=== PATIENT | female | born 1945 | race Caucasian/White ===

== ENCOUNTER 2016-08-18 14:59 | Inpatient (IN) | payer MEDICARE, BC ==
[2016-08-18] MEDS ORDERED: IPRATROPIUM-ALBUTEROL 3 ML NEB INHALATION STA ×2 (15:34→15:45)
[2016-08-18] MEDS ORDERED: TERBUTALINE 1 MG/ML VIAL SQ STA (15:34)
[2016-08-18] MEDS ORDERED: methylPREDNISolone SOD SUCCI 125 MG/2 ML VIAL IV STA (15:34)
--- NOTE | 2016-08-18 16:00 | ED ---
General Adult HPI - General Chief complaint: Shortness of Breath Stated complaint: SOB Time Seen by Provider: 08/18/16 15:32 Source: patient, family, RN notes reviewed, old records reviewed Mode of arrival: wheelchair - History of Present Illness Initial comments: Chief complaint and history of present illness a 71-year-old female here with family. The patient has COPD. She's been giving himself up dressed the past several days without relief today. Denies fever denies pain. No nausea no vomiting. No productive cough. Patient quit smoking 5 weeks ago. - Related Data Home Medications Medication Instructions Recorded Confirmed Omeprazole [PriLOSEC] 20 mg PO DAILY 04/25/14 02/29/16 Vitamin E (Dl,Tocopheryl Acet) 400 unit PO DAILY 12/20/14 02/29/16 [Vitamin E] ALPRAZolam 0.25 mg PO Q8H PRN 01/16/15 02/29/16 Albuterol Inhaler [Ventolin Hfa 2 puff INHALATION RT-Q6H PRN 01/17/15 02/28/16 Inhaler] Albuterol Nebulized [Ventolin 2.5 mg INHALATION RT-Q6H PRN 07/05/15 02/28/16 Nebulized] Budesonide/Formoterol Fumarate 2 puff INHALATION RT-BID 10/12/15 02/29/16 [Symbicort 160-4.5 Mcg Inhaler] Cholecalciferol [Vitamin D3] 1,000 unit PO DAILY 10/12/15 02/29/16 Vitamin B-12 Unknown Dose 1 tab PO DAILY 10/12/15 02/29/16 Famotidine 40 mg PO DAILY 02/28/16 02/29/16 Mometasone/Formoterol [Dulera 200 2 puff INHALATION RT-BID 02/28/16 02/29/16 Mcg/5 Mcg Inhaler] Previous Rx's Medication Instructions Recorded Aspirin 81 mg PO BID #1 chewable 10/17/15 Atorvastatin [Lipitor] 80 mg PO DAILY #60 tab 10/17/15 Clopidogrel [Plavix] 75 mg PO DAILY #60 tab 10/17/15 Ipratropium-Albuterol Nebulize 3 ml INHALATION TID #90 neb 10/17/15 [Duoneb 0.5 mg-3 mg/3 ml Soln] Lisinopril-Hctz 20-12.5 mg 1 tab PO DAILY #60 tab 10/17/15 [Zestoretic 20-12.5] Metoprolol Succinate (ER) [Toprol 50 mg PO DAILY #60 tab.er.24h 10/17/15 XL] Nitroglycerin Sl Tabs [Nitrostat] 0.4 mg SUBLINGUAL Q5M PRN #25 tab 10/17/15 Spironolactone [Aldactone] 25 mg PO DAILY #60 tab 10/17/15 Levofloxacin [Levaquin] 500 mg PO DAILY #5 tab 03/01/16 Nicotine 21Mg/24Hr Patch [Habitrol] 1 patch TRANSDERM DAILY #14 patch 03/01/16 predniSONE 10 mg PO DIRECTED #24 tab 03/01/16 Allergies Allergy/AdvReac Type Severity Reaction Status Date / Time No Known Allergies Allergy Verified 08/18/16 15:30 Review of Systems ROS Statement: Those systems with pertinent positive or pertinent negative responses have been documented in the HPI. Review of systems patient denies any headache or visual acuity changes no neck pain no chest pain she does appear to be an complains of being short of breath. No chest pain with breathing. No GI/ problems no complaints of a neuro deficits no leg swelling. All systems reviewed Past medical problems COPD, hyperlipidemia and hypertension. 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 Had a history of antral gastritis with small hiatal hernia, no weight loss lately. Surgeries include C- section. Quit smoking 5 weeks ago. Family history father living to his 86 mother of a heart attack at age 46. ROS Other: All systems not noted in ROS Statement are negative. Past Medical History Past Medical History: COPD, Hyperlipidemia, Hypertension Additional Past Medical History / Comment(s): Other HX: Arthiritis bilateral knees, antral gastritis with small hiatal hernia History of Any Multi-Drug Resistant Organisms: None Reported Past Surgical History: Section Additional Past Surgical History / Comment(s): 04/27/14 EGD with negative bx and colonoscopy, arthroscopic surgery on one of her knees (pt unsure which knee), 3 C-Sections. Past Anesthesia/Blood Transfusion Reactions: No Reported Reaction Past Psychological History: No Psychological Hx Reported Additional Psychological History / Comment(s): Pt lives with her and grandson. She is independent. She uses no assistive device and has no home care agency. She drives a car. Smoking Status: Former smoker Past Alcohol Use History: None Reported Additional Past Alcohol Use History / Comment(s): STARTED SMOKING AGE 23. She smoked 1 1/2 packs a day. Pt states she resumed smoking and quit 4 weeks ago. Past Drug Use History: None Reported - Past Family History Father Family Medical History: Coronary Artery Disease (CAD) Additional Family Medical History / Comment(s): Father at age 86yrs. Mother Family Medical History: Coronary Artery Disease (CAD) Additional Family Medical History / Comment(s): Mother at age 46yrs. She had a heart murmur. General Exam - General Exam Comments Initial Comments: General: The patient is awake and alert, having difficulty breathing. Updrafts at home weren't effective. Vital signs show temperature 97.2 pulse 104 respiratory rate 32 blood pressure 117/99 elevated because she is in extreme respiratory distress. Pulse ox 97% room air. Patient is also very anxious Eye: Pupils are equal, round and reactive to light, extra-ocular movements are intact ; there is normal conjunctiva bilaterally. No signs of icterus. Ears, nose, mouth and throat: There are moist mucous membranes and no oral lesions. Neck: The neck is supple, there is no tenderness . Cardiovascular: Tachycardic heart rate 104. No murmur, rub or gallop is appreciated. Respiratory: Wheezing bilaterally decreased air entry bilaterally. Gastrointestinal: Soft, non-distended, non-tender abdomen without masses or organomegaly noted. There is no rebound or guarding present. No CVA tenderness. Bowel sounds are unremarkable. Back: There is no tenderness to palpation in the midline. There is no obvious deformity. No rashes noted. Musculoskeletal: Normal ROM, no tenderness, There is no pedal edema. There is no calf tenderness or swelling. Sensation intact. Pulses equal bilaterally 2+. Neurological: No neuro deficits Skin: Skin is warm and dry and no rashes or lesions are noted. Psychiatric: Cooperative, appropriate mood & affect, normal judgment. Course Vital Signs 08/18/16 08/18/16 08/18/16 15:28 15:35 15:41 Temperature 97.2 F L Pulse Rate 107 H 111 H 104 H Respiratory 26 H 32 H Rate Blood Pressure 119/59 157/99 O2 Sat by Pulse 95 97 Oximetry 01/09/0308/18/16 08/18/16 15:51 15:52 16:02 Temperature Pulse Rate 104 H 106 H 106 H Respiratory Rate Blood Pressure O2 Sat by Pulse Oximetry 08/18/16 08/18/16 08/18/16 16:03 16:18 17:15 Temperature 97.7 F Pulse Rate 106 H 106 H 109 H Respiratory 24 Rate Blood Pressure 150/77 O2 Sat by Pulse 86 L Oximetry EKG Findings - EKG Comments: EKG Findings:: EKG was done and reviewed at 1608 showing sinus tachycardia rate [address] elevation no ectopy. No evidence of ischemia. MO was 132 QRS [address] Holly Medical Decision Making - Medical Decision Making Medical decision making the patient's labs show white count of 8 hemoglobin 11 hematocrit 33, potassium 3.8 with a BUN 11 creatinine 0.9 and GFR greater than 60. Glucose 129. Chest x-ray was done and reviewed by radiologist his impression is there is some pulmonary hyperinflation and flattening of the diaphragm. Lungs are clear consolidation. Heart size is normal. There are no hilar masses. There is no pleural effusion. There is slight coarsening of the interstitial markings. Bony thorax is intact. Impression; COPD of mild pulmonary fibrosis. No acute lung disease. No change. As read by Dr. Dorsey The patient sees Dr. Reshma murphy when she has severe respiratory problems. She' ll be admitted to Dr. Sipmson with consultation from pulmonary. - Lab Data Result diagrams: 08/18/16 16:10 08/18/16 16:10 Lab Results 08/18/16 08/18/16 Range/Units 16:10 16:10 WBC 8.3 (3.8-10.6) k/uL RBC 3.45 L (3.80-5.40) m/uL Hgb 11.5 (11.4-16.0) gm/dL Hct 33.9 L (34.0-46.0) % MCV 98.1 (80.0-100.0) fL MCH 33.3 (25.0-35.0) pg MCHC 33.9 (31.0-37.0) g/dL RDW 13.6 (11.5-15.5) % Plt Count 381 (150-450) k/uL Neutrophils % 66 % Lymphocytes % 14 % Monocytes % 8 % Eosinophils % 9 % Basophils % 1 % Neutrophils # 5.5 (1.3-7.7) k/uL Lymphocytes # 1.1 (1.0-4.8) k/uL Monocytes # 0.6 (0-1.0) k/uL Eosinophils # 0.7 (0-0.7) k/uL Basophils # 0.1 (0-0.2) k/uL Sodium 144 (137-145) mmol/L Potassium 3.8 (3.5-5.1) mmol/L Chloride 105 (98-107) mmol/L Carbon Dioxide 28 (22-30) mmol/L Anion Gap 11 mmol/L BUN 11 (7-17) mg/dL Creatinine 0.90 (0.52-1.04) mg/dL Est GFR (MDRD) Af Amer >60 (>60 ml/min/1.73 sqM) Est GFR (MDRD) Non-Af >60 (>60 ml/min/1.73 sqM) Glucose 129 H (74-99) mg/dL Calcium 9.5 (8.4-10.2) mg/dL Magnesium 1.7 (1.6-2.3) mg/dL Total Bilirubin 0.4 (0.2-1.3) mg/dL AST 31 (14-36) U/L ALT 31 (9-52) U/L Alkaline Phosphatase 78 (38-126) U/L Total Protein 6.6 (6.3-8.2) g/dL Albumin 3.7 (3.5-5.0) g/dL Disposition Clinical Impression: Asthma exacerbation in COPD Disposition: ADMITTED IP TO THIS HOSP Condition: Stable
[2016-08-18] MEDS: SODIUM CHLORIDE 0.9% 1,000 ML IV STA ×2 (16:09→21:22)
[2016-08-18 16:23] LABS: Basophils # (A) 0.1 k/uL (0-0.2); Basophils % (A) 1 %; CHCM 33.8; Eosinophils # (A) 0.7 k/uL (0-0.7); Eosinophils % (A) 9 %; HCT 33.9 % (34.0-46.0); HDW 2.67; HGB 11.5 gm/dL (11.4-16.0); Luc # (Auto) 0.28; Luc % (Auto) 3; Lymphocytes # (A) 1.1 k/uL (1.0-4.8); Lymphocytes % (A) 14 %; MCH 33.3 pg (25.0-35.0); MCHC 33.9 g/dL (31.0-37.0); MCV 98.1 fL (80.0-100.0); Mean Platelet Volume 6.6; Monocytes # (A) 0.6 k/uL (0-1.0); Monocytes % (A) 8 %; Neutrophils # (A) 5.5 k/uL (1.3-7.7); Neutrophils % (A) 66 %; RBC 3.45 m/uL (3.80-5.40); RDW 13.6 % (11.5-15.5); WBC 8.3 k/uL (3.8-10.6); WBC (Perox) 8.51
[2016-08-18 16:35] LABS: ALT 31 U/L (9-52); AST 31 U/L (14-36); Alkaline Phosphatase 78 U/L (38-126); Anion Gap 11 mmol/L; Blood Urea Nitrogen 11 mg/dL (7-17); Calcium 9.5 mg/dL (8.4-10.2); Carbon Dioxide 28 mmol/L (22-30); Chloride 105 mmol/L (98-107); Glucose 129 mg/dL (74-99); Magnesium 1.7 mg/dL (1.6-2.3); Non-African American GFR(MDRD) >60 (>60 ml/min/1.73 sqM); Potassium 3.8 mmol/L (3.5-5.1); Sodium 144 mmol/L (137-145); Total Bilirubin 0.4 mg/dL (0.2-1.3); Total Protein 6.6 g/dL (6.3-8.2)
--- NOTE | 2016-08-18 16:51 | XR ---
EXAMINATION TYPE: XR chest 2V DATE OF EXAM: 08/18/2016 4:45 PM COMPARISON: 02/28/2016 HISTORY: Dyspnea TECHNIQUE: Frontal and lateral views of the chest are obtained. FINDINGS: There is pulmonary hyperinflation and flattening of the diaphragm. Lungs are clear of cons olidation. Heart size is normal. There are no hilar masses. There is no pleural effusion. There is sl ight coarsening of interstitial markings. Bony thorax is intact. IMPRESSION: COPD and mild pulmonary fibrosis. No acute lung disease. No change.
[2016-08-18] MEDS ORDERED: ACETAMINOPHEN TAB 325 MG TAB PO PRN (18:01)
[2016-08-18] MEDS ORDERED: NALOXONE 0.4 MG/ML 1 ML VIAL IV PRN (18:01)
[2016-08-18] MEDS ORDERED: ALBUTEROL NEBULIZED 2.5 MG/3 ML INHALATION PRN (18:03)
[2016-08-18] MEDS ORDERED: methylPREDNISolone SOD SUCCI 40 MG/ML 1 ML VIAL IV PRN (18:05)
[2016-08-18 18:56] VITALS: BMI 18.8
[2016-08-18] MEDS: SYMBICORT 160-4.5 MCG INHALER INHALATION SCH (20:12)
[2016-08-18] MEDS: FAMOTIDINE 20 MG TAB PO SCH (21:20)
[2016-08-18] MEDS: ALPRAZolam 0.25 MG TAB PO PRN (21:20)
[2016-08-18] MEDS: ASPIRIN 81 MG CHEW PO SCH (21:21)
[2016-08-18] MEDS: SODIUM CHLORIDE 0.9% 1,000 ML IV SCH (21:22)
[2016-08-19] MEDS: IPRATROPIUM-ALBUTEROL 3 ML NEB INHALATION PRN ×4 (00:02→23:14)
[2016-08-19] MEDS ORDERED: LEVOFLOXACIN 500MG-D5W PMX 500 MG in DEXTROSE/WATER 1 100ML.BAG IVPB SCH ×2 (00:45→03:11)
[2016-08-19] MEDS: HEPARIN SODIUM,PORCINE 5,000 UNIT/ML 1 ML VIAL SQ SCH ×3 (02:15→20:47)
[2016-08-19] MEDS: methylPREDNISolone SOD SUCCI 125 MG/2 ML VIAL IV SCH ×3 (05:30→17:52)
[2016-08-19 07:45] LABS: Glucose,Whole Blood 101 mg/dL (75-99)
[2016-08-19] MEDS: SYMBICORT 160-4.5 MCG INHALER INHALATION SCH ×2 (07:47→19:55)
[2016-08-19] MEDS: IPRATROPIUM-ALBUTEROL 3 ML NEB INHALATION SCH ×4 (07:47→19:55)
[2016-08-19] MEDS: ATORVASTATIN 80 MG TAB PO SCH (08:06)
[2016-08-19] MEDS: FAMOTIDINE 20 MG TAB PO SCH (08:06)
[2016-08-19] MEDS: SPIRONOLACTONE 25 MG TAB PO SCH (08:06)
[2016-08-19] MEDS: NICOTINE 21MG/24HR PATCH TRANSDERM SCH (08:06)
[2016-08-19] MEDS: LISINOPRIL-HCTZ 20-12.5 MG 1 EACH TAB PO SCH (08:06)
[2016-08-19] MEDS: INSULIN LISPRO (humaLOG) 300 UNIT/3 ML VIAL SQ SCH ×4 (08:06→21:38)
[2016-08-19] MEDS: CLOPIDOGREL 75 MG TAB PO SCH (08:06)
[2016-08-19] MEDS: ASPIRIN 81 MG CHEW PO SCH ×2 (08:06→20:47)
[2016-08-19] MEDS: METOPROLOL SUCCINATE (ER) 50 MG TAB.ER.24H PO SCH (08:06)
[2016-08-19] MEDS: CHOLECALCIFEROL 1,000 UNIT TAB PO SCH (12:07)
[2016-08-19 12:43] LABS: Glucose,Whole Blood 131 mg/dL (75-99)
[2016-08-19 12:48] LABS: Hemoglobin A1C 5.2 % (4.2-6.1)
--- NOTE | 2016-08-19 15:56 | HP ---
DATE OF ADMISSION: 08/18/2016 CHIEF COMPLAINT: Shortness of breath. HISTORY OF PRESENT ILLNESS: This 71-year-old woman with a past medical history of multiple medical problems including COPD, hypertension, hyperlipidemia, section being followed by Dr. Cueva in the outpatient setting was complaining of shortness of breath, which was increasing over the past several days. The patient apparently quit smoking about 5 weeks ago. There is no history of fever, rigors. No history of headache, loss of consciousness, seizures. The patient admitted for further evaluation and treatment. The chest x-ray done on admission showed chronic obstructive pulmonary disease and pulmonary fibrosis. No other acute changes are noted. PAST MEDICAL HISTORY: History of COPD, hypertension, hyperlipidemia. Medications prior to admission include: 1. Prednisone 10 mg p.r.n. 2. Vitamin E. 3. Aldactone. 4. Vitamin B12. 5. Omeprazole. 6. Nitroglycerin. 7. Nicotine 21. 8. Lisinopril. 9. Metoprolol. 10. Levaquin. 11. Combivent. 12. DuoNeb. 13. Levaquin. 14. Pepcid 40 mg daily. 15. Plavix 75 mg daily. 16. Vitamin D3 1000 daily. 17. Symbicort 160/4.5, 2 puffs b.i.d. 18. Lipitor 80 mg daily. 19. Aspirin 81 mg. 20. Albuterol. 21. Apresoline 0.5 q.8 p.r.n. ALLERGIES: None. FAMILY HISTORY: History of coronary artery disease in father. The father at 86 years. SOCIAL HISTORY: Previous history of smoking. No history of alcohol intake. REVIEW OF SYSTEMS: ENT: No diminished hearing or vision. CARDIOVASCULAR: No angina. RESPIRATORY: As mentioned earlier. GI: No nausea. : No dysuria. NERVOUS SYSTEM: No numbness or weakness. ALLERGY/IMMUNOLOGY: No asthma or hayfever. MUSCULOSKELETAL: As mentioned earlier. HEMATOLOGY: No history of anemia. ENDOCRINE: No history diabetes or hypothyroidism. CONSTITUTIONAL: As mentioned earlier. DERMATOLOGY: Negative. RHEUMATOLOGY: Negative. PSYCHIATRY: As mentioned earlier. PHYSICAL EXAMINATION: Patient is alert and oriented x3. Pulse is 84, blood pressure 150/84, respirations 17, temperature 96, pulse ox 100% on 2-L. HEENT: Conjunctivae normal. NECK: No jugular venous distention. CARDIOVASCULAR: S1 and S2, muffled. RESPIRATORY: Breath sounds diminished at the bases. A few scattered rhonchi and bilateral scattered rhonchi and crackles. Expiratory wheezing also present. ABDOMEN: Soft, nontender. No mass palpable. LEGS: No edema, no swelling. NERVOUS SYSTEM: Higher function as mentioned. Moves all four limbs. No focal motor deficits. LYMPHATIC: No lymphadenopathy in the neck, axillae or groin. SKIN: No ulcer, rash or bleeding. LABS: Hemoglobin 11.5. Glucose ( ), BMI 18.8. ASSESSMENT: 1. Chronic obstructive pulmonary disease acute exacerbation, with acute purulent tracheobronchitis and possible pulmonary fibrosis. 2. History of nicotine dependence. 3. Moderate severe protein calorie malnutrition with a BMI of 18.8. 4. History of hyperlipidemia. 5. Hypertension. 6. History of degenerative joint disease. 7. History of antral gastritis. 8. History of nicotine dependence. 9. FULL CODE. RECOMMENDATIONS AND DISCUSSION: In this 71-year-old woman who presented with multiple complex medical issues, we will monitor the patient closely. Continue the current medications. Continue symptomatic treatment. Continue with the IV steroids. Otherwise, I would also recommend pulmonary consultation. Optimize the bronchodilators, empiric antibiotics. Guarded prognosis because of multiple complex medical issues. Further recommendations to follow. Copy of dictation forwarded to Dr. Cueva who is the primary physician.
--- NOTE | 2016-08-19 16:19 | P.CNPUL ---
History of Present Illness Consult date: 08/19/16 Requesting physician: Girish Burns Reason for consult: COPD Chief complaint: Shortness of breath History of present illness: This is a 71-year-old female with history of COPD, I saw her in my office last about a year ago. Patient is not O2 dependent, and she is not prednisone dependent. However she is known to be prednisone responsive. Patient was admitted yesterday with mostly a few days' history of increased shortness of breath, wheezing, and cough. Patient was a heavy smoker until 5 weeks ago. No fever no chills no hemoptysis no chest pain. No nausea no vomiting no abdominal pain. No melena no hematemesis is no dysuria and no frequency no urgency. Patient was admitted with the impression of acute exacerbation of COPD , and I was asked to see her on consultation. Review of Systems 12 point review of systems were obtained, please refer to pertinent positives and negatives in HPI. Past Medical History Past Medical History: COPD, Hyperlipidemia, Hypertension Additional Past Medical History / Comment(s): Other HX: Arthiritis bilateral knees, antral gastritis with small hiatal hernia. History of Any Multi-Drug Resistant Organisms: None Reported Past Surgical History: Section Additional Past Surgical History / Comment(s): 04/27/14 EGD with negative bx and colonoscopy, 3 C-Sections. Past Anesthesia/Blood Transfusion Reactions: No Reported Reaction Past Psychological History: No Psychological Hx Reported Additional Psychological History / Comment(s): Pt lives with her and grandson. She is independent. She uses no assistive device and has no home care agency. She drives a car. Smoking Status: Former smoker Past Alcohol Use History: None Reported Additional Past Alcohol Use History / Comment(s): STARTED SMOKING AGE 23. She smoked 1 1/2 packs a day. Pt states she resumed smoking and quit 5 weeks ago. Past Drug Use History: None Reported - Past Family History Father Family Medical History: Coronary Artery Disease (CAD) Additional Family Medical History / Comment(s): Father at age 86yrs. Mother Family Medical History: Coronary Artery Disease (CAD) Additional Family Medical History / Comment(s): Mother at age 46yrs. She had a heart murmur. Medications and Allergies Home Medications Medication Instructions Recorded Confirmed Type Omeprazole [PriLOSEC] 20 mg PO DAILY 04/25/14 08/19/16 History Vitamin E (Dl,Tocopheryl Acet) 400 unit PO DAILY 12/20/14 08/19/16 History [Vitamin E] ALPRAZolam 0.25 mg PO Q8H PRN 01/16/15 08/19/16 History Albuterol Inhaler [Ventolin Hfa 2 puff INHALATION RT-Q6H PRN 01/17/15 08/19/16 History Inhaler] Albuterol Nebulized [Ventolin 2.5 mg INHALATION RT-TID 07/05/15 08/19/16 History Nebulized] Famotidine 40 mg PO DAILY 02/28/16 08/19/16 History Mometasone/Formoterol [Dulera 200 2 puff INHALATION RT-BID 02/28/16 08/19/16 History Mcg/5 Mcg Inhaler] Denosumab [Prolia] 60 mg SQ ONCE 08/19/16 08/19/16 History Donepezil [Aricept] 5 mg PO HS 08/19/16 08/19/16 History Isosorbide Mononitrate ER [Imdur] 30 mg PO DAILY 08/19/16 08/19/16 History buPROPion SR [Wellbutrin Sr] 150 mg PO BID 08/19/16 08/19/16 History Allergies Allergy/AdvReac Type Severity Reaction Status Date / Time No Known Allergies Allergy Verified 08/18/16 15:30 Physical Exam Vitals: Vital Signs Temp Pulse Pulse Resp BP BP Pulse Ox 08/19/16 15:00 97.6 F 95 22 130/74 100 08/19/16 13:17 92 08/19/16 13:06 96 08/19/16 10:55 96 08/19/16 10:41 100 08/19/16 08:30 104 H 08/19/16 08:15 96 08/19/16 07:00 96.3 F L 89 22 129/68 100 08/19/16 05:26 100 08/19/16 05:17 104 H 08/19/16 00:14 100 08/19/16 00:03 100 08/18/16 23:00 96.3 F L 94 17 150/84 100 08/18/16 20:25 110 H 08/18/16 20:13 108 H 08/18/16 18:31 97.6 F 101 H 20 162/69 98 Intake and Output 08/19/16 08/19/16 08/19/16 06:59 14:59 22:59 Intake Total 625 360 Balance 625 360 Intake: IV 525 Sodium Chloride 0.9% 1, 525 000 ml @ 75 mls/hr IV . [id number] STA Rx#:[id number] Intake, IV Titration 100 Amount Levofloxacin 500Mg-D5w 100 Pmx 500 mg In Dextrose/ Water 1 100ml.bag @ 100 mls/hr IVPB HS MURALI Rx#: [id number] Oral 360 Other: # Voids 1 1 Weight 48.081 kg Patient Weight 08/20/16 06:59 Weight 48.081 kg Physical Exam: Revealed a 71-year-old female anxious, slightly dyspneic with any activity. HEENT:[Neck is supple.] [No neck masses.] [No thyromegaly.] [No JVD.] Chest: [Diminished breath sounds at the bases, wheezes noted on forced expiratory maneuver bilaterally.] Cardiac Exam: [Normal S1 and S2, no S3 gallop, no murmur.] Abdomen: [Soft, nontender, no megaly, no rebound, no guarding, normal bowel sounds.] Extremities: [No clubbing, no edema, no cyanosis.] Neurological Exam: [No focal neurologic deficit.] Results - Laboratory Findings CBC and BMP: 08/18/16 16:10 08/18/16 16:10 Abnormal lab findings: Abnormal Labs 08/19/16 08/19/16 07:41 12:39 POC Glucose (mg/dL) 101 H 131 H - Diagnostic Findings Chest x-ray: image reviewed (COPD, slight nonspecific fibrotic changes noted bilaterally.) Assessment and Plan Plan: Impression: 1 acute exacerbation of COPD and purulent tracheobronchitis. 2 nonspecific pulmonary fibrosis, chronic. 3 multiple comorbidities including degenerative joint disease, hypertension, hyperlipidemia, protein calorie malnutrition, and history of nicotine dependence. Recommendation: Continue present course of bronchodilators, antibiotics, steroids, expect the patient to improve over the next couple of days, Xanax was added because the patient is noted to be a bit anxious and that may lead to worsening COPD symptoms. We'll continue to follow. Discussed her condition with her and with her granddaughter at the bedside. Time with Patient: Greater than 30
[2016-08-19 17:24] LABS: Glucose,Whole Blood 132 mg/dL (75-99)
[2016-08-19] MEDS: SODIUM CHLORIDE 0.9% 1,000 ML IV SCH (17:53)
--- NOTE | 2016-08-19 19:41 | P.PN ---
Subjective Date of service 08/19/2016 Progress note being dictated for Dr. Burns Interval history: This a 71-year-old female admitted with acute exacerbation of COPD with pearly and tracheobronchitis, nonspecific pulmonary fibrosis and multiple other medical issues. Last night IV steroids increased, with breathing slowly improving. Mildly anxious. Complains of exertional shortness of breath. Denies chest pain, palpitations. States wears oxygen at home, when necessary. Blood sugars controlled.afebrile. Objective - Vital Signs Vital signs: Vital Signs Temp 97.6 F 08/19/16 15:00 Pulse 88 08/19/16 16:28 Resp 22 08/19/16 15:00 BP 130/74 08/19/16 15:00 Pulse Ox 100 08/19/16 15:00 Intake & Output 08/19/16 08/19/16 08/20/16 06:59 18:59 06:59 Intake Total 1025 360 Balance 1025 360 Weight 48.081 kg Intake: IV 525 Sodium Chloride 0.9% 1, 525 000 ml @ 75 mls/hr IV . [id number] STA Rx#:[id number] Intake, IV Titration 500 Amount Levofloxacin 500Mg-D5w 100 Pmx 500 mg In Dextrose/ Water 1 100ml.bag @ 100 mls/hr IVPB HS MURALI Rx#: [id number] Sodium Chloride 0.9% 1, 400 000 ml @ 20 mls/hr IV . Q24H MURALI Rx#:[id number] Oral 360 Other: # Voids 1 1 - Exam PHYSICAL EXAM: VITAL SIGNS: As above GENERAL: [Sitting up in bed, no acute distress, mild anxiety] HEENT: [Pupils equal conjunctiva normal.] NECK: [Supple, no JVD] RESPIRATORY EFFORT:[Normal at rest] LUNGS: [Bilateral bases diminished, with expiratory wheezing, scattered rhonchi ] CARDIOVASCULAR[regular S1 and S2, no edema] GI: [Abdomen soft, nontender, positive bowel sounds.] PSYCH: [Alert and oriented -3, mood and affect normal.] NEURO: No focal deficits, moves all 4 extremities - Labs CBC & Chem 7: 08/18/16 16:10 08/18/16 16:10 Labs: Abnormal Lab Results - Last 24 Hours (Table) 08/19/16 08/19/16 08/19/16 Range/Units 07:41 12:39 17:20 POC Glucose (mg/dL) 101 H 131 H 132 H (75-99) mg/dL Assessment and Plan Plan: 1. Acute COPD exacerbation with acute purulent tracheobronchitis, possible nonspecific chronic pulmonary fibrosis. 2. History of nicotine dependence. 3. Moderate severe protein calorie malnutrition, BMI 18.8. 4. Hyperlipidemia. 5. Hypertension. 6. Degenerative joint disease. 7. Antral gastritis, history of. 8. Acute on chronic hypoxic respiratory failure. Plan: Continue on current medication regime, empiric antibiotics, nebulized bronchodilators, IV steroids, Xanax, monitoring and symptomatic treatment. Follow closely with pulmonary. Discussed home O2 use with patient including ongoing continuous O2 during sleep. Further recommendations to follow. The impression and plan of care has been dictated as directed. : I performed a H&P examination of this patient and discussed the same with the dictator. I agree with the dictator's note. Any additional findings/opinions/ etc. will be noted.
[2016-08-19 21:36] LABS: Glucose,Whole Blood 147 mg/dL (75-99)
[2016-08-20] MEDS: methylPREDNISolone SOD SUCCI 125 MG/2 ML VIAL IV SCH ×5 (00:54→23:59)
[2016-08-20] MEDS: IPRATROPIUM-ALBUTEROL 3 ML NEB INHALATION PRN (03:39)
[2016-08-20 07:22] LABS: Glucose,Whole Blood 120 mg/dL (75-99)
[2016-08-20] MEDS: CLOPIDOGREL 75 MG TAB PO SCH (08:05)
[2016-08-20] MEDS: HEPARIN SODIUM,PORCINE 5,000 UNIT/ML 1 ML VIAL SQ SCH ×2 (08:05→21:12)
[2016-08-20] MEDS: ASPIRIN 81 MG CHEW PO SCH ×2 (08:05→21:12)
[2016-08-20] MEDS: METOPROLOL SUCCINATE (ER) 50 MG TAB.ER.24H PO SCH (08:05)
[2016-08-20] MEDS: LISINOPRIL-HCTZ 20-12.5 MG 1 EACH TAB PO SCH (08:05)
[2016-08-20] MEDS: SPIRONOLACTONE 25 MG TAB PO SCH (08:05)
[2016-08-20] MEDS: ATORVASTATIN 80 MG TAB PO SCH (08:05)
[2016-08-20] MEDS: FAMOTIDINE 20 MG TAB PO SCH (08:05)
[2016-08-20] MEDS: NICOTINE 21MG/24HR PATCH TRANSDERM SCH (08:05)
[2016-08-20] MEDS: INSULIN LISPRO (humaLOG) 300 UNIT/3 ML VIAL SQ SCH ×4 (08:06→22:03)
[2016-08-20] MEDS: IPRATROPIUM-ALBUTEROL 3 ML NEB INHALATION SCH ×4 (08:12→20:09)
[2016-08-20] MEDS: SYMBICORT 160-4.5 MCG INHALER INHALATION SCH ×2 (08:12→20:09)
--- NOTE | 2016-08-20 10:00 | PN ---
DATE OF SERVICE: 08/19/2016 This is a 71-year-old woman who was admitted with COPD acute exacerbation, is being closely monitored. Patient is on IV steroids. Seen and evaluated the patient with the nurse practitioner. Please refer to the nurse practitioner's notes and impression document as ascribed for information. Prognosis guarded. Further recommendations to follow.
[2016-08-20] MEDS: CHOLECALCIFEROL 1,000 UNIT TAB PO SCH (11:59)
[2016-08-20 12:37] LABS: Glucose,Whole Blood 102 mg/dL (75-99)
[2016-08-20] MEDS: ALPRAZolam 0.25 MG TAB PO PRN (15:40)
[2016-08-20 17:46] LABS: Glucose,Whole Blood 129 mg/dL (75-99)
[2016-08-20] MEDS: SODIUM CHLORIDE 0.9% 1,000 ML IV SCH (18:27)
[2016-08-20] MEDS ORDERED: LEVOFLOXACIN 250MG-D5W PMX 250 MG in DEXTROSE/WATER 1 50ML.BAG IVPB SCH (21:00)
--- NOTE | 2016-08-20 21:42 | PN ---
DATE OF SERVICE: 08/20/2006. This 71 -year-old woman was admitted to the hospital with chronic obstructive pulmonary disease acute exacerbation is being closely monitored. The patient is on IV steroids. Seen and evaluated the patient along with nurse practitioner. Please refer to the nurse practitioner notes and impression documented as a scribe for further information. Discharge home once cleared by pulmonary and okay with the family.
[2016-08-20 22:03] LABS: Glucose,Whole Blood 146 mg/dL (75-99)
[2016-08-21] MEDS: methylPREDNISolone SOD SUCCI 125 MG/2 ML VIAL IV SCH (06:03)
[2016-08-21 06:36] VITALS: BP 136/84; RESP 16; TEMP 97.1
[2016-08-21 07:30] LABS: Glucose,Whole Blood 94 mg/dL (75-99)
[2016-08-21] MEDS: FAMOTIDINE 20 MG TAB PO SCH (08:22)
[2016-08-21] MEDS: HEPARIN SODIUM,PORCINE 5,000 UNIT/ML 1 ML VIAL SQ SCH (08:22)
[2016-08-21] MEDS: LISINOPRIL-HCTZ 20-12.5 MG 1 EACH TAB PO SCH (08:22)
[2016-08-21] MEDS: ASPIRIN 81 MG CHEW PO SCH (08:22)
[2016-08-21] MEDS: SPIRONOLACTONE 25 MG TAB PO SCH (08:22)
[2016-08-21] MEDS: METOPROLOL SUCCINATE (ER) 50 MG TAB.ER.24H PO SCH (08:22)
[2016-08-21] MEDS: ATORVASTATIN 80 MG TAB PO SCH (08:22)
[2016-08-21] MEDS: CLOPIDOGREL 75 MG TAB PO SCH (08:22)
[2016-08-21] MEDS: NICOTINE 21MG/24HR PATCH TRANSDERM SCH (08:22)
[2016-08-21] MEDS: INSULIN LISPRO (humaLOG) 300 UNIT/3 ML VIAL SQ SCH ×2 (08:23→13:01)
[2016-08-21] MEDS: ALPRAZolam 0.25 MG TAB PO PRN (08:24)
[2016-08-21] MEDS: SYMBICORT 160-4.5 MCG INHALER INHALATION SCH (08:35)
[2016-08-21] MEDS: IPRATROPIUM-ALBUTEROL 3 ML NEB INHALATION SCH ×2 (08:35→13:59)
[2016-08-21] MEDS ORDERED: predniSONE 20 MG TAB PO SCH (09:00)
[2016-08-21 11:50] LABS: Glucose,Whole Blood 129 mg/dL (75-99)
[2016-08-21] MEDS: CHOLECALCIFEROL 1,000 UNIT TAB PO SCH (13:16)
[2016-08-21 14:11] VITALS: PULSE 92
[2016-08-22] MEDS ORDERED: LEVOFLOXACIN 250 MG TAB PO SCH (21:00)
--- NOTE | 2016-08-22 21:29 | DS ---
DATE OF ADMISSION: 08/18/2016 DATE OF DISCHARGE: 08/21/2016 FINAL DIAGNOSES: 1. Chronic obstructive pulmonary disease, acute exacerbation, with acute purulent tracheobronchitis with non-specific chronic pulmonary fibrosis. 2. History of nicotine dependence. 3. Moderate to severe protein-calorie malnutrition; body mass index of 18.8. 4. Hyperlipidemia. 5. Hypertension. 6. History of degenerative joint disease. 7. History of antral gastritis. DISCHARGE DISPOSITION: The patient will be discharged in stable condition with guarded prognosis. Dr. Mathews cleared the patient for discharge. HISTORY OF PRESENT ILLNESS: This is a 71-year-old woman admitted with COPD, acute exacerbation, treated with bronchodilators and antibiotics and steroids. The patient improved significantly. On exam, vitals are stable. CARDIOVASCULAR SYSTEM: S1, S2 muffled. RESPIRATORY SYSTEM: Breath sounds diminished at the bases. A few scattered rhonchi. ABDOMEN: Soft. NERVOUS SYSTEM: No focal deficit. DISCHARGE ADVICE AND MEDICATIONS: 1. Discharge diet is cardiac. 2. Activity limited until followup. 3. Xanax 0.25 q.8 p.r.n. 4. Albuterol 2 puffs q.6 p.r.n. 5. Albuterol nebulizer q.i.d. and p.r.n. 6. Ecotrin 81 mg p.o. daily. 7. Lipitor 80 mg p.o. daily. 8. Prolia 60 mg subcutaneously once. 9. Aricept 5 mg at bedtime. 10. Atrovent q.i.d. and p.r.n. 11. Imdur ER 30 mg p.o. daily. 12. Levaquin 250 mg p.o. daily for 5 days. 13. Lisinopril/hydrochlorothiazide (Zestoretic) 20/12.5 mg p.o. daily. 14. Toprol XL 50 mg p.o. daily. 15. Dulera 200 mcg/5 two puffs b.i.d. 16. Nitroglycerin 0.4 p.r.n. 17. Prilosec 20 mg daily. 18. Aldactone 25 mg p.o. b.i.d. 19. Vitamin E 400 units daily. 20. Wellbutrin SR 150 mg p.o. b.i.d. 21. Prednisone 40 mg daily for 3 days; 30 mg daily for 3 days; 20 mg daily for 3 days; 10 mg daily for 3 days. 22. Follow up with Dr. Rohan Cueva in 2 to 3 days. 23. Follow up with Dr. Street as advised. Once again, the patient will be discharged in stable condition with guarded prognosis.
== END 2016-08-21 15:30 | disposition home or self-care (01) | DRG 190 ==
LOC: EC 14:59 → 4MS4W 18:03
PROVIDERS: ADMIT Internal Medicine; ATTEND Internal Medicine
DX: J44.0 Chronic obstructive pulmonary disease with (acute) lower respiratory infection (principal); E43 Unspecified severe protein-calorie malnutrition; Z68.1 Body mass index [BMI] 19.9 or less, adult; J44.1 Chronic obstructive pulmonary disease with (acute) exacerbation; J84.10 Pulmonary fibrosis, unspecified; J20.9 Acute bronchitis, unspecified; R00.0 Tachycardia, unspecified; K29.60 Other gastritis without bleeding; K44.9 Diaphragmatic hernia without obstruction or gangrene; E78.5 Hyperlipidemia, unspecified; I10 Essential (primary) hypertension; M17.0 Bilateral primary osteoarthritis of knee; Z79.82 Long term (current) use of aspirin; Z79.51 Long term (current) use of inhaled steroids; Z79.02 Long term (current) use of antithrombotics/antiplatelets; Z82.49 Family history of ischemic heart disease and other diseases of the circulatory system; Z87.891 Personal history of nicotine dependence; Z79.899 Other long term (current) drug therapy; Z79.83 Long term (current) use of bisphosphonates
CPT/HCPCS: 36415; 71020; 80053; 83036; 83735; 85025; 93005; 94640; 94760; 96361; 96372; 96374; 99285

== ENCOUNTER 2016-10-13 12:32 | Emergency (ER) | payer MEDICARE, BC ==
[2016-10-13] MEDS ORDERED: methylPREDNISolone SOD SUCCI 125 MG/2 ML VIAL IV STA (13:00)
[2016-10-13] MEDS ORDERED: IPRATROPIUM-ALBUTEROL 3 ML NEB INHALATION STA (13:00)
--- NOTE | 2016-10-13 13:12 | ED ---
General Adult HPI - General Chief complaint: Shortness of Breath Stated complaint: SOB Time Seen by Provider: 10/13/16 13:00 Source: patient Mode of arrival: EMS - History of Present Illness Initial comments: 71-year-old female history of COPD increasing shortness of breath his been using her updrafts more than every 4 hours. Feels more short of breath his panicky. Has a history of dementia mild COPD she's had no fever chills coughing up a small amount of phlegm. No nausea no vomiting no diarrhea. - Related Data Home Medications Medication Instructions Recorded Confirmed Omeprazole [PriLOSEC] 20 mg PO DAILY 04/25/14 10/13/16 Vitamin E (Dl,Tocopheryl Acet) 400 unit PO DAILY 12/20/14 10/13/16 [Vitamin E] Albuterol Inhaler [Ventolin Hfa 2 puff INHALATION RT-Q4H PRN 01/17/15 10/13/16 Inhaler] Donepezil [Aricept] 5 mg PO HS 08/19/16 10/13/16 Isosorbide Mononitrate ER [Imdur] 30 mg PO DAILY 08/19/16 10/13/16 buPROPion SR [Wellbutrin SR] 150 mg PO BID 08/19/16 10/13/16 ALPRAZolam [Xanax] 0.25 mg PO BID PRN 10/13/16 10/13/16 Albuterol Nebulized [Ventolin 2.5 mg INHALATION RT-TID PRN 10/13/16 10/13/16 Nebulized] Aspirin 81 mg PO DAILY 10/13/16 10/13/16 Budesonide/Formoterol Fumarate 2 puff INHALATION RT-BID 10/13/16 10/13/16 [Symbicort 160-4.5 Mcg Inhaler] Ipratropium Nebulized [Atrovent 0.5 mg INHALATION RT-QID PRN 10/13/16 10/13/16 Nebulized] Sertraline HCl [Zoloft] 50 mg PO DAILY 10/13/16 10/13/16 Previous Rx's Medication Instructions Recorded Atorvastatin [Lipitor] 80 mg PO DAILY #60 tab 10/17/15 Lisinopril-Hctz 20-12.5 mg 1 tab PO DAILY #60 tab 10/17/15 [Zestoretic 20-12.5] Metoprolol Succinate (ER) [Toprol 50 mg PO DAILY #60 tab.er.24h 10/17/15 XL] Nitroglycerin Sl Tabs [Nitrostat] 0.4 mg SUBLINGUAL Q5M PRN #25 tab 10/17/15 Spironolactone [Aldactone] 25 mg PO DAILY #60 tab 10/17/15 ALPRAZolam [Xanax] 0.25 mg PO TID PRN #60 tab 10/13/16 Sulfamethox-Tmp 800-160Mg [Bactrim 1 each PO Q12HR #20 tab 10/13/16 DS 800-160 mg] methylPREDNISolone Dose Pack 4 mg PO DIRECTED #21 package 10/13/16 [Medrol Dose Pack] Allergies Allergy/AdvReac Type Severity Reaction Status Date / Time No Known Allergies Allergy Verified 10/13/16 14:14 Review of Systems ROS Statement: Those systems with pertinent positive or pertinent negative responses have been documented in the HPI. ROS Other: All systems not noted in ROS Statement are negative. Constitutional: Denies: fever, chills ENT: Denies: ear pain, throat pain Respiratory: Reports: cough, dyspnea, wheezes Cardiovascular: Denies: chest pain Gastrointestinal: Denies: abdominal pain Genitourinary: Denies: urgency, dysuria, frequency Skin: Denies: rash Neurological: Denies: headache Psychiatric: Denies: anxiety, depression Hematological/Lymphatic: Denies: easy bleeding, easy bruising Past Medical History Past Medical History: COPD, Hyperlipidemia, Hypertension Additional Past Medical History / Comment(s): Other HX: Arthiritis bilateral knees, antral gastritis with small hiatal hernia. History of Any Multi-Drug Resistant Organisms: None Reported Past Surgical History: Section Additional Past Surgical History / Comment(s): 04/27/14 EGD with negative bx and colonoscopy, 3 C-Sections. Past Anesthesia/Blood Transfusion Reactions: No Reported Reaction Past Psychological History: No Psychological Hx Reported Additional Psychological History / Comment(s): Pt lives with her and grandson. She is independent. She uses no assistive device and has no home care agency. She drives a car. Smoking Status: Former smoker Past Alcohol Use History: None Reported Additional Past Alcohol Use History / Comment(s): STARTED SMOKING AGE 23. She smoked 1 1/2 packs a day. Pt states she resumed smoking and quit 5 weeks ago. Past Drug Use History: None Reported - Past Family History Father Family Medical History: Coronary Artery Disease (CAD) Additional Family Medical History / Comment(s): Father at age 86yrs. Mother Family Medical History: Coronary Artery Disease (CAD) Additional Family Medical History / Comment(s): Mother at age 46yrs. She had a heart murmur. General Exam General appearance: alert Head exam: Present: atraumatic Eye exam: Present: PERRL, EOMI ENT exam: Present: normal oropharynx, mucous membranes moist Neck exam: Present: normal inspection Respiratory exam: Present: decreased breath sounds Cardiovascular Exam: Present: regular rate, normal heart sounds GI/Abdominal exam: Present: soft. Absent: distended, tenderness Neurological exam: Present: alert, CN II-XII intact Psychiatric exam: Present: normal affect, normal mood Skin exam: Present: warm Course Vital Signs 10/13/16 10/13/16 10/13/16 12:42 12:48 14:06 Temperature 97.3 F L Pulse Rate 93 85 Respiratory 24 24 20 Rate Blood Pressure 133/59 121/60 O2 Sat by Pulse 99 97 Oximetry 10/13/16 10/13/16 10/13/16 14:11 14:20 14:47 Temperature 97.6 F Pulse Rate 84 82 90 Respiratory 30 H Rate Blood Pressure 129/59 O2 Sat by Pulse 99 Oximetry 10/13/16 16:01 Temperature Pulse Rate 89 Respiratory 22 Rate Blood Pressure 136/60 O2 Sat by Pulse 97 Oximetry Medical Decision Making - Medical Decision Making X-ray shows COPD but no infiltrate, white count is satisfactory we'll treat as exacerbation COPD also has some component of anxiety will follow-up with her in the office next week will use Xanax 0.253 times a day steroid pack Bactrim DS one dose of Rocephin urine is shows a borderline UTI. - Lab Data Result diagrams: 10/13/16 14:00 10/13/16 14:00 Lab Results 10/13/16 10/13/16 10/13/16 Range/Units 14:00 14:00 14:00 WBC 8.3 (3.8-10.6) k/uL RBC 3.46 L (3.80-5.40) m/uL Hgb 11.3 L (11.4-16.0) gm/dL Hct 34.3 (34.0-46.0) % MCV 98.9 (80.0-100.0) fL MCH 32.7 (25.0-35.0) pg MCHC 33.0 (31.0-37.0) g/dL RDW 13.2 (11.5-15.5) % Plt Count 364 (150-450) k/uL Neutrophils % 63 % Lymphocytes % 20 % Monocytes % 7 % Eosinophils % 6 % Basophils % 1 % Neutrophils # 5.2 (1.3-7.7) k/uL Lymphocytes # 1.7 (1.0-4.8) k/uL Monocytes # 0.6 (0-1.0) k/uL Eosinophils # 0.5 (0-0.7) k/uL Basophils # 0.1 (0-0.2) k/uL PT (9.0-12.0) sec INR (<1.1) APTT (22.0-30.0) sec Sodium 137 (137-145) mmol/L Potassium 3.9 (3.5-5.1) mmol/L Chloride 103 (98-107) mmol/L Carbon Dioxide 26 (22-30) mmol/L Anion Gap 8 mmol/L BUN 10 (7-17) mg/dL Creatinine 1.10 H (0.52-1.04) mg/dL Est GFR (MDRD) Af Amer 59 (>60 ml/min/1.73 sqM) Est GFR (MDRD) Non-Af 49 (>60 ml/min/1.73 sqM) Glucose 100 H (74-99) mg/dL Plasma Lactic Acid [place] (0.7-2.0) mmol/L Calcium 9.2 (8.4-10.2) mg/dL Total Bilirubin 0.6 (0.2-1.3) mg/dL AST 30 (14-36) U/L ALT 39 (9-52) U/L Alkaline Phosphatase 68 (38-126) U/L Total Creatine Kinase 65 (30-135) U/L CK-MB (CK-2) 1.7 (0.0-2.4) ng/mL CK-MB (CK-2) Rel Index 2.6 Troponin I <0.012 (0.000-0.034) ng/mL NT-Pro-B Natriuret Pep pg/mL Total Protein 6.3 (6.3-8.2) g/dL Albumin 3.7 (3.5-5.0) g/dL Urine Color Urine Appearance (Clear) Urine pH (5.0-8.0) Ur Specific [place] (1.001-1.035) Urine Protein (Negative) Urine Glucose (UA) (Negative) Urine Ketones (Negative) Urine Blood (Negative) Urine Nitrate (Negative) Urine Bilirubin (Negative) Urine Urobilinogen (<2.0) mg/dL Ur Leukocyte Esterase (Negative) Urine RBC (0-5) /hpf Urine WBC (0-5) /hpf Ur Squamous Epith Cells (0-4) /hpf Urine Bacteria (None) /hpf Hyaline Casts (0-2) /lpf Urine Mucus (None) /hpf 10/13/16 10/13/16 10/13/16 Range/Units 14:00 14:00 14:00 WBC (3.8-10.6) k/uL RBC (3.80-5.40) m/uL Hgb (11.4-16.0) gm/dL Hct (34.0-46.0) % MCV (80.0-100.0) fL MCH (25.0-35.0) pg MCHC (31.0-37.0) g/dL RDW (11.5-15.5) % Plt Count (150-450) k/uL Neutrophils % % Lymphocytes % % Monocytes % % Eosinophils % % Basophils % % Neutrophils # (1.3-7.7) k/uL Lymphocytes # (1.0-4.8) k/uL Monocytes # (0-1.0) k/uL Eosinophils # (0-0.7) k/uL Basophils # (0-0.2) k/uL PT 10.5 (9.0-12.0) sec INR 1.0 (<1.1) APTT 24.8 (22.0-30.0) sec Sodium (137-145) mmol/L Potassium (3.5-5.1) mmol/L Chloride (98-107) mmol/L Carbon Dioxide (22-30) mmol/L Anion Gap mmol/L BUN (7-17) mg/dL Creatinine (0.52-1.04) mg/dL Est GFR (MDRD) Af Amer (>60 ml/min/1.73 sqM) Est GFR (MDRD) Non-Af (>60 ml/min/1.73 sqM) Glucose (74-99) mg/dL Plasma Lactic Acid [place] 1.0 (0.7-2.0) mmol/L Calcium (8.4-10.2) mg/dL Total Bilirubin (0.2-1.3) mg/dL AST (14-36) U/L ALT (9-52) U/L Alkaline Phosphatase (38-126) U/L Total Creatine Kinase (30-135) U/L CK-MB (CK-2) (0.0-2.4) ng/mL CK-MB (CK-2) Rel Index Troponin I (0.000-0.034) ng/mL NT-Pro-B Natriuret Pep 299 pg/mL Total Protein (6.3-8.2) g/dL Albumin (3.5-5.0) g/dL Urine Color Urine Appearance (Clear) Urine pH (5.0-8.0) Ur Specific [place] (1.001-1.035) Urine Protein (Negative) Urine Glucose (UA) (Negative) Urine Ketones (Negative) Urine Blood (Negative) Urine Nitrate (Negative) Urine Bilirubin (Negative) Urine Urobilinogen (<2.0) mg/dL Ur Leukocyte Esterase (Negative) Urine RBC (0-5) /hpf Urine WBC (0-5) /hpf Ur Squamous Epith Cells (0-4) /hpf Urine Bacteria (None) /hpf Hyaline Casts (0-2) /lpf Urine Mucus (None) /hpf 10/13/16 Range/Units 14:45 WBC (3.8-10.6) k/uL RBC (3.80-5.40) m/uL Hgb (11.4-16.0) gm/dL Hct (34.0-46.0) % MCV (80.0-100.0) fL MCH (25.0-35.0) pg MCHC (31.0-37.0) g/dL RDW (11.5-15.5) % Plt Count (150-450) k/uL Neutrophils % % Lymphocytes % % Monocytes % % Eosinophils % % Basophils % % Neutrophils # (1.3-7.7) k/uL Lymphocytes # (1.0-4.8) k/uL Monocytes # (0-1.0) k/uL Eosinophils # (0-0.7) k/uL Basophils # (0-0.2) k/uL PT (9.0-12.0) sec INR (<1.1) APTT (22.0-30.0) sec Sodium (137-145) mmol/L Potassium (3.5-5.1) mmol/L Chloride (98-107) mmol/L Carbon Dioxide (22-30) mmol/L Anion Gap mmol/L BUN (7-17) mg/dL Creatinine (0.52-1.04) mg/dL Est GFR (MDRD) Af Amer (>60 ml/min/1.73 sqM) Est GFR (MDRD) Non-Af (>60 ml/min/1.73 sqM) Glucose (74-99) mg/dL Plasma Lactic Acid [place] (0.7-2.0) mmol/L Calcium (8.4-10.2) mg/dL Total Bilirubin (0.2-1.3) mg/dL AST (14-36) U/L ALT (9-52) U/L Alkaline Phosphatase (38-126) U/L Total Creatine Kinase (30-135) U/L CK-MB (CK-2) (0.0-2.4) ng/mL CK-MB (CK-2) Rel Index Troponin I (0.000-0.034) ng/mL NT-Pro-B Natriuret Pep pg/mL Total Protein (6.3-8.2) g/dL Albumin (3.5-5.0) g/dL Urine Color Yellow Urine Appearance Cloudy H (Clear) Urine pH 6.5 (5.0-8.0) Ur Specific [place] 1.008 (1.001-1.035) Urine Protein Negative (Negative) Urine Glucose (UA) Negative (Negative) Urine Ketones Negative (Negative) Urine Blood Negative (Negative) Urine Nitrate Negative (Negative) Urine Bilirubin Negative (Negative) Urine Urobilinogen <2.0 (<2.0) mg/dL Ur Leukocyte Esterase Small H (Negative) Urine RBC 1 (0-5) /hpf Urine WBC 7 H (0-5) /hpf Ur Squamous Epith Cells 9 H (0-4) /hpf Urine Bacteria Rare H (None) /hpf Hyaline Casts 3 H (0-2) /lpf Urine Mucus Rare H (None) /hpf Disposition Clinical Impression: COPD exacerbation, Bronchitis, Anxiety Disposition: HOME SELF-CARE Condition: Good Instructions: Acute Bronchitis (ED) Prescriptions: ALPRAZolam [Xanax] 0.25 mg PO TID PRN #60 tab PRN Reason: Anxiety Sulfamethox-Tmp 800-160Mg [Bactrim DS 800-160 mg] 1 each PO Q12HR #20 tab methylPREDNISolone Dose Pack [Medrol Dose Pack] 4 mg PO DIRECTED #21 package Referrals: Rohan Cueva MD [Primary Care Provider] - 1-2 days Time of Disposition: 16:11
[2016-10-13 14:23] LABS: Basophils # (A) 0.1 k/uL (0-0.2); Basophils % (A) 1 %; CH 32.8; CHCM 33.3; Eosinophils # (A) 0.5 k/uL (0-0.7); Eosinophils % (A) 6 %; HCT 34.3 % (34.0-46.0); HDW 2.23; HGB 11.3 gm/dL (11.4-16.0); Luc # (Auto) 0.26; Luc % (Auto) 3; Lymphocytes # (A) 1.7 k/uL (1.0-4.8); Lymphocytes % (A) 20 %; MCH 32.7 pg (25.0-35.0); MCV 98.9 fL (80.0-100.0); Mean Platelet Volume 6.4; Monocytes # (A) 0.6 k/uL (0-1.0); Monocytes % (A) 7 %; Neutrophils # (A) 5.2 k/uL (1.3-7.7); Neutrophils % (A) 63 %; RBC 3.46 m/uL (3.80-5.40); RDW 13.2 % (11.5-15.5); WBC 8.3 k/uL (3.8-10.6); WBC (Perox) 9.14
[2016-10-13 14:26] LABS: Calcium 9.2 mg/dL (8.4-10.2); Total Bilirubin 0.6 mg/dL (0.2-1.3); Total Protein 6.3 g/dL (6.3-8.2)
[2016-10-13 14:28] LABS: Potassium 3.9 mmol/L (3.5-5.1)
[2016-10-13 14:29] LABS: Creatine Kinase 65 U/L (30-135)
[2016-10-13 14:42] LABS: Creatine Kinase MB 1.7 ng/mL (0.0-2.4); Troponin I <0.012 ng/mL (0.000-0.034)
[2016-10-13 14:46] LABS: Partial Thromboplastin Time 24.8 sec (22.0-30.0); Prothrombin Time 10.5 sec (9.0-12.0)
[2016-10-13] MEDS ORDERED: LORazepam 1 MG TAB PO STA (14:48)
[2016-10-13 15:03] LABS: Appearance,Urine Cloudy (Clear); Bacteria,Urine Rare /hpf; Bilirubin,Urine Negative (Negative); Glucose,Urine (UA) Negative (Negative); Ketones,Urine Negative (Negative); Leukocyte Esterase,Urine Small (Negative); Mucus,Urine Rare /hpf; Nitrite,Urine Negative (Negative); PH, Urine 6.5 (5.0-8.0); Particle Count 3523; Protein,Urine Negative (Negative); RBC,Urine 1 /hpf (0-5); Specific Gravity,Urine 1.008 (1.001-1.035); Squamous Epithelial Cell,Urine 9 /hpf (0-4); UA Billing (MACRO vs. MICRO) MICRO; Urobilinogen,Urine <2.0 mg/dL (<2.0); WBC,Urine 7 /hpf (0-5)
--- NOTE | 2016-10-13 15:12 | XR ---
Exam: FILM CXR 10/13/16 at 1427 hrs. Chest PA and lateral views INDICATION: Difficulty breathing COMPARISON: None FINDINGS: The cardiomediastinal silhouette is within normal limits. Lungs are clear. Hyperinflation of the lungs. There is atherosclerotic calcification aortic knob. No pleural effusions. Bony elements are within normal limits for age. No acute osseous abnormality. IMPRESSION: No acute cardiopulmonary disease. Lungs are clear of infiltrate. Hyperinflation the lungs suggesting obstructive pulmonary disease. Heart size normal. No evidence for congestive heart failure.
[2016-10-13 19:21] VITALS: BP 136/60; PULSE 89; RESP 22; TEMP 97.6
== END 2016-10-13 16:39 | disposition home or self-care (01) ==
LOC: EC 12:32
DX: J44.1 Chronic obstructive pulmonary disease with (acute) exacerbation (principal); F03.90 Unspecified dementia, unspecified severity, without behavioral disturbance, psychotic disturbance, mood disturbance, and anxiety; F41.9 Anxiety disorder, unspecified; I10 Essential (primary) hypertension; E78.5 Hyperlipidemia, unspecified; Z79.899 Other long term (current) drug therapy; Z79.82 Long term (current) use of aspirin; Z79.51 Long term (current) use of inhaled steroids; Z87.19 Personal history of other diseases of the digestive system; K44.9 Diaphragmatic hernia without obstruction or gangrene; Z87.891 Personal history of nicotine dependence; Z79.4 Long term (current) use of insulin
CPT/HCPCS: 36415; 94640; 83880; 80053; 82550; 82553; 83605; 84484; 85025; 85610; 85730; 81001; 71020; 99285; 96365; 96375; J2930; J0696; 96361

== ENCOUNTER 2016-10-14 09:26 | Inpatient (IN) | payer MEDICARE, BC ==
[2016-10-14] MEDS ORDERED: SODIUM CHLORIDE 0.9% 1,000 ML IV STA ×3 (09:39→11:17)
[2016-10-14] MEDS ORDERED: RX INFO: IV CONTRAST WAS GIVEN 1 EACH MISC MISCELLANE PRN (09:40)
[2016-10-14] MEDS ORDERED: LORazepam 2 MG/ML SYRINGE IV STA (09:40)
[2016-10-14] MEDS ORDERED: IPRATROPIUM 0.5 MG/2.5 ML NEBU INHALATION STA ×2 (09:40→11:47)
[2016-10-14] MEDS ORDERED: ALBUTEROL NEBULIZED 2.5 MG/3 ML INHALATION STA ×2 (09:40→11:47)
--- NOTE | 2016-10-14 09:53 | ED ---
General Adult HPI - General Chief complaint: Shortness of Breath Stated complaint: SOB Time Seen by Provider: 10/14/16 09:29 Source: patient, EMS, RN notes reviewed, old records reviewed Mode of arrival: EMS Limitations: physical limitation - History of Present Illness Initial comments: This is a 71-year-old female to the ER for evaluation of shortness of breath. Severe shortness of breath and weakness. Patient has significant medical history including severe COPD he was in emergency room Department yesterday and evaluated with blood work and x-ray which she states is for shingles were negative. Patient denies chest pain but had pain prior to arrival. She states EMS to give her medications which made her feel better. At this time patient still complaining of sinus rhythm chest pain denies fever but has increased cough and congestion, no abdominal pain. No nausea vomiting diarrhea. No known sick contacts. - Related Data Home Medications Medication Instructions Recorded Confirmed Omeprazole [PriLOSEC] 20 mg PO DAILY 04/25/14 10/14/16 Vitamin E (Dl,Tocopheryl Acet) 400 unit PO DAILY 12/20/14 10/14/16 [Vitamin E] Albuterol Inhaler [Ventolin Hfa 2 puff INHALATION RT-Q4H PRN 01/17/15 10/14/16 Inhaler] Donepezil [Aricept] 5 mg PO HS 08/19/16 10/14/16 Isosorbide Mononitrate ER [Imdur] 30 mg PO DAILY 08/19/16 10/14/16 buPROPion SR [Wellbutrin SR] 150 mg PO BID 08/19/16 10/14/16 ALPRAZolam [Xanax] 0.25 mg PO BID PRN 10/13/16 10/14/16 Albuterol Nebulized [Ventolin 2.5 mg INHALATION RT-TID PRN 10/13/16 10/14/16 Nebulized] Aspirin 81 mg PO DAILY 10/13/16 10/14/16 Budesonide/Formoterol Fumarate 2 puff INHALATION RT-BID 10/13/16 10/14/16 [Symbicort 160-4.5 Mcg Inhaler] Ipratropium Nebulized [Atrovent 0.5 mg INHALATION RT-QID PRN 10/13/16 10/14/16 Nebulized] Sertraline HCl [Zoloft] 50 mg PO DAILY 10/13/16 10/14/16 Previous Rx's Medication Instructions Recorded Atorvastatin [Lipitor] 80 mg PO DAILY #60 tab 10/17/15 Lisinopril-Hctz 20-12.5 mg 1 tab PO DAILY #60 tab 10/17/15 [Zestoretic 20-12.5] Metoprolol Succinate (ER) [Toprol 50 mg PO DAILY #60 tab.er.24h 10/17/15 XL] Nitroglycerin Sl Tabs [Nitrostat] 0.4 mg SUBLINGUAL Q5M PRN #25 tab 10/17/15 Spironolactone [Aldactone] 25 mg PO DAILY #60 tab 10/17/15 ALPRAZolam [Xanax] 0.25 mg PO TID PRN #60 tab 10/13/16 Sulfamethox-Tmp 800-160Mg [Bactrim 1 each PO Q12HR #20 tab 10/13/16 DS 800-160 mg] methylPREDNISolone Dose Pack 4 mg PO DIRECTED #21 package 10/13/16 [Medrol Dose Pack] Allergies Allergy/AdvReac Type Severity Reaction Status Date / Time No Known Allergies Allergy Verified 10/14/16 10:26 Review of Systems ROS Statement: Those systems with pertinent positive or pertinent negative responses have been documented in the HPI. ROS Other: All systems not noted in ROS Statement are negative. Past Medical History Past Medical History: COPD, Hyperlipidemia, Hypertension Additional Past Medical History / Comment(s): Other HX: Arthiritis bilateral knees, antral gastritis with small hiatal hernia. History of Any Multi-Drug Resistant Organisms: None Reported Past Surgical History: Section Additional Past Surgical History / Comment(s): 04/27/14 EGD with negative bx and colonoscopy, 3 C-Sections. Past Anesthesia/Blood Transfusion Reactions: No Reported Reaction Past Psychological History: No Psychological Hx Reported Additional Psychological History / Comment(s): Pt lives with her and grandson. She is independent. She uses no assistive device and has no home care agency. She drives a car. Smoking Status: Former smoker Past Alcohol Use History: None Reported Additional Past Alcohol Use History / Comment(s): STARTED SMOKING AGE 23. She smoked 1 1/2 packs a day. Pt states she resumed smoking and quit 5 weeks ago. Past Drug Use History: None Reported - Past Family History Father Family Medical History: Coronary Artery Disease (CAD) Additional Family Medical History / Comment(s): Father at age 86yrs. Mother Family Medical History: Coronary Artery Disease (CAD) Additional Family Medical History / Comment(s): Mother at age 46yrs. She had a heart murmur. General Exam Limitations: physical limitation Course Vital Signs 10/14/16 10/14/16 10/14/16 09:27 09:38 09:46 Temperature 98.6 F Pulse Rate 102 H 102 H Respiratory 24 24 Rate Blood Pressure 135/61 O2 Sat by Pulse 99 Oximetry 10/14/16 10/14/16 10/14/16 10:05 10:32 11:29 Temperature Pulse Rate 100 99 102 H Respiratory 24 Rate Blood Pressure 132/63 O2 Sat by Pulse 99 Oximetry 10/14/16 12:11 Temperature Pulse Rate 98 Respiratory Rate Blood Pressure O2 Sat by Pulse Oximetry - Reevaluation(s) Reevaluation #1: 10/14/16 11:19 Mild improvement after second breathing treatment which was prolonged Reevaluation #2: 10/14/16 11:19 Lab work from prior visit are reviewed, white count doubled W EKG Findings - EKG Comments: EKG Findings:: EKG shows sinus tachycardia rate 102, [place] 142, QRS 118, QTC 484 Medical Decision Making - Medical Decision Making 71 1999 ER for evaluation of severe COPD, patient does have other white count given 1 dose of antibiotics, at this time patient is doing well after 2 prolonged breathing treatments, patient will be admitted for recurrent breathing treatments. - Lab Data Result diagrams: 10/14/16 10:32 10/14/16 10:32 Lab Results 10/14/16 10/14/16 10/14/16 Range/Units 10:32 10:32 10:32 WBC 17.7 H (3.8-10.6) k/uL RBC 3.45 L (3.80-5.40) m/uL Hgb 11.3 L (11.4-16.0) gm/dL Hct 34.7 (34.0-46.0) % MCV 100.4 H (80.0-100.0) fL MCH 32.7 (25.0-35.0) pg MCHC 32.6 (31.0-37.0) g/dL RDW 13.2 (11.5-15.5) % Plt Count 369 (150-450) k/uL Neutrophils % 92 % Lymphocytes % 4 % Monocytes % 3 % Eosinophils % 0 % Basophils % 0 % Neutrophils # 16.3 H (1.3-7.7) k/uL Lymphocytes # 0.7 L (1.0-4.8) k/uL Monocytes # 0.6 (0-1.0) k/uL Eosinophils # 0.0 (0-0.7) k/uL Basophils # 0.0 (0-0.2) k/uL PT (9.0-12.0) sec INR (<1.1) APTT (22.0-30.0) sec D-Dimer (<0.60) mg/L FEU Sodium 137 (137-145) mmol/L Potassium 4.6 (3.5-5.1) mmol/L Chloride 102 (98-107) mmol/L Carbon Dioxide 22 (22-30) mmol/L Anion Gap 13 mmol/L BUN 16 (7-17) mg/dL Creatinine 1.10 H (0.52-1.04) mg/dL Est GFR (MDRD) Af Amer 59 (>60 ml/min/1.73 sqM) Est GFR (MDRD) Non-Af 49 (>60 ml/min/1.73 sqM) Glucose 133 H (74-99) mg/dL Plasma Lactic Acid [place] (0.7-2.0) mmol/L Calcium 9.1 (8.4-10.2) mg/dL Magnesium 1.7 (1.6-2.3) mg/dL Total Bilirubin 0.4 (0.2-1.3) mg/dL AST 30 (14-36) U/L ALT 34 (9-52) U/L Alkaline Phosphatase 64 (38-126) U/L Total Creatine Kinase 73 (30-135) U/L CK-MB (CK-2) 2.7 H* (0.0-2.4) ng/mL CK-MB (CK-2) Rel Index 3.7 Troponin I <0.012 (0.000-0.034) ng/mL NT-Pro-B Natriuret Pep pg/mL Total Protein 6.5 (6.3-8.2) g/dL Albumin 3.8 (3.5-5.0) g/dL 10/14/16 10/14/16 10/14/16 Range/Units 10:32 10:32 10:32 WBC (3.8-10.6) k/uL RBC (3.80-5.40) m/uL Hgb (11.4-16.0) gm/dL Hct (34.0-46.0) % MCV (80.0-100.0) fL MCH (25.0-35.0) pg MCHC (31.0-37.0) g/dL RDW (11.5-15.5) % Plt Count (150-450) k/uL Neutrophils % % Lymphocytes % % Monocytes % % Eosinophils % % Basophils % % Neutrophils # (1.3-7.7) k/uL Lymphocytes # (1.0-4.8) k/uL Monocytes # (0-1.0) k/uL Eosinophils # (0-0.7) k/uL Basophils # (0-0.2) k/uL PT 10.9 (9.0-12.0) sec INR 1.1 (<1.1) APTT 23.0 (22.0-30.0) sec D-Dimer 0.31 (<0.60) mg/L FEU Sodium (137-145) mmol/L Potassium (3.5-5.1) mmol/L Chloride (98-107) mmol/L Carbon Dioxide (22-30) mmol/L Anion Gap mmol/L BUN (7-17) mg/dL Creatinine (0.52-1.04) mg/dL Est GFR (MDRD) Af Amer (>60 ml/min/1.73 sqM) Est GFR (MDRD) Non-Af (>60 ml/min/1.73 sqM) Glucose (74-99) mg/dL Plasma Lactic Acid [place] 3.5 H* (0.7-2.0) mmol/L Calcium (8.4-10.2) mg/dL Magnesium (1.6-2.3) mg/dL Total Bilirubin (0.2-1.3) mg/dL AST (14-36) U/L ALT (9-52) U/L Alkaline Phosphatase (38-126) U/L Total Creatine Kinase (30-135) U/L CK-MB (CK-2) (0.0-2.4) ng/mL CK-MB (CK-2) Rel Index Troponin I (0.000-0.034) ng/mL NT-Pro-B Natriuret Pep 415 pg/mL Total Protein (6.3-8.2) g/dL Albumin (3.5-5.0) g/dL - Radiology Data Radiology results: report reviewed (CTA negative for PE), image reviewed Critical Care Time Critical Care Time: Yes Total Critical Care Time: 31 Disposition Clinical Impression: COPD (chronic obstructive pulmonary disease), Asthma exacerbation in COPD, Acute respiratory failure, Community acquired pneumonia Disposition: ADMITTED IP TO THIS HOSP Condition: Serious
[2016-10-14] MEDS ORDERED: SODIUM CHLORIDE 0.9% 500 ML IV STA (10:11)
[2016-10-14 10:58] LABS: Basophils % (A) 0 %; CH 32.7; CHCM 32.7; Eosinophils % (A) 0 %; HCT 34.7 % (34.0-46.0); HGB 11.3 gm/dL (11.4-16.0); Luc # (Auto) 0.11; Luc % (Auto) 1; Lymphocytes # (A) 0.7 k/uL (1.0-4.8); Lymphocytes % (A) 4 %; MCH 32.7 pg (25.0-35.0); MCHC 32.6 g/dL (31.0-37.0); MCV 100.4 fL (80.0-100.0); Mean Platelet Volume 6.4; Monocytes # (A) 0.6 k/uL (0-1.0); Monocytes % (A) 3 %; Neutrophils # (A) 16.3 k/uL (1.3-7.7); Neutrophils % (A) 92 %; RBC 3.45 m/uL (3.80-5.40); RDW 13.2 % (11.5-15.5); WBC 17.7 k/uL (3.8-10.6); WBC (Perox) 18.01
[2016-10-14] MEDS ORDERED: LEVOFLOXACIN 750MG-D5W PMX 750 MG in DEXTROSE/WATER 1 150ML.BAG IVPB STA (11:04)
[2016-10-14 11:16] LABS: Calcium 9.1 mg/dL (8.4-10.2); Magnesium 1.7 mg/dL (1.6-2.3); Potassium 4.6 mmol/L (3.5-5.1); Total Bilirubin 0.4 mg/dL (0.2-1.3); Total Protein 6.5 g/dL (6.3-8.2)
[2016-10-14 11:18] LABS: INR 1.1 (<1.1); Prothrombin Time 10.9 sec (9.0-12.0)
[2016-10-14] MEDS ORDERED: PNEUMONIA PROTOCOL UTILIZED 1 EACH MISC PO PRN (11:18)
[2016-10-14 11:25] LABS: Creatine Kinase 73 U/L (30-135)
[2016-10-14] MEDS: SODIUM CHLORIDE 0.9% 1,000 ML IV SCH ×2 (11:30→20:57)
[2016-10-14 11:38] LABS: Troponin I <0.012 ng/mL (0.000-0.034)
[2016-10-14 11:46] LABS: Creatine Kinase MB 2.7 ng/mL (0.0-2.4)
--- NOTE | 2016-10-14 12:12 | CT ---
CT CHEST FOR PULMONARY EMBOLISM. EXAMINATION TYPE: CT angio chest DATE OF EXAM: 10/14/2016 11:53 AM INDICATION: Patient complains of difficulty breathing. CT DLP: 161.8 mGycm, Automated exposure control for dose reduction was used. CONTRAST: Patient injected with 80 mL of Visipaque 320. COMPARISON: NONE TECHNIQUE: CT of the chest is performed on a spiral scan at 2 mm thick sections. Study is performed with intravenous contrast timed for evaluation for pulmonary embolism. This will limit additional po rtions of the evaluation. 3-D MIP images reconstructed by the technologist are reviewed on the compu ter in the coronal and sagittal planes. FINDINGS: No persistent filling defects are evident to suggest an acute pulmonary embolism. No mediastinal or hilar adenopathy enlarged by CT criteria is evident. The ascending aorta diameter at the level of the main pulmonary artery is 3.1 cm. The main pulmonary artery diameter at the bifur cation is 2.4 cm. There is a band of thickening along the posterior medial right apex. Emphysematous changes are presen t bilaterally. There is thickening at the left apex. Some calcification may be associated. There is a 0.7 cm nodule in the posterior medial right lung apex. Series 5 image 22. There is a area of pneumon itis within the superior segment right lower lobe measuring 0.6 cm. Series 5 image 80. There is a 0.5 cm peripheral right lung base nodule. Series [address] section through the upper abdomen are unremarkable. IMPRESSIONS: 1. No acute pulmonary embolism. 2. Scattered small pulmonary nodules. Follow-up chest CTs are recommended, follow-up exam can be perf ormed in 6 months.
[2016-10-14] MEDS: IPRATROPIUM-ALBUTEROL 3 ML NEB INHALATION SCH ×3 (12:14→18:53)
[2016-10-14] MEDS ORDERED: SODIUM CHLORIDE 0.9% 500 ML IV ONE (12:20)
[2016-10-14] MEDS: IPRATROPIUM-ALBUTEROL 3 ML NEB INHALATION PRN (22:43)
[2016-10-15] MEDS: IPRATROPIUM-ALBUTEROL 3 ML NEB INHALATION PRN ×2 (03:15→11:34)
[2016-10-15] MEDS: ENOXAPARIN 40 MG/0.4 ML SYRINGE SQ SCH (07:41)
[2016-10-15] MEDS: SODIUM CHLORIDE 0.9% 1,000 ML IV SCH (07:43)
[2016-10-15] MEDS: IPRATROPIUM-ALBUTEROL 3 ML NEB INHALATION SCH ×5 (07:56→23:55)
[2016-10-15 09:40] LABS: Appearance,Urine Clear (Clear); Bilirubin,Urine Negative (Negative); Glucose,Urine (UA) Negative (Negative); Ketones,Urine Negative (Negative); Leukocyte Esterase,Urine Negative (Negative); Nitrite,Urine Negative (Negative); PH, Urine 6.5 (5.0-8.0); Protein,Urine Negative (Negative); Specific Gravity,Urine 1.006 (1.001-1.035); UA Billing (MACRO vs. MICRO) CHEM; Urobilinogen,Urine <2.0 mg/dL (<2.0)
[2016-10-15] MEDS ORDERED: ALPRAZolam 0.25 MG TAB PO PRN (11:05)
[2016-10-15] MEDS ORDERED: NITROGLYCERIN SL TABS 0.4 MG TAB SUBLINGUAL PRN (11:05)
[2016-10-15] MEDS ORDERED: SYMBICORT 160-4.5 MCG INHALER INHALATION SCH (11:15)
[2016-10-15] MEDS: ATORVASTATIN 80 MG TAB PO SCH (11:35)
[2016-10-15] MEDS: METOPROLOL SUCCINATE (ER) 50 MG TAB.ER.24H PO SCH (11:35)
[2016-10-15] MEDS: LISINOPRIL-HCTZ 20-12.5 MG 1 EACH TAB PO SCH (11:35)
[2016-10-15] MEDS: BUDESONIDE 1 MG/2 ML NEBU INHALATION SCH ×2 (11:59→18:57)
--- NOTE | 2016-10-15 12:06 | HP ---
DATE OF ADMISSION: 10/14/2016 PRESENTING COMPLAINT: Short of breath. HISTORY OF PRESENT ILLNESS: This is a 71-year-old patient of Dr. Rohan Cueva, followed by a information systems project manager, Dr. Street. Patient has a rather extensive medical history. Patient's chronic stable medical conditions include coronary artery disease, CHF, EF 30% to 35%, hyperlipidemia, hypertension, osteoarthritis. Patient stopped smoking about 4 months ago. Patient is here with her for 5 days having progressive increasing short of breath, wheezing, very little cough, minimal sputum production, no fever. Appetite has gone down, tired, rundown, short of breath at rest. REVIEW OF SYSTEMS: CONSTITUTIONAL: Weak and tired. HEENT: Decreased hearing. RESPIRATORY: As above. CARDIOVASCULAR: None. GASTROINTESTINAL: None. GENITOURINARY: None. MUSCULOSKELETAL: Pain in the joints. DERMATOLOGICAL: None. HEMATOLOGICAL: None. LYMPHATIC: None. PSYCHIATRY: Forgetful. NEUROLOGICAL: None. Past medical history of coronary artery disease, COPD, CHF, EF 30% to 35%, hyperlipidemia, hypertension. PAST SURGICAL HISTORY: , cardiac catheterization, arthroscopy. SOCIAL HISTORY: Lives with her grandson. Smoked for over 50 years; stopped about for 4 or 5 months ago. No alcohol. Family history of coronary artery disease. HOME MEDICATIONS: 1. Medrol Dosepak. 2. Wellbutrin SR 150 mg b.i.d. 3. Vitamin E 400 units a day. 4. Bactrim DS 1 tablet q.12. 5. Aldactone 25 mg a day. 6. Zoloft 50 mg a day. 7. Prilosec 20 mg p.o. daily. 8. Nitrostat 0.4 sublingual q.5 p.r.n. 9. Toprol XL 50 mg p.o. daily. 10. Zestoretic 20/12.5 one tablet p.o. daily. 11. Imdur ER 30 mg daily. 12. Atrovent 0.5 q.i.d. p.r.n. 13. Aricept 5 mg p.o. q.h.s. 14. Symbicort 160/4.5 two puffs b.i.d. 15. Lipitor 80 mg daily. 16. Aspirin 81 mg p.o. daily. 17. Ventolin 2.5 t.i.d. p.r.n. 18. Ventolin HFA 2 puffs q.4 p.r.n. 19. Xanax 0.25 p.o. t.i.d. p.r.n. ALLERGIES: None. ON EXAMINATION: VITAL SIGNS ON PRESENTATION: Temperature 98.6, pulse 102, respirations 24, blood pressure 135/61, pulse ox 99% 4 L. GENERAL APPEARANCE: Thin built, sitting up, short of breath at rest, tired appearing. EYES: Pupils equal. Conjunctivae normal. HEENT: External appearance of nose and ears normal. Oral cavity normal. NECK: JVD not raised. Mass not palpable. RESPIRATORY: Effort increased. LUNGS: Decreased breath sounds, prolonged expiration, wheezing. CARDIOVASCULAR: First and second sounds normal. No edema. ABDOMEN: Soft, nontender. Liver and spleen not palpable. LYMPHATIC: No lymph nodes palpable in the neck or axillae. PSYCHIATRY: Alert and oriented x3. Mood and affect anxious appearing. NEUROLOGICAL: Pupils equal. Cranial nerves grossly intact. Power and sensation grossly intact. MUSCULOSKELETAL: Evidence of osteoarthritis in multiple joints. INVESTIGATIONS: White count 17.7, hemoglobin 11.3. Potassium 4.6, BUN 16, creatinine 1.10. ProBNP 415. Troponin I less than 0.012. Chest CTA, no PE, some infiltrate probably present. ASSESSMENT: 1. Acute severe chronic obstructive pulmonary disease exacerbation in an ex-smoker. 2. Alzheimer's dementia, late onset. 3. Coronary artery disease with completely occluded right coronary artery. 4. Ischemic cardiomyopathy 30% to 35%, underlying coronary artery disease. 5. Hyperlipidemia. 6. Essential hypertension. 7. Primary osteoarthritis of multiple joints, bilateral. PLAN: Patient started on nebulized bronchodilators. Home medications are resumed. Subcu heparin for DVT prophylaxis. Pulmonary will be consulted. Care was discussed with the patient and family at the bedside. Questions were answered.
[2016-10-15] MEDS: ASPIRIN 81 MG CHEW PO SCH (12:35)
[2016-10-15] MEDS: SERTRALINE 50 MG TAB PO SCH (12:35)
[2016-10-15] MEDS: SPIRONOLACTONE 25 MG TAB PO SCH (12:36)
[2016-10-15] MEDS: methylPREDNISolone SOD SUCCI 125 MG/2 ML VIAL IV SCH ×2 (12:36→17:46)
[2016-10-15] MEDS: PANTOPRAZOLE 40 MG TABLET PO SCH (12:36)
[2016-10-15] MEDS: buPROPion SR 150 MG TABLET.ER PO SCH ×2 (12:36→20:55)
[2016-10-15 15:20] VITALS: BMI 19.5
--- NOTE | 2016-10-15 15:35 | P.CNPUL ---
History of Present Illness Consult date: 10/15/16 Requesting physician: Jordan Rashid Reason for consult: dyspnea Chief complaint: Shortness of breath History of present illness: This is a very pleasant 71-year-old female patient who follows with Dr. Cueva as her primary care physician. She has a history of hyperlipidemia, hypertension, anxiety. She also follows with Dr. Mathews in our office for severe chronic obstructive pulmonary disease. She has a 40 year smoking history. She's been maintained on Symbicort and albuterol. She presented here yesterday with complaints of increasing shortness of breath, cough and congestion. She was in the emergency room the day prior as well as was treated with a Medrol Dosepak and Bactrim without much improvement. A CT angiogram revealed no evidence of pulmonary embolism. There is some small non-specific pulmonary nodules. She is seen in consultation today on the regular medical floor. She is awake and alert in no acute distress. She does have a loose nonproductive cough. No chills or night sweats. Her initial lactic acid level was 3.5. She had received 2 L of IV fluid resuscitation. White count 17.7. She has remained afebrile. Hemodynamically stable. She is maintaining O2 saturations in the high 90s on 2 L/m per nasal cannula. Review of Systems 14 point review of system was conducted. All negative other than as mentioned in HPI. Past Medical History Past Medical History: COPD, Hyperlipidemia, Hypertension Additional Past Medical History / Comment(s): Other HX: Arthiritis bilateral knees, antral gastritis with small hiatal hernia. Last Myocardial Infarction Date:: 10/11/15 History of Any Multi-Drug Resistant Organisms: None Reported Past Surgical History: Section Additional Past Surgical History / Comment(s): 04/27/14 EGD with negative bx and colonoscopy, 3 C-Sections. Past Anesthesia/Blood Transfusion Reactions: No Reported Reaction Past Psychological History: No Psychological Hx Reported Additional Psychological History / Comment(s): Pt lives with her and grandson. She is independent. She uses no assistive device and has no home care agency. She drives a car. Smoking Status: Former smoker Past Alcohol Use History: None Reported Additional Past Alcohol Use History / Comment(s): STARTED SMOKING AGE 23. She smoked 1 1/2 packs a day. Pt states she resumed smoking and quit 5 weeks ago. Past Drug Use History: None Reported - Past Family History Father Family Medical History: Coronary Artery Disease (CAD) Additional Family Medical History / Comment(s): Father at age 86yrs. Mother Family Medical History: Coronary Artery Disease (CAD) Additional Family Medical History / Comment(s): Mother at age 46yrs. She had a heart murmur. Medications and Allergies Home Medications Medication Instructions Recorded Confirmed Type Omeprazole [PriLOSEC] 20 mg PO DAILY 04/25/14 10/14/16 History Vitamin E (Dl,Tocopheryl Acet) 400 unit PO DAILY 12/20/14 10/14/16 History [Vitamin E] Albuterol Inhaler [Ventolin Hfa 2 puff INHALATION RT-Q4H PRN 01/17/15 10/14/16 History Inhaler] Donepezil [Aricept] 5 mg PO HS 08/19/16 10/14/16 History Isosorbide Mononitrate ER [Imdur] 30 mg PO DAILY 08/19/16 10/14/16 History buPROPion SR [Wellbutrin SR] 150 mg PO BID 08/19/16 10/14/16 History ALPRAZolam [Xanax] 0.25 mg PO BID PRN 10/13/16 10/14/16 History Albuterol Nebulized [Ventolin 2.5 mg INHALATION RT-TID PRN 10/13/16 10/14/16 History Nebulized] Aspirin 81 mg PO DAILY 10/13/16 10/14/16 History Budesonide/Formoterol Fumarate 2 puff INHALATION RT-BID 10/13/16 10/14/16 History [Symbicort 160-4.5 Mcg Inhaler] Ipratropium Nebulized [Atrovent 0.5 mg INHALATION RT-QID PRN 10/13/16 10/14/16 History Nebulized] Sertraline HCl [Zoloft] 50 mg PO DAILY 10/13/16 10/14/16 History Allergies Allergy/AdvReac Type Severity Reaction Status Date / Time No Known Allergies Allergy Verified 10/14/16 10:26 Physical Exam Vitals: Vital Signs Temp Pulse Pulse Resp BP BP Pulse Ox 10/15/16 13:52 84 10/15/16 13:46 80 10/15/16 11:42 86 10/15/16 11:34 84 10/15/16 08:07 92 10/15/16 08:00 93 16 10/15/16 07:57 88 10/15/16 07:00 98.2 F 93 16 127/58 97 10/15/16 03:23 96 10/15/16 03:15 96 10/14/16 22:50 99 10/14/16 22:45 97 10/14/16 21:59 97.9 F 98 16 109/55 98 10/14/16 19:01 100 10/14/16 18:53 100 10/14/16 16:44 97.6 F 100 16 124/59 96 10/14/16 16:40 104 H 10/14/16 16:32 100 10/14/16 15:59 97.1 F L 97 20 115/62 97 Intake and Output 10/15/16 10/15/16 10/15/16 06:59 14:59 22:59 Intake Total 800 200 Balance 800 200 Intake: Intake, IV Titration 800 Amount Sodium Chloride 0.9% 1, 800 000 ml @ 100 mls/hr IV . Q10H [facility] Rx#:[id number] Oral 200 Other: Voiding Method Toilet Toilet # Voids 2 Weight 49.895 kg 49.895 kg Patient Weight 10/16/16 06:59 Weight 49.895 kg GENERAL EXAM: Alert, comfortable in no apparent distress. HEAD: Normocephalic. EYES: Normal reaction of pupils, equal size. NOSE: Clear with pink turbinates. THROAT: No erythema or exudates. NECK: No masses, no JVD. CHEST: No chest wall deformity. LUNGS: Equal air entry with faint end expiratory wheeze. Diminished. CVS: S1 and S2 normal with no audible murmurs, regular rhythm. ABDOMEN: No hepatosplenomegaly, normal bowel sounds, no guarding or rigidity. Extremities: There is no significant peripheral edema. No clubbing, no cyanosis. Peripheral pulses are intact. Results - Laboratory Findings CBC and BMP: 10/14/16 10:32 10/14/16 10:32 PT/INR, D-dimer PT 10.9 sec (9.0-12.0) 10/14/16 10:32 INR 1.1 (<1.1) 02/27/17 10:32 D-Dimer 0.31 mg/L FEU (<0.60) 10/14/16 10:32 Abnormal lab findings: Abnormal Labs 10/14/16 10/14/16 11:57 14:21 Plasma Lactic Acid [place] 3.5 H* 2.9 H* - Diagnostic Findings CT scan - chest: image reviewed Assessment and Plan Plan: Impression: #1 Acute exacerbation of chronic obstructive pulmonary disease, complicated by periodic tracheobronchitis. Failed outpatient treatment. #2 History of chronic tobacco dependence. #3 Hypertension. #4 Hyperlipidemia. #5 Anxiety. #6 Lactic acidosis. Plan: The patient was seen and evaluated by Dr. Street. Her CAT scan and labs were reviewed. We'll continue with present treatment including DuoNeb inhalations every 4 hours and when necessary, Pulmicort inhalations twice a day, IV Solu- Medrol and empiric antibiotics in the form of Levaquin. She is on Lovenox for DVT prophylaxis and Protonix for GI prophylaxis. We will continue to follow make further recommendations based on her clinical status.
[2016-10-15 17:27] LABS: Glucose,Whole Blood 106 mg/dL (75-99)
[2016-10-15] MEDS: INSULIN LISPRO (humaLOG) 300 UNIT/3 ML VIAL SQ SCH ×2 (17:47→20:55)
[2016-10-15 20:24] LABS: Glucose,Whole Blood 148 mg/dL (75-99)
[2016-10-15] MEDS: DONEPEZIL 5 MG TAB PO SCH (20:55)
[2016-10-16] MEDS: methylPREDNISolone SOD SUCCI 125 MG/2 ML VIAL IV SCH ×2 (00:16→08:27)
[2016-10-16] MEDS: IPRATROPIUM-ALBUTEROL 3 ML NEB INHALATION SCH ×5 (03:43→19:49)
[2016-10-16 07:50] LABS: Glucose,Whole Blood 110 mg/dL (75-99)
[2016-10-16] MEDS: BUDESONIDE 1 MG/2 ML NEBU INHALATION SCH ×2 (08:04→19:49)
[2016-10-16] MEDS: INSULIN LISPRO (humaLOG) 300 UNIT/3 ML VIAL SQ SCH ×4 (08:26→21:08)
[2016-10-16] MEDS: PANTOPRAZOLE 40 MG TABLET PO SCH (08:27)
[2016-10-16] MEDS: ENOXAPARIN 40 MG/0.4 ML SYRINGE SQ SCH (08:28)
[2016-10-16] MEDS: ATORVASTATIN 80 MG TAB PO SCH (08:28)
[2016-10-16] MEDS: buPROPion SR 150 MG TABLET.ER PO SCH ×2 (08:28→21:10)
[2016-10-16] MEDS: LISINOPRIL-HCTZ 20-12.5 MG 1 EACH TAB PO SCH (08:28)
[2016-10-16] MEDS: ISOSORBIDE MONONITRATE ER 30 MG TAB.ER.24H PO SCH (08:28)
[2016-10-16] MEDS: ASPIRIN 81 MG CHEW PO SCH (08:28)
[2016-10-16] MEDS: METOPROLOL SUCCINATE (ER) 50 MG TAB.ER.24H PO SCH (08:29)
[2016-10-16] MEDS: SERTRALINE 50 MG TAB PO SCH (08:29)
[2016-10-16] MEDS: SPIRONOLACTONE 25 MG TAB PO SCH (08:29)
[2016-10-16] MEDS ORDERED: LEVOFLOXACIN 750MG-D5W PMX 750 MG in DEXTROSE/WATER 1 150ML.BAG IVPB SCH (09:00)
[2016-10-16 11:15] LABS: Glucose,Whole Blood 131 mg/dL (75-99)
--- NOTE | 2016-10-16 11:42 | CDI ---
In responding to this query, please exercise your independent professional judgment. The [facility] Coding Staff and Clinical Documentation Specialists appreciate your assistance in clarifying documentation, maintaining compliance with coding guidelines, accurately documenting patients condition and capturing severity of illness. The fact that a question is asked does not imply that any particular answer is desired or expected. Communication forms are a method of clarifying documentation and are not made part of the Legal Health Record. Thank you in advance for your clarification. Last Revision, October 2015 Edy Harrington [address] [facility] [place] [address] Documentation Clarification Form Date: 10/16/2016 11:35:00 AM From: Esme Clement Admit Date: 10/14/2016 11:18:00 AM Patient Name: Shae Valladares Visit Number: [id number] Dr. Jordan Rashid CHF is documented in the H&P with EF 30-35%. History/Risk Factors: COPD Exacerbation Hypertension Exsmoker Clinical Indicators: BNP: 415 Echocardiogram Results on 10/12/2015: EF 30-35% CT chest: negative Vitals: RR 24, O2 sats 99% on 4L Treatment: PO Zestoretic PO Aldactone In your professional opinion, can you please clarify the acuity and type of CHF if known? Chronic AND Systolic Diastolic Systolic and Diastolic Cor Pulmonale (Right Sided HF w/ Pulmonary HTN) Unable to determine Other, please specify Please document in your progress notes and discharge summary in order to capture severity of illness and risk of mortality. Include clinical findings that support your diagnosis. FYI: Press F11 to launch patient chart. Place X here if this finding has no clinical significance, is not applicable or if you are not able to provide any additional documentation. ALFONSOD
--- NOTE | 2016-10-16 11:51 | CDI ---
In responding to this query, please exercise your independent professional judgment. The [facility] Coding Staff and Clinical Documentation Specialists appreciate your assistance in clarifying documentation, maintaining compliance with coding guidelines, accurately documenting patients condition and capturing severity of illness. The fact that a question is asked does not imply that any particular answer is desired or expected. Communication forms are a method of clarifying documentation and are not made part of the Legal Health Record. Thank you in advance for your clarification. Last Revision, October 2015 Edy Harrington [address] [facility] [place] [address] Documentation Clarification Form Date: 10/16/2016 11:43:00 AM From: Esme Clement Admit Date: 10/14/2016 11:18:00 AM Patient Name: Shae Valladares Visit Number: [id number] Dr. Gne Street and Delores Cuevas, DON The patient presented with the following respiratory symptoms 'Severe shortness of breath and weakness' per ED note. History/Risk Factors: Exsmoker COPD Exacerbation History of CHF Clinical Indicators: Severe shortness of breath documented in ED, meds given by EMS 'short of breath, labored, accessory muscle use' documented in Vitals Vital signs/Pulse oximetry: RR 24, sats 99% 4L nc ED diagnoses included 'acute respiratory failure' Treatment: Breathing tx IV Levaquin IV steroids O2 nasal cannula In your professional opinion, can you please clarify if these findings signify one of the following conditions being present on admission? Acuity: o Acute Respiratory Status: o Respiratory failure with hypercapnia o Respiratory failure with hypoxia o Acute Respiratory Distress o Other Diagnosis, please specify o Unable to determine Please document in your progress notes and discharge summary in order to capture severity of illness and risk of mortality. Include clinical findings that support your diagnosis. FYI: Press F11 to launch patient chart. Place X here if this finding has no clinical significance, is not applicable or if you are not able to provide any additional documentation. MTDD
--- NOTE | 2016-10-16 14:05 | P.PN ---
Subjective This is a very pleasant 71-year-old female patient who follows with Dr. Cueva as her primary care physician. She has a history of hyperlipidemia, hypertension, anxiety. She also follows with Dr. Mathews in our office for severe chronic obstructive pulmonary disease. She has a 40 year smoking history. She's been maintained on Symbicort and albuterol. She presented here yesterday with complaints of increasing shortness of breath, cough and congestion. She was in the emergency room the day prior as well as was treated with a Medrol Dosepak and Bactrim without much improvement. A CT angiogram revealed no evidence of pulmonary embolism. There is some small non-specific pulmonary nodules. She is seen in consultation today on the regular medical floor. She is awake and alert in no acute distress. She does have a loose nonproductive cough. No chills or night sweats. Her initial lactic acid level was 3.5. She had received 2 L of IV fluid resuscitation. White count 17.7. She has remained afebrile. Hemodynamically stable. She is maintaining O2 saturations in the high 90s on 2 L/m per nasal cannula. The patient is seen again today 10/16/2016 in follow-up. She is awake and alert in no acute distress. She is nearly back to her baseline. She denies any worsening shortness of breath, cough or congestion. She has been maintained on bronchodilators, Pulmicort, IV Solu-Medrol. She is also on empiric antibiotics in the form of Levaquin. She is maintaining good O2 saturations in the upper 90s on 2 L/m per nasal cannula. She is afebrile. Objective - Vital Signs Vital signs: Vital Signs Temp 98.2 F 10/16/16 07:00 Pulse 68 10/16/16 11:26 Resp 16 10/16/16 08:00 BP 149/73 10/16/16 07:00 Pulse Ox 96 10/16/16 07:00 Intake & Output 10/15/16 10/16/16 10/16/16 18:59 06:59 18:59 Intake Total 440 380 Balance 440 380 Weight 49.895 kg 49.895 kg Intake: Oral 440 380 Other: Voiding Method Toilet Toilet Toilet # Voids 4 2 - Exam GENERAL EXAM: Alert, active, comfortable in no apparent distress. HEAD: Normocephalic. EYES: Normal reaction of pupils, equal size. NOSE: Clear with pink turbinates. THROAT: No erythema or exudates. NECK: No masses, no JVD. CHEST: No chest wall deformity. LUNGS: Equal air entry with faint end expiratory wheeze. Diminished.. CVS: S1 and S2 normal with no audible murmurs, regular rhythm. ABDOMEN: No hepatosplenomegaly, normal bowel sounds, no guarding or rigidity. SPINE: Kyphoscoliosis. SKIN: No rashes CENTRAL NERVOUS SYSTEM: No focal deficits, tone is normal in all 4 extremities. Extremities: There is no significant peripheral edema. No clubbing, no cyanosis. Peripheral pulses are intact. - Labs CBC & Chem 7: 10/14/16 10:32 10/14/16 10:32 Labs: Abnormal Lab Results - Last 24 Hours (Table) 10/15/16 10/15/16 10/16/16 Range/Units 17:20 20:22 07:35 POC Glucose (mg/dL) 106 H 148 H 110 H (75-99) mg/dL 10/16/16 Range/Units 11:14 POC Glucose (mg/dL) 131 H (75-99) mg/dL Microbiology - Last 24 Hours (Table) 10/15/16 09:15 Urine Culture - Final Urine,Voided 10/14/16 14:21 Blood Culture - Preliminary Blood No Growth after 24 hours Assessment and Plan Plan: Impression: #1 Acute exacerbation of chronic obstructive pulmonary disease, complicated by purulent tracheobronchitis. Failed outpatient treatment. #2 Acute on chronic hypoxic respiratory failure secondary to above. #3 Hypertension. #4 Hyperlipidemia. #5 Anxiety. #6 Lactic acidosis. #7 History of chronic tobacco dependence. Plan: The patient was seen and evaluated by Dr. Street. We'll continue with present treatment including DuoNeb inhalations every 4 hours and when necessary, Pulmicort inhalations twice a day, and empiric antibiotics in the form of Levaquin. We will switch her to oral prednisone taper. She is on Lovenox for DVT prophylaxis and Protonix for GI prophylaxis. We will continue to follow and make further recommendations based on her clinical status.
[2016-10-16 17:19] LABS: Glucose,Whole Blood 120 mg/dL (75-99)
[2016-10-16 19:58] LABS: Glucose,Whole Blood 154 mg/dL (75-99)
[2016-10-16] MEDS: DONEPEZIL 5 MG TAB PO SCH (21:10)
[2016-10-17] MEDS: IPRATROPIUM-ALBUTEROL 3 ML NEB INHALATION SCH ×5 (00:21→15:53)
--- NOTE | 2016-10-17 05:33 | PN ---
DATE OF SERVICE: 10/16/2016 PRESENTING COMPLAINT: Short of breath. INTERVAL HISTORY: This is a patient who presented with severe COPD exacerbation I saw earlier today. Family is at the bedside. Patient is a shade better. Did tolerate some diet. Still wheezing, minimal cough, getting a breathing treatment. Review of systems done for constitutional, cardiovascular, GI, pulmonary; relevant findings as above. Current medications are reviewed that include DuoNeb nebulizers q.4, Levaquin and oral prednisone. On examination, temperature 97.4, pulse 77, respiration 20, blood pressure 141/69, pulse ox 92% on 2 L. GENERAL APPEARANCE: Sitting up, short of breath. EYES: Pupils equal. Conjunctivae normal. NECK: JVD not raised. Mass not palpable. RESPIRATORY: Effort increased. LUNGS: Diminished breath sounds. Prolonged expiration. Decreased wheezing. CARDIOVASCULAR: First and second sounds normal. No edema. ABDOMEN: Soft, nontender. Liver and spleen not palpable. PSYCHIATRY: Alert and oriented x3. Mood and affect anxious appearing. INVESTIGATIONS: Accu-Cheks are noted. ASSESSMENT: 1. Acute severe chronic obstructive pulmonary disease exacerbation in an ex-smoker. 2. Alzheimer's dementia, late onset type. 3. Coronary artery disease ( ) right coronary artery. 4. Ischemic cardiomyopathy, ejection fraction 30% to 35% from underlying coronary artery disease. 5. Hyperlipidemia. 6. Essential hypertension. 7. Primary osteoarthritis of multiple joints, bilateral. 8. Chronic hypoxic respiratory failure, patient uses oxygen at home. PLAN: Patient encouraged to be out of bed. Care was discussed with the patient and family at the bedside. Will follow.
[2016-10-17] MEDS ORDERED: ACETAMINOPHEN TAB 325 MG TAB PO PRN (07:18)
[2016-10-17 07:20] LABS: Glucose,Whole Blood 96 mg/dL (75-99)
[2016-10-17] MEDS: BUDESONIDE 1 MG/2 ML NEBU INHALATION SCH (07:44)
[2016-10-17] MEDS: INSULIN LISPRO (humaLOG) 300 UNIT/3 ML VIAL SQ SCH ×2 (07:46→12:59)
[2016-10-17] MEDS: PANTOPRAZOLE 40 MG TABLET PO SCH (07:47)
[2016-10-17 08:03] VITALS: RESP 16
[2016-10-17] MEDS ORDERED: predniSONE 20 MG TAB PO SCH (09:00)
[2016-10-17] MEDS: ASPIRIN 81 MG CHEW PO SCH (09:16)
[2016-10-17] MEDS: buPROPion SR 150 MG TABLET.ER PO SCH (09:17)
[2016-10-17] MEDS: ISOSORBIDE MONONITRATE ER 30 MG TAB.ER.24H PO SCH (09:17)
[2016-10-17] MEDS: ATORVASTATIN 80 MG TAB PO SCH (09:17)
[2016-10-17] MEDS: ENOXAPARIN 40 MG/0.4 ML SYRINGE SQ SCH (09:17)
[2016-10-17] MEDS: LISINOPRIL-HCTZ 20-12.5 MG 1 EACH TAB PO SCH (09:17)
[2016-10-17] MEDS: METOPROLOL SUCCINATE (ER) 50 MG TAB.ER.24H PO SCH (09:17)
[2016-10-17] MEDS: SPIRONOLACTONE 25 MG TAB PO SCH (09:18)
[2016-10-17] MEDS: SERTRALINE 50 MG TAB PO SCH (09:18)
[2016-10-17 11:36] VITALS: PULSE 68
[2016-10-17 11:43] LABS: Glucose,Whole Blood 95 mg/dL (75-99)
--- NOTE | 2016-10-17 13:06 | P.PN ---
Subjective This is a very pleasant 71-year-old female patient who follows with Dr. Cueva as her primary care physician. She has a history of hyperlipidemia, hypertension, anxiety. She also follows with Dr. Mathews in our office for severe chronic obstructive pulmonary disease. She has a 40 year smoking history. She's been maintained on Symbicort and albuterol. She presented here yesterday with complaints of increasing shortness of breath, cough and congestion. She was in the emergency room the day prior as well as was treated with a Medrol Dosepak and Bactrim without much improvement. A CT angiogram revealed no evidence of pulmonary embolism. There is some small non-specific pulmonary nodules. She is seen in consultation today on the regular medical floor. She is awake and alert in no acute distress. She does have a loose nonproductive cough. No chills or night sweats. Her initial lactic acid level was 3.5. She had received 2 L of IV fluid resuscitation. White count 17.7. She has remained afebrile. Hemodynamically stable. She is maintaining O2 saturations in the high 90s on 2 L/m per nasal cannula. The patient is seen again today 10/16/2016 in follow-up. She is awake and alert in no acute distress. She is nearly back to her baseline. She denies any worsening shortness of breath, cough or congestion. She has been maintained on bronchodilators, Pulmicort, IV Solu-Medrol. She is also on empiric antibiotics in the form of Levaquin. She is maintaining good O2 saturations in the upper 90s on 2 L/m per nasal cannula. She is afebrile. The patient is seen again today in follow-up on 10/17/2016. She is currently resting quite comfortably in bed. She denies any worsening shortness of breath , cough or congestion. No fever, chills or night sweats. She states she is nearly back to her baseline. She is anxious to go home. Objective - Vital Signs Vital signs: Vital Signs Temp 97.9 F 10/17/16 07:00 Pulse 68 10/17/16 11:35 Resp 16 10/17/16 07:00 BP 143/73 10/17/16 07:00 Pulse Ox 94 L 10/17/16 11:02 Intake & Output 10/16/16 10/17/16 10/17/16 18:59 06:59 18:59 Intake Total 480 Balance 480 Weight 49 kg Intake: Oral 480 Other: Voiding Method Toilet Toilet Toilet # Voids 2 2 - Exam GENERAL EXAM: Alert, active, comfortable in no apparent distress. HEAD: Normocephalic. EYES: Normal reaction of pupils, equal size. NOSE: Clear with pink turbinates. THROAT: No erythema or exudates. NECK: No masses, no JVD. CHEST: No chest wall deformity. LUNGS: Equal air entry with faint end expiratory wheeze. Diminished.. CVS: S1 and S2 normal with no audible murmurs, regular rhythm. ABDOMEN: No hepatosplenomegaly, normal bowel sounds, no guarding or rigidity. SPINE: Kyphoscoliosis. SKIN: No rashes CENTRAL NERVOUS SYSTEM: No focal deficits, tone is normal in all 4 extremities. Extremities: There is no significant peripheral edema. No clubbing, no cyanosis. Peripheral pulses are intact. - Labs CBC & Chem 7: 10/14/16 10:32 10/14/16 10:32 Labs: Abnormal Lab Results - Last 24 Hours (Table) 10/16/16 10/16/16 Range/Units 17:15 19:49 POC Glucose (mg/dL) 120 H 154 H (75-99) mg/dL Microbiology - Last 24 Hours (Table) 10/14/16 14:21 Blood Culture - Preliminary Blood No Growth after 48 hours 10/15/16 09:15 Urine Culture - Final Urine,Voided Assessment and Plan Plan: Impression: #1 Acute exacerbation of chronic obstructive pulmonary disease, complicated by purulent tracheobronchitis. Failed outpatient treatment. #2 Acute on chronic hypoxic respiratory failure secondary to above. #3 Hypertension. #4 Hyperlipidemia. #5 Anxiety. #6 Lactic acidosis. #7 History of chronic tobacco dependence. Plan: The patient was seen and evaluated by Dr. Street. She is cleared for discharge from the pulmonary standpoint. We'll continue with present treatment including DuoNeb inhalations every 4 hours and when necessary, Symbicort, and prednisone taper. She'll complete her course of Levaquin. She'll be seen in our office in 1-2 weeks' time. She is however encouraged to call sooner with any recurrence of symptoms or other questions or concerns.
[2016-10-17 15:40] VITALS: BP 145/73; TEMP 97.7
--- NOTE | 2016-10-18 10:20 | DS ---
DATE OF ADMISSION: 10/14/2016 DATE OF DISCHARGE: 10/17/2016 FINAL DIAGNOSES: 1. Acute severe chronic obstructive pulmonary disease exacerbation in an ex-smoker. 2. Alzheimer dementia, late onset type. 3. Coronary artery disease with chronically occluded right coronary artery. 4. Ischemic cardiomyopathy of 30% to 35% from underlying coronary artery disease. 5. Hyperlipidemia. 6. Essential hypertension. 7. Primary osteoarthritis of multiple joints, bilateral. 8. Chronic hypoxic respiratory failure, uses oxygen at home. HOSPITAL COURSE: This patient presented with COPD exacerbation, doing much better by the time of discharge. On examination, LUNGS: Improved air entry. CARDIOVASCULAR: First and second sound normal. PE was ruled out. CONSULTATION: Dr. Street from pulmonary. DISCHARGE MEDICATIONS: 1. Prilosec 20 mg p.o. daily. 2. Vitamin E 400 units p.o. daily. 3. Ventolin HFA 2 puffs q.4 p.r.n. 4. Lipitor 80 mg a day. 5. Zestoretic 20/12.5, 1 tablet p.o. daily. 6. Toprol-XL 50 mg p.o. daily. 7. Nitrostat 0.4 sublingual q.5 p.r.n. 8. Aldactone 25 mg p.o. daily. 9. Aricept 5 mg p.o. q.h.s. 10. Imdur ER 30 mg p.o. daily. 11. Wellbutrin SR 150 mg p.o. b.i.d. 12. Xanax 0.25 p.o. t.i.d. p.r.n. 13. Ventolin nebulizer 2.5 t.i.d. p.r.n. 14. Aspirin 81 mg p.o. daily. 15. Symbicort 160/4.5, 2 puffs b.i.d. 16. Zoloft 50 mg p.o. daily. 17. Medrol Dosepak complete if present at home; otherwise, take the prednisone taper. 18. Pulmicort 1 mg b.i.d. nebulizer. 19. Atrovent, 0.5 q.i.d. 20. Levaquin 500 mg a day for 3 days. Care was discussed in detail with the patient. Questions were answered. Follow up with Dr. Cueva on 10/18/2016. Follow up with Dr. Street on 11/15/3016. Discharge planning more than 35 minutes.
--- NOTE | 2016-10-25 08:13 | DS ---
DATE OF ADMISSION: 10/14/2016 DATE OF DISCHARGE: 10/17/2016 ADDENDUM/CLARIFICATION: DISCHARGE DIAGNOSIS(ES): Clarification #4 : Classification chronic congestive heart failure from systolic dysfunction; ejection fraction 30% to 35%, from underlying coronary artery disease.
== END 2016-10-17 17:21 | disposition home or self-care (01) | DRG 190 ==
LOC: EC 09:26 → 5MS5E 11:18
PROVIDERS: ADMIT Hospitalist; ATTEND Hospitalist
DX: J44.0 Chronic obstructive pulmonary disease with (acute) lower respiratory infection (principal); J96.21 Acute and chronic respiratory failure with hypoxia; E87.2 Acidosis; I50.9 Heart failure, unspecified; I11.0 Hypertensive heart disease with heart failure; I25.82 Chronic total occlusion of coronary artery; I25.5 Ischemic cardiomyopathy; J44.1 Chronic obstructive pulmonary disease with (acute) exacerbation; G30.1 Alzheimer's disease with late onset; F02.80 Dementia in other diseases classified elsewhere, unspecified severity, without behavioral disturbance, psychotic disturbance, mood disturbance, and anxiety; J45.909 Unspecified asthma, uncomplicated; J20.9 Acute bronchitis, unspecified; E78.5 Hyperlipidemia, unspecified; F41.9 Anxiety disorder, unspecified; K44.9 Diaphragmatic hernia without obstruction or gangrene; I25.10 Atherosclerotic heart disease of native coronary artery without angina pectoris; M19.91 Primary osteoarthritis, unspecified site; Z87.891 Personal history of nicotine dependence; Z99.81 Dependence on supplemental oxygen; Z79.82 Long term (current) use of aspirin; Z79.51 Long term (current) use of inhaled steroids; Z79.52 Long term (current) use of systemic steroids; Z79.899 Other long term (current) drug therapy
CPT/HCPCS: 36415; 71020; 71275; 80053; 81001; 81003; 82550; 82553; 83605; 83735; 83880; 84484; 85025; 85379; 85610; 85730; 87040; 87086; 93005; 94640; 94644; 94645; 94760; 96361; 96365; 96375; 99285; 99291

== ENCOUNTER 2016-10-21 12:48 | Inpatient (IN) | payer MEDICARE, BC ==
[2016-10-21] MEDS ORDERED: IPRATROPIUM-ALBUTEROL 3 ML NEB INHALATION STA (12:50)
[2016-10-21] MEDS ORDERED: SODIUM CHLORIDE 0.9% 500 ML IV ONE (12:50)
[2016-10-21] MEDS ORDERED: ONDANSETRON 4 MG/2 ML VIAL IVP STA (12:50)
[2016-10-21] MEDS ORDERED: NITROGLYCERIN OINT 1 INCH/GM PACKET TOPICAL STA (12:50)
--- NOTE | 2016-10-21 12:52 | ED ---
General Adult HPI - General Stated complaint: Chest Pain Time Seen by Provider: 10/21/16 12:48 Source: RN notes reviewed - History of Present Illness Initial comments: This is a 71-year-old female with past medical history significant for COPD. Patient was just recently admitted to the hospital for a COPD exacerbation. Patient was discharged yesterday. Patient states she started having chest pain intermittently over the last 2 days so she went to the clinic today to be evaluated. At the clinic they thought they saw some ST segment depression which was new for her so they sent her to the hospital via EMS. EMS stated that they gave her aspirin and nitroglycerin with a gave the nitroglycerin her blood pressure dropped and she became nauseated. Patient states the chest pain is in the center of the chest does not radiate anywhere and it usually lasts for a few minutes. Patient states she's also short of breath with the pain as well as diaphoretic. Patient denies any nausea with the chest pain but is nauseated now since he gave the nitro. Patient denies any recent fever or chills. Patient denies any headache patient denies numbness weakness. Patient denies any lightheadedness dizziness or near syncopal episode. - Related Data Home Medications Medication Instructions Recorded Confirmed Omeprazole [PriLOSEC] 20 mg PO DAILY 04/25/14 10/21/16 Vitamin E (Dl,Tocopheryl Acet) 400 unit PO DAILY 12/20/14 10/21/16 [Vitamin E] Albuterol Inhaler [Ventolin Hfa 2 puff INHALATION RT-Q4H PRN 01/17/15 10/21/16 Inhaler] Donepezil [Aricept] 5 mg PO HS 08/19/16 10/21/16 Isosorbide Mononitrate ER [Imdur] 30 mg PO DAILY 08/19/16 10/21/16 buPROPion SR [Wellbutrin SR] 150 mg PO BID 08/19/16 10/21/16 Albuterol Nebulized [Ventolin 2.5 mg INHALATION RT-TID PRN 10/13/16 10/21/16 Nebulized] Aspirin 81 mg PO DAILY 10/13/16 10/21/16 Budesonide/Formoterol Fumarate 2 puff INHALATION RT-BID 10/13/16 10/21/16 [Symbicort 160-4.5 Mcg Inhaler] Sertraline HCl [Zoloft] 50 mg PO DAILY 10/13/16 10/21/16 Previous Rx's Medication Instructions Recorded Atorvastatin [Lipitor] 80 mg PO DAILY #60 tab 10/17/15 Lisinopril-Hctz 20-12.5 mg 1 tab PO DAILY #60 tab 10/17/15 [Zestoretic 20-12.5] Metoprolol Succinate (ER) [Toprol 50 mg PO DAILY #60 tab.er.24h 10/17/15 XL] Nitroglycerin Sl Tabs [Nitrostat] 0.4 mg SUBLINGUAL Q5M PRN #25 tab 10/17/15 Spironolactone [Aldactone] 25 mg PO DAILY #60 tab 10/17/15 ALPRAZolam [Xanax] 0.25 mg PO TID PRN #60 tab 10/13/16 Budesonide [Pulmicort] 1 mg INHALATION RT-BID #60 nebu 10/17/16 Ipratropium Nebulized [Atrovent 0.5 mg INHALATION RT-QID #0 10/17/16 Nebulized] Levofloxacin [Levaquin] 500 mg PO DAILY #3 tab 10/17/16 predniSONE 10 mg PO DAILY #30 tab 10/17/16 Allergies Allergy/AdvReac Type Severity Reaction Status Date / Time No Known Allergies Allergy Verified 10/21/16 14:33 Review of Systems ROS Statement: Those systems with pertinent positive or pertinent negative responses have been documented in the HPI. ROS Other: All systems not noted in ROS Statement are negative. Past Medical History Past Medical History: COPD, Hyperlipidemia, Hypertension Additional Past Medical History / Comment(s): Other HX: Arthiritis bilateral knees, antral gastritis with small hiatal hernia. Last Myocardial Infarction Date:: 10/11/15 History of Any Multi-Drug Resistant Organisms: None Reported Past Surgical History: Section Additional Past Surgical History / Comment(s): 04/27/14 EGD with negative bx and colonoscopy, 3 C-Sections. Past Anesthesia/Blood Transfusion Reactions: No Reported Reaction Past Psychological History: No Psychological Hx Reported Additional Psychological History / Comment(s): Pt lives with her and grandson. She is independent. She uses no assistive device and has no home care agency. She drives a car. Smoking Status: Former smoker Past Alcohol Use History: None Reported Additional Past Alcohol Use History / Comment(s): STARTED SMOKING AGE 23. She smoked 1 1/2 packs a day. Pt states she resumed smoking and quit 5 weeks ago. Past Drug Use History: None Reported - Past Family History Father Family Medical History: Coronary Artery Disease (CAD) Additional Family Medical History / Comment(s): Father at age 86yrs. Mother Family Medical History: Coronary Artery Disease (CAD) Additional Family Medical History / Comment(s): Mother at age 46yrs. She had a heart murmur. General Exam - General Exam Comments Initial Comments: GENERAL: Patient is well-developed and well-nourished. Patient is nontoxic and well- hydrated and is in mild distress. ENT: Neck is soft and supple. No significant lymphadenopathy is noted. Oropharynx is clear. Moist mucous membranes. Neck has full range of motion without eliciting any pain. EYES: The sclera were anicteric and conjunctiva were pink and moist. Extraocular movements were intact and pupils were equal round and reactive to light. Eyelids were unremarkable. PULMONARY: Unlabored respirations. Good breath sounds bilaterally. No audible rales rhonchi or wheezing was noted. CARDIOVASCULAR: There is a regular rate and rhythm without any murmurs gallops or rubs. ABDOMEN: Soft and nontender with normal bowel sounds. No palpable organomegaly was noted. There is no palpable pulsatile mass. SKIN: Skin is clear with no lesions or rashes and otherwise unremarkable. NEUROLOGIC: Patient is alert and oriented x3. Cranial nerves II through XII are grossly intact. Motor and sensory are also intact. Normal speech, volume and content. Symmetrical smile. MUSCULOSKELETAL: Normal extremities with adequate strength and full range of motion. LYMPHATICS: No significant lymphadenopathy is noted PSYCHIATRIC: Normal psychiatric evaluation. Normal interpersonal interactions appears functionally intact in deals appropriately with others. No signs of depression. No signs of anxiety. Course Vital Signs 10/21/16 10/21/16 10/21/16 12:52 13:13 13:33 Temperature 97.2 F L Pulse Rate 88 78 Respiratory 20 20 18 Rate Blood Pressure 91/62 104/62 O2 Sat by Pulse 96 100 Oximetry 10/21/16 10/21/16 10/21/16 13:43 13:53 14:50 Temperature Pulse Rate 80 80 81 Respiratory 18 Rate Blood Pressure 108/60 O2 Sat by Pulse 98 Oximetry Medical Decision Making - Medical Decision Making EKG shows a sinus rhythm with an occasional PAC at 80 bpm OK interval is on her 44 the QRS interval is 106 QT interval 402 QTC is 463. Patient is EKG shows some inferior leads II, III, and F aVF with some ST segment depression however on an old EKG there are unchanged. Chest x-ray is normal. Patient's troponin came back elevated I started the patient on heparin I held the Nitropaste hour because her pressure was low at this time. I spoke to because he agreed to admit the patient admitted the patient I wrote admitting orders to Continue to heparin on the floor aspirin before and Nitropaste on the floor. I consult cardiology - Lab Data Result diagrams: 10/21/16 13:27 10/21/16 13:27 Lab Results 10/21/16 10/21/16 10/21/16 Range/Units 13:27 13:27 13:27 WBC 15.6 H (3.8-10.6) k/uL RBC 4.76 (3.80-5.40) m/uL Hgb 15.8 D (11.4-16.0) gm/dL Hct 45.6 (34.0-46.0) % MCV 95.8 (80.0-100.0) fL MCH 33.1 (25.0-35.0) pg MCHC 34.6 (31.0-37.0) g/dL RDW 13.6 (11.5-15.5) % Plt Count 329 (150-450) k/uL Neutrophils % 77 % Lymphocytes % 11 % Monocytes % 9 % Eosinophils % 1 % Basophils % 0 % Neutrophils # 12.1 H (1.3-7.7) k/uL Lymphocytes # 1.7 (1.0-4.8) k/uL Monocytes # 1.4 H (0-1.0) k/uL Eosinophils # 0.2 (0-0.7) k/uL Basophils # 0.1 (0-0.2) k/uL PT (9.0-12.0) sec INR (<1.1) APTT (22.0-30.0) sec Sodium 126 L (137-145) mmol/L Potassium 4.2 (3.5-5.1) mmol/L Chloride 88 L (98-107) mmol/L Carbon Dioxide 24 (22-30) mmol/L Anion Gap 14 mmol/L BUN 68 H (7-17) mg/dL Creatinine 2.25 H (0.52-1.04) mg/dL Est GFR (MDRD) Af Amer 26 (>60 ml/min/1.73 sqM) Est GFR (MDRD) Non-Af 21 (>60 ml/min/1.73 sqM) Glucose 138 H (74-99) mg/dL Calcium 9.5 (8.4-10.2) mg/dL Magnesium 3.2 H (1.6-2.3) mg/dL Total Bilirubin 0.7 (0.2-1.3) mg/dL AST 28 (14-36) U/L ALT 44 (9-52) U/L Alkaline Phosphatase 66 (38-126) U/L Total Creatine Kinase <20 L (30-135) U/L CK-MB (CK-2) 1.1 (0.0-2.4) ng/mL CK-MB (CK-2) Rel Index 0.0 Troponin I 0.115 H* (0.000-0.034) ng/mL Total Protein 7.0 (6.3-8.2) g/dL Albumin 4.1 (3.5-5.0) g/dL 10/21/16 Range/Units 13:27 WBC (3.8-10.6) k/uL RBC (3.80-5.40) m/uL Hgb (11.4-16.0) gm/dL Hct (34.0-46.0) % MCV (80.0-100.0) fL MCH (25.0-35.0) pg MCHC (31.0-37.0) g/dL RDW (11.5-15.5) % Plt Count (150-450) k/uL Neutrophils % % Lymphocytes % % Monocytes % % Eosinophils % % Basophils % % Neutrophils # (1.3-7.7) k/uL Lymphocytes # (1.0-4.8) k/uL Monocytes # (0-1.0) k/uL Eosinophils # (0-0.7) k/uL Basophils # (0-0.2) k/uL PT 10.9 (9.0-12.0) sec INR 1.1 (<1.1) APTT 20.1 L (22.0-30.0) sec Sodium (137-145) mmol/L Potassium (3.5-5.1) mmol/L Chloride (98-107) mmol/L Carbon Dioxide (22-30) mmol/L Anion Gap mmol/L BUN (7-17) mg/dL Creatinine (0.52-1.04) mg/dL Est GFR (MDRD) Af Amer (>60 ml/min/1.73 sqM) Est GFR (MDRD) Non-Af (>60 ml/min/1.73 sqM) Glucose (74-99) mg/dL Calcium (8.4-10.2) mg/dL Magnesium (1.6-2.3) mg/dL Total Bilirubin (0.2-1.3) mg/dL AST (14-36) U/L ALT (9-52) U/L Alkaline Phosphatase (38-126) U/L Total Creatine Kinase (30-135) U/L CK-MB (CK-2) (0.0-2.4) ng/mL CK-MB (CK-2) Rel Index Troponin I (0.000-0.034) ng/mL Total Protein (6.3-8.2) g/dL Albumin (3.5-5.0) g/dL Critical Care Time Critical Care Time: Yes Total Critical Care Time: 35 Disposition Clinical Impression: Unstable angina pectoris, Acute renal failure Disposition: ADMITTED IP TO THIS HOSP Referrals: Rohan Cueva MD [Primary Care Provider] - 1-2 days Time of Disposition: 14:57
[2016-10-21 13:50] LABS: Calcium 9.5 mg/dL (8.4-10.2); Magnesium 3.2 mg/dL (1.6-2.3); Potassium 4.2 mmol/L (3.5-5.1); Total Bilirubin 0.7 mg/dL (0.2-1.3)
[2016-10-21 13:55] LABS: INR 1.1 (<1.1); Prothrombin Time 10.9 sec (9.0-12.0)
[2016-10-21 13:56] LABS: Basophils # (A) 0.1 k/uL (0-0.2); Basophils % (A) 0 %; CH 33.7; CHCM 35.3; Eosinophils # (A) 0.2 k/uL (0-0.7); Eosinophils % (A) 1 %; HCT 45.6 % (34.0-46.0); HDW 2.22; Luc # (Auto) 0.15; Luc % (Auto) 1; Lymphocytes # (A) 1.7 k/uL (1.0-4.8); Lymphocytes % (A) 11 %; MCH 33.1 pg (25.0-35.0); MCHC 34.6 g/dL (31.0-37.0); MCV 95.8 fL (80.0-100.0); Mean Platelet Volume 9.1; Monocytes # (A) 1.4 k/uL (0-1.0); Monocytes % (A) 9 %; Neutrophils # (A) 12.1 k/uL (1.3-7.7); Neutrophils % (A) 77 %; RBC 4.76 m/uL (3.80-5.40); RDW 13.6 % (11.5-15.5); WBC 15.6 k/uL (3.8-10.6); WBC (Perox) 14.12
[2016-10-21 14:00] LABS: HGB 15.8 gm/dL (11.4-16.0)
[2016-10-21 14:02] LABS: Creatine Kinase <20 U/L (30-135)
[2016-10-21 14:07] LABS: Partial Thromboplastin Time 20.1 sec (22.0-30.0)
[2016-10-21 14:15] LABS: Creatine Kinase MB 1.1 ng/mL (0.0-2.4); Troponin I 0.115 ng/mL (0.000-0.034)
--- NOTE | 2016-10-21 14:52 | XR ---
EXAMINATION TYPE: XR chest 2V DATE OF EXAM: 10/21/2016 2:29 PM COMPARISON: Chest x-ray October 13, 2016. HISTORY: Intermittent chest pain for 2 days. History of COPD with cough. TECHNIQUE: Frontal and lateral views of the chest are obtained. FINDINGS: Underlying emphysematous changes redemonstrated. There is no focal air space opacity, pleur al effusion, or pneumothorax seen. The cardiac silhouette size is within normal limits with atherosc lerotic thoracic aorta redemonstrated. The osseous structures are intact. IMPRESSION: Chronic emphysematous change without acute pulmonary process. No significant change from prior study.
[2016-10-21] MEDS ORDERED: HEPARIN SODIUM,PORCINE 5,000 UNIT/ML 1 ML VIAL IV ONE (14:55)
[2016-10-21] MEDS ORDERED: NITROGLYCERIN SL TABS 0.4 MG TAB SUBLINGUAL PRN ×2 (14:57→15:56)
[2016-10-21] MEDS: HEPARIN SODIUM,PORCINE/D5W PMX 25,000 UNIT in DEXTROSE/WATER 1 500ML.BAG IV SCH (15:04)
[2016-10-21] MEDS: SODIUM CHLORIDE 0.9% 1,000 ML IV SCH (17:12)
[2016-10-21] MEDS: NITROGLYCERIN OINT 1 INCH/GM PACKET TOPICAL SCH ×2 (18:28→23:12)
[2016-10-21 20:16] LABS: Creatine Kinase MB 1.2 ng/mL (0.0-2.4)
[2016-10-21] MEDS: SYMBICORT 160-4.5 MCG INHALER INHALATION SCH (20:21)
[2016-10-21] MEDS: BUDESONIDE 1 MG/2 ML NEBU INHALATION SCH (20:22)
[2016-10-21 20:24] LABS: Troponin I 0.086 ng/mL (0.000-0.034)
[2016-10-21] MEDS: buPROPion SR 150 MG TABLET.ER PO SCH (20:59)
[2016-10-21] MEDS: FAMOTIDINE 20 MG TAB PO SCH (20:59)
[2016-10-21] MEDS: DONEPEZIL 5 MG TAB PO SCH (20:59)
[2016-10-21] MEDS ORDERED: HEPARIN SODIUM,PORCINE 5,000 UNIT/ML 1 ML VIAL IV PRN (22:40)
[2016-10-22] MEDS: SODIUM CHLORIDE 0.9% 1,000 ML IV SCH ×5 (01:39→23:28)
[2016-10-22 02:07] LABS: Creatine Kinase <20 U/L (30-135)
[2016-10-22 02:18] LABS: Creatine Kinase MB 1.1 ng/mL (0.0-2.4)
[2016-10-22] MEDS: NITROGLYCERIN OINT 1 INCH/GM PACKET TOPICAL SCH ×4 (02:23→17:22)
[2016-10-22 02:26] LABS: Troponin I 0.084 ng/mL (0.000-0.034)
[2016-10-22 05:59] LABS: CH 32.9; CHCM 33.5; HCT 38.7 % (34.0-46.0); HDW 2.08; MCH 33.1 pg (25.0-35.0); MCHC 33.5 g/dL (31.0-37.0); MCV 98.6 fL (80.0-100.0); Mean Platelet Volume 6.6; RBC 3.92 m/uL (3.80-5.40); RDW 13.5 % (11.5-15.5); WBC 15.4 k/uL (3.8-10.6)
[2016-10-22 06:12] LABS: Calcium 7.9 mg/dL (8.4-10.2)
[2016-10-22] MEDS: predniSONE 10 MG TAB PO SCH (08:33)
[2016-10-22] MEDS: ATORVASTATIN 80 MG TAB PO SCH (08:33)
[2016-10-22] MEDS: ISOSORBIDE MONONITRATE ER 30 MG TAB.ER.24H PO SCH (08:34)
[2016-10-22] MEDS: buPROPion SR 150 MG TABLET.ER PO SCH ×2 (08:34→21:43)
[2016-10-22] MEDS: SERTRALINE 50 MG TAB PO SCH (08:34)
[2016-10-22] MEDS: FAMOTIDINE 20 MG TAB PO SCH (08:35)
[2016-10-22] MEDS: ASPIRIN 81 MG CHEW PO SCH (08:35)
--- NOTE | 2016-10-22 08:45 | P.CRDCN ---
History of Present Illness Consult date: 10/22/16 Requesting physician: Tana Chavez Consult reason: chest pain Chief complaint: Chest pain History of present illness: This is a 71-year-old female with history of the OPD, hypertension, hyperlipidemia, coronary artery disease, she underwent a cardiac catheterization in September of last year at which time she presented with a non- ST elevation myocardial infarction. Cardiac catheterization revealed rincon 2 vessel coronary artery disease with a totally occluded mid RCA with extensive [id number] collaterals and mild to moderate disease involving the proximal LAD. She underwent unsuccessful recannulization of the chronically occluded RCA because of severe tortuosity and medical therapy was advised at that time. Patient was recently in the hospital with an exacerbation of COPD, just discharged on the second of this month. Since her discharge home, patient states she's been experiencing midsternal chest pressure and heaviness, she went to the clinic where an EKG was performed, ST depression was noted in for that reason she was admitted to the hospital for further evaluation. At the time of my examination this morning she still complains of mild midsternal pressure, she does state that the pressure worsens with deep breathing. EKG on admission here showed a normal sinus rhythm with incomplete right bundle branch block pattern inferior lateral ST depression, repeat EKG performed this morning shows a normal sinus rhythm with improvement in the ST depression. Asked x-ray reveals chronic emphysema changes without acute pulmonary process. Laboratory data was reviewed, WBC on admission 15.6, hemoglobin 15.8, platelet count 329. Sodium on admission 126, 4.2 potassium, BUN 68, creatinine 2.2, creatinine this morning 1.2, BUN 50. Magnesium level 3.2. Troponins 0.115, 0.086, 0.084. Troponins on this most recent admission were normal. Blood pressure on admission 90/60 with a heart rate in the 80s. The pressure this morning 114/ 50. LIZ inhibitor held on admission because of abnormal creatinine, beta ravindra was held because of hypotension. Past Medical History Past Medical History: Coronary Artery Disease (CAD), COPD, Dementia, Hyperlipidemia, Hypertension, Myocardial Infarction (SD), Osteoarthritis (OA) Additional Past Medical History / Comment(s): Pt recently admitted 10/14/16 with acute severe COPD. Other HX: pulmonary fibrosis, chronic repiratory failure, home O2 prn, ischemic cardiomyopathy, arthiritis bilateral knees, gastritis with small hiatal hernia. Last Myocardial Infarction Date:: 10/11/15 History of Any Multi-Drug Resistant Organisms: None Reported Past Surgical History: Section Additional Past Surgical History / Comment(s): 04/27/14 EGD with negative bx and colonoscopy, 3 C-Sections. Past Anesthesia/Blood Transfusion Reactions: No Reported Reaction Past Psychological History: No Psychological Hx Reported Additional Psychological History / Comment(s): Pt lives with her and grandson. She is fairly independent. She uses no assistive device and has no home care agency. She drives a car. She has home O2 which she uses prn. Smoking Status: Former smoker Past Alcohol Use History: None Reported Additional Past Alcohol Use History / Comment(s): STARTED SMOKING AGE 23. She smoked 1 1/2 packs a day. Pt states she quit smoking in July 2016. Past Drug Use History: None Reported - Past Family History Father Family Medical History: Coronary Artery Disease (CAD) Additional Family Medical History / Comment(s): Father at age 86yrs. Mother Family Medical History: Coronary Artery Disease (CAD) Additional Family Medical History / Comment(s): Mother at age 46yrs. She had a heart murmur. Medications and Allergies Home Medications Medication Instructions Recorded Confirmed Type Omeprazole [PriLOSEC] 20 mg PO DAILY 04/25/14 10/21/16 History Vitamin E (Dl,Tocopheryl Acet) 400 unit PO DAILY 12/20/14 10/21/16 History [Vitamin E] Albuterol Inhaler [Ventolin Hfa 2 puff INHALATION RT-Q4H PRN 01/17/15 10/21/16 History Inhaler] Donepezil [Aricept] 5 mg PO HS 08/19/16 10/21/16 History Isosorbide Mononitrate ER [Imdur] 30 mg PO DAILY 08/19/16 10/21/16 History buPROPion SR [Wellbutrin SR] 150 mg PO BID 08/19/16 10/21/16 History Albuterol Nebulized [Ventolin 2.5 mg INHALATION RT-TID PRN 10/13/16 10/21/16 History Nebulized] Aspirin 81 mg PO DAILY 10/13/16 10/21/16 History Budesonide/Formoterol Fumarate 2 puff INHALATION RT-BID 10/13/16 10/21/16 History [Symbicort 160-4.5 Mcg Inhaler] Sertraline HCl [Zoloft] 50 mg PO DAILY 10/13/16 10/21/16 History Allergies Allergy/AdvReac Type Severity Reaction Status Date / Time No Known Allergies Allergy Verified 10/21/16 14:33 Physical Exam Vitals: Vital Signs Temp Pulse Pulse Resp BP BP Pulse Ox 10/22/16 03:14 69 16 10/22/16 03:13 97.5 F L 69 16 114/53 99 10/22/16 00:00 68 16 10/21/16 23:57 97.6 F 68 16 112/56 98 10/21/16 20:23 98 10/21/16 20:00 70 18 10/21/16 19:55 97.6 F 70 18 121/57 98 10/21/16 15:40 97.7 F 74 20 109/51 98 Intake and Output 10/21/16 10/22/16 10/22/16 22:59 06:59 14:59 Intake Total 1066.667 222.52 Output Total 300 Balance 1066.667 -77.48 Intake: Amount of Fluid Infused ( 500 ml) Intake, IV Titration 86.667 102.52 Amount Heparin Sodium,Porcine/ 86.667 102.52 D5w Pmx 25,000 unit In Dextrose/Water 1 500ml. bag @ 12 UNITS/KG/HR 11. 53 mls/hr IV .Q24H MURALI Rx #:[id number] Oral 480 120 Output: Urine 300 Other: Voiding Method Toilet Toilet # Voids 0 1 Weight 48.081 kg 50.8 kg PHYSICAL EXAMINATION: HEENT: Head is atraumatic, normocephalic. Pupils equal, round. Neck is supple. There is no elevated jugular venous pressure. HEART EXAMINATION: Heart S1, S2 normal. No murmur or gallop heard. CHEST EXAMINATION: Lungs reveal decreased air exchange throughout with fine expiratory wheezes ABDOMEN: Soft, nontender. Bowel sounds are heard. No organomegaly noted. EXTREMITIES: 2+ peripheral pulses with no evidence of peripheral edema and no calf tenderness noted. NEUROLOGIC patient is awake, alert and oriented -3. . Results 10/22/16 05:34 10/22/16 05:34 Cardiac Enzymes 10/21/16 10/22/16 Range/Units 19:26 01:24 CK-MB (CK-2) 1.2 1.1 (0.0-2.4) ng/mL Troponin I 0.086 H* 0.084 H* (0.000-0.034) ng/mL Coagulation 10/21/16 10/22/16 Range/Units 21:09 05:34 APTT 43.8 H 83.2 H (22.0-30.0) sec Lipids 10/22/16 Range/Units 05:34 Triglycerides 68 (<150) mg/dL Cholesterol 168 (<200) mg/dL HDL Cholesterol 43 (40-60) mg/dL CBC 10/22/16 Range/Units 05:34 WBC 15.4 H (3.8-10.6) k/uL RBC 3.92 (3.80-5.40) m/uL Hgb 13.0 (11.4-16.0) gm/dL Hct 38.7 (34.0-46.0) % Plt Count 366 (150-450) k/uL Comprehensive Metabolic Panel 10/22/16 Range/Units 05:34 Sodium 126 L (137-145) mmol/L Potassium 4.0 (3.5-5.1) mmol/L Chloride 98 (98-107) mmol/L Carbon Dioxide 20 L (22-30) mmol/L BUN 50 H (7-17) mg/dL Creatinine 1.26 H (0.52-1.04) mg/dL Glucose 91 (74-99) mg/dL Calcium 7.9 L (8.4-10.2) mg/dL Current Medications Generic Name Dose Route Start Last Admin Trade Name Freq PRN Reason Stop Dose Admin Aspirin 81 mg 10/22/16 09:00 Aspirin PO DAILY MURALI Atorvastatin Calcium 80 mg 10/22/16 09:00 Lipitor PO DAILY MURALI Budesonide 1 mg 10/21/16 20:00 10/21/16 20:22 Pulmicort INHALATION Not Given RT-BID MURALI Budesonide/Formoterol Fumarate 2 puff 10/21/16 20:00 10/21/16 20:21 Symbicort 160-4.5 Mcg Inhaler INHALATION 2 puff RT-BID MURALI Administration Bupropion HCl 150 mg 10/21/16 21:00 10/21/16 20:59 Wellbutrin Sr PO 150 mg BID MURALI Administration Donepezil HCl 5 mg 10/21/16 21:00 10/21/16 20:59 Aricept PO 5 mg HS MURALI Administration Famotidine 20 mg 10/21/16 21:00 10/21/16 20:59 Pepcid PO 20 mg BID MURALI Administration Heparin Sodium (Porcine) 0 unit 10/21/16 22:40 10/21/16 22:35 Heparin IV 1,200 unit PER PROTOCOL PRN Administration Low PTT Protocol Heparin Sodium/Dextrose 25,000 500 mls @ 11.53 mls/hr 10/21/16 15:00 06:12 unit/ IV Solution IV 12 units/kg/hr .Q24H MURALI 11.53 mls/hr Protocol Titration 12 UNITS/KG/HR Sodium Chloride 1,000 mls @ 100 mls/hr 10/21/16 16:00 10/22/16 01:39 Saline 0.9% IV Not Given .Q10H MURALI Isosorbide Mononitrate 30 mg 10/22/16 09:00 Imdur PO DAILY MURALI Nitroglycerin 0.5 inch 10/21/16 18:00 10/22/16 06:00 Nitro-Bid Oint TOPICAL 0.5 inch Q6HR MURALI Administration Nitroglycerin 0.4 mg 10/21/16 15:56 Nitrostat SUBLINGUAL Q5M PRN Chest Pain Prednisone 10 mg 10/22/16 09:00 PO DAILY MURALI Sertraline HCl 50 mg 10/22/16 09:00 Zoloft PO DAILY MURALI Intake and Output 10/21/16 10/22/16 10/22/16 22:59 06:59 14:59 Intake Total 1066.667 222.52 Output Total 300 Balance 1066.667 -77.48 Intake: Amount of Fluid Infused ( 500 ml) Intake, IV Titration 86.667 102.52 Amount Heparin Sodium,Porcine/ 86.667 102.52 D5w Pmx 25,000 unit In Dextrose/Water 1 500ml. bag @ 12 UNITS/KG/HR 11. 53 mls/hr IV .Q24H MURALI Rx #:[id number] Oral 480 120 Output: Urine 300 Other: Voiding Method Toilet Toilet # Voids 0 1 Weight 48.081 kg 50.8 kg 10/22/16 05:34 10/22/16 05:34 EKG Interpretations (text) EKG on admission shows a normal sinus rhythm with incomplete right bundle branch block pattern and inferior lateral ST depression Assessment and Plan Plan: Assessment and plan #1 symptoms of midsternal chest pressure and heaviness, with some atypical features as well. EKG shows normal sinus rhythm with inferior lateral ST depression. Troponin 0.115, 0.086, 0.084. #2 severe COPD, patient had recent admission was COPD, just discharged a few days ago. #3 nicotine dependence #4 coronary artery disease, patient underwent cardiac catheterization in September 2015 which revealed a chronic occlusion of the RCA for which patient had unsuccessful angioplasty, patient was also noted to have moderate disease in the LAD at that time. #5 acute on chronic renal failure, creatinine this morning 1.2. #6 hypertension #7 hyperlipidemia #8 anxiety Plan Most recent echocardiogram with Doppler study was performed in September of last year which at that time revealed a severely impaired left ventricular systolic function with an ejection fraction of 30-35%. We will repeat an echocardiogram with Doppler study, continue IV heparin. Resume beta ravindra at 25 mg daily, assuming LIZ inhibitor. Further recommendations to follow. DNP note has been reviewed, I agree with a documented findings and plan of care. Patient was seen and examined.
[2016-10-22] MEDS: SYMBICORT 160-4.5 MCG INHALER INHALATION SCH ×2 (08:51→20:53)
[2016-10-22] MEDS: BUDESONIDE 1 MG/2 ML NEBU INHALATION SCH ×2 (08:51→20:52)
[2016-10-22] MEDS ORDERED: LISINOPRIL 5 MG TAB PO SCH (09:00)
[2016-10-22] MEDS ORDERED: ASPIRIN 325 MG TAB PO SCH (09:00)
[2016-10-22] MEDS: METOPROLOL SUCCINATE (ER) 25 MG TAB.ER.24H PO SCH (09:26)
[2016-10-22 11:12] VITALS: BMI 19.8
--- NOTE | 2016-10-22 11:52 | ECHOF ---
Referral Reason:chest pain MEASUREMENTS -------- HEIGHT: 160.0 cm WEIGHT: 50.4 kg BP: RVIDd: 2.9 cm (< 3.3) IVSd: 1.0 cm (0.6 - 1.1) LVIDd: 2.5 cm (3.9 - 5.3) LVPWd: 0.8 cm (0.6 - 1.1) IVSs: 1.4 cm LVIDs: 1.7 cm LVPWs: 1.1 cm LAESV Index (A-L): 14.71 ml/m Ao Diam: 2.8 cm (2.0 - 3.7) AV Cusp: 1.4 cm (1.5 - 2.6) LA Diam: 2.5 cm (2.7 - 3.8) MV EXCURSION: 10.933 mm (> 18.000) MV EF SLOPE: 39 mm/s (70 - 150) EPSS: 0.7 cm MV E Wayne: 0.60 m/s MV DecT: 379 ms MV A Wayne: 0.69 m/s MV E/A Ratio: 0.87 FINDINGS -------- Sinus rhythm. This was a technically adequate study. Left ventricular wall thickness is normal. Overall left ventricular systolic function is normal with, an EF between 55 - 60 %. The right ventricle is normal in size. Normal LA size by volume 22+/-6 ml/m2. The right atrium is normal in size. Aortic valve is trileaflet and is mildly thickened. The mitral valve leaflets are mildly thickened. Mild mitral annular calcification present. There is trace mitral regurgitation. Trace tricuspid regurgitation present. Pulmonic valve appears structurally normal. The aortic root size is normal. Normal inferior vena cava with normal inspiratory collapse consistent with estimated right atrial pressure of 5 mmHg. Echo free space may represent effusion or a pericardial fat pad. CONCLUSIONS -------- 1. Sinus rhythm. 2. Mild mitral annular calcification present. 3. There is trace mitral regurgitation. 4. Trace tricuspid regurgitation present. 5. Pulmonic valve appears structurally normal. 6. The aortic root size is normal. 7. Normal inferior vena cava with normal inspiratory collapse consistent with estimated right atrial pressure of 5 mmHg. 8. Echo free space may represent effusion or a pericardial fat pad. 9. This was a technically adequate study. 10. Left ventricular wall thickness is normal. 11. Overall left ventricular systolic function is normal with, an EF between 55 - 60 %. 12. The right ventricle is normal in size. 13. Normal LA size by volume 22+/-6 ml/m2. 14. The right atrium is normal in size. 15. Aortic valve is trileaflet and is mildly thickened. 16. The mitral valve leaflets are mildly thickened. [employer]: Jamey Lugo RDCS
--- NOTE | 2016-10-22 17:18 | HP ---
DATE OF ADMISSION: 10/21/2016 Patient is a very pleasant 71-year-old who came in with complaints of chest pain. Chest pain is a pressure-like sensation that is being evaluated by Cardiology. Patient has a [id number] myocardial infarction. Patient had a cardiac catheterization during a recent hospitalization which showed chronically occluded RCA. Because of the severe tortuosity, medical therapy was advised at that time. Patient comes in with midsternal chest pain heaviness with some significant ST-T wave EKG changes. Please refer to cardiology dictation for further details, the other issues being that patient was found to be acute renal failure. Patient's normal creatinine was 0.9 during her last hospitalization. Now it has gone up to 2.25 and BUN to around 65, which improved actually after holding off the diuretic therapy and lisinopril yesterday. Previous echocardiogram showed an ejection fraction of 35%. The recent echocardiogram showed normal ejection fraction, fortunately, because of which I started him on IV fluids. Will continue to hold on lisinopril for today. Once her kidney function improves, patient can be restarted back on that medication. Further evaluation and management regarding patient has minimally elevated troponins of 0.115, 0.086 and 0.084. These are related to mostly acute renal failure. REVIEW OF SYSTEMS: CONSTITUTIONAL: No fever, no malaise, no fatigue. HEENT: No recent visual problems or hearing problems. Denied any sore throat. CARDIOVASCULAR: As described in HPI. PULMONARY: No shortness of breath, no cough, no hemoptysis. GASTROINTESTINAL: No diarrhea, no nausea, no vomiting, no abdominal pain. Normoactive bowel sounds. NEUROLOGICAL: No headaches, no weakness, no numbness. HEMATOLOGICAL: Denies any bleeding or petechiae. GENITOURINARY: Denies any burning micturition, frequency, or urgency. MUSCULOSKELETAL/RHEUMATOLOGICAL: Denies any joint pain, swelling, or any muscle pain. ENDOCRINE: Denies any polyuria or polydipsia. The rest of the 14 point review of systems is negative. PAST MEDICAL HISTORY: 1. Coronary artery disease. 2. Cardiac catheterization in the past. 3. Myocardial infarction in the past. 4. COPD. 5. Dementia. 6. Hyperlipidemia. 7. Hypertension. 8. Patient does have some memory difficulties. 9. History of pulmonary fibrosis. Uses oxygen on an as-needed basis because of pulmonary fibrosis. 10. Ischemic cardiomyopathy history, but her ejection fraction improved now. Her previous ejection fraction was around 30% to 35%. 11. Gastritis with small hiatal hernia. 12. EGD in the past. 13. Colonoscopy in the past. FAMILY HISTORY: Father had coronary artery disease; at age 86. Mother had coronary artery disease; at age 46. Home medications include: 1. Omeprazole. 2. Vitamin E. 3. Albuterol inhaler. 4. Donepezil. 5. Imdur. 6. Bupropion. 7. Aspirin. 8. Budesonide/formoterol. 9. Sertraline. ALLERGIES: NO KNOWN DRUG ALLERGIES. PHYSICAL EXAMINATION: VITAL SIGNS: Temperature 97.1, pulse of 62, respiratory rate of 18. Blood pressure is 85/45. Saturating at 94% on room air. GENERAL: The patient is alert and oriented x3, not in any acute distress. Well developed, well nourished. HEENT: Pupils are round and equally reacting to light. EOMI. No scleral icterus. No conjunctival pallor. Normocephalic, atraumatic. No pharyngeal erythema. No thyromegaly. CARDIOVASCULAR: S1 and S2 present. No murmurs, rubs, or gallops. PULMONARY: Chest is clear to auscultation, no wheezing or crackles. ABDOMEN: Soft, nontender, nondistended, normoactive bowel sounds. No palpable organomegaly. MUSCULOSKELETAL: No joint swelling or deformity. EXTREMITIES: No cyanosis, clubbing, or pedal edema. NEUROLOGICAL: Gross neurological examination did not reveal any focal deficits. SKIN: No rashes. LABORATORY DATA: CBC, CMP are abnormal for elevated WBC count of 15,400; sodium of 126. BUN and creatinine improved minimally to 50 and 1.26. Calcium is 7.9, which is pseudohypocalcemia. Troponins as mentioned above. LDL is 111. Chest x-ray was reviewed, which did not show any pulmonary edema. Repeat echocardiogram was reviewed and results are as mentioned above. ASSESSMENT AND PLAN: 1. Chest pain; possibility of [id number] myocardial infarction. Further management as per primary service. Mildly elevated troponins can be just related to acute renal failure. 2. Acute renal failure secondary to lisinopril and diuretic therapy, both of which will be held, and it already improved. Patient will be started on IV fluids, as her ejection fraction improved significantly. 3. Hypertension. Patient is actually hypotensive. Because of that reason, patient cannot be on LIZ inhibitor at this point of time. 4. Dementia. 5. Myocardial infarction in the past. 6. Coronary artery disease. 7. Chronic obstructive pulmonary disease without any acute exacerbation. For above-mentioned chronic medical problems, I will go ahead and continue her home medications. Avoid nephrotoxic agents. Cardiac diet. I&O. Monitor kidney function. Patient's primary care physician is Dr. Rohan Cueva.
[2016-10-22] MEDS: HEPARIN SODIUM,PORCINE/D5W PMX 25,000 UNIT in DEXTROSE/WATER 1 500ML.BAG IV SCH (17:25)
[2016-10-22] MEDS: DONEPEZIL 5 MG TAB PO SCH (21:43)
[2016-10-23] MEDS: NITROGLYCERIN OINT 1 INCH/GM PACKET TOPICAL SCH ×3 (00:22→11:53)
[2016-10-23] MEDS ORDERED: DOBUTamine DRIP for NUC MED 500 MG in DEXTROSE/WATER 1 250ML.BAG IV ONE (05:00)
[2016-10-23 06:21] LABS: CH 32.4; CHCM 32.4; HCT 34.4 % (34.0-46.0); HGB 11.2 gm/dL (11.4-16.0); MCH 32.6 pg (25.0-35.0); MCHC 32.5 g/dL (31.0-37.0); MCV 100.3 fL (80.0-100.0); Mean Platelet Volume 6.5; RBC 3.43 m/uL (3.80-5.40); RDW 13.4 % (11.5-15.5); WBC 12.8 k/uL (3.8-10.6)
[2016-10-23 06:34] LABS: Anion Gap 5 mmol/L; Blood Urea Nitrogen 20 mg/dL (7-17); Calcium 7.6 mg/dL (8.4-10.2); Carbon Dioxide 21 mmol/L (22-30); Chloride 104 mmol/L (98-107); Glucose 75 mg/dL (74-99); Non-African American GFR(MDRD) >60 (>60 ml/min/1.73 sqM); Potassium 4.2 mmol/L (3.5-5.1); Sodium 130 mmol/L (137-145)
[2016-10-23] MEDS: ISOSORBIDE MONONITRATE ER 30 MG TAB.ER.24H PO SCH (06:39)
[2016-10-23 06:43] VITALS: RESP 18
[2016-10-23] MEDS: BUDESONIDE 1 MG/2 ML NEBU INHALATION SCH (07:48)
[2016-10-23] MEDS: SYMBICORT 160-4.5 MCG INHALER INHALATION SCH (07:49)
[2016-10-23 08:41] VITALS: TEMP 97.1
[2016-10-23] MEDS ORDERED: FAMOTIDINE 20 MG TAB PO SCH (09:00)
[2016-10-23] MEDS ORDERED: ATROPINE SULFATE 0.1 MG/ML 10ML SYRINGE ONE (10:52)
[2016-10-23] MEDS: SERTRALINE 50 MG TAB PO SCH (11:19)
[2016-10-23] MEDS: buPROPion SR 150 MG TABLET.ER PO SCH (11:19)
[2016-10-23] MEDS: ATORVASTATIN 80 MG TAB PO SCH (11:20)
[2016-10-23] MEDS: ASPIRIN 81 MG CHEW PO SCH (11:20)
[2016-10-23] MEDS: SODIUM CHLORIDE 0.9% 1,000 ML IV SCH (11:20)
[2016-10-23] MEDS: METOPROLOL SUCCINATE (ER) 25 MG TAB.ER.24H PO SCH (11:20)
[2016-10-23] MEDS: predniSONE 10 MG TAB PO SCH (11:20)
[2016-10-23 11:49] VITALS: BP 132/56; PULSE 88
--- NOTE | 2016-10-23 12:11 | ECHOS ---
DATE OF SERVICE: 10/23/2016 AGE: 71Y SEX: F HT: 63" WT: 111 lbs. Protocol Gary: Others: Dobutamine Stress Echo Stage: 5 Dur. of Exercise: 13:40 *Heart Rate Blood Pressure *Rest: 71 Rest: 97/48 * *Max. Achieved: 122 Maximum BP: 143/74 85% PMHR: 125 100% PMHR: 147 *METS: - INDICATIONS: Chest pain. MEDICATIONS: - Baseline EKG shows sinus rhythm, normal axis, normal intervals. Patient was given dobutamine over a period of 30 minutes as per protocol because of inadequate heart rate response. Patient was given 1 mg of atropine with which she attained target heart rate without significant ST segment depression. Baseline echo shows normal left ventricular size, wall motion and systolic function. Post dobutamine infusion, there is normal hyperdynamic response of all segments of myocardium noted. CONCLUSION: 1. Negative stress test by EKG criteria. 2. Negative dobutamine echo.
--- NOTE | 2016-10-23 14:09 | DS ---
DATE OF ADMISSION: 10/21/2016 DATE OF DISCHARGE: Patient is a 71-year-old came in with chest pressure-like sensation. Patient underwent stress testing which was negative. Patient has minimally elevated troponin and patient is clinically doing well. Patient's ejection fraction is actually improved and patient is hyponatremic and renal failure, both of which improved with discontinuation of diuretic therapy. Patient's hydrochlorothiazide will be discontinued. Patient will be discharged on low dose of lisinopril. Patient's ejection fraction is normal at this time, 55% to 60%. Patient was seen and examined on the day of discharge. Vital are stable. PHYSICAL EXAMINATION: GENERAL: The patient is alert and oriented x3, not in any acute distress. Well developed, well nourished. HEENT: Pupils are round and equally reacting to light. EOMI. No scleral icterus. No conjunctival pallor. Normocephalic, atraumatic. No pharyngeal erythema. No thyromegaly. CARDIOVASCULAR: S1 and S2 present. No murmurs, rubs, or gallops. PULMONARY: Chest is clear to auscultation, no wheezing or crackles. ABDOMEN: Soft, nontender, nondistended, normoactive bowel sounds. No palpable organomegaly. MUSCULOSKELETAL: No joint swelling or deformity. EXTREMITIES: No cyanosis, clubbing, or pedal edema. NEUROLOGICAL: Gross neurological examination did not reveal any focal deficits. SKIN: No rashes. FINAL DIAGNOSES: 1. Chest pain. Patient underwent stress test which is negative and acute renal failure secondary to lisinopril and diuretic therapy, normalized kidney function. Patient will be given a small dose of lisinopril and diuretic therapy will be discontinued. Patient will be discharged today. 2. Hypertension. 3. Mild dementia. 4. Myocardial infarction in the past. 5. Coronary artery disease. 6. Chronic obstructive pulmonary disease with acute exacerbation. Please refer to my depart summary for the details of discharge medication. DISCHARGE DIET: Cardiac. Activity as tolerated. Follow up with Dr. Rohan Cueva in about 2 to 3 days. Her Aldactone will be discontinued as well. Patient will be discharged today. Home with home care. Spent greater than 35 minutes in total discharge process.
--- NOTE | 2016-10-23 14:58 | P.PN ---
Subjective This is a 71-year-old female with history of the OPD, hypertension, hyperlipidemia, coronary artery disease, she underwent a cardiac catheterization in September of last year at which time she presented with a non- ST elevation myocardial infarction. Cardiac catheterization revealed saxman 2 vessel coronary artery disease with a totally occluded mid RCA with extensive [id number]-op-jgeik collaterals and mild to moderate disease involving the proximal LAD. She underwent unsuccessful recannulization of the chronically occluded RCA because of severe tortuosity and medical therapy was advised at that time. Patient was recently in the hospital with an exacerbation of COPD, just discharged on the second of this month. Since her discharge home, patient states she's been experiencing midsternal chest pressure and heaviness, she went to the clinic where an EKG was performed, ST depression was noted in for that reason she was admitted to the hospital for further evaluation. Her neck enzymes and troponins were negative 3. Patient underwent a dobutamine echocardiographic study today which was negative for any reversible ischemia. She's been up ambulating without any difficulty. Objective - Vital Signs Vital signs: Vital Signs Temp 97.1 F L 10/23/16 08:00 Pulse 88 10/23/16 11:47 Resp 18 10/23/16 11:47 BP 132/56 10/23/16 11:47 Pulse Ox 94 L 10/23/16 11:47 Intake & Output 10/22/16 10/23/16 10/23/16 18:59 06:59 18:59 Intake Total 369.328 620 Output Total 300 1100 0 Balance 69.328 -480 0 Weight 50.8 kg 52.8 kg Intake: Intake, IV Titration 129.328 500 Amount Heparin Sodium,Porcine/ 129.328 D5w Pmx 25,000 unit In Dextrose/Water 1 500ml. bag @ 12 UNITS/KG/HR 11. 53 mls/hr IV .Q24H MURALI Rx #:[id number] Sodium Chloride 0.9% 1, 500 000 ml @ 100 mls/hr IV . Q10H MURALI Rx#:[id number] Oral 240 120 Output: Urine 300 1100 0 Other: Voiding Method Toilet Toilet # Voids 2 1 - Exam PHYSICAL EXAMINATION: HEENT: Head is atraumatic, normocephalic. Pupils equal, round. Neck is supple. There is no elevated jugular venous pressure. HEART EXAMINATION: Heart S1, S2 normal. No murmur or gallop heard. CHEST EXAMINATION:[Lungs reveal decreased air exchange with fine expiratory wheezes throughout. ABDOMEN: Soft, nontender. Bowel sounds are heard. No organomegaly noted. EXTREMITIES: 2+ peripheral pulses with no evidence of peripheral edema and no calf tenderness noted. NEUROLOGIC patient is awake, alert and oriented -3. . - Labs CBC & Chem 7: 10/23/16 06:01 10/23/16 06:01 Labs: Abnormal Lab Results - Last 24 Hours (Table) 10/23/16 10/23/16 10/23/16 Range/Units 06:01 06:01 06:01 WBC 12.8 H (3.8-10.6) k/uL RBC 3.43 L (3.80-5.40) m/uL Hgb 11.2 L (11.4-16.0) gm/dL MCV 100.3 H (80.0-100.0) fL APTT 57.8 H (22.0-30.0) sec Sodium 130 L (137-145) mmol/L Carbon Dioxide 21 L (22-30) mmol/L BUN 20 H (7-17) mg/dL Calcium 7.6 L (8.4-10.2) mg/dL Assessment and Plan Plan: Assessment and plan #1 symptoms of midsternal chest pressure and heaviness, with some atypical features as well. EKG shows normal sinus rhythm with inferior lateral ST depression. Troponin 0.115, 0.086, 0.084. Dobutamine echocardiographic study done today was negative for any reversible ischemia. #2 severe COPD, patient had recent admission was COPD, just discharged a few days ago. #3 nicotine dependence #4 coronary artery disease, patient underwent cardiac catheterization in September 2015 which revealed a chronic occlusion of the RCA for which patient had unsuccessful angioplasty, patient was also noted to have moderate disease in the LAD at that time. #5 acute on chronic renal failure #6 hypertension #7 hyperlipidemia #8 anxiety Plan From cardiology's perspective, patient may be able to be discharged home today. Make her a follow-up appointment to see Dr. Bull in the office post discharge. DNP note has been reviewed, I agree with a documented findings and plan of care. Patient was seen and examined.
== END 2016-10-23 15:02 | disposition home health service (06) | DRG 683 ==
LOC: EC 12:48 → 6SEL 14:57
PROVIDERS: ADMIT Internal Medicine; ATTEND Internal Medicine
PROC: B245ZZZ Ultrasonography of Left Heart (ICD-10-PCS; principal; 2016-10-23)
PROC: 4A12XM4 Monitoring of Cardiac Stress, External Approach (ICD-10-PCS; 2016-10-23)
PROC: 3E073KZ Introduction of Other Diagnostic Substance into Coronary Artery, Percutaneous Approach (ICD-10-PCS; 2016-10-23)
DX: N17.9 Acute kidney failure, unspecified (principal); J96.10 Chronic respiratory failure, unspecified whether with hypoxia or hypercapnia; I95.9 Hypotension, unspecified; I25.82 Chronic total occlusion of coronary artery; F03.90 Unspecified dementia, unspecified severity, without behavioral disturbance, psychotic disturbance, mood disturbance, and anxiety; J84.10 Pulmonary fibrosis, unspecified; E87.1 Hypo-osmolality and hyponatremia; J44.1 Chronic obstructive pulmonary disease with (acute) exacerbation; Z99.81 Dependence on supplemental oxygen; I12.9 Hypertensive chronic kidney disease with stage 1 through stage 4 chronic kidney disease, or unspecified chronic kidney disease; N18.9 Chronic kidney disease, unspecified; T50.2X5A Adverse effect of carbonic-anhydrase inhibitors, benzothiadiazides and other diuretics, initial encounter; I25.10 Atherosclerotic heart disease of native coronary artery without angina pectoris; T46.4X5A Adverse effect of angiotensin-converting-enzyme inhibitors, initial encounter; I49.1 Atrial premature depolarization; D72.829 Elevated white blood cell count, unspecified; R07.9 Chest pain, unspecified; I45.10 Unspecified right bundle-branch block; I25.2 Old myocardial infarction; E78.5 Hyperlipidemia, unspecified; K29.60 Other gastritis without bleeding; K44.9 Diaphragmatic hernia without obstruction or gangrene; R74.8 Abnormal levels of other serum enzymes; R11.0 Nausea; M17.0 Bilateral primary osteoarthritis of knee; F41.9 Anxiety disorder, unspecified; Z82.49 Family history of ischemic heart disease and other diseases of the circulatory system; Z71.3 Dietary counseling and surveillance; Z79.82 Long term (current) use of aspirin; Z79.899 Other long term (current) drug therapy; Z87.891 Personal history of nicotine dependence; Z79.51 Long term (current) use of inhaled steroids; Z86.79 Personal history of other diseases of the circulatory system
CPT/HCPCS: 36415; 71020; 80048; 80053; 80061; 82550; 82553; 83735; 84484; 85025; 85027; 85610; 85730; 93005; 93017; 93306; 93350; 94640; 94760; 96361; 96365; 96375; 96376; 99291

== ENCOUNTER 2018-01-18 05:06 | Inpatient (IN) | payer MEDICARE, BC ==
--- NOTE | 2018-01-18 05:12 | ED ---
Altered Mental Status HPI - General Source: family, EMS Limitations: altered mental status - History of Present Illness MD Complaint: confusion -: hour(s) Severity: moderate Consistency of Symptoms: getting worse <Papo Summers - Last Filed: 01/18/18 06:53> <Manjeet Leahy - Last Filed: 01/18/18 08:34> - General Stated Complaint: Altered Mental Status Time Seen by Provider: 01/18/18 05:08 - History of Present Illness Initial Comments: This patient is a 72-year-old woman who reportedly has some mild underlying dementia who is brought in tonight because she has been reportedly much worse over the past day. Tonight the patient's seem to be having conversations with people who weren't there. She was also being somewhat delusional at home, per the EMS description. The patient is not able to give any useful history here. She is able answer direct yes and no questions though and on the review of systems is not having any pain or any difficulty with breathing. She has not been having vomiting or diarrhea. (Papo Summers) - Related Data Home Medications Medication Instructions Recorded Confirmed Omeprazole [PriLOSEC] 20 mg PO DAILY 04/25/14 01/18/18 Albuterol Inhaler [Ventolin Hfa 2 puff INHALATION RT-Q4H PRN 01/17/15 01/18/18 Inhaler] Donepezil [Aricept] 5 mg PO HS 08/19/16 01/18/18 Aspirin 81 mg PO DAILY 10/13/16 01/18/18 Sertraline HCl [Zoloft] 50 mg PO DAILY 10/13/16 01/18/18 Atorvastatin [Lipitor] 80 mg PO HS 01/18/18 01/18/18 Clopidogrel [Plavix] 75 mg PO DAILY 01/18/18 01/18/18 Famotidine [Famotidine] 1 tab PO DAILY 01/18/18 01/18/18 Lisinopril-Hctz 20-12.5 mg 1 tab PO DAILY 01/18/18 01/18/18 [Zestoretic 20-12.5] Mometasone/Formoterol [Dulera 200 2 puff INHALATION BID 01/18/18 01/18/18 Mcg/5 Mcg Inhaler] Spironolactone [Aldactone] 25 mg PO DAILY 01/18/18 01/18/18 Vitamin D3/Folic Acid [Zavara 1 each PO DAILY 01/18/18 01/18/18 5,750 Unit-1 mg Cap] Previous Rx's Medication Instructions Recorded Metoprolol Succinate (ER) [Toprol 50 mg PO DAILY #60 tab.er.24h 10/17/15 XL] Nitroglycerin Sl Tabs [Nitrostat] 0.4 mg SUBLINGUAL Q5M PRN #25 tab 10/17/15 ALPRAZolam [Xanax] 0.25 mg PO TID PRN #60 tab 10/13/16 Ipratropium Nebulized [Atrovent 0.5 mg INHALATION RT-QID #0 10/17/16 Nebulized] Albuterol Nebulized [Ventolin 2.5 mg INHALATION Q6H 30 Days #2 09/22/17 Nebulized] box predniSONE 10 mg PO DAILY 16 Days #40 tab 09/22/17 Allergies Allergy/AdvReac Type Severity Reaction Status Date / Time No Known Allergies Allergy Verified 01/18/18 05:13 Review of Systems ROS Other: All systems not noted in ROS Statement are negative. Limitations: ROS unobtainable due to patients medical condition Respiratory: Denies: cough, dyspnea Cardiovascular: Denies: chest pain Gastrointestinal: Denies: abdominal pain, vomiting, diarrhea Musculoskeletal: Denies: back pain Neurological: Denies: headache <Papo Summers - Last Filed: 01/18/18 06:53> ROS Other: All systems not noted in ROS Statement are negative. <Manjeet Leahy - Last Filed: 01/18/18 08:34> ROS Statement: Those systems with pertinent positive or pertinent negative responses have been documented in the HPI. Past Medical History Past Medical History: Coronary Artery Disease (CAD), COPD, Dementia, Hyperlipidemia, Hypertension, Myocardial Infarction ([place]), Osteoarthritis (OA) Additional Past Medical History / Comment(s): Advanced COPD with chronic hypoxic arrest 30 failure and her last hospitalization was on 10/14/2016, hypertension, hyperlipidemia, degenerative arthritis, small hiatal hernia, coronary artery disease with a totally occluded mid RCA with collaterals and mild to moderate disease involving the LAD Last Myocardial Infarction Date:: 10/11/15 History of Any Multi-Drug Resistant Organisms: None Reported Past Surgical History: Section Additional Past Surgical History / Comment(s): 04/27/14 EGD with negative bx and colonoscopy, 3 C-Sections, cardiac catheterization Past Anesthesia/Blood Transfusion Reactions: No Reported Reaction Past Psychological History: No Psychological Hx Reported Additional Psychological History / Comment(s): Pt lives with her and grandson. She is fairly independent. She uses no assistive device and has no home care agency. She drives a car. She has home O2 which she uses prn. Smoking Status: Former smoker Past Alcohol Use History: None Reported Additional Past Alcohol Use History / Comment(s): STARTED SMOKING AGE 23. She smoked 1 1/2 packs a day. Pt states she quit smoking in July 2016. Past Drug Use History: None Reported - Past Family History Father Family Medical History: Coronary Artery Disease (CAD) Additional Family Medical History / Comment(s): Father at age 86yrs. Mother Family Medical History: Coronary Artery Disease (CAD) Additional Family Medical History / Comment(s): Mother at age 46yrs. She had a heart murmur. <Papo Summers - Last Filed: 01/18/18 06:53> General Exam General appearance: alert, in no apparent distress, anxious Head exam: Present: atraumatic, normocephalic Eye exam: Present: normal appearance, PERRL, EOMI. Absent: scleral icterus, conjunctival injection ENT exam: Present: mucous membranes dry Neck exam: Present: normal inspection Respiratory exam: Present: normal lung sounds bilaterally. Absent: respiratory distress, wheezes, rales, rhonchi, stridor Cardiovascular Exam: Present: regular rate, normal rhythm, normal heart sounds. Absent: systolic murmur, diastolic murmur, rubs, gallop GI/Abdominal exam: Present: soft. Absent: distended, tenderness, guarding, rebound, mass Extremities exam: Present: normal inspection, normal capillary refill. Absent: pedal edema, calf tenderness Back exam: Present: normal inspection. Absent: CVA tenderness (R), CVA tenderness (L) Neurological exam: Present: alert, CN II-XII intact. Absent: oriented X3 ( Patient is only oriented to person), motor sensory deficit Psychiatric exam: Present: anxious. Absent: homicidal ideation, suicidal ideation Skin exam: Present: warm, dry, intact, normal color. Absent: rash <Papo Summers - Last Filed: 01/18/18 06:53> Vital Signs 01/18/18 01/18/18 01/18/18 05:07 06:50 07:18 Temperature 98.7 F 98.3 F Pulse Rate 80 85 80 Respiratory 18 18 18 Rate Blood Pressure 118/59 168/98 112/88 O2 Sat by Pulse 98 98 100 Oximetry 01/18/18 08:22 Temperature Pulse Rate 85 Respiratory 118 H Rate Blood Pressure 139/64 O2 Sat by Pulse 98 Oximetry Medical Decision Making - Lab Data Result diagrams: 01/18/18 05:30 01/18/18 05:30 - EKG Data -: EKG Interpreted by Tn EKG shows normal: sinus rhythm, axis (Left axis deviation), intervals (SC interval 154 ms, normal. QTC 431 ms, normal. QRS duration 128 ms, prolonged, consistent with right bundle-branch block.), QRS complexes (Right bundle-branch block), ST-T waves (Normal) Rate: normal (Rate 80 bpm) <Papo Summers - Last Filed: 01/18/18 06:53> - Lab Data Result diagrams: 01/18/18 05:30 01/18/18 05:30 <Manjeet Leahy - Last Filed: 01/18/18 08:34> - Medical Decision Making Chest x-ray shows no acute abnormality (Manjeet Leahy) - Lab Data Lab Results 01/18/18 01/18/18 01/18/18 Range/Units 05:11 05:30 05:30 WBC 17.3 H (3.8-10.6) k/uL RBC 3.91 (3.80-5.40) m/uL Hgb 12.2 (11.4-16.0) gm/dL Hct 36.7 (34.0-46.0) % MCV 93.8 (80.0-100.0) fL MCH 31.1 (25.0-35.0) pg MCHC 33.2 (31.0-37.0) g/dL RDW 14.6 (11.5-15.5) % Plt Count 390 (150-450) k/uL Neutrophils % (Manual) 57 % Lymphocytes % (Manual) 22 % Monocytes % (Manual) 14 % Eosinophils % (Manual) 2 % Metamyelocytes % 5 % Myelocytes % 1 % Neutrophils # (Manual) 9.86 H (1.3-7.7) k/uL Lymphocytes # (Manual) 3.81 (1.0-4.8) k/uL Monocytes # (Manual) 2.42 H (0-1.0) k/uL Eosinophils # (Manual) 0.35 (0-0.7) k/uL Metamyelocytes # (Man) 0.87 H (0) k/uL Myelocytes # (Manual) 0.17 H (0) k/uL Nucleated RBCs 0 (0-0) /100 WBC Polychromasia Present Sodium 130 L (137-145) mmol/L Potassium 4.8 (3.5-5.1) mmol/L Chloride 101 (98-107) mmol/L Carbon Dioxide 16 L (22-30) mmol/L Anion Gap 13 mmol/L BUN 59 H (7-17) mg/dL Creatinine 1.80 H (0.52-1.04) mg/dL Est GFR (CKD-EPI)AfAm 32 (>60 ml/min/1.73 sqM) Est GFR (CKD-EPI)NonAf 27 (>60 ml/min/1.73 sqM) Glucose 91 (74-99) mg/dL POC Glucose (mg/dL) 314 H (75-99) mg/dL POC Glu [employer] ID [place] [place] Calcium 9.4 (8.4-10.2) mg/dL TSH 3.200 (0.465-4.680) mIU/L Urine Color Urine Appearance (Clear) Urine pH (5.0-8.0) Ur Specific [place] (1.001-1.035) Urine Protein (Negative) Urine Glucose (UA) (Negative) Urine Ketones (Negative) Urine Blood (Negative) Urine Nitrite (Negative) Urine Bilirubin (Negative) Urine Urobilinogen (<2.0) mg/dL Ur Leukocyte Esterase (Negative) 01/18/18 Range/Units 05:30 WBC (3.8-10.6) k/uL RBC (3.80-5.40) m/uL Hgb (11.4-16.0) gm/dL Hct (34.0-46.0) % MCV (80.0-100.0) fL MCH (25.0-35.0) pg MCHC (31.0-37.0) g/dL RDW (11.5-15.5) % Plt Count (150-450) k/uL Neutrophils % (Manual) % Lymphocytes % (Manual) % Monocytes % (Manual) % Eosinophils % (Manual) % Metamyelocytes % % Myelocytes % % Neutrophils # (Manual) (1.3-7.7) k/uL Lymphocytes # (Manual) (1.0-4.8) k/uL Monocytes # (Manual) (0-1.0) k/uL Eosinophils # (Manual) (0-0.7) k/uL Metamyelocytes # (Man) (0) k/uL Myelocytes # (Manual) (0) k/uL Nucleated RBCs (0-0) /100 WBC Polychromasia Sodium (137-145) mmol/L Potassium (3.5-5.1) mmol/L Chloride (98-107) mmol/L Carbon Dioxide (22-30) mmol/L Anion Gap mmol/L BUN (7-17) mg/dL Creatinine (0.52-1.04) mg/dL Est GFR (CKD-EPI)AfAm (>60 ml/min/1.73 sqM) Est GFR (CKD-EPI)NonAf (>60 ml/min/1.73 sqM) Glucose (74-99) mg/dL POC Glucose (mg/dL) (75-99) mg/dL POC Glu Internal Wholesaler ID Calcium (8.4-10.2) mg/dL TSH (0.465-4.680) mIU/L Urine Color Yellow Urine Appearance Clear (Clear) Urine pH 5.5 (5.0-8.0) Ur Specific [place] 1.014 (1.001-1.035) Urine Protein Trace H (Negative) Urine Glucose (UA) Negative (Negative) Urine Ketones Negative (Negative) Urine Blood Negative (Negative) Urine Nitrite Negative (Negative) Urine Bilirubin Negative (Negative) Urine Urobilinogen <2.0 (<2.0) mg/dL Ur Leukocyte Esterase Negative (Negative) Disposition <Papo Summers - Last Filed: 01/18/18 06:53> Time of Disposition: 08:34 <Manjeet Leahy - Last Filed: 01/18/18 08:34> Clinical Impression: Altered mental status, Renal insufficiency, Hyponatremia Disposition: ADMITTED IP TO THIS HOSP Referrals: Rohan Cueva MD [Primary Care Provider] - 1-2 days
[2018-01-18 05:16] LABS: Glucose,Whole Blood 314 mg/dL (75-99)
[2018-01-18 05:47] LABS: Appearance,Urine Clear (Clear); Bilirubin,Urine Negative (Negative); Blood,Urine Negative (Negative); Color,Urine Yellow; Glucose,Urine (UA) Negative (Negative); Ketones,Urine Negative (Negative); Leukocyte Esterase,Urine Negative (Negative); Nitrite,Urine Negative (Negative); PH, Urine 5.5 (5.0-8.0); Protein,Urine Trace (Negative); Specific Gravity,Urine 1.014 (1.001-1.035); Urobilinogen,Urine <2.0 mg/dL (<2.0)
[2018-01-18 05:56] LABS: Calcium 9.4 mg/dL (8.4-10.2); Potassium 4.8 mmol/L (3.5-5.1)
[2018-01-18 06:08] LABS: HCT 36.7 % (34.0-46.0); HGB 12.2 gm/dL (11.4-16.0); MCH 31.1 pg (25.0-35.0); MCHC 33.2 g/dL (31.0-37.0); MCV 93.8 fL (80.0-100.0); Mean Platelet Volume 6.7; Platelet Count 390 k/uL (150-450); RBC 3.91 m/uL (3.80-5.40); RDW 14.6 % (11.5-15.5); WBC 17.3 k/uL (3.8-10.6)
[2018-01-18] MEDS ORDERED: SODIUM CHLORIDE 0.9% 1,000 ML IV ONE ×2 (06:51→08:34)
[2018-01-18 07:21] LABS: Eosinophils # (M) 0.35 k/uL (0-0.7); Lymphocytes # (M) 3.81 k/uL (1.0-4.8); Metamyelocytes # (M) 0.87 k/uL (0); Metamyelocytes % 5 %; Monocytes # (M) 2.42 k/uL (0-1.0); Myelocytes # (M) 0.17 k/uL (0); Myelocytes % 1 %; Neutrophils # (M) 9.86 k/uL (1.3-7.7); Neutrophils % (M) 57 %; Nucleated Red Blood Cells 0 /100 WBC (0-0); Total Cells Counted 200
[2018-01-18 07:22] LABS: Polychromasia Present
--- NOTE | 2018-01-18 08:06 | XR ---
EXAMINATION TYPE: XR chest 2V DATE OF EXAM: 01/18/2018 COMPARISON: Chest x-ray September 21, 2017 HISTORY: Altered mental status and weakness. TECHNIQUE: Frontal and lateral views of the chest are obtained. FINDINGS: There is some chronic parenchymal change without suspicious focal air space opacity, pleur al effusion, or pneumothorax seen. The cardiac silhouette size remains within normal limits with ath erosclerotic thoracic aorta. The osseous structures are intact. IMPRESSION: Chronic changes without acute pulmonary process.
--- NOTE | 2018-01-18 08:09 | CT ---
EXAMINATION TYPE: CT brain wo con DATE OF EXAM: 01/18/2018 HISTORY: Confusion and Hallucinating CT DLP: 2377.7 mGycm. Automated Exposure Control for Dose Reduction was Utilized. TECHNIQUE: CT scan of the head is performed without contrast. COMPARISON: MRI brain January 02, 2016 FINDINGS: There is no acute intracranial hemorrhage or midline shift identified. There is diffuse v entricular and sulcal prominence consistent with diffuse age-related cerebral atrophy. There is low- attenuation in the periventricular white matter consistent with chronic small vessel ischemic change. The globes are intact and the visualized sinuses are clear. IMPRESSION: No acute intracranial hemorrhage or midline shift. There is mild to moderate diffuse ag e-related cerebral atrophy and moderate to severe chronic small vessel ischemic change redemonstrated without significant change from prior MRI.
[2018-01-18] MEDS ORDERED: ALBUTEROL NEBULIZED 2.5 MG/3 ML INHALATION PRN (08:35)
[2018-01-18] MEDS ORDERED: LISINOPRIL-HCTZ 20-12.5 MG 1 EACH TAB PO SCH (09:00)
[2018-01-18] MEDS ORDERED: SPIRONOLACTONE 25 MG TAB PO SCH (09:00)
[2018-01-18] MEDS ORDERED: NITROGLYCERIN SL TABS 0.4 MG TAB SUBLINGUAL PRN (10:22)
[2018-01-18] MEDS: METOPROLOL SUCCINATE (ER) 50 MG TAB.ER.24H PO SCH (10:36)
[2018-01-18] MEDS: CLOPIDOGREL 75 MG TAB PO SCH (10:37)
[2018-01-18] MEDS: SERTRALINE 50 MG TAB PO SCH (10:37)
[2018-01-18] MEDS: PANTOPRAZOLE 40 MG TABLET PO SCH (10:43)
[2018-01-18] MEDS: FAMOTIDINE 20 MG TAB PO SCH (10:43)
[2018-01-18] MEDS: ASPIRIN 81 MG PO SCH (10:44)
[2018-01-18] MEDS: ALBUTEROL NEBULIZED 2.5 MG/3 ML INHALATION SCH ×4 (11:19→21:50)
[2018-01-18] MEDS: IPRATROPIUM 0.5 MG/2.5 ML NEBU INHALATION SCH ×3 (11:20→21:50)
[2018-01-18] MEDS: SYMBICORT 160-4.5 MCG INHALER INHALATION SCH ×2 (11:20→21:44)
--- NOTE | 2018-01-18 12:35 | P.CNPUL ---
History of Present Illness Consult date: 01/18/18 Reason for consult: COPD History of present illness: 42-year-old female patient presenting with altered mental status. I was asked to this patient regarding her COPD. The patient was seen and evaluated. She was confused. She was having apparently some delusional ideations at home and I noted the same upon talking to her. She is apparently has been forgetful over this past years. Her condition is been gradually getting worse. At times she got lost upon driving and she had impairment the sense of direction and orientation. She has no significant agitation. At times she laughs and her affect is not appropriate also. She is moving all 4 extremities without any limitation. No seizure activity. She had a fall yet there is no clear-cut history of head trauma. CAT scan of the brain was done and it showed no acute intracranial hemorrhage. There is moderate degree of diffuse age-related atrophy and moderate to severe small vessel ischemic changes redemonstrated without significant change from previous MRI of the brain of 2016. The chest x- ray shows no acute cardio pulmonary process. No hypoxemia. Serum sodium is at 130 and the EKG showing right bundle branch block pattern. 0. No fever. No chills. No night sweats. No aspiration. Review of Systems ROS unobtainable: due to mental status Past Medical History Past Medical History: Coronary Artery Disease (CAD), COPD, Dementia, Hyperlipidemia, Hypertension, Myocardial Infarction ([place]), Osteoarthritis (OA) Additional Past Medical History / Comment(s): Advanced COPD with chronic hypoxic arrest 30 failure and her last hospitalization was on 10/14/2016, hypertension, hyperlipidemia, degenerative arthritis, small hiatal hernia, coronary artery disease with a totally occluded mid RCA with collaterals and mild to moderate disease involving the LAD, dementia Last Myocardial Infarction Date:: 10/11/15 History of Any Multi-Drug Resistant Organisms: None Reported Past Surgical History: Section Additional Past Surgical History / Comment(s): 04/27/14 EGD with negative bx and colonoscopy, 3 C-Sections, cardiac catheterization Past Anesthesia/Blood Transfusion Reactions: No Reported Reaction Past Psychological History: No Psychological Hx Reported Additional Psychological History / Comment(s): Pt lives with her and grandson. She is fairly independent. She uses no assistive device and has no home care agency. She drives a car. She has home O2 which she uses prn. Smoking Status: Former smoker Past Alcohol Use History: None Reported Additional Past Alcohol Use History / Comment(s): STARTED SMOKING AGE 23. She smoked 1 1/2 packs a day. Pt states she quit smoking in July 2016. Past Drug Use History: None Reported - Past Family History Father Family Medical History: Coronary Artery Disease (CAD) Additional Family Medical History / Comment(s): Father at age 86yrs. Mother Family Medical History: Coronary Artery Disease (CAD) Additional Family Medical History / Comment(s): Mother at age 46yrs. She had a heart murmur. Medications and Allergies Home Medications Medication Instructions Recorded Confirmed Type Omeprazole [PriLOSEC] 20 mg PO DAILY 04/25/14 01/18/18 History Albuterol Inhaler [Ventolin Hfa 2 puff INHALATION RT-Q4H PRN 01/17/15 01/18/18 History Inhaler] Metoprolol Succinate (ER) [Toprol 50 mg PO DAILY #60 tab.er.24h 10/17/15 Rx XL] Nitroglycerin Sl Tabs [Nitrostat] 0.4 mg SUBLINGUAL Q5M PRN #25 tab 10/17/1511/02 Rx Donepezil [Aricept] 5 mg PO HS 08/19/16 01/18/18 History ALPRAZolam [Xanax] 0.25 mg PO TID PRN #60 tab 10/13/16 01/18/18 Rx Aspirin 81 mg PO DAILY 10/13/16 01/18/18 History Sertraline HCl [Zoloft] 50 mg PO DAILY 10/13/16 01/18/18 History Ipratropium Nebulized [Atrovent 0.5 mg INHALATION RT-QID #0 10/17/16 01/18/18 Rx Nebulized] Albuterol Nebulized [Ventolin 2.5 mg INHALATION Q6H 30 Days #2 09/22/17 Rx Nebulized] box predniSONE 10 mg PO DAILY 16 Days #40 tab 09/22/17 01/18/18 Rx Atorvastatin [Lipitor] 80 mg PO HS 01/18/18 01/18/18 History Clopidogrel [Plavix] 75 mg PO DAILY 01/18/18 01/18/18 History Famotidine [Famotidine] 1 tab PO DAILY 01/18/18 01/18/18 History Lisinopril-Hctz 20-12.5 mg 1 tab PO DAILY 01/18/18 01/18/18 History [Zestoretic 20-12.5] Mometasone/Formoterol [Dulera 200 2 puff INHALATION BID 01/18/18 01/18/18 History Mcg/5 Mcg Inhaler] Spironolactone [Aldactone] 25 mg PO DAILY 01/18/18 01/18/18 History Vitamin D3/Folic Acid [Zavara 1 each PO DAILY 01/18/18 01/18/18 History 5,750 Unit-1 mg Cap] Allergies Allergy/AdvReac Type Severity Reaction Status Date / Time No Known Allergies Allergy Verified 01/18/18 05:13 Physical Exam Vitals: Vital Signs Temp Pulse Pulse Resp BP BP Pulse Ox 01/18/18 11:32 72 01/18/18 11:21 72 01/18/18 09:45 98.5 F 75 14 123/56 99 01/18/18 08:52 98.6 F 01/18/18 08:22 85 18 139/64 98 01/18/18 07:18 80 18 112/88 100 01/18/18 06:50 98.3 F 85 18 168/98 98 01/18/18 05:07 98.7 F 80 18 118/59 98 Intake and Output 01/17/18 01/18/18 01/18/18 22:59 06:59 14:59 Other: Weight 68.039 kg Head exam was generally normal. There was no scleral icterus or corneal arcus. Mucous membranes were moist.Neck was supple and without jugular venous distension, thyromegaly, or carotid bruits. Carotids were easily palpable bilaterally. There was no adenopathy. Lung examination revealed diffuse expiratory wheezes throughout the lung ness bilaterally. Cardiac exam revealed the PMI to be normally situated and sized. The rhythm was regular and no extrasystoles were noted during several minutes of auscultation. The first and second heart sounds were normal and physiologic splitting of the second heart sound was noted. There were no murmurs, rubs, clicks, or gallops.Abdominal exam revealed normal bowel sounds. The abdomen was soft, non- tender, and without masses, organomegaly, or appreciable enlargement of the abdominal aorta.Examination of the extremities revealed easily palpable radial, femoral and pedal pulses. There was no cyanosis, clubbing or edema.Examination of the skin revealed no evidence of significant rashes, suspicious appearing nevi or other concerning lesions. Neurologically, the patient is confused and the patient is moving all 4 extremities, no cranial nerve deficits. No focal neurological deficit. No neck stiffness. Results - Laboratory Findings CBC and BMP: 01/18/18 05:30 01/18/18 05:30 Abnormal lab findings: Abnormal Labs 01/18/18 01/18/18 01/18/18 05:11 05:30 05:30 WBC 17.3 H Neutrophils # (Manual) 9.86 H Monocytes # (Manual) 2.42 H Metamyelocytes # (Man) 0.87 H Myelocytes # (Manual) 0.17 H Sodium 130 L Carbon Dioxide 16 L BUN 59 H Creatinine 1.80 H POC Glucose (mg/dL) 314 H Urine Protein 01/18/18 05:30 WBC Neutrophils # (Manual) Monocytes # (Manual) Metamyelocytes # (Man) Myelocytes # (Manual) Sodium Carbon Dioxide BUN Creatinine POC Glucose (mg/dL) Urine Protein Trace H - Diagnostic Findings Chest x-ray: image reviewed Assessment and Plan Plan: Assessment 1 altered mentation, probably later to progressive dementia/Alzheimer's disease. No other identifiable secondary causes to altered mentation is patient other than her underlying dementia 2 COPD severe. Stable 3 hypertension 4 hyperlipidemia 5 coronary artery disease 6 borderline hyponatremia with a sodium level of 1:30 Plan Already status is stable. Put the patient on albuterol about treatments around the clock, Symbicort as maintenance and maintain a timely grams of prednisone that she typically takes at home. Continue Aricept. Neurology evaluation. We will see the patient as needed.
[2018-01-18] MEDS: LACTATED RINGERS 1,000 ML IV SCH (12:39)
[2018-01-18] MEDS: SODIUM BICARBONATE TAB 650 MG TAB PO SCH ×3 (13:04→21:16)
--- NOTE | 2018-01-18 14:01 | HP ---
HISTORY AND PHYSICAL DATE OF ADMISSION: 01/18/18. DATE OF SERVICE: 01/18/18. PRESENT COMPLAINT: Acute confusion. HISTORY OF PRESENTING COMPLAINT: This is a pleasant 72-year-old patient with rather extensive medical history. Chronic stable medical conditions include COPD, coronary artery disease with chronically occluded RCA, hyperlipidemia, hypertension, osteoarthritis on home oxygen. The patient has been brought in by the family as patient has been a bit confused, talking to people who have not been there. Somewhat tired and run down. The patient is short of breath, some wheezing. No fever, no chills. Appetite is okay. Patient is an ex-smoker. REVIEW OF SYSTEMS: CONSTITUTIONAL: Tired. HEENT: None. RESPIRATORY: Short of breath. CARDIOVASCULAR: No chest pain. GASTROINTESTINAL: None. GENITOURINARY: None. MUSCULOSKELETAL: Pain in the joints. DERMATOLOGICAL, HEMATOLOGIC, LYMPHATIC: None. PSYCHIATRY: Forgetful, NEUROLOGICAL: No focal weakness. PAST MEDICAL HISTORY: Coronary artery disease with chronically occluded RCA, COPD, hyperlipidemia, hypertension, osteoarthritis, hiatal hernia, CHF with EF of 30-35%. PAST SURGICAL HISTORY: , cardiac catheterization, EGD. SOCIAL HISTORY: The patient lives with her and grandson. She uses home oxygen sometimes. She is patient smokes. The patient has smoked for about 48 years a pack and half a day, stopped in July of 2016. Alcohol none. FAMILY HISTORY: Coronary artery disease. MEDICATIONS: Plavix 75 mg a day, Lipitor 80 mg q.h.s., 5/750 one tablet daily, Aldactone 25 p.o. daily, Pepcid 21 tablet p.o. daily, Dulera 2 puffs b.i.d., Zestoretic 20/12.5 one tablet p.o. daily, Atrovent 0.5 q.i.d., Nitrostat 0.4 sublingual q.5 p.r.n., Ventolin 2.5 q.6h, prednisone 10 mg a day, Zoloft 50 mg a day, Prilosec 20 mg a day, Toprol-XL 50 mg a day, Aricept 5 mg q.h.s., aspirin 81 mg p.o. daily, Xanax 0.25 p.o. t.i.d. p.r.n. ALLERGIES: None. PHYSICAL EXAMINATION: VITAL SIGNS ON PRESENTATION: Temperature 98.7, pulse 80, respiratory 18, blood pressure 118/59, pulse ox 98% on 2 L. GENERAL APPEARANCE: Average built, BMI 26.6, sitting up, tired appearing. EYES: Pupils equal, conjunctivae normal. HEENT: External appearance of nose and ears normal. Oral cavity normal. NECK: JVD not raised, mass not palpable. RESPIRATORY: Effort normal. LUNGS: Diminished breath sounds, mild wheezing. CARDIOVASCULAR: First and second sounds normal. No edema. ABDOMEN: Soft, nontender. Liver and spleen not palpable. LYMPHATIC: No lymph node palpable in neck or axillae. PSYCHIATRY: Awake, able to answer simple questions. Mood and affect are normal. INVESTIGATIONS: White count 7.3, neutrophils 9.86, potassium 4.8, BUN 59, creatinine 1.8. Patient's BUN and creatinine were 40/1.10 back on 09/22/17. The patient's last 2D echocardiogram from October of 2016 showed an EF of 55-60%. The patient did have a dobutamine stress echocardiogram October of last year that was negative. ASSESSMENT: 1. Acute delirium from patient being in acute renal failure. 2. Acute renal failure probably prerenal from patient being on diuretics, LIZ inhibitor, diuretics. 3. Chronic obstructive pulmonary disease. 4. Coronary artery disease with chronically occluded RCA. 5. Hyperlipidemia. 6. Essential hypertension. 7. Primary osteoarthritis of the hands and knees. 8. Chronic hypoxic respiratory failure from chronic obstructive pulmonary disease. 9. Depression, not otherwise specified. PLAN: At this point will hold off patient's Aldactone, lisinopril, hydrochlorothiazide, Dyazide. Will gently hydrate the patient. I expect the mental functions to improve with improved renal function. Care was discussed with the patient. The patient's son had walked in. Medication and treatment plan is to continue. MMODL / IJN: [id number] /
[2018-01-18] MEDS: ALPRAZolam 0.25 MG TAB PO PRN ×2 (14:51→22:14)
[2018-01-18] MEDS: predniSONE 10 MG TAB PO SCH (16:58)
[2018-01-18] MEDS: DONEPEZIL 5 MG TAB PO SCH (21:16)
[2018-01-18] MEDS: ATORVASTATIN 80 MG TAB PO SCH (21:16)
[2018-01-19] MEDS ORDERED: HALOPERIDOL LACTATE 5 MG/ML 1 ML VIAL IM STA (01:15)
[2018-01-19] MEDS: LACTATED RINGERS 1,000 ML IV SCH ×2 (03:50→15:30)
[2018-01-19] MEDS: ALBUTEROL NEBULIZED 2.5 MG/3 ML INHALATION SCH ×4 (03:53→20:37)
[2018-01-19] MEDS: SYMBICORT 160-4.5 MCG INHALER INHALATION SCH ×2 (07:01→20:35)
[2018-01-19] MEDS: IPRATROPIUM 0.5 MG/2.5 ML NEBU INHALATION SCH ×4 (07:06→20:35)
--- NOTE | 2018-01-19 07:49 | CDI ---
Last Revision, July 2017 COPD severe, baseline FEV1 is 45% of predicted, consistent with GOLD stage III COPD with chronic hypoxemic respiratory failure, steroid dependent. Stable, no evidence of acute exacerbation Documentation Clarification Form Date: 01/19/2018 7:46:07 AM From: Stacey Burt Admit Date: 01/18/2018 8:34:00 AM Patient Name: Shae Valladares Visit Number: [id number] ATTENTION: The Clinical Documentation Specialists (CDI) and [facility] Coding Staff appreciate your assistance in clarifying documentation. Please respond to the clarification below the line at the bottom and electronically sign. The CDI & [facility] Coding staff will review the response and follow-up if needed. Please note: Queries are made part of the Legal Health Record. If you have any questions, please contact the author of this message via ITS. Dr. Kate Elias, Documentation of COPD is located in the Consult dated 01/18/18. History/Risk Factors: COPD, CAD ,hyperlipidemia, HTN, OA, home oxygen Significant history of respiratory disorders/disease: COPD Present or past smoker/PPD: X Smoker Home O2: yes not specified how many Liters of 02 used at home Clinical Indicators: CXR: Chronic cut changes Vital Signs: T 98.7, P 80, R 18, 118/59, 98% 2L Lung and Respiratory Assessment: diffuse expiratory wheezed throughout the lung ness bilaterally Treatment: Nebulizers: Albuterol, Symbicort, Atrovent Steroids: Prenisone 10 mg daily O2 @ 2 liters In your professional opinion, can you please clarify if the above findings and treatment signify any of the following? Acute Exacerbation of Chronic Obstructive Pulmonary Disease (COPD) Acute on Chronic Obstructive Asthma Acute on chronic bronchitis Chronic obstructive pulmonary disease with acute lower respiratory infection Emphysema Other condition, please specify Unable to determine Please continue to document in your progress notes, under the line below and/ or in the discharge summary in order to capture severity of illness and risk of mortality. Include clinical findings that support your diagnosis. Acute Exacerbation of Chronic Obstructive Pulmonary Disease (COPD) MTDD
--- NOTE | 2018-01-19 09:02 | CONS ---
CONSULTATION Mrs. Valladares is a 72-year-old female with known history of coronary artery disease, who presented to the hospital yesterday with symptoms of change in mental status. Patient has a known history of significant COPD. She has been followed by Dr. Street. Had a prior history of smoking. She also has a history of coronary artery disease. In September 2015, she presented to the hospital exacerbation of COPD and she had troponin elevation. Underwent cardiac catheterization, was found to have a chronic occluded right coronary artery that was unsuccessful in attempt to open it. She subsequently had a repeat echocardiogram and stress dobutamine echocardiogram in 2017 that revealed no evidence of inducible ischemia with a preserved systolic function. According to the note, she came in with progressive confusion and delusional ideas. At the time of my evaluation, she is awake, confused. 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 She had occasional episodes of chest discomfort. She has chronic dyspnea on exertion. No peripheral edema. No palpitation. No syncope. No clear PND orthopnea. Although the history is somewhat limited from the patient. She is on home oxygen. Her risk factors marker for the prior history of smoking. She is a nondiabetic. She is hypertensive and hyperlipidemic. Her medications on admission included prednisone, Aldactone 25 mg daily, Prilosec, metoprolol succinate 50 mg daily, lisinopril HCT 20-12.5 mg daily, Aricept, Plavix, Lipitor 80 mg daily, aspirin once a day, Xanax, Pepcid, Dulera, Atrovent. On presentation, she was noted to have worsening renal function and her spironolactone as well as her LIZ inhibitor were stopped. Of note that on the last echocardiogram in 2017, her left ventricular systolic function was preserved. REVIEW OF SYSTEMS: Although limited include her RESPIRATORY SYSTEM: She has chronic dyspnea on exertion, home oxygen. She has history of chronic obstructive lung disease/ GI SYSTEM: She denies any nausea, vomiting, yet she some dark stool according to her. SYSTEM: No dysuria or hematuria. NERVOUS SYSTEM: No history of seizure. PHYSICAL EXAMINATION: A 72-year-old female, alert, confused at the time, in no apparent distress. Blood pressure 127/59 with a heart rate in 70s, afebrile. HEAD: Normocephalic. Eyes sclerae nonicteric. NECK: Good upstroke. No bruit. No jugular venous distention. LUNGS: Clear to auscultation. HEART: Regular rate rhythm S1, S2. No S3 with systolic murmur at the base. No diastolic murmur. No rub. ABDOMEN: Soft, nontender. Positive bowel sounds, no organomegaly. EXTREMITIES: No edema. Intact distal pulses. LAB DATA: Hemoglobin 12.2, BUN and creatinine 59 and 1.8, potassium 4.8. Her TSH 3.2. Her renal function was within the normal range in the past. Her EKG revealed a sinus mechanism with right bundle branch block, left anterior fascicular block. Her chest x-ray shows no acute infiltrate. Her CT scan of the brain shows no acute bleeding with mild to moderate diffuse age-related atrophy. IMPRESSION: 1. Change in mental status with confusion, worsening from baseline, could be related to worsening renal function. 2. History of coronary artery disease with occasional episodes of chest discomfort, stable. 3. History of severe chronic obstructive lung disease. 4. Hypertension. 5. Hyperlipidemia. RECOMMENDATION: From the cardiac standpoint, agree with your plan of holding her LIZ inhibitor and spironolactone, especially with the fact that her most recent LV systolic function was normal. I will continue the beta ravindra and the statin. I will follow her renal function. At this time, I see no evidence to suggest acute coronary artery syndrome or acute heart failure. Thank you for this consult. We will follow with you. NORMA / DANIELAN: [id number] /
[2018-01-19] MEDS: SERTRALINE 50 MG TAB PO SCH ×2 (11:48→11:56)
[2018-01-19] MEDS: METOPROLOL SUCCINATE (ER) 50 MG TAB.ER.24H PO SCH ×2 (11:48→11:55)
[2018-01-19] MEDS: PANTOPRAZOLE 40 MG TABLET PO SCH (11:48)
[2018-01-19] MEDS: FAMOTIDINE 20 MG TAB PO SCH ×2 (11:48→11:55)
[2018-01-19] MEDS: SODIUM BICARBONATE TAB 650 MG TAB PO SCH ×3 (11:48→21:50)
[2018-01-19] MEDS: ASPIRIN 81 MG PO SCH (11:48)
[2018-01-19] MEDS: predniSONE 10 MG TAB PO SCH (11:48)
[2018-01-19] MEDS: CLOPIDOGREL 75 MG TAB PO SCH (11:48)
[2018-01-19 12:31] LABS: Calcium 9.1 mg/dL (8.4-10.2)
--- NOTE | 2018-01-19 13:47 | P.PN ---
Subjective Progress Note Date: 01/19/18 Principal diagnosis: Altered mentation 72-year-old female patient presenting with altered mental status. I was asked to this patient regarding her COPD. The patient was seen and evaluated. She was confused. She was having apparently some delusional ideations at home and I noted the same upon talking to her. She is apparently has been forgetful over this past years. Her condition is been gradually getting worse. At times she got lost upon driving and she had impairment the sense of direction and orientation. She has no significant agitation. At times she laughs and her affect is not appropriate also. She is moving all 4 extremities without any limitation. No seizure activity. She had a fall yet there is no clear-cut history of head trauma. CAT scan of the brain was done and it showed no acute intracranial hemorrhage. There is moderate degree of diffuse age-related atrophy and moderate to severe small vessel ischemic changes redemonstrated without significant change from previous MRI of the brain of 2016. The chest x- ray shows no acute cardio pulmonary process. No hypoxemia. Serum sodium is at 130 and the EKG showing right bundle branch block pattern. 0. No fever. No chills. No night sweats. No aspiration. On 01/19/2018 patient is seen again in follow-up on medical surgical floor, she is awake, alert, oriented to place and person, but not to month or the year, or the president. The patient's daughter and are at the bedside, and per family this is the patient's baseline as far as mentation, patient seems to be a bit less confused according to the family. She denies any acute distress, denies any dyspnea, chest pain, as congestion or sputum production. Vital signs are stable, patient is afebrile, room air pulse ox is 95%. On yesterday' s exam, patient was noted to be wheezy, today patient's lung sounds are clear, and according to the daughter, this is the best she has seen her mother as far as shortness of breath. Patient to regular basis has exertional dyspnea, and has to stop and rest after walking even short distances in the house. Yesterday we started the patient on Symbicort, in addition to albuterol. The patient's daughter states there is noticeable difference in her breathing for the better. Patient is on Dulera at home, however it is not clear if the patient has been consistently compliant with it. Denies any urinary symptoms, urinalysis is negative for any evidence of urinary tract infection, today's labs show improvement in serum sodium up to 136, renal profile is improving, with B1 is 36 and creatinine is 1.09. Overall patient remains stable. Denies any fever or chills. Objective - Vital Signs Vital signs: Vital Signs Temp 97.2 F L 01/18/18 21:30 Pulse 72 01/19/18 07:13 Resp 20 01/19/18 00:00 BP 127/59 01/18/18 21:30 Pulse Ox 96 01/19/18 07:03 Intake & Output 01/18/18 01/19/18 01/19/18 18:59 06:59 18:59 Intake Total 225 240 Balance 225 240 Weight 68.039 kg Intake: Intake, IV Titration 225 Amount Lactated Ringers 1,000 ml 225 @ 75 mls/hr IV .[id number] [facility] Rx#:[id number] Oral 240 Other: Voiding Method Toilet Toilet # Voids 2 - Exam GENERAL EXAM: Alert, pleasant, 72-year-old white female, confused, oriented 2, to place and self, disoriented to month, the year or the president comfortable in no apparent distress. HEAD: Normocephalic/atraumatic. EYES: Normal reaction of pupils, equal size. Conjunctiva pink, sclera white. NOSE: Clear with pink turbinates. THROAT: No erythema or exudates. NECK: No masses, no JVD, no thyroid enlargement, no adenopathy. CHEST: No chest wall deformity. Symmetrical expansion. LUNGS: Equal air entry with no crackles, wheeze, rhonchi or dullness. CVS: Regular rate and rhythm, normal S1 and S2, no gallops, no murmurs, no rubs ABDOMEN: Soft, nontender. No hepatosplenomegaly, normal bowel sounds, no guarding or rigidity. EXTREMITIES: No clubbing, no edema, no cyanosis, 2+ pulses and upper and lower extremities. MUSCULOSKELETAL: Muscle strength and tone normal. SPINE: No scoliosis or deformity SKIN: No rashes CENTRAL NERVOUS SYSTEM: Alert and oriented -3. No focal deficits, tone is normal in all 4 extremities. PSYCHIATRIC: Alert and oriented -3. Appropriate affect. Intact judgment and insight. - Labs CBC & Chem 7: 01/18/18 05:30 01/19/18 12:03 Labs: Abnormal Lab Results - Last 24 Hours (Table) 01/19/18 Range/Units 12:03 Sodium 136 L (137-145) mmol/L BUN 36 H (7-17) mg/dL Creatinine 1.09 H (0.52-1.04) mg/dL Assessment and Plan Plan: Assessment 1 altered mentation, probably related to progressive dementia/Alzheimer's disease. No other identifiable secondary causes to altered mentation is patient other than her underlying dementia 2 COPD severe, baseline FEV1 is 45% of predicted, consistent with GOLD stage III COPD with chronic hypoxemic respiratory failure, steroid dependent. Stable , no evidence of acute exacerbation 3 hypertension 4 hyperlipidemia 5 coronary artery disease 6 borderline hyponatremia with a sodium level of 130, improving Plan Continue current plan of treatment, continue Symbicort, continue albuterol nebulized treatments, patient's COPD is stable, with no evidence of acute exacerbation. No fever or chills, vital signs stable. We'll see the patient on as-needed basis I performed a history & physical examination of the patient and discussed their management with my nurse practitioner, Vernell Dorado. I reviewed the nurse practitioner's note and agree with the documented findings and plan of care. Lung sounds are diminished, but no wheezes or rales noted. The findings and the impression was discussed with the patient. I attest to the documentation by the nurse practitioner. Time with Patient: Less than 30
--- NOTE | 2018-01-19 18:26 | PN ---
PROGRESS NOTE DATE OF SERVICE: January 19, 2018. PRESENTING COMPLAINT: Acute confusion. INTERVAL HISTORY: This patient presented with acute delirium from acute renal failure from medications. A bit more perky this morning though still tired and sleepy the patient's and family is at the bedside. The patient did not eat breakfast this morning. Says she is feeling tired. REVIEW OF SYSTEMS: Attempted for constitutional, cardiovascular, GI, pulmonary; relevant findings as above. CURRENT MEDICATIONS: Reviewed that include sodium bicarbonate, IV fluids. PHYSICAL EXAMINATION: Temperature 97.2, pulse 93, respiration 20, blood pressure 127/59, pulse ox 95% on room air. GENERAL APPEARANCE: Lying in bed, a bit more awake. Tired-appearing. EYES: Pupils equal. Conjunctivae normal. HEENT: External appearance of nose and ears normal. Oral cavity dry. NECK: JVD not raised. Mass not palpable. RESPIRATORY: Effort normal. LUNGS: Decreased breath sounds. CARDIOVASCULAR: 1st and 2nd sounds normal. No edema. ABDOMEN: Soft, nontender. Liver and spleen not palpable. PSYCHIATRY: The patient thought she was at home initially, then got a bit more oriented, able to answer questions a bit better today. INVESTIGATIONS: Potassium 5, BUN 36, creatinine 1.09, bicarb 22. ASSESSMENT: 1. Acute delirium. The patient with acute renal failure, slow to respond. 2. Acute renal failure prerenal from medications, slow to respond. 3. Chronic obstructive pulmonary disease. 4. Coronary artery disease with chronically occluded RCA. 5. Hyperlipidemia. 6. Essential hypertension. 7. Primary osteoarthritis of the hands and knees. 8. Chronic hypoxic respiratory failure from chronic obstructive pulmonary disease. 9. Depression, not otherwise specified. PLAN: Continue to hold off patient's antihypertensive and hydrochlorothiazide. The patient apparently did not get fluids last night. I did talk to the nurse to make show that this was done correctly. We will repeat labs in the morning. I did have a meeting with the patient's daughter and in the patient's room and gave them an update and did tell them that I do expect the patient to turn around another 24 hours, to make sure the fluids were given. Electrolytes checked. Total time spent today was about 40 minutes with over 25 minutes at least in discussion. MMODL / IJN: [id number] /
[2018-01-19] MEDS: DONEPEZIL 5 MG TAB PO SCH (20:08)
[2018-01-19] MEDS: ATORVASTATIN 80 MG TAB PO SCH (20:08)
[2018-01-20] MEDS: ALBUTEROL NEBULIZED 2.5 MG/3 ML INHALATION SCH ×4 (01:10→21:23)
[2018-01-20] MEDS: LACTATED RINGERS 1,000 ML IV SCH ×2 (01:59→15:28)
[2018-01-20 07:57] LABS: Calcium 8.9 mg/dL (8.4-10.2)
[2018-01-20] MEDS: SYMBICORT 160-4.5 MCG INHALER INHALATION SCH ×2 (08:15→21:23)
[2018-01-20] MEDS: IPRATROPIUM 0.5 MG/2.5 ML NEBU INHALATION SCH ×4 (08:15→21:23)
[2018-01-20] MEDS: SODIUM BICARBONATE TAB 650 MG TAB PO SCH ×2 (08:37→15:29)
[2018-01-20] MEDS: SERTRALINE 50 MG TAB PO SCH (08:37)
[2018-01-20] MEDS: ASPIRIN 81 MG PO SCH (08:37)
[2018-01-20] MEDS: PANTOPRAZOLE 40 MG TABLET PO SCH (08:37)
[2018-01-20] MEDS: predniSONE 10 MG TAB PO SCH (08:37)
[2018-01-20] MEDS: METOPROLOL SUCCINATE (ER) 50 MG TAB.ER.24H PO SCH (08:37)
[2018-01-20] MEDS: CLOPIDOGREL 75 MG TAB PO SCH (08:37)
--- NOTE | 2018-01-20 09:26 | P.PN ---
Subjective Mrs. Valladares is a pleasant 72-year-old female past medical history significant for coronary artery disease, stress induced cardiomyopathy, COPD and prior history of tobacco dependence. She follows with Dr. Gracia in the office. She was seen in consultation yesterday and her lisinopril/hctz and aldactone were discontinued secondary to worsening renal function. Her mentation continues to be mildly impaired. 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 She denies symptoms of chest pain, shortness of breath, dizziness, palpitations, nausea or vomiting. She states when she gets up to the bathroom she feels as though she needs to use oxygen. Kidney function has improved, creatinine 0.95, sodium 135, potassium 5.0, TSH 3.2. Blood pressure 112/67 heart rate 74 afebrile and maintain oxygen saturation on room air. Objective - Vital Signs Vital signs: Vital Signs Temp 98 F 01/20/18 06:50 Pulse 74 01/20/18 06:50 Resp 20 01/20/18 06:50 BP 112/67 01/20/18 06:50 Pulse Ox 98 01/20/18 06:50 Intake & Output 01/19/18 01/20/18 01/20/18 18:59 06:59 18:59 Intake Total 150 Balance 150 Intake: Intake, IV Titration 150 Amount Lactated Ringers 1,000 ml 150 @ 75 mls/hr IV .[id number] [facility] Rx#:[id number] Other: Voiding Method Toilet # Voids 0 - Exam GENERAL: Well-appearing, well-nourished and in no acute distress. NECK: Supple without JVD or thyromegaly. LUNGS: Breath sounds clear to auscultation bilaterally. Respiration equal and unlabored. No wheezes, rales or rhonchi. HEART: Regular rate and rhythm with systolic murmur, no rubs or gallops. S1 and S2 heard. EXTREMITIES: Normal range of motion, no edema. No clubbing or cyanosis. Peripheral pulses intact and strong. - Labs CBC & Chem 7: 01/18/18 05:30 01/20/18 07:02 Labs: Abnormal Lab Results - Last 24 Hours (Table) 01/19/18 01/20/18 Range/Units 12:03 07:02 Sodium 136 L 135 L (137-145) mmol/L BUN 36 H 25 H (7-17) mg/dL Creatinine 1.09 H (0.52-1.04) mg/dL Assessment and Plan Assessment: ASSESSMENT 1. Altered mental status, worse from baseline 2. History coronary artery disease 3. Severe COPD 4. Hypertension 5. Dyslipidemia 6. Acute kidney injury PLAN Continue current medical therapy. Stable from a cardiac perspective. Follow up with Dr. Gracia in 2-3 weeks after discharge. Nurse Practitioner note has been reviewed, I agree with a documented findings and plan of care. Patient was seen and examined.
[2018-01-20 12:43] LABS: Basophils # (A) 0.1 k/uL (0-0.2); Basophils % (A) 1 %; Eosinophils # (A) 0.3 k/uL (0-0.7); Eosinophils % (A) 2 %; HCT 34.4 % (34.0-46.0); HGB 11.1 gm/dL (11.4-16.0); Lymphocytes # (A) 2.9 k/uL (1.0-4.8); Lymphocytes % (A) 21 %; MCH 30.8 pg (25.0-35.0); MCHC 32.2 g/dL (31.0-37.0); MCV 95.5 fL (80.0-100.0); Mean Platelet Volume 7.4; Monocytes # (A) 0.7 k/uL (0-1.0); Monocytes % (A) 5 %; Neutrophils # (A) 9.5 k/uL (1.3-7.7); Neutrophils % (A) 70 %; Platelet Count 321 k/uL (150-450); RDW 14.5 % (11.5-15.5); WBC 13.6 k/uL (3.8-10.6)
--- NOTE | 2018-01-20 13:43 | P.CONS ---
History of Present Illness - Reason for Consult Consult date: 01/20/18 GI bleed melena Requesting physician: Jordan Rashid - History of Present Illness 72-year-old female admitted with acute delirium renal failure history of underlying dementia. Spouse reported she has been passing black colored bowel movements intermittently over the last 2 weeks. Patient confirms passage of black stool sometimes on a daily basis sometimes not. No history of peptic ulcer disease or recent EGD colonoscopy. Denies hematemesis or hematochezia no nausea or vomiting. Home medications include but not limited to daily prednisone aspirin Plavix. No NSAIDs or alcohol. Denies epigastric pain. Last passage of black-colored bowel movement was yesterday. Increased weakness fatigue tiredness over the last few weeks. Admission hemoglobin 12.2 presently 11.1. White count 17.3 Tao 13.6. MCV 95. Platelets 321. BUN 59. Creatinine 1.8 presently 25 and 0.9. Review of Systems Constitutional: Denies fever, chills, sweats, weight gain, or loss. History of dementia. Increased weakness fatigue 2 weeks. HEENT: Negative for migraines, blurred vision or loss, earaches, drainage, tinnitus, oral mucosal lesions, dysphagia, or odynophagia. CARDIAC: Negative for chest pain, arrhythmias, or palpitation. RESPIRATORY: Negative for shortness of breath, hemoptysis, cough, or sputum production. GI: See HPI for pertinent findings. : Negative for hematuria, urgency, frequency, polyuria, or dysuria. GYNc: Negative vaginal discharge. MUSCULOSKELETAL: Negative for muscle aches, swelling, arthritis, and arthralgias. NEUROLOGIC: Negative for stroke or TIA. ENDOCRINE: Negative for thyroid problems. SKIN: Negative for rash or itching. PSYCHIATRIC: Negative history for depression and anxiety Past Medical History Past Medical History: Coronary Artery Disease (CAD), COPD, Dementia, Hyperlipidemia, Hypertension, Myocardial Infarction (MT), Osteoarthritis (OA) Additional Past Medical History / Comment(s): Advanced COPD with chronic hypoxic arrest 30 failure and her last hospitalization was on 10/14/2016, hypertension, hyperlipidemia, degenerative arthritis, small hiatal hernia, coronary artery disease with a totally occluded mid RCA with collaterals and mild to moderate disease involving the LAD, dementia Last Myocardial Infarction Date:: 10/11/15 History of Any Multi-Drug Resistant Organisms: None Reported Past Surgical History: Section Additional Past Surgical History / Comment(s): 04/27/14 EGD with negative bx and colonoscopy, 3 C-Sections, cardiac catheterization Past Anesthesia/Blood Transfusion Reactions: No Reported Reaction Past Psychological History: No Psychological Hx Reported Additional Psychological History / Comment(s): Pt lives with her and grandson. She is fairly independent. She uses no assistive device and has no home care agency. She drives a car. She has home O2 which she uses prn. Smoking Status: Former smoker Past Alcohol Use History: None Reported Additional Past Alcohol Use History / Comment(s): STARTED SMOKING AGE 23. She smoked 1 1/2 packs a day. Pt states she quit smoking in July 2016. Past Drug Use History: None Reported - Past Family History Father Family Medical History: Coronary Artery Disease (CAD) Additional Family Medical History / Comment(s): Father at age 86yrs. Mother Family Medical History: Coronary Artery Disease (CAD) Additional Family Medical History / Comment(s): Mother at age 46yrs. She had a heart murmur. Medications and Allergies Home Medications Medication Instructions Recorded Confirmed Type Omeprazole [PriLOSEC] 20 mg PO DAILY 04/25/14 01/18/18 History Albuterol Inhaler [Ventolin Hfa 2 puff INHALATION RT-Q4H PRN 01/17/15 01/18/18 History Inhaler] Nitroglycerin Sl Tabs [Nitrostat] 0.4 mg SUBLINGUAL Q5M PRN #25 tab 10/17/1511/02 Rx Aspirin 81 mg PO DAILY 10/13/16 01/18/18 History Sertraline HCl [Zoloft] 50 mg PO DAILY 10/13/16 01/18/18 History Ipratropium Nebulized [Atrovent 0.5 mg INHALATION RT-QID #0 10/17/16 01/18/18 Rx Nebulized] Albuterol Nebulized [Ventolin 2.5 mg INHALATION Q6H 30 Days #2 09/22/17 Rx Nebulized] box predniSONE 10 mg PO DAILY 16 Days #40 tab 09/22/17 01/18/18 Rx ALPRAZolam [Xanax] 0.25 mg PO BID 01/18/18 01/18/18 History Atorvastatin [Lipitor] 80 mg PO HS 01/18/18 01/18/18 History Cholecalciferol (Vitamin D3) 2,000 unit PO DAILY 01/18/18 01/18/18 History [Vitamin D3] Clopidogrel [Plavix] 75 mg PO DAILY 01/18/18 01/18/18 History Donepezil HCl [Aricept] 10 mg PO DAILY 01/18/18 01/18/18 History Lisinopril-Hctz 20-12.5 mg 1 tab PO DAILY 01/18/18 01/18/18 History [Zestoretic 20-12.5] Metoprolol Succinate [Toprol Xl] 50 mg PO HS 01/18/18 01/18/18 History Mometasone/Formoterol [Dulera 200 2 puff INHALATION BID 01/18/18 01/18/18 History Mcg/5 Mcg Inhaler] Spironolactone [Aldactone] 25 mg PO DAILY 01/18/18 01/18/18 History Vitamin B Complex 1 cap PO DAILY 01/18/18 01/18/18 History Allergies Allergy/AdvReac Type Severity Reaction Status Date / Time No Known Allergies Allergy Verified 01/18/18 12:58 Physical Exam Vitals: Vital Signs Temp Pulse Pulse Resp BP Pulse Ox 01/20/18 12:10 80 01/20/18 12:05 76 01/20/18 06:50 98 F 74 20 112/67 98 01/19/18 23:15 16 01/19/18 22:16 97.9 F 69 16 114/58 94 L 01/19/18 20:48 78 01/19/18 20:39 78 01/19/18 15:00 97.7 F 78 20 123/57 98 Intake and Output 01/19/18 01/20/18 01/20/18 22:59 06:59 14:59 Other: Voiding Method Toilet # Voids 1 0 General appearance: The patient is alert, oriented, in no acute distress. HET: Head is normocephalic and atraumatic. Pupils are equal and reactive. Oropharynx is clear without lesions. Neck: Supple without lymphadenopathy. Trachea midline. Heart: S1 S2. Regular rate and rhythm. Lungs: No crackles or wheezes are heard. Abdomen: Soft, nontender, nondistended with bowel sounds. No peritoneal signs. No palpable organomegaly or masses. Extremities: Normal skin color and turgor. No cyanosis, rash, ulceration, clubbing, or edema. Radial and pedal pulses are 2/4 bilaterally. Neurological: No focal deficits. Strength and sensation are grossly intact. Results CBC & Chem 7: 01/20/18 07:02 01/20/18 07:02 Labs: Abnormal Lab Results - Last 24 Hours (Table) 01/20/18 01/20/18 Range/Units 07:02 07:02 WBC 13.6 H (3.8-10.6) k/uL RBC 3.60 L (3.80-5.40) m/uL Hgb 11.1 L (11.4-16.0) gm/dL Neutrophils # 9.5 H (1.3-7.7) k/uL Sodium 135 L (137-145) mmol/L BUN 25 H (7-17) mg/dL Assessment and Plan (1) GI bleed Narrative/Plan: 72-year-old female minute with delirium acute kidney injury anemia component of acute blood loss with reports of black colored bowel movements 2 weeks possible peptic ulcer disease. Current Visit: Yes Status: Acute Code(s): K92.2 - GASTROINTESTINAL HEMORRHAGE, UNSPECIFIED SNOMED Code(s): 97511802 (2) Melena Current Visit: Yes Status: Acute Code(s): K92.1 - MELENA SNOMED Code(s): 2068387 (3) Anemia Current Visit: Yes Status: Acute Code(s): D64.9 - ANEMIA, UNSPECIFIED SNOMED Code(s): 656894497 (4) Altered mental status Current Visit: Yes Status: Acute Code(s): R41.82 - ALTERED MENTAL STATUS, UNSPECIFIED SNOMED Code(s): 473337799 (5) Acute renal failure Current Visit: No Status: Acute Code(s): N17.9 - ACUTE KIDNEY FAILURE, UNSPECIFIED SNOMED Code(s): 07446544 Plan: 1. Protonix 40 mg daily. Nothing by mouth after midnight for EGD evaluation tomorrow. Further recommendations to follow after EGD is completed. 2. CBC in a.m. The wire drawing machine tender has discussed the risks, benefits and alternative therapies for the above-mentioned procedure and for both sedation/analgesia as well as necessary blood product administration, if indicated, as they pertain to this patient. The patient has indicated understanding and acceptance of the risks and procedures discussed. Thank you for this kind referral and the opportunity to participate in the care of your patient. This consultation was discussed with Dr. Burnett. The impression and plan of care have been directed as dictated.
--- NOTE | 2018-01-20 15:14 | P.PN ---
Subjective Progress Note Date: 01/20/18 Principal diagnosis: Altered mentation 72-year-old female patient presenting with altered mental status. I was asked to this patient regarding her COPD. The patient was seen and evaluated. She was confused. She was having apparently some delusional ideations at home and I noted the same upon talking to her. She is apparently has been forgetful over this past years. Her condition is been gradually getting worse. At times she got lost upon driving and she had impairment the sense of direction and orientation. She has no significant agitation. At times she laughs and her affect is not appropriate also. She is moving all 4 extremities without any limitation. No seizure activity. She had a fall yet there is no clear-cut history of head trauma. CAT scan of the brain was done and it showed no acute intracranial hemorrhage. There is moderate degree of diffuse age-related atrophy and moderate to severe small vessel ischemic changes redemonstrated without significant change from previous MRI of the brain of 2016. The chest x- ray shows no acute cardio pulmonary process. No hypoxemia. Serum sodium is at 130 and the EKG showing right bundle branch block pattern. 0. No fever. No chills. No night sweats. No aspiration. On 01/19/2018 patient is seen again in follow-up on medical surgical floor, she is awake, alert, oriented to place and person, but not to month or the year, or the president. The patient's daughter and are at the bedside, and per family this is the patient's baseline as far as mentation, patient seems to be a bit less confused according to the family. She denies any acute distress, denies any dyspnea, chest pain, as congestion or sputum production. Vital signs are stable, patient is afebrile, room air pulse ox is 95%. On yesterday' s exam, patient was noted to be wheezy, today patient's lung sounds are clear, and according to the daughter, this is the best she has seen her mother as far as shortness of breath. Patient to regular basis has exertional dyspnea, and has to stop and rest after walking even short distances in the house. Yesterday we started the patient on Symbicort, in addition to albuterol. The patient's daughter states there is noticeable difference in her breathing for the better. Patient is on Dulera at home, however it is not clear if the patient has been consistently compliant with it. Denies any urinary symptoms, urinalysis is negative for any evidence of urinary tract infection, today's labs show improvement in serum sodium up to 136, renal profile is improving, with B1 is 36 and creatinine is 1.09. Overall patient remains stable. Denies any fever or chills. On 01/20/2018 patient seen again in follow-up on medical surgical floor. Denies any dyspnea, denies any fever or chills, chest congestion, sputum production. Lung sounds are clear, diminished at the bases, no rhonchi, no wheezes or rales. Pulse ox on 2 L per nasal cannula is 98%, vital signs are stable, respirations are even and nonlabored. Patient has been cleared for discharge by cardiology. She did have a black-colored bowel movement today, and she states that this has been going on for over 2 weeks. No history of peptic ulcer disease or recent EGD or colonoscopy. Hemoglobin today is 11.1, down from 12.2 on yesterday's labs. Patient is on oral Protonix. Remains hemodynamically stable, GI service has evaluated the patient, and the plan is to proceed with EGD tomorrow. Objective - Vital Signs Vital signs: Vital Signs Temp 98.1 F 01/20/18 14:30 Pulse 77 01/20/18 14:30 Resp 20 01/20/18 14:30 BP 116/62 01/20/18 14:30 Pulse Ox 98 01/20/18 14:30 Intake & Output 01/19/18 01/20/18 01/20/18 18:59 06:59 18:59 Intake Total 150 Balance 150 Intake: Intake, IV Titration 150 Amount Lactated Ringers 1,000 ml 150 @ 75 mls/hr IV .[id number] COUNT INCLUDES THE [facility] Rx#:[id number] Other: Voiding Method Toilet # Voids 0 2 - Exam GENERAL EXAM: Alert, pleasant, 72-year-old white female, oriented 2, to place and self, disoriented to month, the year or the president comfortable in no apparent distress. HEAD: Normocephalic/atraumatic. EYES: Normal reaction of pupils, equal size. Conjunctiva pink, sclera white. NOSE: Clear with pink turbinates. THROAT: No erythema or exudates. NECK: No masses, no JVD, no thyroid enlargement, no adenopathy. CHEST: No chest wall deformity. Symmetrical expansion. LUNGS: Equal air entry with no crackles, wheeze, rhonchi or dullness. CVS: Regular rate and rhythm, normal S1 and S2, no gallops, no murmurs, no rubs ABDOMEN: Soft, nontender. No hepatosplenomegaly, normal bowel sounds, no guarding or rigidity. EXTREMITIES: No clubbing, no edema, no cyanosis, 2+ pulses and upper and lower extremities. MUSCULOSKELETAL: Muscle strength and tone normal. SPINE: No scoliosis or deformity SKIN: No rashes CENTRAL NERVOUS SYSTEM: Alert and oriented -3. No focal deficits, tone is normal in all 4 extremities. PSYCHIATRIC: Alert and oriented -3. Appropriate affect. Intact judgment and insight. - Labs CBC & Chem 7: 01/20/18 07:02 01/20/18 07:02 Labs: Abnormal Lab Results - Last 24 Hours (Table) 01/20/18 01/20/18 Range/Units 07:02 07:02 WBC 13.6 H (3.8-10.6) k/uL RBC 3.60 L (3.80-5.40) m/uL Hgb 11.1 L (11.4-16.0) gm/dL Neutrophils # 9.5 H (1.3-7.7) k/uL Sodium 135 L (137-145) mmol/L BUN 25 H (7-17) mg/dL Assessment and Plan Plan: Assessment 1 altered mentation, probably related to progressive dementia/Alzheimer's disease. No other identifiable secondary causes to altered mentation is patient other than her underlying dementia 2 COPD severe, baseline FEV1 is 45% of predicted, consistent with GOLD stage III COPD with chronic hypoxemic respiratory failure, steroid dependent. Stable , no evidence of acute exacerbation 3 hypertension 4 hyperlipidemia 5 coronary artery disease 6 borderline hyponatremia with a sodium level of 130, improving Plan Patient remains stable from pulmonary standpoint, denies any dyspnea, denies any chest pain. Continue the updrafts, continue the Symbicort, continue the prednisone. Patient is passing black stools, and the GI service has evaluated the patient, and the plan is to proceed with EGD tomorrow. I performed a history & physical examination of the patient and discussed their management with my nurse practitioner, Vernell Dorado. I reviewed the nurse practitioner's note and agree with the documented findings and plan of care. Lung sounds are diminished, but no wheezes or rales noted. The findings and the impression was discussed with the patient. I attest to the documentation by the nurse practitioner. Time with Patient: Less than 30
--- NOTE | 2018-01-20 17:09 | PN ---
PROGRESS NOTE DATE OF SERVICE: 01/20/18 PRESENTING COMPLAINT: Dark stools. INTERVAL HISTORY: This patient with acute delirium from acute renal failure that actually resolved. The patient did complain of having some dark stools, sometimes blood at home. Denies any abdominal pain. The patient is far more awake. is present. REVIEW OF SYSTEMS: Done for constitutional, cardiovascular, GI, pulmonary; relevant findings as above. CURRENT MEDICATIONS: Reviewed that include IV fluids. PHYSICAL EXAMINATION: Temperature 98.1, pulse 97, respiratory 20, blood pressure 116/62, pulse ox 98% on 2 L. GENERAL APPEARANCE: Lying in bed, awake, more comfortable. EYES: Pupils equal. Conjunctivae normal. HEENT: External appearance of nose and ears normal. Oral cavity dry. NECK: JVD not raised. Mass not palpable. RESPIRATORY: Effort, lungs decreased breath sounds. CARDIOVASCULAR: First and second sounds normal. No edema. ABDOMEN: Soft, nontender. Liver and spleen not palpable. PSYCHIATRY: Awake, answering questions appropriately. INVESTIGATIONS: White count 13.6, hemoglobin 11.1, potassium 5, BUN 25, creatinine 0.95. ASSESSMENT: 1. Acute delirium from acute renal failure and medications, resolved. 2. Acute renal failure, prerenal, from medications, improved. 3. Acute gastrointestinal bleed in a patient who is on antiplatelet agents, need to rule out upper cause. 4. Chronic obstructive pulmonary disease. 5. Coronary artery disease with chronically occluded RCA. 6. Hyperlipidemia. 7. Essential hypertension. 8. Primary osteoarthritis of the hands and knees. 9. Chronic hypoxic respiratory failure from chronic obstructive pulmonary disease. 10.Depression, not otherwise specified. PLAN: Continue current medication and treatment plan. Patient will have EEG tomorrow. Overall clinically if patient does much better, we will also discontinue patient's sodium bicarbonate. Care was discussed with the patient and . MMODL / IJN: [id number] /
[2018-01-20] MEDS: DONEPEZIL 5 MG TAB PO SCH (20:17)
[2018-01-20] MEDS: ATORVASTATIN 80 MG TAB PO SCH (20:17)
[2018-01-20 20:57] VITALS: RESP 16
[2018-01-21] MEDS: LACTATED RINGERS 1,000 ML IV SCH (05:14)
[2018-01-21 05:18] VITALS: BP 148/64; TEMP 97.8
[2018-01-21] MEDS: SYMBICORT 160-4.5 MCG INHALER INHALATION SCH (07:27)
[2018-01-21] MEDS: ALBUTEROL NEBULIZED 2.5 MG/3 ML INHALATION SCH ×3 (07:28→11:39)
[2018-01-21] MEDS: IPRATROPIUM 0.5 MG/2.5 ML NEBU INHALATION SCH ×3 (07:28→15:39)
[2018-01-21 08:05] LABS: Calcium 9.1 mg/dL (8.4-10.2); Potassium 4.6 mmol/L (3.5-5.1)
[2018-01-21 08:06] LABS: Basophils # (A) 0.1 k/uL (0-0.2); Basophils % (A) 1 %; Eosinophils # (A) 0.3 k/uL (0-0.7); Eosinophils % (A) 2 %; HCT 32.5 % (34.0-46.0); HGB 10.9 gm/dL (11.4-16.0); Lymphocytes # (A) 3.4 k/uL (1.0-4.8); Lymphocytes % (A) 25 %; MCH 31.2 pg (25.0-35.0); MCHC 33.5 g/dL (31.0-37.0); Mean Platelet Volume 6.7; Monocytes # (A) 0.6 k/uL (0-1.0); Monocytes % (A) 4 %; Neutrophils % (A) 66 %; Platelet Count 379 k/uL (150-450); RDW 14.5 % (11.5-15.5); WBC 13.6 k/uL (3.8-10.6)
[2018-01-21] MEDS: CLOPIDOGREL 75 MG TAB PO SCH (09:14)
[2018-01-21] MEDS: PANTOPRAZOLE 40 MG TABLET PO SCH ×2 (09:14→12:14)
[2018-01-21] MEDS: ASPIRIN 81 MG PO SCH (09:14)
[2018-01-21] MEDS: METOPROLOL SUCCINATE (ER) 50 MG TAB.ER.24H PO SCH (09:16)
[2018-01-21] MEDS ORDERED: IV FLUID CONTINUATION 1,000 ML IV ONE (11:18)
[2018-01-21] MEDS ORDERED: LIDOCAINE 1% INJ 10MG/ML (20 ML MDV) ONE (11:20)
[2018-01-21] MEDS ORDERED: PROPOFOL 10 MG/ML 20 ML VIAL IV ONE (11:20)
[2018-01-21] MEDS ORDERED: GLYCOPYRROLATE 0.2 MG/ML 2 ML VIAL ONE (11:20)
--- NOTE | 2018-01-21 11:26 | P.PCN ---
Date of Procedure: 01/21/18 Procedure(s) Performed: BRIEF HISTORY: Patient is a 72-year-old, pleasant, white female, scheduled for an upper endoscopy as a part of evaluation of black tarry stools for the last 2 weeks' duration. Her hemoglobin dropped from 12-10.6 g/dL. She is hence scheduled for an upper endoscopy to evaluate further. PROCEDURE PERFORMED: Esophagogastroduodenoscopy with biopsy. PREOPERATIVE DIAGNOSIS: Black tarry stools of 2 weeks duration. IV sedation per anesthesia. PROCEDURE: After informed consent was obtained, the patient was brought into the endoscopy unit. IV sedation was administered by Anesthesia under continuous monitoring. Initially the Olympus GIF-140 video endoscope was inserted into the mouth. Esophagus intubated without any difficulty. It was gradually advanced into the stomach and duodenum and carefully examined. The bulb and the second part of the duodenum appeared normal. The scope at this time was withdrawn to the stomach, adequately insufflated with air, and upon careful examination, mucosa of the antrum, had scattered erosions in the antrum with no active bleeding. Biopsies were done from this area. The body, cardia and the fundus appeared normal. The scope was then withdrawn into the esophagus. The GE junction was located at 39 cm from the incisors. The esophagus appeared normal. There were no erosions or ulcerations seen and the patient tolerated the procedure well. IMPRESSION: 1. Antral erosive gastritis. 2. No evidence of esophagitis or peptic ulcer. RECOMMENDATIONS: The findings of this examination were discussed with the patient. She will continue with Protonix 40 mg daily. Diet will be advanced as tolerated..
[2018-01-21 12:00] VITALS: PULSE 92
[2018-01-21] MEDS: SERTRALINE 50 MG TAB PO SCH (12:13)
[2018-01-21] MEDS: predniSONE 10 MG TAB PO SCH (12:13)
--- NOTE | 2018-01-21 14:20 | P.PN ---
Subjective Progress Note Date: 01/21/18 Principal diagnosis: Altered mentation 72-year-old female patient presenting with altered mental status. I was asked to this patient regarding her COPD. The patient was seen and evaluated. She was confused. She was having apparently some delusional ideations at home and I noted the same upon talking to her. She is apparently has been forgetful over this past years. Her condition is been gradually getting worse. At times she got lost upon driving and she had impairment the sense of direction and orientation. She has no significant agitation. At times she laughs and her affect is not appropriate also. She is moving all 4 extremities without any limitation. No seizure activity. She had a fall yet there is no clear-cut history of head trauma. CAT scan of the brain was done and it showed no acute intracranial hemorrhage. There is moderate degree of diffuse age-related atrophy and moderate to severe small vessel ischemic changes redemonstrated without significant change from previous MRI of the brain of 2016. The chest x- ray shows no acute cardio pulmonary process. No hypoxemia. Serum sodium is at 130 and the EKG showing right bundle branch block pattern. 0. No fever. No chills. No night sweats. No aspiration. On 01/19/2018 patient is seen again in follow-up on medical surgical floor, she is awake, alert, oriented to place and person, but not to month or the year, or the president. The patient's daughter and are at the bedside, and per family this is the patient's baseline as far as mentation, patient seems to be a bit less confused according to the family. She denies any acute distress, denies any dyspnea, chest pain, as congestion or sputum production. Vital signs are stable, patient is afebrile, room air pulse ox is 95%. On yesterday' s exam, patient was noted to be wheezy, today patient's lung sounds are clear, and according to the daughter, this is the best she has seen her mother as far as shortness of breath. Patient to regular basis has exertional dyspnea, and has to stop and rest after walking even short distances in the house. Yesterday we started the patient on Symbicort, in addition to albuterol. The patient's daughter states there is noticeable difference in her breathing for the better. Patient is on Dulera at home, however it is not clear if the patient has been consistently compliant with it. Denies any urinary symptoms, urinalysis is negative for any evidence of urinary tract infection, today's labs show improvement in serum sodium up to 136, renal profile is improving, with B1 is 36 and creatinine is 1.09. Overall patient remains stable. Denies any fever or chills. On 01/20/2018 patient seen again in follow-up on medical surgical floor. Denies any dyspnea, denies any fever or chills, chest congestion, sputum production. Lung sounds are clear, diminished at the bases, no rhonchi, no wheezes or rales. Pulse ox on 2 L per nasal cannula is 98%, vital signs are stable, respirations are even and nonlabored. Patient has been cleared for discharge by cardiology. She did have a black-colored bowel movement today, and she states that this has been going on for over 2 weeks. No history of peptic ulcer disease or recent EGD or colonoscopy. Hemoglobin today is 11.1, down from 12.2 on yesterday's labs. Patient is on oral Protonix. Remains hemodynamically stable, GI service has evaluated the patient, and the plan is to proceed with EGD tomorrow. On 01/21/2018 patient seen again in follow-up. He able from pulmonary standpoint, lung sounds are clear, patient denies any dyspnea, no rhonchi or wheezing noted. She underwent EGD today, and was found to have antral erosive gastritis, as no evidence of esophagitis or peptic ulcer. Patient will continue on her Protonix 40 mg daily. She has had no further black stools, remains hemodynamically stable, today's hemoglobin is 10.9. Denies any dyspnea , denies any chest pain, very standpoint patient is stable for discharge home today. Objective - Vital Signs Vital signs: Vital Signs Temp 97.8 F 01/21/18 05:17 Pulse 92 01/21/18 11:59 Resp 16 01/21/18 05:17 BP 148/64 01/21/18 05:17 Pulse Ox 96 01/21/18 05:17 Intake & Output 01/20/18 01/21/18 01/21/18 18:59 06:59 18:59 Intake Total 600 200 Balance 600 200 Intake: IV 200 Intake, IV Titration 600 Amount Lactated Ringers 1,000 ml 600 @ 75 mls/hr IV .[id number] [facility] Rx#:[id number] Other: Voiding Method Toilet # Voids 2 1 - Exam GENERAL EXAM: Alert, pleasant, 72-year-old white female, oriented 2, to place and self, disoriented to month, the year or the president comfortable in no apparent distress. HEAD: Normocephalic/atraumatic. EYES: Normal reaction of pupils, equal size. Conjunctiva pink, sclera white. NOSE: Clear with pink turbinates. THROAT: No erythema or exudates. NECK: No masses, no JVD, no thyroid enlargement, no adenopathy. CHEST: No chest wall deformity. Symmetrical expansion. LUNGS: Equal air entry with no crackles, wheeze, rhonchi or dullness. CVS: Regular rate and rhythm, normal S1 and S2, no gallops, no murmurs, no rubs ABDOMEN: Soft, nontender. No hepatosplenomegaly, normal bowel sounds, no guarding or rigidity. EXTREMITIES: No clubbing, no edema, no cyanosis, 2+ pulses and upper and lower extremities. MUSCULOSKELETAL: Muscle strength and tone normal. SPINE: No scoliosis or deformity SKIN: No rashes CENTRAL NERVOUS SYSTEM: Alert and oriented -3. No focal deficits, tone is normal in all 4 extremities. PSYCHIATRIC: Alert and oriented -3. Appropriate affect. Intact judgment and insight. - Labs CBC & Chem 7: 18 06:59 18 06:59 Labs: Abnormal Lab Results - Last 24 Hours (Table) 01/21/18 01/21/18 Range/Units 06:59 06:59 WBC 13.6 H (3.8-10.6) k/uL RBC 3.50 L (3.80-5.40) m/uL Hgb 10.9 L (11.4-16.0) gm/dL Hct 32.5 L (34.0-46.0) % Neutrophils # 9.0 H (1.3-7.7) k/uL Sodium 135 L (137-145) mmol/L BUN 18 H (7-17) mg/dL Assessment and Plan Plan: Assessment 1 altered mentation, probably related to progressive dementia/Alzheimer's disease. No other identifiable secondary causes to altered mentation is patient other than her underlying dementia 2 COPD severe, baseline FEV1 is 45% of predicted, consistent with GOLD stage III COPD with chronic hypoxemic respiratory failure, steroid dependent. Stable , no evidence of acute exacerbation 3 hypertension 4 hyperlipidemia 5 coronary artery disease 6 borderline hyponatremia with a sodium level of 130, improving Plan Patient denies any significant complaints, no dyspnea, no chest pain, the results of the EGD were noted. Vital signs are stable, patient is afebrile, no chest congestion no phlegm production, no wheezing. For discharge home today, follow up with Dr. Rodriguez in the office in 7-10 days. I performed a history & physical examination of the patient and discussed their management with my nurse practitioner, Vernell Dorado. I reviewed the nurse practitioner's note and agree with the documented findings and plan of care. Lung sounds are diminished, but no wheezes or rales noted. The findings and the impression was discussed with the patient. I attest to the documentation by the nurse practitioner. Time with Patient: Less than 30
--- NOTE | 2018-01-23 20:36 | DS ---
DISCHARGE SUMMARY DATE OF ADMISSION: 01/18/2018 DATE OF DISCHARGE: 01/21/2018 FINAL DIAGNOSES: 1. Acute delirium from acute renal failure secondary to medications. 2. Acute renal failure, prerenal, from medications, improved. 3. Acute gastrointestinal bleed in a patient secondary to antiplatelet agents from antral erosive gastritis. 4. Chronic obstructive pulmonary disease. 5. Coronary artery disease with chronically occluded right coronary artery. 6. Hyperlipidemia. 7. Essential hypertension. 8. Primary osteoarthritis of the hands and knees. 9. Chronic hypoxic respiratory failure from chronic obstructive pulmonary disease. 10.Depression not otherwise specified. 11.Metabolic acidosis secondary to renal failure. HOSPITAL COURSE: This very pleasant lady, known to me, presented with acute confusion. Patient was found to be in acute renal failure. BUN and creatinine were 59 and 1.80. Patient's Aldactone was discontinued and initially also the LIZ inhibitor was discontinued. Hydrated. Patient's encephalopathy resolved. Patient did have an EGD that showed antral erosive gastritis. Because patient was having some dark stools, per Dr. Burnett the patient go back on the antiplatelet agents and patient was switched over to Protonix. On examination, lungs revealed fair air entry. CARDIOVASCULAR: First and second sounds normal. ABDOMEN: Soft, nontender. Care was discussed with the patient in detail and also discussed with her . The patient's hemoglobin was stable at the time of discharge at 10.9. DISCHARGE MEDICATIONS: 1. Ventolin HFA 2 puffs q.4 p.r.n. 2. Nitrostat 0.4 sublingually q.5 p.r.n. 3. Aspirin 81 mg p.o. daily. 4. Zoloft 50 mg p.o. daily. 5. Atrovent 0.5 nebulizer q.i.d. 6. Ventolin 2.5 nebulizer q.6. 7. Prednisone. 8. Lipitor 40 mg p.o. at bedtime. 9. Plavix 75 mg p.o. daily. 10.Aricept 10 mg p.o. daily. 11.Zestoretic 20/12.5 one tablet p.o. daily. 12.Toprol XL 50 mg p.o. at bedtime. 13.Dulera 200/5 two puffs b.i.d. 14.Vitamin B complex. 15.Xanax 0.25 p.o. b.i.d. p.r.n. 16.Protonix 40 mg p.o. with breakfast. Follow up with Dr. Gracia on 02/04/2018. Follow up with Dr. Rohan Ceuva on 01/23/2018. Home oxygen to continue. Discharge planning more than 35 minutes. MMODL / IJN: [id number] /
== END 2018-01-21 15:35 | disposition home or self-care (01) | DRG 683 ==
LOC: EC 05:06 → 5MS5E 08:34
PROVIDERS: ADMIT Hospitalist; ATTEND Hospitalist
PROC: 0DB78ZX Excision of Stomach, Pylorus, Via Natural or Artificial Opening Endoscopic, Diagnostic (ICD-10-PCS; principal; 2018-01-21 08:00)
DX: N17.9 Acute kidney failure, unspecified (principal); F05 Delirium due to known physiological condition; D62 Acute posthemorrhagic anemia; E87.1 Hypo-osmolality and hyponatremia; E87.2 Acidosis; J44.1 Chronic obstructive pulmonary disease with (acute) exacerbation; J96.11 Chronic respiratory failure with hypoxia; K92.2 Gastrointestinal hemorrhage, unspecified; K29.00 Acute gastritis without bleeding; E78.5 Hyperlipidemia, unspecified; F02.80 Dementia in other diseases classified elsewhere, unspecified severity, without behavioral disturbance, psychotic disturbance, mood disturbance, and anxiety; G30.9 Alzheimer's disease, unspecified; F32.9 Major depressive disorder, single episode, unspecified; I11.0 Hypertensive heart disease with heart failure; I25.10 Atherosclerotic heart disease of native coronary artery without angina pectoris; I25.2 Old myocardial infarction; I45.10 Unspecified right bundle-branch block; M19.041 Primary osteoarthritis, right hand; M19.042 Primary osteoarthritis, left hand; M17.0 Bilateral primary osteoarthritis of knee; I25.82 Chronic total occlusion of coronary artery; K44.9 Diaphragmatic hernia without obstruction or gangrene; T50.0X5A Adverse effect of mineralocorticoids and their antagonists, initial encounter; T46.4X5A Adverse effect of angiotensin-converting-enzyme inhibitors, initial encounter; T45.525A Adverse effect of antithrombotic drugs, initial encounter; I50.9 Heart failure, unspecified; Z79.02 Long term (current) use of antithrombotics/antiplatelets; Z79.52 Long term (current) use of systemic steroids; Z79.82 Long term (current) use of aspirin; Z79.899 Other long term (current) drug therapy; Z87.891 Personal history of nicotine dependence; Z82.49 Family history of ischemic heart disease and other diseases of the circulatory system; W19.XXXA Unspecified fall, initial encounter; Y92.009 Unspecified place in unspecified non-institutional (private) residence as the place of occurrence of the external cause
CPT/HCPCS: 36415; 43239; 70450; 71046; 80048; 81003; 84443; 85025; 88305; 93005; 94640; 94760; 96360; 99285

== ENCOUNTER → 2018-02-11 | Day surgery (SDC) | payer MEDICARE, BC ==
[2018-02-06 08:32] VITALS: BMI 23.9
[~2018-02-11] MED LIST: PROPOFOL 10 MG/ML 20 ML VIAL IV ONE
--- NOTE | 2018-02-11 14:12 | PCN ---
PROCEDURE NOTE DATE OF DICTATION: 02/11/2018 REQUESTING PHYSICIAN: Dr. Cueva. BRIEF HISTORY: Patient is a 72-year-old pleasant white female scheduled for a colonoscopy as a part of evaluation of Hemoccult-positive stool. Last colonoscopy was about 10 years ago. PROCEDURE PERFORMED: Colonoscopy. PREOPERATIVE DIAGNOSIS: Hemoccult-positive stool. IV sedation by Anesthesia. PROCEDURE: After informed consent was obtained, the patient was brought into the endoscopy unit, IV conscious sedation was administered by Anesthesia under continuous monitoring. Initial digital examination was normal. The G190 video colonoscope was inserted into the rectum, gradually advanced to the cecum without any difficulty. Careful examination was performed as the scope was gradually being withdrawn. The ileocecal valve and the appendiceal orifice were visualized and appear normal. The prep was excellent because of the cecum, ascending colon, transverse colon, descending colon, sigmoid colon and rectum appear normal and the rectum retroflexion was performed. No lesions were noted and the patient tolerated the procedure well. IMPRESSION: Normal-appearing colon from rectum to cecum with no evidence of colitis or colorectal neoplasia. RECOMMENDATION: Findings of this examination were discussed with the patient as well as her family. She was advised to be on a high-fiber diet. She can have a repeat colonoscopy in 10 years from now based on her overall medical condition. MMODL / IJN: [id number] /
== END ==
LOC: ORWHC2ENDO 07:58
PROVIDERS: ATTEND Internal Medicine Gastroenterology
DX: R19.5 Other fecal abnormalities (principal); E78.5 Hyperlipidemia, unspecified; J44.9 Chronic obstructive pulmonary disease, unspecified; I10 Essential (primary) hypertension; K21.9 Gastro-esophageal reflux disease without esophagitis; Z87.891 Personal history of nicotine dependence; Z79.82 Long term (current) use of aspirin; Z79.899 Other long term (current) drug therapy
CPT/HCPCS: 45378; J2704

== ENCOUNTER → 2019-06-09 | Outpatient (CLI) | payer MEDICARE ==
[~2019-06-09] MED LIST changes: +DENOSUMAB 60 MG/ML 1 ML SYRINGE SQ NR; +DENOSUMAB 60 MG/ML 1 ML SYRINGE SQ ONE; +FERUMOXYTOL 510 MG in SODIUM CHLORIDE 0.9% 50 ML IVPB ONE; -PROPOFOL 10 MG/ML 20 ML VIAL IV ONE
[2019-06-09 12:35] VITALS: BP 144/81; PULSE 63; RESP 16; TEMP 97.9
== END | disposition home or self-care (01) ==
LOC: PROCWHC3 12:25
PROVIDERS: ATTEND Internal Medicine
DX: M81.0 Age-related osteoporosis without current pathological fracture (principal)
CPT/HCPCS: 96372; J0897

== ENCOUNTER → 2020-01-20 | Outpatient (CLI) | payer MEDICARE ==
[~2020-01-20] MED LIST changes: -DENOSUMAB 60 MG/ML 1 ML SYRINGE SQ ONE; -FERUMOXYTOL 510 MG in SODIUM CHLORIDE 0.9% 50 ML IVPB ONE
[2020-01-20 12:13] VITALS: BP 98/65; PULSE 84; RESP 16; TEMP 98.2
== END | disposition home or self-care (01) ==
LOC: PROCWHC3 11:43
PROVIDERS: ATTEND Internal Medicine
DX: M81.0 Age-related osteoporosis without current pathological fracture (principal)
CPT/HCPCS: 96372; J0897

== ENCOUNTER 2020-06-05 23:55 | Emergency (ER) | payer MEDICARE ==
[2020-06-06 00:04] VITALS: RESP 20; TEMP 98.6
[2020-06-06] MEDS ORDERED: NITROGLYCERIN OINT 1 INCH/GM PACKET TOPICAL STA (00:11)
[2020-06-06] MEDS ORDERED: ASPIRIN 81 MG PO STA (00:11)
[2020-06-06 00:41] LABS: Basophils # (A) 0.1 k/uL (0-0.2); Basophils % (A) 1 %; Eosinophils # (A) 0.5 k/uL (0-0.7); Eosinophils % (A) 6 %; HCT 38.3 % (34.0-46.0); HGB 12.4 gm/dL (11.4-16.0); Lymphocytes # (A) 2.5 k/uL (1.0-4.8); Lymphocytes % (A) 28 %; MCH 30.9 pg (25.0-35.0); MCHC 32.4 g/dL (31.0-37.0); MCV 95.3 fL (80.0-100.0); Mean Platelet Volume 7.4; Monocytes # (A) 0.7 k/uL (0-1.0); Monocytes % (A) 8 %; Neutrophils % (A) 55 %; Platelet Count 291 k/uL (150-450); RBC 4.01 m/uL (3.80-5.40); RDW 13.7 % (11.5-15.5)
[2020-06-06 00:50] LABS: Albumin 3.1 g/dL (3.5-5.0); Calcium 8.5 mg/dL (8.4-10.2); Magnesium 1.8 mg/dL (1.6-2.3); Potassium 3.7 mmol/L (3.5-5.1); Total Bilirubin 0.4 mg/dL (0.2-1.3); Total Protein 5.9 g/dL (6.3-8.2)
[2020-06-06 01:01] LABS: Prothrombin Time 10.1 sec (9.0-12.0)
--- NOTE | 2020-06-06 01:08 | XR ---
EXAM: XR Chest, 2 Views CLINICAL HISTORY: ITS.REASON XR Reason: Chest Pain TECHNIQUE: Frontal and lateral views of the chest. COMPARISON: 08/23/2019 FINDINGS: Lungs: No definite focal consolidation. The pulmonary vasculature is stable in appearance without significant mammographic abnormality. Underlying hyperinflation is similar to the previous examination. Pleural space: Unremarkable. No pneumothorax. No large pleural effusion. Heart: Unremarkable. No cardiomegaly. Mediastinum: The mediastinal contours demonstrate no significant abnormality. The trachea is midline. Atherosclerotic calcification of the aortic arch and descending aorta is stable. Bones/joints: Unremarkable. IMPRESSION: Stable hyperexpansion without focal consolidation or acute cardiopulmonary process identified.
[2020-06-06 01:10] LABS: Appearance,Urine Clear (Clear); Bacteria,Urine Rare /hpf; Bilirubin,Urine Negative (Negative); Blood,Urine Negative (Negative); Color,Urine Light Yellow; Glucose,Urine (UA) Negative (Negative); Ketones,Urine Negative (Negative); Leukocyte Esterase,Urine Small (Negative); Mucus,Urine Rare /hpf; Nitrite,Urine Negative (Negative); PH, Urine 6.5 (5.0-8.0); Protein,Urine Negative (Negative); RBC,Urine <1 /hpf (0-5); Specific Gravity,Urine 1.003 (1.001-1.035); Squamous Epithelial Cell,Urine 1 /hpf (0-4); Urobilinogen,Urine <2.0 mg/dL (<2.0); WBC,Urine 8 /hpf (0-5)
[2020-06-06 01:12] LABS: Partial Thromboplastin Time 20.9 sec (22.0-30.0)
--- NOTE | 2020-06-06 01:44 | ED ---
Chest Pain HPI - General Chief Complaint: Chest Pain Stated Complaint: chest pain Time Seen by Provider: 06/06/20 00:10 Source: patient, EMS Mode of arrival: EMS Limitations: no limitations - History of Present Illness Initial Comments: Shae is a 74-year-old female who suffers from dementia. Patient presents the ER today via ambulance after her called reporting that she had been complaining of chest pain. Upon arrival patient denies any chest pain, denies having ever had any chest pain states she doesn't know why her called. She is quite agitated and not happy to be in the ER. Is been states that she been complaining of intermittent right-sided sharp pain and would point to her ribs. She didn't seem to have any shortness of breath she was never diaphoretic pale or in any distress. He also notes that she's been complaining of pain in the left buttock which makes it difficult for her to sleep comfortably. Patient again denies this as well, patient states that the only pain in her butt that she has is her . - Related Data Home Medications Medication Instructions Recorded Confirmed Albuterol Inhaler (Mhu) [Ventolin 2 puff INHALATION Q4HR PRN 01/17/15 01/20/20 Hfa Inhaler (Mhu)] Aspirin 81 mg PO DAILY 10/13/16 01/20/20 Sertraline HCl [Zoloft] 50 mg PO DAILY 10/13/16 01/20/20 Atorvastatin [Lipitor] 80 mg PO HS 01/18/18 01/20/20 Donepezil HCl [Aricept] 10 mg PO DAILY 01/18/18 01/20/20 Metoprolol Succinate [Toprol Xl] 50 mg PO HS 01/18/18 01/20/20 Vitamin B Complex 1 cap PO DAILY 01/18/18 01/20/20 ALPRAZolam [Xanax] 0.25 mg PO DAILY 02/06/18 01/20/20 Albuterol Nebulized [Ventolin 2.5 mg INHALATION BID 02/06/18 01/20/20 Nebulized] Ipratropium Nebulized [Atrovent 0.5 mg INHALATION BID 02/06/18 01/20/20 Nebulized 0.2 MG/ML] Mometasone/Formoterol [Dulera 200 2 puff INHALATION BID 02/06/18 01/20/20 Mcg/5 Mcg Inhaler] Previous Rx's Medication Instructions Recorded Nitroglycerin Sl Tabs [Nitrostat] 0.4 mg SUBLINGUAL Q5M PRN #25 tab 10/17/15 predniSONE 10 mg PO DAILY 16 Days #40 tab 09/22/17 Pantoprazole [Protonix] 40 mg PO AC-BRKFST #30 tablet. 01/21/18 Allergies Allergy/AdvReac Type Severity Reaction Status Date / Time No Known Allergies Allergy Verified 06/06/20 00:04 Review of Systems ROS Statement: Those systems with pertinent positive or pertinent negative responses have been documented in the HPI. ROS Other: All systems not noted in ROS Statement are negative. EKG Findings - EKG Comments: EKG Findings:: EKG was obtained due to reported chest pain, EKG was obtained at 12:17 AM, rate is 60 rhythm is sinus is a leftward axis, WA mildly prolonged at 158, QRS 116, QTC mildly prolonged at 492. There are no acute ST elevations, mild ST depressions laterally. No evidence of acute infarction. Past Medical History Past Medical History: Coronary Artery Disease (CAD), Chest Pain / Angina, COPD, Dementia, GERD/Reflux, Hyperlipidemia, Hypertension Additional Past Medical History / Comment(s): Advanced COPD,, degenerative arthritis, " recent hospitalization: anemia, blood in stols, acute kidney injury and low sodium", Last Myocardial Infarction Date:: 10/11/15 History of Any Multi-Drug Resistant Organisms: None Reported Past Surgical History: Section, Heart Catheterization Additional Past Surgical History / Comment(s): 04/27/14 EGD with negative bx and colonoscopy, 3 C-Sections, cardiac catheterization Past Anesthesia/Blood Transfusion Reactions: No Reported Reaction Past Psychological History: Anxiety, Depression Smoking Status: Former smoker Past Alcohol Use History: None Reported Past Drug Use History: None Reported - Past Family History Father Family Medical History: Coronary Artery Disease (CAD) Additional Family Medical History / Comment(s): Father at age 86yrs. Mother Family Medical History: No Reported History Additional Family Medical History / Comment(s): . General Exam - General Exam Comments Initial Comments: Physical Exam GENERAL: Patient is well-developed and well-nourished. Patient is nontoxic and well-hydrated Patient is agitated, does not want to be in ER HENT: Normocephalic, Atraumatic. EYES: PERRL, EOMI PULMONARY: Unlabored respirations. No audible rales rhonchi or wheezing was noted. CARDIOVASCULAR: There is a regular rate and rhythm without any murmurs gallops or rubs. ABDOMEN: Soft and nontender with normal bowel sounds. SKIN: Skin is clear with no lesions or rashes and otherwise unremarkable. : Deferred NEUROLOGIC: Patient is alert and oriented to self only Moving all extremities spontaneously MUSCULOSKELETAL: Normal extremities with adequate strength and full range of motion. No lower extremity swelling or edema. No calf tenderness. PSYCHIATRIC: Agitated, does not want to be in ER does not want to be evaluated Limitations: no limitations Course Vital Signs 06/05/20 06/06/20 23:58 01:50 Temperature 98.6 F Pulse Rate 65 75 Respiratory 20 20 Rate Blood Pressure 191/87 194/102 O2 Sat by Pulse 99 97 Oximetry Chest Pain MDM - MDM The patient was seen and evaluated, history is obtained from the patient at bedside reports that the patient complained of chest pain but patient denies this On arrival patient is very upset to be in the ER she is crying and angry at her she is noted to be hypertensive however difficult to obtain blood pressure as she becomes quite agitated and time the cuff was inflated and began moving her arm. at bedside reassuring the patient Labs, EKG and chest x-ray were obtained there were no acute findings Results were discussed with the patient and the . At this time states she he would like her discharged home as she is so agitated by being in the ER. Doesn't feel that being admitted would be beneficial for her. He can contact her primary care physician for follow-up regarding her hypertension. Patient able ambulate out of the ER without assistance. Disposition Clinical Impression: Hypertension Disposition: HOME SELF-CARE Condition: Stable Instructions (If sedation given, give patient instructions): Chest Pain (ED) Additional Instructions: Contact primary care doctor tomorrow for follow up about high blood pressure Call 911 or return to ER for any recurrent or concerning symptoms Is patient prescribed a controlled substance at d/c from ED?: No Referrals: Shasha Quarles MD [Primary Care Provider] - 1-2 days
[2020-06-06] MEDS ORDERED: cloNIDine HCL 0.1 MG TAB PO STA (01:57)
[2020-06-06 02:40] VITALS: BP 192/99; PULSE 71
== END 2020-06-06 02:42 | disposition home or self-care (01) ==
LOC: EC 23:55
DX: I10 Essential (primary) hypertension (principal); R45.1 Restlessness and agitation; I25.119 Atherosclerotic heart disease of native coronary artery with unspecified angina pectoris; J44.9 Chronic obstructive pulmonary disease, unspecified; I25.2 Old myocardial infarction; F03.90 Unspecified dementia, unspecified severity, without behavioral disturbance, psychotic disturbance, mood disturbance, and anxiety; E78.5 Hyperlipidemia, unspecified; F41.9 Anxiety disorder, unspecified; F32.9 Major depressive disorder, single episode, unspecified; Z79.82 Long term (current) use of aspirin; Z79.51 Long term (current) use of inhaled steroids; Z79.899 Other long term (current) drug therapy
CPT/HCPCS: 36415; 71046; 80053; 81001; 83690; 83735; 83880; 84484; 85025; 85610; 85730; 93005; 99285

== ENCOUNTER 2020-08-27 13:58 | Observation (INO) | payer MEDICARE ==
[2020-08-27 14:35] LABS: Basophils # (A) 0.1 k/uL (0-0.2); Basophils % (A) 1 %; Eosinophils # (A) 0.3 k/uL (0-0.7); Eosinophils % (A) 4 %; HCT 39.1 % (34.0-46.0); HGB 13.2 gm/dL (11.4-16.0); Lymphocytes # (A) 2.3 k/uL (1.0-4.8); Lymphocytes % (A) 26 %; MCH 30.4 pg (25.0-35.0); MCHC 33.7 g/dL (31.0-37.0); MCV 90.1 fL (80.0-100.0); Mean Platelet Volume 7.6; Monocytes # (A) 0.4 k/uL (0-1.0); Monocytes % (A) 5 %; Neutrophils # (A) 5.4 k/uL (1.3-7.7); Neutrophils % (A) 61 %; Platelet Count 336 k/uL (150-450); RBC 4.34 m/uL (3.80-5.40); RDW 14.4 % (11.5-15.5); WBC 8.8 k/uL (3.8-10.6)
[2020-08-27 14:43] LABS: Albumin 3.6 g/dL (3.5-5.0); Calcium 10.1 mg/dL (8.4-10.2); Potassium 3.9 mmol/L (3.5-5.1); Total Bilirubin 0.4 mg/dL (0.2-1.3); Total Protein 7.2 g/dL (6.3-8.2)
[2020-08-27 15:04] LABS: Partial Thromboplastin Time 24.2 sec (22.0-30.0); Prothrombin Time 10.4 sec (9.0-12.0)
--- NOTE | 2020-08-27 15:08 | CT ---
EXAMINATION TYPE: CT brain wo con for TPA DATE OF EXAM: 08/27/2020 COMPARISON: 01/18/2018 HISTORY: Left sided weakness. CT DLP: 1105.8 mGycm Automated exposure control for dose reduction was used. There is cerebral atrophy. There is patchy hypodensity in the periventricular white matter. There is no mass effect nor midline shift. There is no sign of intracranial hemorrhage. Calvarium is intact. S kull base is intact. IMPRESSION: Cerebral atrophy and chronic small vessel ischemia with progression of the white matter disease min red to old exam. No hemorrhage.
--- NOTE | 2020-08-27 15:13 | XR ---
EXAMINATION TYPE: XR chest 2V DATE OF EXAM: 08/27/2020 COMPARISON: 06/06/2020 HISTORY: Altered mental status. Chest pain TECHNIQUE: FINDINGS: There is no heart failure nor confluent pneumonic infiltrate. There is minimal pleural and pulmonary scarring at the lung apices. There are no hilar masses. Heart size is normal. There is no p leural effusion. Bony thorax is intact. IMPRESSION: No active cardiopulmonary disease. No change.
[2020-08-27 15:14] LABS: Appearance,Urine Clear (Clear); Bilirubin,Urine Negative (Negative); Blood,Urine Negative (Negative); Color,Urine Light Yellow; Glucose,Urine (UA) Negative (Negative); Ketones,Urine Negative (Negative); Leukocyte Esterase,Urine Moderate (Negative); Nitrite,Urine Negative (Negative); PH, Urine 6.5 (5.0-8.0); Protein,Urine Negative (Negative); RBC,Urine 1 /hpf (0-5); Specific Gravity,Urine 1.018 (1.001-1.035); Squamous Epithelial Cell,Urine 2 /hpf (0-4); Urobilinogen,Urine <2.0 mg/dL (<2.0); WBC,Urine 2 /hpf (0-5)
--- NOTE | 2020-08-27 15:33 | CT ---
EXAMINATION TYPE: CT angio head neck DATE OF EXAM: 08/27/2020 COMPARISON: None HISTORY: Left sided weakness. CT DLP: 341.3 mGycm Automated exposure control for dose reduction was used. CONTRAST: Performed with IV Contrast, patient injected with 65 mL of Isovue 370. Images obtained from the aortic arch to the vertex of the brain with IV contrast. There are 3-D post processed images. There is normal branching pattern of the great vessels on the aortic arch. There is bilateral arteria l flow in the subclavian arteries. There is atheromatous change in the great vessels. There is arteri al flow in the common internal and external carotid arteries bilaterally. There is moderate plaque fo rmation at the carotid artery bifurcations. There is estimated more than 80% stenosis of the proximal right internal carotid artery. There is estimated more than 80% stenosis left internal carotid arter y at the bifurcation. There is no evidence of dissection. There is arterial flow in both vertebral ar teries. There is arterial flow in the vertebrobasilar artery system. There is no evidence of carotid or vertebral artery aneurysm or dissection. There is arterial flow in the anterior middle and posterior cerebral arteries. There is normal contra st opacification of the venous sinuses. There is no mass effect. There is no evidence of intracranial aneurysm or neovascularity. IMPRESSION: Significant plaque formation and more than 80% stenosis at the origins of both internal carotid arter ies. Stenosis is probably more than 90%. No intracranial angiographic abnormality.
[2020-08-27] MEDS ORDERED: LORazepam 2 MG/ML INJ IV STA (15:51)
[2020-08-27] MEDS ORDERED: ASPIRIN 325 MG TAB PO STA (16:14)
--- NOTE | 2020-08-27 16:32 | ED ---
General Adult HPI - General Chief complaint: Chest Pain Stated complaint: L Hand Numbness,Trouble Talking Source: patient, family Mode of arrival: ambulatory Limitations: no limitations - History of Present Illness Initial comments: Patient is a 75 year old female past medical history of dementia, COPD, hypertension who presents emergency Department with questionable stroke like symptoms. is at bedside and helps slightly history. Reports that the patient was at home and had sudden onset of difficulties with her speech and left upper and lower extremity weakness. Symptoms lasted for approximately 10- 15 minutes before spontaneously resolving. Has been reports that in the incident happened similar to this 3 days ago which lasted for the same amount of time. Patient has no history of CVA or TIA. Denies having associated headaches or visual changes. No recent head trauma. Patient presents to the emergency department and reports that she is completely symptomatically at this time. Denies any weakness or tremors. Patient able to answer questions appropriately. She is not on any blood thinners. No other alleviating, precipitating or modifying factors - Related Data Home Medications Medication Instructions Recorded Confirmed Aspirin 81 mg PO DAILY 10/13/16 08/27/20 Metoprolol Succinate [Toprol Xl] 50 mg PO HS 01/18/18 08/27/20 Vitamin B Complex 1 cap PO DAILY 01/18/18 08/27/20 Albuterol Sulfate [Ventolin HFA] 1 - 2 puff INHALATION RT-Q6H PRN 08/27/20 08/27/20 Ascorbic Acid [Vitamin C] 1,000 mg PO DAILY 08/27/20 08/27/20 Cholecalciferol [Vitamin D3 (25 1,000 unit PO DAILY 08/27/20 08/27/20 Mcg = 1000 Iu)] Sertraline HCl [Zoloft] 25 mg PO DAILY 08/27/20 08/27/20 Umeclidinium Brm/Vilanterol Tr 1 puff INHALATION RT-DAILY 08/27/20 08/27/20 [Anoro Ellipta 62.5-25 Mcg INH] Vitamin A 8,000 unit PO DAILY 08/27/20 08/27/20 Allergies Allergy/AdvReac Type Severity Reaction Status Date / Time No Known Allergies Allergy Verified 08/27/20 15:23 Review of Systems ROS Statement: Those systems with pertinent positive or pertinent negative responses have been documented in the HPI. ROS Other: All systems not noted in ROS Statement are negative. Past Medical History Past Medical History: Coronary Artery Disease (CAD), Chest Pain / Angina, COPD, Dementia, GERD/Reflux, Hyperlipidemia, Hypertension Additional Past Medical History / Comment(s): Advanced COPD,, degenerative arthritis, " recent hospitalization: anemia, blood in stols, acute kidney injury and low sodium", Last Myocardial Infarction Date:: 10/11/15 History of Any Multi-Drug Resistant Organisms: None Reported Past Surgical History: Section, Heart Catheterization Additional Past Surgical History / Comment(s): 04/27/14 EGD with negative bx and colonoscopy, 3 C-Sections, cardiac catheterization Past Anesthesia/Blood Transfusion Reactions: No Reported Reaction Past Psychological History: Anxiety, Depression Smoking Status: Former smoker Past Alcohol Use History: None Reported Past Drug Use History: None Reported - Past Family History Father Family Medical History: Coronary Artery Disease (CAD) Additional Family Medical History / Comment(s): Father at age 86yrs. Mother Family Medical History: No Reported History Additional Family Medical History / Comment(s): . General Exam Limitations: no limitations Course Vital Signs 08/27/20 08/27/20 08/27/20 14:03 15:14 16:13 Temperature 98.7 F Pulse Rate 85 90 88 Respiratory 22 18 18 Rate Blood Pressure 171/88 167/102 160/90 O2 Sat by Pulse 97 98 100 Oximetry EKG Findings - EKG Comments: EKG Findings:: EKG demonstrates normal sinus rhythm with a ventricular rate of 80. NC inteval 158. QRS 124. QTC of 470. No acute ST segment elevations or depressions concerning for ischemic changes Medical Decision Making - Medical Decision Making Upon arrival the patient was placed into room 8. There are history of physical exam is performed. NIH stroke scale is performed and is negative at this time. Laboratory studies were conducted. Patient had a CT of her brain as well as CT angiography performed. Irises are reviewed and are unremarkable. CT of the patient's brain demonstrates cerebral atrophy and chronic small vessel ischemia with progression of white matter disease compared to old. CT angiography demonstrates significant carotid disease with more the 80% stenosis at the origin of the internal carotid arteries. Chest x-ray demonstrates no active cardio pulmonary disease. Results are discussed the patient and her at bedside. She was given aspirin and a dose of atorvastatin. I did recommend hospitalization for neurology and vascular consultation. Patient is originally refusing admission however does agree after some persuading. is at bedside and agrees to this treatment plan. Spoke with Dr. Rashid who agree to admit the patient. Patient remained without focal neurologic deficits and is awaiting transfer to floor - Lab Data Result diagrams: 08/27/20 14:26 08/27/20 14:26 Lab Results 08/27/20 08/27/20 08/27/20 Range/Units 14:26 14:26 14:26 WBC 8.8 (3.8-10.6) k/uL RBC 4.34 (3.80-5.40) m/uL Hgb 13.2 (11.4-16.0) gm/dL Hct 39.1 (34.0-46.0) % MCV 90.1 (80.0-100.0) fL MCH 30.4 (25.0-35.0) pg MCHC 33.7 (31.0-37.0) g/dL RDW 14.4 (11.5-15.5) % Plt Count 336 (150-450) k/uL MPV 7.6 Neutrophils % 61 % Lymphocytes % 26 % Monocytes % 5 % Eosinophils % 4 % Basophils % 1 % Neutrophils # 5.4 (1.3-7.7) k/uL Lymphocytes # 2.3 (1.0-4.8) k/uL Monocytes # 0.4 (0-1.0) k/uL Eosinophils # 0.3 (0-0.7) k/uL Basophils # 0.1 (0-0.2) k/uL PT 10.4 (9.0-12.0) sec INR 1.0 (<1.2) APTT 24.2 (22.0-30.0) sec Sodium 136 L (137-145) mmol/L Potassium 3.9 (3.5-5.1) mmol/L Chloride 104 (98-107) mmol/L Carbon Dioxide 23 (22-30) mmol/L Anion Gap 9 mmol/L BUN 8 (7-17) mg/dL Creatinine 0.94 (0.52-1.04) mg/dL Est GFR (CKD-EPI)AfAm 68 (>60 ml/min/1.73 sqM) Est GFR (CKD-EPI)NonAf 59 (>60 ml/min/1.73 sqM) Glucose 117 H (74-99) mg/dL Calcium 10.1 (8.4-10.2) mg/dL Total Bilirubin 0.4 (0.2-1.3) mg/dL AST 29 (14-36) U/L ALT 14 (4-34) U/L Alkaline Phosphatase 93 (38-126) U/L Troponin I (0.000-0.034) ng/mL Total Protein 7.2 (6.3-8.2) g/dL Albumin 3.6 (3.5-5.0) g/dL Urine Color Urine Appearance (Clear) Urine pH (5.0-8.0) Ur Specific [place] (1.001-1.035) Urine Protein (Negative) Urine Glucose (UA) (Negative) Urine Ketones (Negative) Urine Blood (Negative) Urine Nitrite (Negative) Urine Bilirubin (Negative) Urine Urobilinogen (<2.0) mg/dL Ur Leukocyte Esterase (Negative) Urine RBC (0-5) /hpf Urine WBC (0-5) /hpf Ur Squamous Epith Cells (0-4) /hpf 08/27/20 08/27/20 Range/Units 14:26 15:05 WBC (3.8-10.6) k/uL RBC (3.80-5.40) m/uL Hgb (11.4-16.0) gm/dL Hct (34.0-46.0) % MCV (80.0-100.0) fL MCH (25.0-35.0) pg MCHC (31.0-37.0) g/dL RDW (11.5-15.5) % Plt Count (150-450) k/uL MPV Neutrophils % % Lymphocytes % % Monocytes % % Eosinophils % % Basophils % % Neutrophils # (1.3-7.7) k/uL Lymphocytes # (1.0-4.8) k/uL Monocytes # (0-1.0) k/uL Eosinophils # (0-0.7) k/uL Basophils # (0-0.2) k/uL PT (9.0-12.0) sec INR (<1.2) APTT (22.0-30.0) sec Sodium (137-145) mmol/L Potassium (3.5-5.1) mmol/L Chloride (98-107) mmol/L Carbon Dioxide (22-30) mmol/L Anion Gap mmol/L BUN (7-17) mg/dL Creatinine (0.52-1.04) mg/dL Est GFR (CKD-EPI)AfAm (>60 ml/min/1.73 sqM) Est GFR (CKD-EPI)NonAf (>60 ml/min/1.73 sqM) Glucose (74-99) mg/dL Calcium (8.4-10.2) mg/dL Total Bilirubin (0.2-1.3) mg/dL AST (14-36) U/L ALT (4-34) U/L Alkaline Phosphatase (38-126) U/L Troponin I <0.012 (0.000-0.034) ng/mL Total Protein (6.3-8.2) g/dL Albumin (3.5-5.0) g/dL Urine Color Light Yellow Urine Appearance Clear (Clear) Urine pH 6.5 (5.0-8.0) Ur Specific [place] 1.018 (1.001-1.035) Urine Protein Negative (Negative) Urine Glucose (UA) Negative (Negative) Urine Ketones Negative (Negative) Urine Blood Negative (Negative) Urine Nitrite Negative (Negative) Urine Bilirubin Negative (Negative) Urine Urobilinogen <2.0 (<2.0) mg/dL Ur Leukocyte Esterase Moderate H (Negative) Urine RBC 1 (0-5) /hpf Urine WBC 2 (0-5) /hpf Ur Squamous Epith Cells 2 (0-4) /hpf Disposition Clinical Impression: Expressive aphasia, Left arm weakness Disposition: ADMITTED IP TO THIS [facility] Condition: Stable Is patient prescribed a controlled substance at d/c from ED?: No Decision to Admit Reason: Admit from EC Decision Date: 08/27/20 Decision Time: 16:47
[2020-08-27] MEDS: ATORVASTATIN 40 MG TAB PO SCH (17:57)
[2020-08-27] MEDS ORDERED: LORazepam 2 MG/ML INJ IV PRN (19:53)
[2020-08-27] MEDS: METOPROLOL SUCCINATE (ER) 50 MG TAB.ER.24H PO SCH (20:37)
[2020-08-27 23:09] LABS: Hemoglobin A1C 5.6 % (4.0-6.0)
[2020-08-28 00:03] LABS: Cholesterol 244 mg/dL (<200); HDL Cholesterol 27 mg/dL (40-60); LDL Cholesterol,Calculated 162 mg/dL (0-99); Triglycerides 276 mg/dL (<150)
[2020-08-28] MEDS: VITAMIN A 8000 UNIT PO SCH (08:35)
[2020-08-28] MEDS: CHOLECALCIFEROL 1,000 UNIT TAB PO SCH (08:35)
[2020-08-28] MEDS: NON FORMULARY DRUG (Vitamin B Complex [Vitamin B Complex] 1 EACH Capsule) PO SCH (08:35)
[2020-08-28] MEDS: ATORVASTATIN 40 MG TAB PO SCH (08:35)
[2020-08-28] MEDS: ASCORBIC ACID 500 MG TAB PO SCH (08:35)
[2020-08-28] MEDS: SERTRALINE 25 MG TAB PO SCH (08:35)
[2020-08-28] MEDS: FORMOTEROL FUMARATE 20 MCG/2 ML NEBU INHALATION SCH ×2 (08:45→21:36)
[2020-08-28] MEDS: IPRATROPIUM 0.5 MG/2.5 ML NEBU INHALATION SCH ×4 (08:45→21:36)
[2020-08-28] MEDS ORDERED: ASPIRIN 325 MG TAB PO SCH (09:00)
--- NOTE | 2020-08-28 10:02 | P.GSCN ---
History of Present Illness Consult date: 08/28/20 Reason for Consult: Carotid stenosis, TIA History of present illness: This 75-year-old female who was brought to the emergency department yesterday by her for new onset of difficulty speaking. Majority of this history will be obtained from chart, as patient states she does not recall why she came to the hospital. She does not recall any symptoms yesterday. According to the patient's records the patient had the onset of difficulty with speaking and left upper lower extremity weakness that lasted approximately 15-20 minutes yesterday. Was also reported that she had similar symptoms 3 days prior. Her past medical history includes coronary artery disease, hypertension, hyperlipidemia, GERD, and dementia. The patient is alert to place and self, however unsure of the month or year. She does deny any prior history or knowledge of having any carotid stenosis. States she does not believe she has any history of coronary artery disease or hypertension. She she states she is not having any upper or lower extremity weakness currently no difficulty with speaking, no difficulty swallowing or visual changes. She is seen and examined lying in bed, she is answering questions appropriately and following commands. Her speech is fluent. She denies any chest pain, shortness of breath, abdominal pain, or dizziness. Review of Systems A 14 point review systems was completed all pertinent positives and negatives as stated in the HPI. Past Medical History Past Medical History: Coronary Artery Disease (CAD), Chest Pain / Angina, COPD, Dementia, GERD/Reflux, Hyperlipidemia, Hypertension Additional Past Medical History / Comment(s): Advanced COPD,, degenerative arthritis, " recent hospitalization: anemia, blood in stols, acute kidney injury and low sodium", Last Myocardial Infarction Date:: 10/11/15 History of Any Multi-Drug Resistant Organisms: None Reported Past Surgical History: Section, Heart Catheterization Additional Past Surgical History / Comment(s): 04/27/14 EGD with negative bx and colonoscopy, 3 C-Sections, cardiac catheterization Past Anesthesia/Blood Transfusion Reactions: No Reported Reaction Past Psychological History: Anxiety, Depression Additional Psychological History / Comment(s): dementia Smoking Status: Former smoker Past Alcohol Use History: None Reported Additional Past Alcohol Use History / Comment(s): STARTED SMOKING AGE 23. She smoked 1 1/2 packs a day. Pt states she quit smoking in July 2016. Past Drug Use History: None Reported - Past Family History Father Family Medical History: Coronary Artery Disease (CAD) Additional Family Medical History / Comment(s): Father at age 86yrs. Mother Family Medical History: No Reported History Additional Family Medical History / Comment(s): . Medications and Allergies Home Medications Medication Instructions Recorded Confirmed Type Aspirin 81 mg PO DAILY 10/13/16 08/27/20 History Metoprolol Succinate [Toprol Xl] 50 mg PO HS 01/18/18 08/27/20 History Vitamin B Complex 1 cap PO DAILY 01/18/18 08/27/20 History Albuterol Sulfate [Ventolin HFA] 1 - 2 puff INHALATION RT-Q6H PRN 08/27/20 08/27/20 History Ascorbic Acid [Vitamin C] 1,000 mg PO DAILY 08/27/20 08/27/20 History Cholecalciferol [Vitamin D3 (25 1,000 unit PO DAILY 08/27/20 08/27/20 History Mcg = 1000 Iu)] Sertraline HCl [Zoloft] 25 mg PO DAILY 08/27/20 08/27/20 History Umeclidinium Brm/Vilanterol Tr 1 puff INHALATION RT-DAILY 08/27/20 08/27/20 History [Anoro Ellipta 62.5-25 Mcg INH] Vitamin A 8,000 unit PO DAILY 08/27/20 08/27/20 History Allergies Allergy/AdvReac Type Severity Reaction Status Date / Time No Known Allergies Allergy Verified 08/27/20 15:23 Surgical - Exam Vital Signs Temp Pulse Resp BP Pulse Ox 98.7 F 85 22 171/88 97 08/27/20 14:03 08/27/20 14:03 08/27/20 14:03 08/27/20 14:03 08/27/20 14:03 General appearance: The patient is alert, oriented, in no acute distress. HET: Head is normocephalic and atraumatic. Pupils are equal and reactive. Neck: Supple without lymphadenopathy. Trachea midline. No audible carotid bruit. Heart: S1 S2. Regular rate and rhythm. Lungs: No crackles or wheezes are heard. Abdomen: Soft, nontender, nondistended with bowel sounds. Extremities: Normal skin color and turgor. No cyanosis, rash, ulceration, clubbing, or edema. Palpable bilateral radial and pedal pulses. Neurological: Patient is alert and oriented to self and place. She is left-hand dominant. Speech is fluent, she has facial symmetry, tongue protrudes midline. She does seem to have some minimal weakness in her right upper and lower extremity compared to left. Results CT angiogram head and neck impression states significant plaque formation and more than 80% stenosis at the origins of both internal carotid arteries. Stenosis is probably more than 90%. No intracranial angiographic abnormality. Brain CT impression states cerebral atrophy and chronic small vessel ischemia with progression of the white matter disease compared to old exam. No hemorrhage. - Labs 08/27/20 14:26 08/27/20 14:26 Abnormal Lab Results - Last 24 Hours (Table) 08/27/20 08/27/20 08/27/20 Range/Units 14:26 14:26 15:05 Sodium 136 L (137-145) mmol/L Glucose 117 H (74-99) mg/dL Triglycerides 276 H (<150) mg/dL Cholesterol 244 H (<200) mg/dL LDL Cholesterol, Calc 162 H (0-99) mg/dL HDL Cholesterol 27 L (40-60) mg/dL Ur Leukocyte Esterase Moderate H (Negative) Diabetes panel 08/27/20 08/27/20 08/27/20 Range/Units 14:26 14:26 14:26 Sodium 136 L (137-145) mmol/L Potassium 3.9 (3.5-5.1) mmol/L Chloride 104 (98-107) mmol/L Carbon Dioxide 23 (22-30) mmol/L BUN 8 (7-17) mg/dL Creatinine 0.94 (0.52-1.04) mg/dL Glucose 117 H (74-99) mg/dL Hemoglobin A1c 5.6 (4.0-6.0) % Calcium 10.1 (8.4-10.2) mg/dL AST 29 (14-36) U/L ALT 14 (4-34) U/L Alkaline Phosphatase 93 (38-126) U/L Total Protein 7.2 (6.3-8.2) g/dL Albumin 3.6 (3.5-5.0) g/dL Triglycerides 276 H (<150) mg/dL HDL Cholesterol 27 L (40-60) mg/dL Calcium panel 08/27/20 Range/Units 14:26 Calcium 10.1 (8.4-10.2) mg/dL Albumin 3.6 (3.5-5.0) g/dL Pituitary panel 08/27/20 Range/Units 14:26 Sodium 136 L (137-145) mmol/L Potassium 3.9 (3.5-5.1) mmol/L Chloride 104 (98-107) mmol/L Carbon Dioxide 23 (22-30) mmol/L BUN 8 (7-17) mg/dL Creatinine 0.94 (0.52-1.04) mg/dL Glucose 117 H (74-99) mg/dL Calcium 10.1 (8.4-10.2) mg/dL Adrenal panel 08/27/20 Range/Units 14:26 Sodium 136 L (137-145) mmol/L Potassium 3.9 (3.5-5.1) mmol/L Chloride 104 (98-107) mmol/L Carbon Dioxide 23 (22-30) mmol/L BUN 8 (7-17) mg/dL Creatinine 0.94 (0.52-1.04) mg/dL Glucose 117 H (74-99) mg/dL Calcium 10.1 (8.4-10.2) mg/dL Total Bilirubin 0.4 (0.2-1.3) mg/dL AST 29 (14-36) U/L ALT 14 (4-34) U/L Alkaline Phosphatase 93 (38-126) U/L Total Protein 7.2 (6.3-8.2) g/dL Albumin 3.6 (3.5-5.0) g/dL Assessment and Plan Assessment: 1. Bilateral carotid stenosis reported greater than 80% per CT angiogram of chest, likely closer to 90% 2. Reported left upper and lower remedy weakness, resolved 3. Expressive aphasia, resolved 4. Coronary artery disease 5. Hypertension 6. Hyperlipidemia 7. Dementia Plan: 1. Continue with aspirin and statin. 2. Will order bilateral carotid duplex. 3. Await recommendations from neurology. 4. Further recommendations to follow. The impression and plan of care has been dictated as directed. Dr. Mcconnell I performed a history and examination of this patient, discussed the same with the dictator. I agree with the dictator's note ,documented as a scribe. Any additional findings or plans will be noted.
--- NOTE | 2020-08-28 12:51 | US ---
EXAMINATION TYPE: US carotid duplex BILAT DATE OF EXAM: 08/28/2020 COMPARISON: NONE CLINICAL HISTORY: 75-year-old female carotid stenosis, TIA. TECHNIQUE: Carotid duplex ultrasound examination. Indirect Doppler criteria is visualized. FINDINGS: EXAM MEASUREMENTS: RIGHT: Peak Systolic Velocity (PSV) cm/sec ----- Right CCA: 61.3 ----- Right ICA: 94.2 ----- Right ECA: 58.9 ICA/CCA ratio: 1.5 RIGHT: End Diastole cm/sec ----- Right CCA: 15.3 ----- Right ICA: 28.9 ----- Right ECA: 6.9 LEFT: Peak Systolic Velocity (PSV) cm/sec ----- Left CCA: 41.6 ----- Left ICA: 77.0 ----- Left ECA: 68.1 ICA/CCA ratio: 1.9 LEFT: End Diastole cm/sec ----- Left CCA: 7.7 ----- Left ICA: 16.0 ----- Left ECA: 5.3 VERTEBRALS (direction of flow): Right Vertebral: Antegrade Left Vertebral: Antegrade Rhythm: Normal [employer] notes: Heavily calcified vessels with no significant velocity elevations seen by ultrasou nd. IMPRESSION: Unable to identify any hemodynamically significant internal carotid artery stenosis on either side by Doppler criteria despite heavy atherosclerotic calcifications. Based on the appearance on CTA, sig nificant stenoses remain difficult to exclude. Criteria for Assigning % of Stenosis / Diameter reduction (Estimation based on the indirect measurements of the internal carotid artery velocities (ICA PSV). 1. Normal (no stenosis)=ICA PSV < 125 cm/s: ratio < 2.0: ICA EDV<40 cm/s. 2. Less than 50% stenosis=ICA PSV < 125 cm/s: ratio < 2.0: ICA EDV<40 cm/s. 3. 50 to 69% stenosis=ICA PSV of 125 to 230 cm/s: ration 2.0 ? 4.0: ICA EDV 40-100 cm/s. 4. Greater than 70% stenosis to near occlusion= ICA PSV > 230 cm/s: ratio > 4.0: ICA EDV > 100 cm/s. 5. Near occlusion= ICA PSV velocities may be low or undetectable: variable ratio and ICA EDV. 6. Total occlusion=unable to detect flow.
[2020-08-28] MEDS ORDERED: ATORVASTATIN 40 MG TAB PO ONE (15:45)
--- NOTE | 2020-08-28 16:25 | P.CNNES ---
History of Present Illness Consult date: 08/28/20 Requesting physician: Beth Osuna Reason for Consult: Suspected TIA History of Present Illness: Patient is a 75-year-old left-handed female came to the hospital yesterday at around 2 PM for chest pain. Patient developed sudden onset of difficulties with her speech and left upper and lower extremity weakness. Symptoms lasted for approximately 10-15 minutes before spontaneously resolving. Patient had a similar event 3 days prior, lasted for the same amount of time. No other history of strokes or TIA. Patient at present just wants to go home. She states she came to the hospital because of "my neck", then stated that she came here because "I had a bad headache". Patient is very upset because "they bring you here and lock you up". Patient then states her was concerned if she was having a "st", could not complete the word "stroke". Vital signs on arrival blood pressure 171/88, pulse rate [address] head showed cerebral atrophy and chronic small vessel ischemia with progression of white matter disease compared to old exam. No hemorrhage. CTA of head and neck showed significant plaque formation and more than 80% stenosis of the origin of both ICAs. Stenosis is probably more than 90%. Chest x-ray normal. EKG shows normal sinus rhythm with right bundle branch block. Carotid Doppler unable to identify any hemodynamically significant internal carotid artery stenosis on either side by Doppler criteria despite heavy atherosclerotic calcification. Based on the appearance on CT, significant stenosis remained difficult to exclude. Blood test shows normal CBC, PT/PTT, sodium 136 potassium 3.9, normal renal functions, normal hepatic panel. Total cholesterol is 244, LDL is 162, HDL is 27, triglycerides 276. Hemoglobin A1c 5.6. UA shows moderate leukocyte esterase. Patient at present just wants to go home. Patient states she is here "because of my neck", then states because I had a bad headache. Patient states Patient was seen by vascular surgery, who recommended medical management and to continue with aspirin, statins. Patient at home does take aspirin 81 mg, metoprolol 50 mg at bedtime and sertraline 25 mg. patient denies diabetes. States she smoked 1 pack per day for 5 years, quit 2 months ago. She states she takes aspirin "once in a while. She denies any alcohol. Telemetry monitoring so far showing sinus rhythm with sinus bradycardia. Occasi onal PVCs. I spoke to patient's on the phone. He tells me that patient has severe dementia, hallucinations, depression and COPD. Sometimes she does not recognize her own children. She states one of her son is or not her son. Sometimes she does not recognize her . She walks by herself a little, usually her has to help. She does not wander. He states that she just lays in bed. It is hard to get her take shower. She constantly messes up with her bedding and clothes. She smoked one pack per day for 40-50 years, quit 8-10 years ago. Review of Systems Patient somewhat tearful, wants to go home. She denies any headache problem with the vision, hoarseness, sore throat, dysphagia. Denies any chest pain, abdominal pain nausea vomiting. Complains of headache. ROS unobtainable: due to mental status Past Medical History Past Medical History: Coronary Artery Disease (CAD), Chest Pain / Angina, COPD, Dementia, GERD/Reflux, Hyperlipidemia, Hypertension Additional Past Medical History / Comment(s): Advanced COPD,, degenerative arthritis, " recent hospitalization: anemia, blood in stols, acute kidney injury and low sodium", Last Myocardial Infarction Date:: 10/11/15 History of Any Multi-Drug Resistant Organisms: None Reported Past Surgical History: Section, Heart Catheterization Additional Past Surgical History / Comment(s): 04/27/14 EGD with negative bx and colonoscopy, 3 C-Sections, cardiac catheterization Past Anesthesia/Blood Transfusion Reactions: No Reported Reaction Past Psychological History: Anxiety, Depression Additional Psychological History / Comment(s): dementia Smoking Status: Former smoker Past Alcohol Use History: None Reported Additional Past Alcohol Use History / Comment(s): STARTED SMOKING AGE 23. She smoked 1 1/2 packs a day. Pt states she quit smoking in July 2016. Past Drug Use History: None Reported - Past Family History Father Family Medical History: Coronary Artery Disease (CAD) Additional Family Medical History / Comment(s): Father at age 86yrs. Mother Family Medical History: No Reported History Additional Family Medical History / Comment(s): . Medications and Allergies Home Medications Medication Instructions Recorded Confirmed Type Aspirin 81 mg PO DAILY 10/13/16 08/27/20 History Metoprolol Succinate [Toprol Xl] 50 mg PO HS 01/18/18 08/27/20 History Vitamin B Complex 1 cap PO DAILY 01/18/18 08/27/20 History Albuterol Sulfate [Ventolin HFA] 1 - 2 puff INHALATION RT-Q6H PRN 08/27/20 08/27/20 History Ascorbic Acid [Vitamin C] 1,000 mg PO DAILY 08/27/20 08/27/20 History Cholecalciferol [Vitamin D3 (25 1,000 unit PO DAILY 08/27/20 08/27/20 History Mcg = 1000 Iu)] Sertraline HCl [Zoloft] 25 mg PO DAILY 08/27/20 08/27/20 History Umeclidinium Brm/Vilanterol Tr 1 puff INHALATION RT-DAILY 08/27/20 08/27/20 History [Anoro Ellipta 62.5-25 Mcg INH] Vitamin A 8,000 unit PO DAILY 08/27/20 08/27/20 History Allergies Allergy/AdvReac Type Severity Reaction Status Date / Time No Known Allergies Allergy Verified 08/27/20 15:23 Physical Examination - Vital Signs Vital Signs: Vital Signs Temp Pulse Pulse Resp BP BP Pulse Ox 08/28/20 11:48 65 18 142/71 97 08/28/20 08:58 82 08/28/20 08:45 80 08/28/20 08:00 98.1 F 72 18 164/74 95 08/28/20 04:00 98.0 F 72 18 163/79 93 L 08/28/20 00:00 98.0 F 72 26 H 133/100 94 L 08/27/20 20:25 97.6 F 83 18 181/104 94 L 08/27/20 20:15 97.6 F 83 16 181/104 94 L 08/27/20 20:00 83 08/27/20 19:53 98.1 F 82 16 189/68 96 08/27/20 18:52 90 18 180/90 100 08/27/20 16:13 88 18 160/90 100 08/27/20 15:14 90 18 167/102 98 08/27/20 14:03 98.7 F 85 22 171/88 97 Intake and Output 08/27/20 08/28/20 08/28/20 22:59 06:59 14:59 Intake Total 477 Balance 477 Intake: Oral 477 Other: Voiding Method Toilet Toilet # Voids 1 1 1 Weight 63.503 kg 74 kg On examination patient is an elderly female, in no acute distress. She is alert and awake. She could not tell current month or the year or what building she is in. She knows that she is in [place] in [place]. She states her date of is 06/19, but could not tell the year. Could not tell name of the current president. Speech and language functions revealed some word finding difficulty. Patient can name most of the objects, like glasses, pen, earlobe, knuckles. She could not name the object "straw", as she states "I think you suck through". She can repeat very well. On cranial nerve examination pupils are round and reacting to light. Visual ness are full on confrontation. Extraocular muscles are intact with no nystagmus. Face is symmetric and tongue protrudes to the midline. Palatal elevation and sensation normal, hearing slightly decreased, shoulder shrug normal. On muscle strength testing the is no pronator drift and the strength is normal in arms and legs distally and proximally. Reflexes are 1+ and plantars downgoing. Sensory to touch is equal. No ataxia for [id number] testing. Tone and bulk of muscles normal. Gait deferred. There is no obvious bruit, S1 and S2 audible. Abdomen soft nontender, chest has some coarse crackles. Peripheral pulses present. Results - Laboratory Findings CBC and BMP: 08/27/20 14:26 08/27/20 14:26 Abnormal Lab Findings: Abnormal Labs 08/27/20 08/27/20 08/27/20 14:26 14:26 15:05 Sodium 136 L Glucose 117 H Triglycerides 276 H Cholesterol 244 H LDL Cholesterol, Calc 162 H HDL Cholesterol 27 L Ur Leukocyte Esterase Moderate H Assessment and Plan Assessment: * Probable TIA manifesting with speech difficulty and left-sided weakness, that seems to have resolved. Patient still has some speech difficulty, word finding problem, uncertain if related to her previous dementia, or stroke symptoms. * Bilateral ICA stenosis probably > 80% stenosis at the origin of both ICA. * Hypertension * Hyperlipidemia * X tobacco use * Alzheimer's dementia Plan: * I spoke to patient's on the phone in detail. He has no objection for any type of revascularization surgery if indicated. * At this time patient will be placed on dual antiplatelet medications including aspirin 81 mg and Plavix 75 mg daily. * Patient has significant hyperlipidemia, currently not on statins. We will place her on high-dose statins Lipitor 80 mg daily. * Patient also has significant dementia, therefore we'll start her on Aricept 5 mg daily. We will check B12, folate and TSH. * Patient may follow-up with vascular surgery as outpatient to consider right CEA. Given her cognitive impairment, she could be a candidate for less invasive bilateral ICA stenting.
[2020-08-28] MEDS: CLOPIDOGREL 75 MG TAB PO SCH (16:44)
[2020-08-28] MEDS: ENOXAPARIN 40 MG/0.4 ML SYRINGE SQ SCH (16:45)
[2020-08-28 18:38] LABS: T4, Free (Free Thyroxine) 0.9 ng/dL (0.78-2.19)
--- NOTE | 2020-08-28 19:55 | P.HPIM ---
History of Present Illness H&P Date: 08/28/20 Chief Complaint: Slurred speech History of presenting complaint: This is a pleasant 75-year-old patient of Dr. Rohan Cueva-chronic stable medical conditions include COPD, coronary artery disease with chronically occluded RCA, hypertension, hyperlipidemia, primary osteoarthritis, home oxygen, depression. brought the patient to the ER. He reported that patient had suddenly onset of difficulty with his speech and weakness of the left upper and lower extremity. Symptoms lasted for about 15 minutes before it spontaneously resolved. Also similar episode happened 3 days prior stent for the same amount of time. No prior history of stroke. Does not have any change in vision currently no change in speech has not had difficulty swallowing. Patient herself is a poor historian. Because of dementia. Review of systems: GEN.: None EYES: None HEENT: None NECK: None RESPIRATORY: None CARDIOVASCULAR: None GASTROINTESTINAL: None GENITOURINARY: None MUSCULOSKELETAL: Joint pains LYMPHATICS: None HEMATOLOGICAL: None PSYCHIATRY: Forgetful NEUROLOGICAL: As above Past medical history to include: Coronary artery disease with chronically occluded right coronary artery, COPD, dementia, GERD, hypertension, hyperlipidemia, osteoarthritis, anxiety depression Social history: Patient started smoking age of 23, smoked one half packs a day stopped in 2015. No alcohol. . Lives with her . Physical examination: VITAL SIGNS: 98.7, 85, 22, 171/88, 97% room air GENERAL: BMI 28.9, sitting up in a chair, comfortable. EYES: Pupils equal. Conjunctiva normal. HEENT: External appearance of nose and ears normal, oral cavity grossly normal. NECK: JVD not raised; masses not palpable. HEART: First and second heart sounds are normal; no edema. LUNGS: Respiratory rate normal; clear to auscultation. ABDOMEN: Soft, nontender, liver spleen not palpable, no masses palpable. PSYCH: [Patient knows her name H does not do not know why she is here on the na me of this place MUSCULAR skeletal: Evidence of OA especially in the hands NEUROLOGICAL: Cranial nerves grossly intact; no facial asymmetry, power and sensation grossly intact. LYMPHATICS: No lymph nodes palpable in the axilla and neck INVESTIGATIONS, reviewed in the clinical context: White count 8.8 hemoglobin 13.2 platelets 336 potassium 3.9 creatinine 0.94 TSH 6.2 EKG tracing personally reviewed by me-normal sinus rhythm, right bundle branch block Chest x-ray film personally reviewed by me-no infiltrates Computed tomography scan brain without contrast-cerebral atrophy, white matter changes CT angiogram of the head and neck-significant plaque formation more than 80% stenosis origin of both internal carotid arteries, stenosis probably more than 90% Carotid Doppler-Vlad noted exact stenosis cannot be reported Assessment: -Recurrent TIA with patient losing her speech for about 15 minutes and weakness in the left upper and lower extremity completely resolved. No other neurologi chloe deficit. Patient's had 2 such episodes in the spinal 3 days. -Coronary artery disease with chronically occluded RCA -COPD in an ex-smoker -Severe cognitive impairment from late onset Alzheimer's dementia -GERD -Essential hypertension -Hyperlipidemia -Primary osteoarthritis -Anxiety depression otherwise specified Plan: Neuro checks were in place. Neurology was consulted. [facility] surgery was consulted. Home medications resumed. Patient is put on aspirin home dose and Plavix was added. Also Lipitor was added. Past Medical History Past Medical History: Coronary Artery Disease (CAD), Chest Pain / Angina, COPD, Dementia, GERD/Reflux, Hyperlipidemia, Hypertension Additional Past Medical History / Comment(s): Advanced COPD,, degenerative arthritis, " recent hospitalization: anemia, blood in stols, acute kidney injury and low sodium", Last Myocardial Infarction Date:: 10/11/15 History of Any Multi-Drug Resistant Organisms: None Reported Past Surgical History: Section, Heart Catheterization Additional Past Surgical History / Comment(s): 04/27/14 EGD with negative bx and colonoscopy, 3 C-Sections, cardiac catheterization Past Anesthesia/Blood Transfusion Reactions: No Reported Reaction Past Psychological History: Anxiety, Depression Additional Psychological History / Comment(s): dementia Smoking Status: Former smoker Past Alcohol Use History: None Reported Additional Past Alcohol Use History / Comment(s): STARTED SMOKING AGE 23. She smoked 1 1/2 packs a day. Pt states she quit smoking in July 2016. Past Drug Use History: None Reported - Past Family History Father Family Medical History: Coronary Artery Disease (CAD) Additional Family Medical History / Comment(s): Father at age 86yrs. Mother Family Medical History: No Reported History Additional Family Medical History / Comment(s): . Medications and Allergies Home Medications Medication Instructions Recorded Confirmed Type Aspirin 81 mg PO DAILY 10/13/16 08/27/20 History Metoprolol Succinate [Toprol Xl] 50 mg PO HS 01/18/18 08/27/20 History Vitamin B Complex 1 cap PO DAILY 01/18/18 08/27/20 History Albuterol Sulfate [Ventolin HFA] 1 - 2 puff INHALATION RT-Q6H PRN 08/27/20 08/27/20 History Ascorbic Acid [Vitamin C] 1,000 mg PO DAILY 08/27/20 08/27/20 History Cholecalciferol [Vitamin D3 (25 1,000 unit PO DAILY 08/27/20 08/27/20 History Mcg = 1000 Iu)] Sertraline HCl [Zoloft] 25 mg PO DAILY 08/27/20 08/27/20 History Umeclidinium Brm/Vilanterol Tr 1 puff INHALATION RT-DAILY 08/27/20 08/27/20 History [Anoro Ellipta 62.5-25 Mcg INH] Vitamin A 8,000 unit PO DAILY 08/27/20 08/27/20 History Allergies Allergy/AdvReac Type Severity Reaction Status Date / Time No Known Allergies Allergy Verified 08/27/20 15:23 Physical Exam Vitals: Vital Signs Temp Pulse Pulse Resp BP BP Pulse Ox 08/28/20 08:58 82 08/28/20 08:45 80 08/28/20 08:00 98.1 F 72 18 164/74 95 08/28/20 04:00 98.0 F 72 18 163/79 93 L 08/28/20 00:00 98.0 F 72 26 H 133/100 94 L 08/27/20 20:25 97.6 F 83 18 181/104 94 L 08/27/20 20:15 97.6 F 83 16 181/104 94 L 08/27/20 20:00 83 08/27/20 19:53 98.1 F 82 16 189/68 96 08/27/20 18:52 90 18 180/90 100 08/27/20 16:13 88 18 160/90 100 08/27/20 15:14 90 18 167/102 98 08/27/20 14:03 98.7 F 85 22 171/88 97 Intake and Output 08/27/20 08/28/20 08/28/20 22:59 06:59 14:59 Intake Total 240 Balance 240 Intake: Oral 240 Other: Voiding Method Toilet Toilet # Voids 1 1 1 Weight 63.503 kg 74 kg Results CBC & Chem 7: 08/27/20 14:26 08/27/20 14:26 Labs: Abnormal Lab Results - Last 24 Hours (Table) 08/27/20 08/27/20 08/27/20 Range/Units 14:26 14:26 15:05 Sodium 136 L (137-145) mmol/L Glucose 117 H (74-99) mg/dL Triglycerides 276 H (<150) mg/dL Cholesterol 244 H (<200) mg/dL LDL Cholesterol, Calc 162 H (0-99) mg/dL HDL Cholesterol 27 L (40-60) mg/dL Ur Leukocyte Esterase Moderate H (Negative) Thrombosis Risk Factor Assmnt - Choose All That Apply Any of the Below Risk Factors Present?: Yes Each Factor Represents 1 point: Abnormal pulmonary function (COPD) Other Risk Factors: Yes Each Risk Factor Represents 3 Points: Age 75 years or older Thrombosis Risk Factor Assessment Total Risk Factor Score: 4 Thrombosis Risk Factor Assessment Level: Moderate Risk
[2020-08-28 20:11] VITALS: TEMP 97.6
[2020-08-28] MEDS ORDERED: DONEPEZIL 5 MG TAB PO SCH (21:00)
[2020-08-28] MEDS: FAMOTIDINE 20 MG TAB PO SCH (21:36)
[2020-08-28] MEDS: METOPROLOL SUCCINATE (ER) 50 MG TAB.ER.24H PO SCH (21:36)
[2020-08-29 01:17] LABS: Folate, Serum 21.4 ng/mL
[2020-08-29] MEDS ORDERED: HALOPERIDOL LACTATE 5 MG/ML 1 ML VIAL IM STA (04:45)
--- NOTE | 2020-08-29 06:29 | CT ---
EXAMINATION TYPE: CT brain nadine lauren DATE OF EXAM: 08/29/2020 COMPARISON: CT brain 2 days ago HISTORY: Fall injury with headache and neck pain. CT DLP: 1199 mGycm. Automated Exposure Control for Dose Reduction was Utilized. TECHNIQUE: CT scan of the head and cervical spine are performed without contrast. FINDINGS: There is no acute intracranial hemorrhage or midline shift identified. Mild to moderate D iffuse ventricular and sulcal prominence is redemonstrated. Moderate to severe low-attenuation in aide p and periventricular white matter again seen. The globes are intact and the visualized sinuses are c lear. The calvarium is intact. Cervical spine is visualized in its entirety from C1 through upper thoracic levels and demonstrates t he levoconvex scoliotic curvature and coronal images without evidence of acute fracture or dislocatio n. Prevertebral soft tissue appears within normal limits. The C1-C2 articulation is within normal l imits on the coronal images. Vertebral body heights are maintained. Slight grade 1 retrolisthesis C3 on C4 and C5 on C6. Moderate disc space narrowing and moderate to severe anterior spurring at C5-C6 level. Moderate disc space narrowing and mild/moderate spurring C6-C7 level. Posterior spurring effac es the anterior thecal sac at these levels. Review of axial images shows multilevel uncovertebral deg enerative changes contributing to multilevel bilateral neural foraminal narrowing. Lung apices show m oderate to severe underlying emphysematous change. IMPRESSION: 1. There is no acute fracture or dislocation evident in the cervical spine. 2. No acute intracranial hemorrhage or midline shift is seen. No significant change from prior.
[2020-08-29] MEDS ORDERED: ASPIRIN 81 MG PO SCH (09:00)
[2020-08-29] MEDS ORDERED: ATORVASTATIN 80 MG TAB PO SCH (09:00)
[2020-08-29] MEDS: FORMOTEROL FUMARATE 20 MCG/2 ML NEBU INHALATION SCH (09:36)
[2020-08-29] MEDS: IPRATROPIUM 0.5 MG/2.5 ML NEBU INHALATION SCH ×2 (09:36→12:24)
--- NOTE | 2020-08-29 10:17 | P.PN ---
Subjective Progress Note Date: 08/29/20 Principal diagnosis: Carotid stenosis The patient was seen and examined sleeping in bed. She is easily arousable she is alert and oriented to self only. Nurses at the bedside and patient became very combative yesterday evening and Mr. moore was called. She is denying any focal deficits, speech is fluent, she is able to follow commands and answer questions. Objective - Vital Signs Vital signs: Vital Signs Temp 97.6 F 08/29/20 04:00 Pulse 70 08/29/20 04:00 Resp 18 08/29/20 04:00 BP 147/48 08/29/20 04:00 Pulse Ox 90 L 08/28/20 23:20 Intake & Output 08/28/20 08/29/20 08/29/20 18:59 06:59 18:59 Intake Total 717 Output Total 1 Balance 717 -1 Weight 73 kg Intake: Oral 717 Output: Urine 1 Other: Voiding Method Toilet # Voids 1 # Bowel Movements 1 - Exam General appearance: The patient is alert, oriented, in no acute distress. HET: Head is normocephalic and atraumatic. Neck: Supple without lymphadenopathy. Trachea midline. Heart: S1 S2. Regular rate and rhythm. Lungs: No crackles or wheezes are heard. Abdomen: Soft, nontender, nondistended with bowel sounds. Extremities: Normal skin color and turgor. No cyanosis, rash, ulceration, clubbing, or edema. Audible bilateral radial and dorsalis pedis pulses Neurological: Alert, oriented 1 to self. Speech is fluent, patient has facial symmetry, tongue protrudes midline, she is able to follow commands. Today her bilateral upper and lower extremity strength seems close to equal, left grasped today may be minimally weaker than right. - Labs CBC & Chem 7: 08/27/20 14:26 08/27/20 14:26 Labs: Abnormal Lab Results - Last 24 Hours (Table) 08/28/20 Range/Units 16:32 TSH 6.260 H (0.465-4.680) mIU/L Assessment and Plan Assessment: 1. Bilateral carotid stenosis reported greater than 80% per CT angiogram of chest, likely closer to 90% 2. Reported left upper and lower remedy weakness, resolved 3. Expressive aphasia, resolved 4. Coronary artery disease 5. Hypertension 6. Hyperlipidemia 7. Dementia Plan: 1. Continue with aspirin, plavix, and statin. 2. Plan of care discussed with neurology, Dr. Bonilla did discuss with patient's , and he states if indicated he would like to proceed with vascular surgical intervention with his if indicated. 3. MRI of brain ordered 4. Await further recommendations from neurology. 5. Recommend follow-up with vascular surgery as an outpatient basis to further discuss vascular surgical intervention for carotid stenosis. There is no indication for imminent vascular surgery at this time. The above dictated assessment and findings were discussed with Dr. Mcconnell. The impression and plan of care have been directed as dictated.
[2020-08-29 10:32] VITALS: RESP 16
[2020-08-29] MEDS: NON FORMULARY DRUG (Vitamin B Complex [Vitamin B Complex] 1 EACH Capsule) PO SCH (10:32)
[2020-08-29] MEDS: VITAMIN A 8000 UNIT PO SCH (10:32)
[2020-08-29] MEDS: CHOLECALCIFEROL 1,000 UNIT TAB PO SCH (13:36)
[2020-08-29] MEDS: FAMOTIDINE 20 MG TAB PO SCH (13:36)
[2020-08-29] MEDS: SERTRALINE 25 MG TAB PO SCH (13:36)
[2020-08-29] MEDS: CLOPIDOGREL 75 MG TAB PO SCH (13:36)
[2020-08-29] MEDS: ASCORBIC ACID 500 MG TAB PO SCH (13:36)
[2020-08-29] MEDS: ENOXAPARIN 40 MG/0.4 ML SYRINGE SQ SCH (13:36)
--- NOTE | 2020-08-29 13:51 | MR ---
MR brain without contrast HISTORY: TIA, trauma and pain Multiplanar multisequence imaging obtained through the brain, correlation to prior MR brain 01/02/[address] 08/29/2020 There is no restricted diffusion. Extensive white matter signal changes show similar appearance to pr ior exam but likely have progressed in the confluent periventricular hyperintensity and inversion rec overy T2-weighted sequences. There is some motion on the exam. There is no evident hemorrhage or hydr ocephalus. There is cortical atrophy. Orbits show symmetric appearance. There are normal vascular shaun w voids. Focus of encephalomalacia in the basal ganglia on the left is stable. Corpus callosum, pitui tary, cervical medullary junction, cerebellopontine angles are stable. Orbits show symmetric appearan ce. IMPRESSION: Probable chronic small vessel ischemic changes, age related atrophy, no subacute ischemia evident. There is motion on the exam.
[2020-08-29 13:56] VITALS: BP 132/64; PULSE 69
--- NOTE | 2020-08-29 15:04 | P.PN ---
Subjective Progress Note Date: 08/29/20 Patient was sitting in the chair, very pleasant in no distress. Sitter was also present. Patient has been able to have conversation. Per sitter, patient slept whole day long, but after her MRI, has woken up. Patient having lunch. Denies headache. Denies any chest pain. Patient had a fall early this morning at around 6 AM. She had sundowners. She had a computed tomography scan of the head which revealed no acute process. No acute fracture or dislocation. Objective - Vital Signs Vital signs: Vital Signs Temp 97.6 F 08/29/20 04:00 Pulse 69 08/29/20 12:00 Resp 16 08/29/20 12:00 BP 132/64 08/29/20 12:00 Pulse Ox 95 08/29/20 12:00 Intake & Output 08/28/20 08/29/20 08/29/20 18:59 06:59 18:59 Intake Total 717 Output Total 1 Balance 717 -1 Weight 73 kg Intake: Oral 717 Output: Urine 1 Other: Voiding Method Toilet # Voids 1 0 # Bowel Movements 1 0 - Exam Patient is alert and awake. Speech has some word finding problem. No dysarthria. Patient can name and repeat well. Cranial nerves are normal. Face is symmetric. Tongue protrudes the midline. Muscle strength appears normal. Reflexes are 1+ and plantars downgoing. - Labs CBC & Chem 7: 08/27/20 14:26 08/27/20 14:26 Labs: Abnormal Lab Results - Last 24 Hours (Table) 08/28/20 Range/Units 16:32 TSH 6.260 H (0.465-4.680) mIU/L Assessment and Plan Assessment: * Probable TIA manifesting with speech difficulty and left-sided weakness, that seems to have resolved. Patient still has some speech difficulty, word find ing problem, uncertain if related to her previous dementia, or stroke symptoms. * Bilateral ICA stenosis probably > 80% stenosis at the origin of both ICA. * Hypertension * Hyperlipidemia * X tobacco use * Alzheimer's dementia Plan: * Patient underwent MRI of the brain without contrast, which revealed no acute ischemic stroke. Some small vessel disease. Age-related atrophy. * Continue high-dose statins Lipitor 80 mg daily. * Continue Aricept 5 mg daily. * B12 852, folate 21.4 and TSH mildly elevated 6.26, with normal free T4 0.90. Would defer management of thyroid functions to IM. * Patient has severe bilateral ICA stenosis. Spoke to the neuroradiologist Dr. Real, who states that the diameter of right ICA at the origin is 1.5 mm and left 1.7 mm, suggestive of severe stenosis. Discussed with vascular surgery. As there is no acute stroke, patient will be followed up in the office for possible CEA to be scheduled outpatient. In the meantime patient will sb nue dual antiplatelet medications, high-dose statins and Pepcid. * Telemetry monitoring showing sinus rhythm with ST depression and PVCs. * Neurologically clear for discharge. Patient went to home, will take care.
--- NOTE | 2020-08-29 21:59 | P.DS ---
Providers Date of admission: 08/27/20 16:48 Expected date of discharge: 08/29/20 Attending physician: Jordan Rashid Consults: 08/27/20 16:51 Consult Physician Urgent Consulting Provider: Natalia Florian Consult Reason/Comments: suspected tia Do you want consulting provider notified?: Yes 08/27/20 16:58 Consult Physician Urgent Consulting Provider: Aman Gonzalez Consult Reason/Comments: carotid disease Do you want consulting provider notified?: Yes Primary care physician: [facility] Course: Chief Complaint: Slurred speech History of presenting complaint: This is a pleasant 75-year-old patient of Dr. Rohan Cueva-chronic stable medical conditions include COPD, coronary artery disease with chronically occluded RCA, hypertension, hyperlipidemia, primary osteoarthritis, home oxygen, depression. brought the patient to the ER. He reported that patient had suddenly onset of difficulty with his speech and weakness of the left upper and lower extremity. Symptoms lasted for about 15 minutes before it spontaneously resolved. Also similar episode happened 3 days prior stent for the same amount of time. No prior history of stroke. Does not have any change in vision currently no change in speech has not had difficulty swallowing. Patient herself is a poor historian. Because of dementia. carotid Doppler showed stenosis. CT angiogram showed significant stenosis on both sides. Patient was seen byDr. Mcconnell, vascular surgery. shee'll follow as an outpatient. MRI of the brain did show chronic changes. Patient's symptoms are completely resolved. Today-sitting up in a chair. Presently confused. tolerating diet. No neuro residual. Plavix and Lipitor was added. Consultation: Dr. Mcconnell from vascular surgery Dr. Ortega from neurology Past medical history to include: Coronary artery disease with chronically occluded right coronary artery, COPD, dementia, GERD, hypertension, hyperlipidemia, osteoarthritis, anxiety depression Social history: Patient started smoking age of 23, smoked one half packs a day stopped in 2016. No alcohol. . Lives with her . Physical examination: VITAL SIGNS:97.6, 69, 16, 132/64, 95% room air GENERAL: BMI 28.9, sitting up in a chair, comfortable. EYES: Pupils equal. Conjunctiva normal. HEENT: External appearance of nose and ears normal, oral cavity grossly normal. NECK: JVD not raised; masses not palpable. HEART: First and second heart sounds are normal; no edema. LUNGS: Respiratory rate normal; clear to auscultation. ABDOMEN: Soft, nontender, liver spleen not palpable, no masses palpable. PSYCH: [Patient knows her name H does not do not know why she is here on the name of this place MUSCULAR skeletal: Evidence of OA especially in the hands INVESTIGATIONS, reviewed in the clinical context: White count 8.8 hemoglobin 13.2 platelets 336 potassium 3.9 creatinine 0.94 TSH 6.2 EKG tracing personally reviewed by me-normal sinus rhythm, right bundle branch block Chest x-ray film personally reviewed by me-no infiltrates Computed tomography scan brain without contrast-cerebral atrophy, white matter changes CT angiogram of the head and neck-significant plaque formation more than 80% stenosis origin of both internal carotid arteries, stenosis probably more than 90% Carotid Doppler-plaques noted exact stenosis cannot be reported MRI of the brain-chronic changes Assessment: -Recurrent TIA with patient losing her speech for about 15 minutes and weakness in the left upper and lower extremity completely resolved. No other neurological deficit. Patient's had 2 such episodes in the last 3 days. -Coronary artery disease with chronically occluded RCA -COPD in an ex-smoker -Severe cognitive impairment from late onset Alzheimer's dementia -GERD -Essential hypertension -Hyperlipidemia -Primary osteoarthritis -Anxiety depression otherwise specified disposition: Home Patient Condition at Discharge: Stable Plan - Discharge Summary Discharge Rx Participant: No New Discharge Prescriptions: New Atorvastatin [Lipitor] 80 mg PO DAILY #30 tab Famotidine [Pepcid] 20 mg PO BID tab Donepezil [Aricept] 5 mg PO HS #30 tab Clopidogrel [Plavix] 75 mg PO DAILY #30 tab Continue Aspirin 81 mg PO DAILY Metoprolol Succinate [Toprol Xl] 50 mg PO HS Vitamin B Complex 1 cap PO DAILY Vitamin A 8,000 unit PO DAILY Sertraline HCl [Zoloft] 25 mg PO DAILY Cholecalciferol [Vitamin D3 (25 Mcg = 1000 Iu)] 1,000 unit PO DAILY Umeclidinium Brm/Vilanterol Tr [Anoro Ellipta 62.5-25 Mcg INH] 1 puff INHALATION RT-DAILY Ascorbic Acid [Vitamin C] 1,000 mg PO DAILY Albuterol Sulfate [Ventolin HFA] 1 - 2 puff INHALATION RT-Q6H PRN PRN Reason: Shortness Of Breath Discharge Medication List Aspirin 81 mg PO DAILY 10/13/16 [History] Metoprolol Succinate [Toprol Xl] 50 mg PO HS 01/18/18 [History] Vitamin B Complex 1 cap PO DAILY 01/18/18 [History] Albuterol Sulfate [Ventolin HFA] 1 - 2 puff INHALATION RT-Q6H PRN 08/27/20 [History] Ascorbic Acid [Vitamin C] 1,000 mg PO DAILY 08/27/20 [History] Cholecalciferol [Vitamin D3 (25 Mcg = 1000 Iu)] 1,000 unit PO DAILY 08/27/20 [History] Sertraline HCl [Zoloft] 25 mg PO DAILY 08/27/20 [History] Umeclidinium Brm/Vilanterol Tr [Anoro Ellipta 62.5-25 Mcg INH] 1 puff INHALATION RT-DAILY 08/27/20 [History] Vitamin A 8,000 unit PO DAILY 08/27/20 [History] Atorvastatin [Lipitor] 80 mg PO DAILY #30 tab 08/29/20 [Rx] Clopidogrel [Plavix] 75 mg PO DAILY #30 tab 08/29/20 [Rx] Donepezil [Aricept] 5 mg PO HS #30 tab 08/29/20 [Rx] Famotidine [Pepcid] 20 mg PO BID tab 08/29/20 [Rx] Follow up Appointment(s)/Referral(s): Latanya Mcconnell DO [STAFF PHYSICIAN] - 09/13/20 9:30 am (Friday. Office will send new patient paperwork. Please bring the paperwork and insurance cards with you to appt. ) [facility], [NON-STAFF] - Rohan Cueva MD [Primary Care Provider] - 09/04/20 11:30 am (Friday) Patient Instructions/Handouts: Transient Ischemic Attack (DC) Discharge Disposition: HOME SELF-CARE
[2020-08-30] MEDS ORDERED: FAMOTIDINE 20 MG TAB PO SCH (09:00)
== END 2020-08-29 15:16 | disposition home or self-care (01) ==
LOC: EC 13:58 → 3SCARD 16:48
PROVIDERS: ADMIT Hospitalist; ATTEND Hospitalist
DX: G45.9 Transient cerebral ischemic attack, unspecified (principal); G30.1 Alzheimer's disease with late onset; I10 Essential (primary) hypertension; J44.9 Chronic obstructive pulmonary disease, unspecified; K21.9 Gastro-esophageal reflux disease without esophagitis; E78.5 Hyperlipidemia, unspecified; F41.8 Other specified anxiety disorders; F02.80 Dementia in other diseases classified elsewhere, unspecified severity, without behavioral disturbance, psychotic disturbance, mood disturbance, and anxiety; R44.3 Hallucinations, unspecified; M19.91 Primary osteoarthritis, unspecified site; F41.9 Anxiety disorder, unspecified; F32.9 Major depressive disorder, single episode, unspecified; I25.2 Old myocardial infarction; I65.23 Occlusion and stenosis of bilateral carotid arteries; I25.10 Atherosclerotic heart disease of native coronary artery without angina pectoris; I25.82 Chronic total occlusion of coronary artery; Z79.82 Long term (current) use of aspirin; Z79.899 Other long term (current) drug therapy; Z87.891 Personal history of nicotine dependence; Z99.81 Dependence on supplemental oxygen; W19.XXXA Unspecified fall, initial encounter; Y92.239 Unspecified place in hospital as the place of occurrence of the external cause; Z82.49 Family history of ischemic heart disease and other diseases of the circulatory system
CPT/HCPCS: 96372 ×2; 96374; 99285; 36415; 94640; 93005; 97161; 97165; 92522; 84439; 80061; 80053; 84443; 82607; 82746; 84484; 85025; 85610; 85730; 81001; 83036; 71046; 93880; 72125; 70496; 70450 ×2; 70498; 70551; G0378 ×3; J2060 ×2; J1630; J1650 ×2; Q9967

== ENCOUNTER 2021-05-20 14:45 | Emergency (ER) | payer MEDICARE ==
[2021-05-20 14:53] VITALS: TEMP 98.5
[2021-05-20] MEDS ORDERED: LIDOCAINE 5% PATCH TOPICAL STA (15:39)
--- NOTE | 2021-05-20 15:41 | ED ---
General Adult HPI - General Chief complaint: Fall Stated complaint: fell out of bed, rib pain Time Seen by Provider: 05/20/21 15:18 Source: patient Mode of arrival: wheelchair Limitations: no limitations - History of Present Illness Initial comments: Dictation was produced using [employer] dictation software. please excuse any grammatical, word or spelling errors. Chief Complaint: 75-year-old female presents with left-sided chest pain History of Present Illness: Patient is 75-year-old female presents today to the emergency department for left-sided chest pain. Patient states she fell out of bed 3 days ago. Patient states she was sleeping when she rolled over landed on her left side. Patient states that she fell 2 days ago however her at the bedside reports that patient fell 2-3 weeks ago. Patient's been complaining of left anterior chest pain. Hurts with palpation. Patient states it does feel worse with deep inspiration. The ROS documented in this emergency department record has been reviewed and confirmed by me. Those systems with pertinent positive or negative responses have been documented in the HPI. All other systems are other negative and/or noncontributory. PHYSICAL EXAM: General Impression: Alert and oriented x3, not in acute distress HEENT: Normocephalic atraumatic, extra-ocular movements intact, pupils equal and reactive to light bilaterally, mucous membranes moist. Cardiovascular: Heart regular rate and rhythm Chest: Able to complete full sentences, no retractions, no tachypnea, palpatory tenderness to the left anterior chest, lungs sounds clear bilaterally. Abdomen: abdomen soft, non-tender, non-distended, no organomegaly Musculoskeletal: Pulses present and equal in all extremities, no peripheral edema Motor: no focal deficits noted Neurological: CN II-XII grossly intact, no focal motor or sensory deficits noted Skin: Intact with no visualized rashes Psych: Normal affect and mood ED course: 75-year-old female presents to the emergency department for chest pain. Vital signs upon arrival shows heart rate of 49, rest of vital signs within acceptable limits. Review chest x-ray shows no acute left rib fractures. There are fractures of the left eighth and ninth rib and likely 10th rib. Reevaluated at bedside at 4:45 PM she is found to be in stable medical condition. Disposition options were discussed with patient she is well- appearing with out any significant distress. Patient elected go home and follow up with her primary care doctor. She is given an incentive spirometer and Unseld on appropriate use. Patient given prescription for lidocaine patches and oral analgesics per she is strongly advised follow-up with primary care doctor. Patient told to return to the emergency department for any worsening chest pain, shortness of breath and fevers. Patient is agreeable with plan. She will be discharged. - Related Data Home Medications Medication Instructions Recorded Confirmed Aspirin 81 mg PO DAILY 10/13/16 08/27/20 Metoprolol Succinate [Toprol Xl] 50 mg PO HS 01/18/18 08/27/20 Vitamin B Complex 1 cap PO DAILY 01/18/18 08/27/20 Albuterol Sulfate [Ventolin HFA] 1 - 2 puff INHALATION RT-Q6H PRN 08/27/20 08/27/20 Ascorbic Acid [Vitamin C] 1,000 mg PO DAILY 08/27/20 08/27/20 Cholecalciferol [Vitamin D3 (25 1,000 unit PO DAILY 08/27/20 08/27/20 Mcg = 1000 Iu)] Sertraline HCl [Zoloft] 25 mg PO DAILY 08/27/20 08/27/20 Umeclidinium Brm/Vilanterol Tr 1 puff INHALATION RT-DAILY 08/27/20 08/27/20 [Anoro Ellipta 62.5-25 Mcg INH] Vitamin A [Vitamin A (8,000 Units 8,000 unit PO DAILY 08/27/20 08/27/20 = 2,400 MCG)] Previous Rx's Medication Instructions Recorded Atorvastatin [Lipitor] 80 mg PO DAILY #30 tab 08/29/20 Clopidogrel [Plavix] 75 mg PO DAILY #30 tab 08/29/20 Donepezil [Aricept] 5 mg PO HS #30 tab 08/29/20 Famotidine [Pepcid] 20 mg PO BID tab 08/29/20 HYDROcodone/APAP 5-325MG [[place] 1 tab PO Q6HR PRN 3 Days #12 tab 05/20/21 5-325] Lidocaine 5% Patch [Lidoderm] 1 patch TOPICAL DAILY PRN 5 Days 05/20/21 #5 patch Allergies Allergy/AdvReac Type Severity Reaction Status Date / Time No Known Allergies Allergy Verified 05/20/21 14:50 Review of Systems ROS Statement: Those systems with pertinent positive or pertinent negative responses have been documented in the HPI. ROS Other: All systems not noted in ROS Statement are negative. Past Medical History Past Medical History: Coronary Artery Disease (CAD), Chest Pain / Angina, COPD, Dementia, GERD/Reflux, Hyperlipidemia, Hypertension Additional Past Medical History / Comment(s): Advanced COPD,, degenerative arthritis, " recent hospitalization: anemia, blood in stols, acute kidney injury and low sodium", Last Myocardial Infarction Date:: 10/11/15 History of Any Multi-Drug Resistant Organisms: None Reported Past Surgical History: Section, Heart Catheterization Additional Past Surgical History / Comment(s): 04/27/14 EGD with negative bx and colonoscopy, 3 C-Sections, cardiac catheterization Past Anesthesia/Blood Transfusion Reactions: No Reported Reaction Past Psychological History: Anxiety, Depression Smoking Status: Former smoker Past Alcohol Use History: None Reported Past Drug Use History: None Reported - Past Family History Father Family Medical History: Coronary Artery Disease (CAD) Additional Family Medical History / Comment(s): Father at age 86yrs. Mother Family Medical History: No Reported History Additional Family Medical History / Comment(s): . General Exam Limitations: no limitations Course Vital Signs 05/20/21 05/20/21 05/20/21 14:50 15:53 16:00 Temperature 98.5 F Pulse Rate 49 L Respiratory 16 18 18 Rate Blood Pressure 144/56 O2 Sat by Pulse 98 Oximetry Disposition Clinical Impression: Rib fractures Disposition: HOME SELF-CARE Condition: Fair Instructions (If sedation given, give patient instructions): Fall Prevention for Older Adults (ED), Rib Fracture (ED) Additional Instructions: Please seek immediate medical attention if you having any worsening chest pain, shortness of breath or fever. These could be signs of pneumothorax, pneumonia which they to be addressed emergently. Prescriptions: Lidocaine 5% Patch [Lidoderm] 1 patch TOPICAL DAILY PRN 5 Days #5 patch PRN Reason: Pain HYDROcodone/APAP 5-325MG [[place] 5-325] 1 tab PO Q6HR PRN 3 Days #12 tab PRN Reason: Severe Pain Is patient prescribed a controlled substance at d/c from ED?: Yes If prescribed controlled substance>3 days was MAPS reviewed?: Prescribed <3 Days Referrals: Chano Newton DO [Primary Care Provider] - 1-2 days
[2021-05-20 16:15] VITALS: RESP 18
--- NOTE | 2021-05-20 16:21 | XR ---
EXAMINATION TYPE: XR ribs LT w pa chest xray DATE OF EXAM: 05/20/2021 COMPARISON: Chest x-ray 01/30/2021 HISTORY: Pain TECHNIQUE: 3 views FINDINGS: Heart is normal. Lungs are clear of consolidation. There is no pleural effusion or pneumoth orax. There is some pleural thickening at the lung apices. Costophrenic angles are clear. There are f ractures of the anterior left eighth and ninth ribs. There is probably also fracture anterior left 10 th rib. IMPRESSION: Multiple acute left rib fractures. No pleural effusion or pneumothorax. No acute lung dis ease.
[2021-05-20 16:58] VITALS: BP 149/66; PULSE 52
== END 2021-05-20 16:57 | disposition home or self-care (01) ==
LOC: EC 14:45
DX: S22.42XA Multiple fractures of ribs, left side, initial encounter for closed fracture (principal); E78.5 Hyperlipidemia, unspecified; I10 Essential (primary) hypertension; I25.2 Old myocardial infarction; J44.9 Chronic obstructive pulmonary disease, unspecified; I25.10 Atherosclerotic heart disease of native coronary artery without angina pectoris; K21.9 Gastro-esophageal reflux disease without esophagitis; F32.9 Major depressive disorder, single episode, unspecified; F41.9 Anxiety disorder, unspecified; M19.90 Unspecified osteoarthritis, unspecified site; F03.90 Unspecified dementia, unspecified severity, without behavioral disturbance, psychotic disturbance, mood disturbance, and anxiety; Z87.891 Personal history of nicotine dependence; Z79.02 Long term (current) use of antithrombotics/antiplatelets; Z79.82 Long term (current) use of aspirin; W06.XXXA Fall from bed, initial encounter
CPT/HCPCS: 99284

== ENCOUNTER 2021-10-07 12:36 | Inpatient (IN) | payer MEDICARE ==
[2021-10-07] MEDS ORDERED: MORPHINE SULFATE 4 MG/ML SYRINGE IVP STA (13:24)
[2021-10-07] MEDS ORDERED: SODIUM CHLORIDE 0.9% 1,000 ML IV ONE (13:24)
--- NOTE | 2021-10-07 13:30 | ED ---
General Adult HPI - General Chief complaint: Fall Stated complaint: Fall Time Seen by Provider: 10/07/21 13:17 Source: patient, family, EMS, RN notes reviewed Mode of arrival: EMS Limitations: altered mental status, physical limitation - History of Present Illness Initial comments: Patient is a pleasant 76-year-old female presenting to the emergency department after fall with left hip pain. Incident occurred on steps yesterday. No head injury. No loss of consciousness or syncope. Patient has had significant discomfort of the left hip since that time. was able to carry her to the bed. Patient has not been able to ambulate since that time. Patient denies any other area of injury or concern. - Related Data Home Medications Medication Instructions Recorded Confirmed Aspirin 81 mg PO DAILY 10/13/16 08/27/20 Metoprolol Succinate [Toprol Xl] 50 mg PO HS 01/18/18 08/27/20 Vitamin B Complex 1 cap PO DAILY 01/18/18 08/27/20 Albuterol Sulfate [Ventolin HFA] 1 - 2 puff INHALATION RT-Q6H PRN 08/27/20 08/27/20 Ascorbic Acid [Vitamin C] 1,000 mg PO DAILY 08/27/20 08/27/20 Cholecalciferol [Vitamin D3 (25 1,000 unit PO DAILY 08/27/20 08/27/20 Mcg = 1000 Iu)] Sertraline HCl [Zoloft] 25 mg PO DAILY 08/27/20 08/27/20 Umeclidinium Brm/Vilanterol Tr 1 puff INHALATION RT-DAILY 08/27/20 08/27/20 [Anoro Ellipta 62.5-25 Mcg INH] Vitamin A [Vitamin A (8,000 Units 8,000 unit PO DAILY 08/27/20 08/27/20 = 2,400 MCG)] Previous Rx's Medication Instructions Recorded Atorvastatin [Lipitor] 80 mg PO DAILY #30 tab 08/29/20 Clopidogrel [Plavix] 75 mg PO DAILY #30 tab 08/29/20 Donepezil [Aricept] 5 mg PO HS #30 tab 08/29/20 Famotidine [Pepcid] 20 mg PO BID tab 08/29/20 HYDROcodone/APAP 5-325MG [[place] 1 tab PO Q6HR PRN 3 Days #12 tab 05/20/21 5-325] Lidocaine 5% Patch [Lidoderm] 1 patch TOPICAL DAILY PRN 5 Days 05/20/21 #5 patch Allergies Allergy/AdvReac Type Severity Reaction Status Date / Time No Known Allergies Allergy Verified 05/20/21 14:50 Review of Systems ROS Statement: Those systems with pertinent positive or pertinent negative responses have been documented in the HPI. ROS Other: All systems not noted in ROS Statement are negative. Constitutional: Denies: fever Eyes: Denies: eye pain ENT: Denies: ear pain Respiratory: Denies: cough Cardiovascular: Denies: chest pain Endocrine: Denies: fatigue Gastrointestinal: Denies: abdominal pain Genitourinary: Denies: dysuria Musculoskeletal: Reports: as per HPI. Denies: back pain Skin: Denies: rash Neurological: Denies: weakness Past Medical History Past Medical History: Coronary Artery Disease (CAD), Chest Pain / Angina, COPD, Dementia, GERD/Reflux, Hyperlipidemia, Hypertension Additional Past Medical History / Comment(s): Advanced COPD,, degenerative arthritis, " recent hospitalization: anemia, blood in stols, acute kidney injury and low sodium", Last Myocardial Infarction Date:: 10/11/15 History of Any Multi-Drug Resistant Organisms: None Reported Past Surgical History: Section, Heart Catheterization Additional Past Surgical History / Comment(s): 04/27/14 EGD with negative bx and colonoscopy, 3 C-Sections, cardiac catheterization Past Anesthesia/Blood Transfusion Reactions: No Reported Reaction Past Psychological History: Anxiety, Depression Smoking Status: Former smoker Past Alcohol Use History: None Reported Past Drug Use History: None Reported - Past Family History Father Family Medical History: Coronary Artery Disease (CAD) Additional Family Medical History / Comment(s): Father at age 86yrs. Mother Family Medical History: No Reported History Additional Family Medical History / Comment(s): . General Exam Limitations: altered mental status, physical limitation General appearance: alert, in no apparent distress Head exam: Present: atraumatic, normocephalic Eye exam: Present: normal appearance, PERRL, EOMI ENT exam: Present: normal oropharynx Neck exam: Present: normal inspection, full ROM. Absent: tenderness, meningismus Respiratory exam: Present: normal lung sounds bilaterally Cardiovascular Exam: Present: regular rate, normal rhythm Expanded Peripheral pulses: 2+: Posterior Tibialis (R), Posterior Tibialis (L), Dorsalis Pedis (R), Dorsalis Pedis (L) GI/Abdominal exam: Present: soft. Absent: distended, tenderness Extremities exam: Present: tenderness (Left Anterior greater than left lateral hip discomfort. Distally the extremity is neurovascularly intact. Left leg is shortened and externally rotated) Neurological exam: Present: alert, CN II-XII intact. Absent: motor sensory defi cit Expanded Neurological exam: Present: protecting the airway Patient oriented to: Present: person, place. Absent: time (Family believes this is chronic from dementia) Motor strength exam: RUE: 5, LUE: 5, RLE: 5, LLE: 5 Eye Response: (4) open spontaneously Motor Response: (6) obeys commands Verbal Response: (4) confused conversation Psychiatric exam: Present: normal affect, normal mood Skin exam: Present: normal color Course Vital Signs 10/07/21 13:09 Temperature 97.4 F L Pulse Rate 53 L Respiratory 14 Rate Blood Pressure 105/45 - Reevaluation(s) Reevaluation #1: 10/07/21 14:32 Case was discussed with orthopedics Dr. Doyle who will admit covering orthopedic call. She does request medical consult for clearance, possibly today. Dr. taylor has been paged covering for Dr. Newton. Patient reevaluated. Patient and family updated. EKG Findings - EKG Comments: EKG Findings:: Sinus bradycardia with rate of 55. CT 138. QRS 117. QT 2. QTC 492. Right axis. Right bundle branch block. Prominent T waves. Medical Decision Making - Lab Data Result diagrams: 10/07/21 13:02 10/07/21 13:02 Lab Results 10/07/21 10/07/21 10/07/21 Range/Units 13:02 13:02 13:02 WBC 25.9 H (3.8-10.6) k/uL RBC 3.05 L (3.80-5.40) m/uL Hgb 10.2 L (11.4-16.0) gm/dL Hct 30.7 L (34.0-46.0) % MCV 100.8 H (80.0-100.0) fL MCH 33.5 (25.0-35.0) pg MCHC 33.3 (31.0-37.0) g/dL RDW 12.5 (11.5-15.5) % Plt Count 284 (150-450) k/uL MPV 7.4 Neutrophils % 90 % Lymphocytes % 5 % Monocytes % 4 % Eosinophils % 0 % Basophils % 0 % Neutrophils # 23.2 H (1.3-7.7) k/uL Lymphocytes # 1.2 (1.0-4.8) k/uL Monocytes # 1.1 H (0-1.0) k/uL Eosinophils # 0.1 (0-0.7) k/uL Basophils # 0.0 (0-0.2) k/uL PT 10.6 (9.0-12.0) sec INR 1.0 (<1.2) APTT 22.8 (22.0-30.0) sec Sodium 125 L (137-145) mmol/L Potassium 5.6 H (3.5-5.1) mmol/L Chloride 98 (98-107) mmol/L Carbon Dioxide 19 L (22-30) mmol/L Anion Gap 8 mmol/L BUN 35 H (7-17) mg/dL Creatinine 1.16 H (0.52-1.04) mg/dL Est GFR (CKD-EPI)AfAm 52 (>60 ml/min/1.73 sqM) Est GFR (CKD-EPI)NonAf 45 (>60 ml/min/1.73 sqM) Glucose 141 H (74-99) mg/dL Calcium 9.3 (8.4-10.2) mg/dL Total Bilirubin 0.9 (0.2-1.3) mg/dL AST 69 H (14-36) U/L ALT 27 (4-34) U/L Alkaline Phosphatase 69 (38-126) U/L Creatine Kinase 514 H (30-135) U/L Total Protein 6.8 (6.3-8.2) g/dL Albumin 3.7 (3.5-5.0) g/dL - Radiology Data Radiology results: image reviewed Disposition Clinical Impression: Fall, Hip fracture, left Disposition: ADMITTED IP TO THIS [facility] Referrals: None,Stated [REFERRING] - 1-2 days Decision Time: 14:32
[2021-10-07 13:35] LABS: Basophils % (A) 0 %; Eosinophils % (A) 0 %; HCT 30.7 % (34.0-46.0); HGB 10.2 gm/dL (11.4-16.0); Lymphocytes # (A) 1.2 k/uL (1.0-4.8); Lymphocytes % (A) 5 %; MCH 33.5 pg (25.0-35.0); MCHC 33.3 g/dL (31.0-37.0); MCV 100.8 fL (80.0-100.0); Mean Platelet Volume 7.4; Monocytes % (A) 4 %; Neutrophils # (A) 23.2 k/uL (1.3-7.7); Neutrophils % (A) 90 %; Platelet Count 284 k/uL (150-450); RBC 3.05 m/uL (3.80-5.40); RDW 12.5 % (11.5-15.5); WBC 25.9 k/uL (3.8-10.6)
[2021-10-07 13:36] LABS: Eosinophils # (A) 0.1 k/uL (0-0.7); Monocytes # (A) 1.1 k/uL (0-1.0)
[2021-10-07 13:45] LABS: Partial Thromboplastin Time 22.8 sec (22.0-30.0); Prothrombin Time 10.6 sec (9.0-12.0)
[2021-10-07 14:36] LABS: Albumin 3.7 g/dL (3.5-5.0); Calcium 9.3 mg/dL (8.4-10.2); Potassium 5.6 mmol/L (3.5-5.1); Total Bilirubin 0.9 mg/dL (0.2-1.3); Total Protein 6.8 g/dL (6.3-8.2)
[2021-10-07] MEDS ORDERED: SODIUM CHLORIDE 0.9% 500 ML 500 ML IV STA (14:42)
[2021-10-07] MEDS ORDERED: NALOXONE 0.4 MG/ML 1 ML VIAL IV PRN (14:43)
[2021-10-07] MEDS: MORPHINE SULFATE 4 MG/ML SYRINGE IV PRN (15:38)
--- NOTE | 2021-10-07 15:46 | XR ---
EXAMINATION TYPE: XR Hip LT and AP Pelvis DATE OF EXAM: 10/07/2021 COMPARISON: NONE HISTORY: Fall. Pain TECHNIQUE: 3 views FINDINGS: There is acute comminuted intertrochanteric fracture of the left femur with impaction. Ther e is no dislocation. The pelvic ring is intact. Sacroiliac joints are intact. IMPRESSION: Acute intertrochanteric fracture left femur.
--- NOTE | 2021-10-07 16:27 | CT ---
EXAMINATION TYPE: CT hip LT wo con DATE OF EXAM: 10/07/2021 COMPARISON: None HISTORY: fall, fx CT DLP: 406 mGycm Automated exposure control for dose reduction was used. Images obtained from the mid ileum to the distal shaft of the femur without contrast. There is acute comminuted impacted intertrochanteric fracture left femur. Femoral head is intact. The re is mild spurring of the femoral head and the acetabulum. Acetabulum is intact. There is no evidenc e of focal bone destruction. There is a large chip fracture of the lesser trochanter. There is subcut aneous edema around the anterior and posterior upper thigh. IMPRESSION: Acute comminuted impacted intertrochanteric fracture left femur. No significant displacement. Mild subcutaneous edema and bruising around the thigh. Mild osteoarthritis in the hip joint..
--- NOTE | 2021-10-07 16:28 | XR ---
EXAMINATION TYPE: XR chest 1V portable DATE OF EXAM: 10/07/2021 COMPARISON: 05/20/2021 HISTORY: Fall. Pain TECHNIQUE: Single view FINDINGS: Heart is normal. Lungs are clear of consolidation. There is no heart failure. There is pulm onary hyperinflation and some flattening of the diaphragm. There are chest leads. IMPRESSION: COPD. No active cardiopulmonary disease. No change.
[2021-10-07] MEDS: DONEPEZIL 10 MG TAB PO SCH (22:16)
[2021-10-07] MEDS: SERTRALINE 50 MG TAB PO SCH (22:16)
[2021-10-08] MEDS: MORPHINE SULFATE 4 MG/ML SYRINGE IV PRN (03:41)
[2021-10-08] MEDS: PANTOPRAZOLE 40 MG/10 ML VIAL IV SCH (07:38)
[2021-10-08 07:39] LABS: African American GFR (CKD) 71 (>60 ml/min/1.73 sqM); Anion Gap 3 mmol/L; Blood Urea Nitrogen 30 mg/dL (7-17); C Reactive Protein 5.8 mg/dL (<1.0); Calcium 8.6 mg/dL (8.4-10.2); Carbon Dioxide 24 mmol/L (22-30); Chloride 100 mmol/L (98-107); Glucose 108 mg/dL (74-99); Non-African American GFR(CKD) 62 (>60 ml/min/1.73 sqM); Potassium 5.3 mmol/L (3.5-5.1); Sodium 127 mmol/L (137-145)
[2021-10-08] MEDS: SERTRALINE 50 MG TAB PO SCH (07:39)
--- NOTE | 2021-10-08 08:18 | P.HPOR ---
<Citlali Pelaez - Last Filed: 10/08/21 08:10> History of Present Illness H&P Date: 10/08/21 Chief Complaint: Left hip fracture The patient is a 76-year-old female with a past medical history including coronary artery disease, COPD, dementia, GERD, hyperlipidemia, and hypertension, who presented to the emergency department yesterday after sustaining a fall at home. X-rays were taken and she was found to have a left intertrochanteric fracture. She states that she lives at home with her and does not use a walker or cane. The patient was admitted to the hospital for surgical inter vention by orthopedic surgery. This morning, the patient is confused and is experiencing some pain in the left hip as expected. Review of Systems Constitutional: Denies chills, Denies fatigue, Denies fever Cardiovascular: Denies chest pain, Denies shortness of breath Respiratory: Denies cough Gastrointestinal: Denies diarrhea, Denies nausea, Denies vomiting Musculoskeletal: left: hip pain, hip stiffness, hip swelling Past Medical History Past Medical History: Coronary Artery Disease (CAD), Chest Pain / Angina, COPD, Dementia, GERD/Reflux, Hyperlipidemia, Hypertension Additional Past Medical History / Comment(s): Advanced COPD,, degenerative arthritis, " recent hospitalization: anemia, blood in stools, acute kidney injury and low sodium", Last Myocardial Infarction Date:: 10/11/15 History of Any Multi-Drug Resistant Organisms: None Reported Past Surgical History: Section, Heart Catheterization Additional Past Surgical History / Comment(s): 04/27/14 EGD with negative bx and colonoscopy, 3 C-Sections, cardiac catheterization Past Anesthesia/Blood Transfusion Reactions: No Reported Reaction Past Psychological History: Anxiety, Depression Additional Psychological History / Comment(s): dementia Smoking Status: Former smoker Past Alcohol Use History: None Reported Additional Past Alcohol Use History / Comment(s): STARTED SMOKING AGE 23. She smoked 1 1/2 packs a day. Pt states she quit smoking in July 2016. Past Drug Use History: None Reported - Past Family History Father Family Medical History: Coronary Artery Disease (CAD) Additional Family Medical History / Comment(s): Father at age 86yrs. Mother Family Medical History: No Reported History Additional Family Medical History / Comment(s): . Medications and Allergies Home Medications Medication Instructions Recorded Confirmed Type Aspirin 81 mg PO DAILY 10/13/16 10/08/21 History Metoprolol Succinate [Toprol Xl] 50 mg PO HS 01/18/18 10/08/21 History Vitamin B Complex 1 cap PO DAILY 01/18/18 10/08/21 History Ascorbic Acid [Vitamin C] 1,000 mg PO DAILY 08/27/20 10/08/21 History Umeclidinium Brm/Vilanterol Tr 1 puff INHALATION RT-DAILY 08/27/20 10/08/21 History [Anoro Ellipta 62.5-25 Mcg INH] Vitamin A [Vitamin A (8,000 Units 8,000 unit PO DAILY 08/27/20 10/08/21 History = 2,400 MCG)] Atorvastatin [Lipitor] 80 mg PO DAILY #30 tab 08/29/20 10/08/21 Rx Clopidogrel [Plavix] 75 mg PO DAILY #30 tab 08/29/20 10/08/21 Rx Famotidine [Pepcid] 20 mg PO BID tab 08/29/20 10/08/21 Rx Cholecalciferol [Vitamin D3 (25 25 mcg PO DAILY 10/07/21 10/08/21 History Mcg = 1000 Iu)] Donepezil [Aricept] 10 mg PO HS 10/07/21 10/08/21 History Sertraline HCl [Zoloft] 50 mg PO DAILY 10/07/21 10/08/21 History Tiotropium Br/Olodaterol HCl 1 spray INHALATION RT-DAILY 10/07/21 10/07/21 History [Stiolto Respimat Inhal [place]] Allergies Allergy/AdvReac Type Severity Reaction Status Date / Time No Known Allergies Allergy Verified 10/08/21 15:28 Physical Examination The patient is a 76 year old female that is no acute distress. She is alert and oriented x1. The patient's head is normocephalic and atraumatic. Exam of the cervical spine reveals no pain upon palpation or range of motion. Exam of the bilateral upper extremities reveal no obvious deformities or pain upon range of motion. Exam of the right lower extremity reveals no pain upon palpation. Exam of the left ower extremity reveals a externally rotated and shortened leg. No pain upon palpation to the lateral hip. There is pain upon logrolling and any range of motion of the leg. Bilateral calves are soft and nontender. Patient has good foot and ankle motion bilaterally. Neurological and circulatory status is intact. Results - Labs Labs: Abnormal Lab Results - Last 24 Hours (Table) 10/07/21 10/07/21 10/08/21 Range/Units 13:02 13:02 07:07 WBC 25.9 H (3.8-10.6) k/uL RBC 3.05 L (3.80-5.40) m/uL Hgb 10.2 L (11.4-16.0) gm/dL Hct 30.7 L (34.0-46.0) % MCV 100.8 H (80.0-100.0) fL Neutrophils # 23.2 H (1.3-7.7) k/uL Monocytes # 1.1 H (0-1.0) k/uL Sodium 125 L 127 L (137-145) mmol/L Potassium 5.6 H 5.3 H (3.5-5.1) mmol/L Carbon Dioxide 19 L (22-30) mmol/L BUN 35 H 30 H (7-17) mg/dL Creatinine 1.16 H (0.52-1.04) mg/dL Glucose 141 H 108 H (74-99) mg/dL AST 69 H (14-36) U/L Creatine Kinase 514 H (30-135) U/L C-Reactive Protein 5.8 H (<1.0) mg/dL H & H 10/07/21 Range/Units 13:02 Hgb 10.2 L (11.4-16.0) gm/dL Hct 30.7 L (34.0-46.0) % Coagulation 10/07/21 Range/Units 13:02 INR 1.0 (<1.2) Result Diagrams: 10/07/21 13:02 10/08/21 07:07 Assessment and Plan (1) Fall Current Visit: Yes Status: Acute Code(s): W19.XXXA - UNSPECIFIED FALL, INITIAL ENCOUNTER SNOMED Code(s): 5814761 (2) Hip fracture, left Current Visit: Yes Status: Acute Code(s): S72.002A - FRACTURE OF UNSP PART OF NECK OF LEFT FEMUR, INIT SNOMED Code(s): 483474862 (3) Dementia Current Visit: Yes Status: Acute Code(s): F03.90 - UNSPECIFIED DEMENTIA WITHOUT BEHAVIORAL DISTURBANCE SNOMED Code(s): 84480679 Plan: The clinical and x-ray findings were discussed with the patient. The case was discussed at length with Dr. doyle. Treatment options were discussed and surgical intervention is recommended. We discussed the surgical plan as well as the expected postoperative course. Risks and benefits were reviewed including (but not limited to) the risks of infection, bleeding, blood clots, delayed or nonunion, anesthesia-related complications and possible need for additional surgery. Questions were invited and answered. The patient expressed understanding and wishes to proceed with surgery. The patient will be kept on bedrest. Continue PRN pain management. NPO today. She is scheduled for a closed reduction with insertion of intramedullary nail of the left hip later this afternoon. We will await pre-op clearance from internal medicine. <Sophia Doyle - Last Filed: 10/08/21 15:57> Physical Examination Osteopathic Statement: *. No significant issues noted on an osteopathic structural exam other than those noted in the History and Physical/Consult. Results - Labs Labs: Abnormal Lab Results - Last 24 Hours (Table) 10/08/21 10/08/21 Range/Units 07:07 10:30 Sodium 127 L (137-145) mmol/L Potassium 5.3 H (3.5-5.1) mmol/L BUN 30 H (7-17) mg/dL Glucose 108 H (74-99) mg/dL AST 67 H (14-36) U/L C-Reactive Protein 5.8 H (<1.0) mg/dL Total Protein 5.7 L (6.3-8.2) g/dL Albumin 3.0 L (3.5-5.0) g/dL Urine Protein Trace H (Negative) Urine Blood Moderate H (Negative) Ur Leukocyte Esterase Large H (Negative) Urine RBC 52 H (0-5) /hpf Urine WBC 53 H (0-5) /hpf Urine Mucus Rare H (None) /hpf Microbiology - Last 24 Hours (Table) 10/08/21 10:30 Urine Culture - Preliminary Urine,Clean Catch H & H 10/07/21 Range/Units 13:02 Hgb 10.2 L (11.4-16.0) gm/dL Hct 30.7 L (34.0-46.0) % Coagulation 10/07/21 Range/Units 13:02 INR 1.0 (<1.2) Result Diagrams: 10/07/21 13:02 10/08/21 07:07 Assessment and Plan Plan: Seen and examined. Agree with above. Plan for OR today.
[2021-10-08 08:44] LABS: ALT 29 U/L (4-34); AST 67 U/L (14-36); Albumin/Globulin Ratio 1.1; Alkaline Phosphatase 70 U/L (38-126); Globulin 2.7 g/dL; Total Bilirubin 0.7 mg/dL (0.2-1.3); Total Protein 5.7 g/dL (6.3-8.2)
[2021-10-08 10:40] LABS: Appearance,Urine Clear (Clear); Bilirubin,Urine Negative (Negative); Blood,Urine Moderate (Negative); Color,Urine Yellow; Glucose,Urine (UA) Negative (Negative); Ketones,Urine Negative (Negative); Leukocyte Esterase,Urine Large (Negative); Mucus,Urine Rare /hpf; Nitrite,Urine Negative (Negative); Protein,Urine Trace (Negative); RBC,Urine 52 /hpf (0-5); Specific Gravity,Urine 1.021 (1.001-1.035); Squamous Epithelial Cell,Urine <1 /hpf (0-4); WBC,Urine 53 /hpf (0-5)
[2021-10-08] MEDS ORDERED: IPRATROPIUM-ALBUTEROL 3 ML NEB INHALATION PRN (11:56)
[2021-10-08 12:27] VITALS: BMI 18.4
[2021-10-08] MEDS: IPRATROPIUM-ALBUTEROL 3 ML NEB INHALATION SCH ×4 (12:51→20:43)
[2021-10-08] MEDS: SODIUM CHLORIDE 0.9% 1,000 ML IV SCH (13:21)
--- NOTE | 2021-10-08 15:10 | CONS ---
CONSULTATION REASON FOR CONSULTATION: Advice regarding COPD and other medical issues, requested by Orthopedic Surgery. HISTORY OF PRESENT ILLNESS: This 76-year-old woman with a past medical history of COPD, dementia and GERD apparently slipped and fell down and suffered a left hip fracture. There is no history of any chest pain, palpitations, shortness of breath, hematochezia, melena. The white count is elevated to 25.9. UA showed evidence of UTI. PAST MEDICAL HISTORY: COPD, dementia, GERD. MEDICATIONS: Home medications include Anoro Ellipta, Stiolto, Zoloft, Toprol-XL. Doses and other medications noted. ALLERGIES: NONE. FAMILY HISTORY: History of CAD in the family. SOCIAL HISTORY: Previous history of smoking. REVIEW OF SYSTEMS: Fourteen-point review of systems negative except as mentioned earlier. PHYSICAL EXAMINATION: Patient alert and oriented x3. Pulse 71, blood pressure 123/84, respiration rate 16. HEENT: Conjunctivae normal. NECK: No jugular venous distention. CARDIOVASCULAR: S1, S2 muffled. RESPIRATION: Breath sounds diminished at the bases. A few scattered rhonchi. ABDOMEN: Soft, nontender. LEGS: fracture. NERVOUS SYSTEM: No focal deficit. JOINTS: No active deforming arthropathy. LABS: X-rays reviewed personally. CT noted. Chest x-ray reviewed personally showed COPD. WBC 25.5, sodium 137, potassium 5.3. Other labs are noted. ASSESSMENT: 1. Acute left hip fracture. 2. Acute urinary tract infection. 3. Hyponatremia. 4. Acute renal failure, present on admission. 5. Increased white count. 6. Chronic obstructive pulmonary disease. 7. Dementia. RECOMMENDATIONS AND DISCUSSION: In this 76-year-old woman who presented with multiple complex medical issues, at this time I would recommend a course of broad-spectrum IV antibiotics. Obtain cultures. Repeat labs. IV fluids. Otherwise, bronchodilators. I would also clear the patient because the patient is medically stable at this time. Previous exercise tolerance appears to be excellent. Prognosis guarded. MMODL / IJN: [id number] / MTDD
[2021-10-08] MEDS ORDERED: IV FLUID CONTINUATION 1,000 ML IV ONE (15:38)
[2021-10-08] MEDS ORDERED: ONDANSETRON 4 MG/2 ML VIAL IVP ONE (15:57)
[2021-10-08] MEDS ORDERED: ONDANSETRON 4 MG/2 ML VIAL ONE (15:58)
[2021-10-08] MEDS ORDERED: DEXAMETHASONE SOD PHOSPHATE 4 MG/ML 1 ML VIAL IVP ONE (15:58)
[2021-10-08] MEDS ORDERED: ROCURONIUM 10 MG/ML (5 ML VIAL) IV ONE (16:24)
[2021-10-08] MEDS ORDERED: PROPOFOL 10 MG/ML 20 ML VIAL IV ONE (16:24)
[2021-10-08] MEDS ORDERED: NEOSTIGMINE 1 MG/ML 10 ML VIAL ONE (16:24)
[2021-10-08] MEDS ORDERED: fentaNYL (PF) 50 MCG/ML 2 ML AMP ONE (16:24)
[2021-10-08] MEDS ORDERED: SUCCINYLCHOLINE CHLORIDE 100 MG/5 ML SYR IV ONE (16:24)
[2021-10-08] MEDS ORDERED: LIDOCAINE 1% INJ 10MG/ML (20 ML MDV) ONE (16:24)
[2021-10-08] MEDS ORDERED: GLYCOPYRROLATE 0.2 MG/ML 2 ML VIAL ONE (16:24)
[2021-10-08] MEDS ORDERED: SODIUM CHLORIDE 0.9% 100 ML with ceFAZolin 2 GM IV ONE ×2 (16:40)
[2021-10-08] MEDS ORDERED: MAGNESIUM HYDROXIDE 2,400 MG/10 ML CUP PO PRN (17:28)
[2021-10-08] MEDS ORDERED: HYDROmorphone 1 MG/ML 1 ML SYRINGE IVP PRN (17:28)
[2021-10-08] MEDS ORDERED: diazePAM 5 MG TAB PO PRN (17:28)
[2021-10-08] MEDS ORDERED: HYDROmorphone 0.2 MG/1 ML SYRINGE IVP PRN ×2 (17:28)
[2021-10-08] MEDS ORDERED: traMADol 50 MG TAB PO PRN (17:28)
[2021-10-08] MEDS ORDERED: LACTATED RINGERS 1,000 ML IV ONE (17:44)
--- NOTE | 2021-10-08 18:33 | P.OP ---
Date of Procedure: 10/08/21 Preoperative Diagnosis: Left intertrochanteric fracture Postoperative Diagnosis: Same Procedure(s) Performed: Left hip open reduction internal fixation with cephalo medullary nail Implants: Short Gamma nail, 125 with 100 mm screw, locked with 37.5 mm screw Anesthesia: RITCHIE Surgeon: Sophia Doyle Estimated Blood Loss (ml): 25 Condition: stable Disposition: PACU Indications for Procedure: Shae is a 76-year-old female who suffered a ground-level fall resulting in a unstable intertrochanteric fracture. Description of Procedure: Patient, operative extremity, and procedure were identified in the preop holding area. Informed consent was obtained and the patient was brought back to the operating room. She was placed under general anesthesia by the anesthesia team. She was then moved over to the hand table and her lower extremities were attached securely into the boots. A formal timeout was performed. A closed reduction was performed with assistance of the hand table. The left lower extremity hip was then prepped and draped in normal sterile fashion. A 3 cm incision was made proximal to the greater trochanter in line with the ASIS. The guidewire was then placed at the tip of the greater trochanter on the AP view and about a third of the way posterior on the lateral view. The guidewire was then driven in and used to guide the opening reamer. All tip guidewire was then inserted into the canal. A 12.5 mm reamer was inserted and passed easily. The guidewire was then removed and the short nail was placed. It was gently impacted until the opening for the cephalo-medullary screw was lined up with the inferior central aspect of the femoral neck. The triple sleeve guide was then inserted into the 125 receptacle on the jig. A corresponding skin incision was made and the triple sleeve guide was pushed down to bone. The guidewire was then inserted a third of the way through the fracture site on the AP view. It was inferior to the central line of the femoral neck. A lateral image showed that the guidewire was in the center of the neck and not perforating anteriorly or posteriorly. The guidewire was driven to about 1 cm from the articular edge. This was measured to the 100 mm. The drill was then set to 100 mm and an used to drill the femoral neck. The tip of the drill was in adequate position with about 5 mm to the edge of the articular surface. 100 mm screw was then inserted. A few turns of compression was utilized. Set screw was then set to lock the rotation in place. Attention was then turned to the distal locking area. Triple sleeve was utilized to drill a hole through the directly locked position and at 37.5 mm screw was utilized. Final x-rays showed a adequately reduced IT fracture with good placement of the hardware. All instrument to removed wounds were copiously irrigated and closed in layered fashion with 2-0 Vicryl and 3-0 Monocryl and skin glue. Wound was dressed with 4 x 4's and Tegaderm. Patient was aroused by the anesthesia team and brought back to PACU in stable condition
[2021-10-08] MEDS ORDERED: HYDROmorphone 0.5 MG/0.5 ML SYRINGE IVP ONE (18:50)
--- NOTE | 2021-10-08 18:54 | XR ---
RESULT: HISTORY: Status post hip surgery, assess surgical alignment TECHNIQUE: Single AP view of the left hip. COMPARISON: Same-day and prior. FINDINGS: There is interval intramedullary grazyna fixation of left femoral intratrochanteric fracture. There is a 2.6 cm medially displaced lesser trochanter fracture fragment. Otherwise improved in anatomic alignme nt. Postsurgical changes about the soft tissues seen. IMPRESSION: Left femoral intratrochanteric fracture status post ORIF with medially displaced fracture fragment.
--- NOTE | 2021-10-08 20:34 | FL ---
EXAMINATION TYPE: FL guidance operating room, XR Hip Complete LT DATE OF EXAM: 10/08/2021 COMPARISON: Radiograph 10/07/2021 HISTORY: 68-year-old female postreduction left hip nailing TECHNIQUE: FINDINGS: Intraoperative fluoroscopy for intraoperative fluoroscopic images are provided during antegrade intra medullary nailing and hip screw fixation for patient's intertrochanteric fracture proximal left femur . FLUOROSCOPY Fluoroscopy time of 1 minute 17 seconds was used during left proximal femur fixation. 3 image/s docu ment/s the procedure. IMPRESSION: Intraoperative fluoroscopy as above.
[2021-10-08] MEDS: SENNOSIDES-DOCUSATE SODIUM 1 EACH TAB PO SCH (21:07)
[2021-10-08] MEDS: DONEPEZIL 10 MG TAB PO SCH (21:07)
[2021-10-08] MEDS: METOPROLOL SUCCINATE (ER) 50 MG TAB.ER.24H PO SCH (21:07)
[2021-10-09] MEDS: SODIUM CHLORIDE 0.9% 1,000 ML IV SCH ×3 (05:25→15:44)
[2021-10-09] MEDS: IPRATROPIUM-ALBUTEROL 3 ML NEB INHALATION SCH ×4 (08:08→19:59)
[2021-10-09 09:20] LABS: African American GFR (CKD) 96.2 (60.0-200.0); Albumin 2.9 g/dL (3.8-4.9); Albumin/Globulin Ratio 1.53 (1.60-3.17); Anion Gap 9.4 mmol/L (10.00-18.00); BUN/Creat Ratio 30.14 Ratio (12.00-20.00); Blood Urea Nitrogen 21.1 mg/dL (9.0-27.0); Carbon Dioxide 19.6 mmol/L (20.0-27.5); Globulin 1.9 g/dL (1.6-3.3); Potassium 4.7 mmol/L (3.5-5.5); Total Bilirubin 0.2 mg/dL (0.30-1.20); Total Protein 4.8 g/dL (6.2-8.2)
--- NOTE | 2021-10-09 09:37 | P.PN ---
Subjective Progress Note Date: 10/09/21 This patient is a 76- year old female who is status-post left hip open reduction internal fixation with cephalomedullary nail on 10/08/[address] Doyle. Today is postoperative day #1. The patient is seen and examined bedside this morning. She states the pain in her left hip is well-controlled. She has not yet been up with physical therapy. She has no complaints or concerns at this time. Vital signs stable. Objective - Vital Signs Vital signs: Vital Signs Temp 98 F 10/09/21 08:00 Pulse 80 10/09/21 08:12 Resp 18 10/09/21 08:12 BP 114/47 10/09/21 08:00 Pulse Ox 99 10/09/21 08:06 Intake & Output 10/08/21 10/09/21 10/09/21 18:59 06:59 18:59 Intake Total 1400 Output Total 530 1050 Balance 870 -1050 Weight 47.174 kg Intake: IV 1400 Output: Urine 500 1050 Uretheral (Mcconnell) 500 Estimated Blood Loss 30 Other: Voiding Method Indwelling Catheter Indwelling Catheter # Bowel Movements 0 - Exam on examination, patient is sitting up in bed in no apparent distress. She is alert and oriented 1. She is alert and answers questions appropriatel. On inspection of the left hip, there is clean, dry, intact surgical dressings in place with no bleeding or drainage through the dressings. There is ecchymosis and mild swelling of the thigh, the thigh soft and compressible. Motor and sensory function is intact of the left lower extremity. Dorsalis pedis pulse +2. The left lower extremity is warm and well perfused with brisk capillary refill distally. Calf is soft and nontender to palpation. - Labs CBC & Chem 7: 10/07/21 13:02 10/09/21 04:11 Labs: Abnormal Lab Results - Last 24 Hours (Table) 10/08/21 10/09/21 Range/Units 10:30 04:11 Sodium 132 L (135-145) mmol/L Carbon Dioxide 19.6 L (20.0-27.5) mmol/L Anion Gap 9.40 L (10.00-18.00) mmol/L BUN/Creatinine Ratio 30.14 H (12.00-20.00) Ratio Calcium 8.0 L (8.7-10.3) mg/dL Total Bilirubin 0.20 L (0.30-1.20) mg/dL AST 46 H (13-35) U/L Total Protein 4.8 L (6.2-8.2) g/dL Albumin 2.9 L (3.8-4.9) g/dL Albumin/Globulin Ratio 1.53 L (1.60-3.17) g/dL Urine Protein Trace H (Negative) Urine Blood Moderate H (Negative) Ur Leukocyte Esterase Large H (Negative) Urine RBC 52 H (0-5) /hpf Urine WBC 53 H (0-5) /hpf Urine Mucus Rare H (None) /hpf Microbiology - Last 24 Hours (Table) 10/08/21 10:30 Urine Culture - Preliminary Urine,Clean Catch Assessment and Plan Assessment: Status-post left hip open reduction internal fixation with cephalomedullary nail on 10/08/[address] Doyle. Post-operative day #1. Plan: - Patient may weight-bear as tolerated on the operative leg with a walker and assistance. - Physical therapy for gait and balance training. - Leave operative dressings in place for 48 hours. - Lovenox for DVT prophylaxis. - Pain management as needed. - 2 doses postoperative antibiotics. - Internal medicine for perioperative medical management. - Social work consult for discharge planning.
[2021-10-09] MEDS: ATORVASTATIN 80 MG TAB PO SCH (10:07)
[2021-10-09] MEDS: ENOXAPARIN 40 MG/0.4 ML SYRINGE SQ SCH (10:07)
[2021-10-09] MEDS: PANTOPRAZOLE 40 MG/10 ML VIAL IV SCH (10:08)
[2021-10-09] MEDS: SERTRALINE 50 MG TAB PO SCH (10:08)
[2021-10-09] MEDS: HYDROcodone/APAP 5-325MG 1 EACH TAB PO PRN (10:25)
[2021-10-09 12:05] LABS: Basophils % (A) 0 %; Eosinophils % (A) 0 %; Lymphocytes # (A) 1.5 k/uL (1.0-4.8); Lymphocytes % (A) 10 %; MCH 33.9 pg (25.0-35.0); MCHC 32.4 g/dL (31.0-37.0); MCV 104.6 fL (80.0-100.0); Macrocytosis Slight; Mean Platelet Volume 8.3; Monocytes % (A) 7 %; Neutrophils # (A) 13.1 k/uL (1.3-7.7); Neutrophils % (A) 82 %; Platelet Count 219 k/uL (150-450); RDW 12.4 % (11.5-15.5); WBC 15.9 k/uL (3.8-10.6)
[2021-10-09] MEDS: NON FORMULARY DRUG (Tiotropium Br/Olodaterol Hcl [Stiolto Respimat Inhal Spray] 4 GM Each) INHALATION SCH (12:30)
[2021-10-09 12:35] LABS: HGB 6.1 gm/dL (11.4-16.0)
[2021-10-09 12:36] LABS: HCT 18.8 % (34.0-46.0)
--- NOTE | 2021-10-09 18:04 | P.PN ---
Subjective Progress Note Date: 10/09/21 This is a 76-year-old female status post left hip open reduction internal fixation with cephalo medullary nail related to left intertrochanteric fracture secondary to a fall, postop day #1. Tolerated procedure well. Denies nausea vomiting or diarrhea. Pain controlled. Denies chest pain, palpitations or shortness of breath. Afebrile, T-max 99.4, WBC decreased to 15.9. Sodium improving, 132, potassium 4.7, renal function stable. Urine cultures reporting no growth after 18 hours. Has not yet been up with physical therapy. Objective - Vital Signs Vital signs: Vital Signs Temp 98.2 F 10/09/21 14:00 Pulse 68 10/09/21 14:00 Resp 17 10/09/21 14:00 BP 108/45 10/09/21 14:00 Pulse Ox 95 10/09/21 14:00 Intake & Output 10/08/21 10/09/21 10/09/21 18:59 06:59 18:59 Intake Total 1400 0 Output Total 530 1050 Balance 870 -1050 0 Weight 47.174 kg Intake: IV 1400 Blood Product 0 Rc As-1 Unit 0 [id number] Output: Urine 500 1050 Uretheral (Mcconnell) 500 Estimated Blood Loss 30 Other: Voiding Method Indwelling Catheter Indwelling Catheter Indwelling Catheter # Bowel Movements 0 - Exam GENERAL: Alert and oriented 1-2, sitting up in bed, comfortable. EYES: Pupils equal. Conjunctiva normal. HEENT: External appearance of nose and ears normal, oral cavity grossly normal. NECK: Supple, No JVD. HEART: First and second heart sounds are normal. LUNGS: Respiratory rate normal; clear to auscultation. ABDOMEN: Soft, nontender, liver spleen not palpable, no masses palpable. EXTREMITIES: Left hip soft with dressing clean dry and intact, mild edema with ecchymoses, no calf tenderness, positive DP pulse NEUROLOGICAL: Cranial nerves 2 through 12 grossly intact,power and sensation grossly intact. - Labs CBC & Chem 7: 10/09/21 11:43 10/09/21 04:11 Labs: Abnormal Lab Results - Last 24 Hours (Table) 10/09/21 10/09/21 10/09/21 Range/Units 04:11 11:43 14:33 WBC 15.9 H (3.8-10.6) k/uL RBC 1.80 L (3.80-5.40) m/uL Hgb 6.1 L* D (11.4-16.0) gm/dL Hct 18.8 L* (34.0-46.0) % MCV 104.6 H (80.0-100.0) fL Neutrophils # 13.1 H (1.3-7.7) k/uL Sodium 132 L (135-145) mmol/L Carbon Dioxide 19.6 L (20.0-27.5) mmol/L Anion Gap 9.40 L (10.00-18.00) mmol/L BUN/Creatinine Ratio 30.14 H (12.00-20.00) Ratio Calcium 8.0 L (8.7-10.3) mg/dL Total Bilirubin 0.20 L (0.30-1.20) mg/dL AST 46 H (13-35) U/L Total Protein 4.8 L (6.2-8.2) g/dL Albumin 2.9 L (3.8-4.9) g/dL Albumin/Globulin Ratio 1.53 L (1.60-3.17) g/dL Crossmatch See Detail Microbiology - Last 24 Hours (Table) 10/08/21 12:02 Blood Culture - Preliminary Blood No Growth after 24 hours 10/08/21 10:30 Urine Culture - Final Urine,Clean Catch Assessment and Plan Assessment: status post left hip open reduction internal fixation with cephalo medullary nail related to left intertrochanteric fracture secondary to a fall. Acute hypoxic respiratory failure, related to the above Atelectasis Acute renal failure, improved Hyponatremia, improving Gastroesophageal reflux disease Advanced COPD Bilateral ICA stenosis CAD Hypertension Hyperlipidemia Dementia, Alzheimer's Anxiety Depression Former nicotine dependence Plan: Continue on current medication regime ,monitoring and symptomatic treatment. Repeat chest x-ray in a.m. GI and DVT prophylaxis in place with Protonix and Lovenox. IV antibiotics. PT pending. Pain management/DVT prophylaxis as per primary. Aggressive pulmonary toileting with incentive spirometer reinforced in addition to nebulized bronchodilators. Discharge planning in progress to subacute rehab at discharge. The impression and plan of care has been dictated as directed. : I performed a history and examination of this patient, discussed the same with the dictator. I agree with the dictator's note ,documented as a scribe. Any additional findings or plans will be noted.
[2021-10-09] MEDS: SYMBICORT 80-4.5 MCG INHALER INHALATION SCH (19:59)
[2021-10-09] MEDS: SENNOSIDES-DOCUSATE SODIUM 1 EACH TAB PO SCH (20:36)
[2021-10-09] MEDS: METOPROLOL SUCCINATE (ER) 50 MG TAB.ER.24H PO SCH (20:36)
[2021-10-09] MEDS: DONEPEZIL 10 MG TAB PO SCH (20:36)
[2021-10-10 05:05] LABS: Basophils # (A) 0.1 k/uL (0-0.2); Basophils % (A) 0 %; Eosinophils # (A) 0.4 k/uL (0-0.7); Eosinophils % (A) 3 %; HCT 21.4 % (34.0-46.0); HGB 7.3 gm/dL (11.4-16.0); Lymphocytes % (A) 16 %; MCH 34.1 pg (25.0-35.0); MCHC 34.1 g/dL (31.0-37.0); Macrocytosis Slight; Monocytes # (A) 0.7 k/uL (0-1.0); Monocytes % (A) 6 %; Neutrophils # (A) 9.6 k/uL (1.3-7.7); Neutrophils % (A) 74 %; Platelet Count 210 k/uL (150-450); RBC 2.14 m/uL (3.80-5.40); RDW 15.7 % (11.5-15.5)
[2021-10-10] MEDS: SODIUM CHLORIDE 0.9% 1,000 ML IV SCH (05:45)
[2021-10-10] MEDS: VITAMIN A 10,000 UNIT (3000 MCG) CAPSULE PO SCH (09:45)
[2021-10-10] MEDS: ASCORBIC ACID 500 MG TAB PO SCH (09:45)
[2021-10-10] MEDS: CHOLECALCIFEROL 25 MCG (1000 IU) TABLET PO SCH (09:45)
[2021-10-10] MEDS: SERTRALINE 50 MG TAB PO SCH (09:45)
[2021-10-10] MEDS: ENOXAPARIN 40 MG/0.4 ML SYRINGE SQ SCH (09:45)
[2021-10-10] MEDS: ATORVASTATIN 80 MG TAB PO SCH (09:45)
[2021-10-10] MEDS: PANTOPRAZOLE 40 MG/10 ML VIAL IV SCH (09:45)
[2021-10-10] MEDS: HYDROcodone/APAP 5-325MG 1 EACH TAB PO PRN (09:57)
[2021-10-10] MEDS: FOLIC ACID-VIT B COMPLEX-VIT C 1 CAP PO SCH (10:03)
[2021-10-10] MEDS: SYMBICORT 80-4.5 MCG INHALER INHALATION SCH ×2 (10:20→21:30)
[2021-10-10] MEDS: IPRATROPIUM-ALBUTEROL 3 ML NEB INHALATION SCH ×4 (10:20→21:30)
--- NOTE | 2021-10-10 12:33 | P.PN ---
Subjective Progress Note Date: 10/10/21 Principal diagnosis: Status post cephalomedullary nailing left hip This is a 76 year-old female post cephalomedullary nailing left hip. This is post-op day 2. The patient was evaluated in the recliner chair at the bedside today. The patient denies nausea, vomiting, abdominal pain, shortness of breath, and chest pain this morning. She states her pain is controlled at this time. The patient has been up with physical therapy. Mcconnell is still in place. Her hemoglobin was 6.1 yesterday and she received one unit of PRBCs. Her hemoglobin in 7.3 today and she remains asymptomatic. Objective - Vital Signs Vital signs: Vital Signs Temp 98.8 F 10/10/21 08:02 Pulse 80 10/10/21 11:28 Resp 16 10/10/21 11:28 BP 156/49 10/10/21 08:02 Pulse Ox 99 10/10/21 11:19 Intake & Output 10/09/21 10/10/21 10/10/21 18:59 06:59 18:59 Intake Total 0 670 Output Total 700 1900 Balance -700 -1230 Intake: Oral 360 Blood Product 0 310 Rc As-1 Unit 0 310 [id number] Output: Urine 700 1900 Other: Voiding Method Indwelling Catheter Indwelling Catheter Indwelling Catheter # Bowel Movements 0 - Exam The patient does not appear in acute distress. Alert and orientated x2. Dressing is clean dry and intact. Incision appears fine with no erythema or active drainage. Calf is soft and nontender. Good foot and ankle motion without difficulty. Sensation and circulatory status is intact. There is extensive ecchymosis to the groin and lateral hip. - Labs CBC & Chem 7: 10/10/21 03:09 10/09/21 04:11 Labs: Abnormal Lab Results - Last 24 Hours (Table) 10/09/21 10/09/21 10/10/21 Range/Units 11:43 14:33 03:09 WBC 15.9 H 13.0 H (3.8-10.6) k/uL RBC 1.80 L 2.14 L (3.80-5.40) m/uL Hgb 6.1 L* D 7.3 L (11.4-16.0) gm/dL Hct 18.8 L* 21.4 L (34.0-46.0) % MCV 104.6 H (80.0-100.0) fL RDW 15.7 H (11.5-15.5) % Neutrophils # 13.1 H 9.6 H (1.3-7.7) k/uL Crossmatch See Detail Microbiology - Last 24 Hours (Table) 10/08/21 12:02 Blood Culture - Preliminary Blood No Growth after 24 hours 10/08/21 10:30 Urine Culture - Final Urine,Clean Catch Assessment and Plan (1) Fall Current Visit: Yes Status: Acute Code(s): W19.XXXA - UNSPECIFIED FALL, INITIAL ENCOUNTER SNOMED Code(s): 7461859 (2) Hip fracture, left Current Visit: Yes Status: Acute Code(s): S72.002A - FRACTURE OF UNSP PART OF NECK OF LEFT FEMUR, INIT SNOMED Code(s): 011392413 (3) Dementia Current Visit: Yes Status: Acute Code(s): F03.90 - UNSPECIFIED DEMENTIA WITHOUT BEHAVIORAL DISTURBANCE SNOMED Code(s): 84776936 Plan: 1. Continue pain control 2. Anticoagulation with Lovenox 3. Continue physical therapy and ambulation 4. Anticipate discharge to [facility] either today or tomorrow after insurance authorization is obtained.
[2021-10-10] MEDS: NON FORMULARY DRUG (Tiotropium Br/Olodaterol Hcl [Stiolto Respimat Inhal Spray] 4 GM Each) INHALATION SCH (14:21)
--- NOTE | 2021-10-10 15:21 | XR ---
EXAMINATION TYPE: XR chest 1V portable DATE OF EXAM: 10/10/2021 COMPARISON: 10/07/2021 INDICATION: Hypoxia TECHNIQUE: Single frontal view of the chest is obtained. FINDINGS: The heart size is normal. The pulmonary vasculature is normal. Mild scattered peripheral infiltrates are present. A slightly greater than comparison. Correlate for atypical pneumonia. IMPRESSION: 1. Critical consideration for atypical pneumonia is recommended.
[2021-10-10] MEDS ORDERED: FUROSEMIDE 10 MG/ML 2 ML VIAL IV ONE (17:40)
--- NOTE | 2021-10-10 17:43 | P.PN ---
Subjective Progress Note Date: 10/10/21 This is a 76-year-old female status post left hip open reduction internal fixation with cephalo medullary nail related to left intertrochanteric fracture secondary to a fall, postop day #1. Tolerated procedure well. Denies nausea vomiting or diarrhea. Pain controlled. Denies chest pain, palpitations or shortness of breath. Afebrile, T-max 99.4, WBC decreased to 15.9. Sodium improving, 132, potassium 4.7, renal function stable. Urine cultures reporting no growth after 18 hours. Has not yet been up with physical therapy. 10/10/2021 midday CBC yesterday reported hemoglobin 6.1, patient received 1 unit of packed RBCs with current hemoglobin up to 7.3. WBC trending down, 13. Afebrile T-max 99.1. Maintaining O2 sats in the high 90s on 2 L nasal cannula. Chest x-ray reporting mild scattered peripheral infiltrates-patient received 1 unit of packed RBCs yesterday in addition to receiving IV fluids. Maintained on Rocephin. Denies cough. Denies congestion. Passing flatus, pain controlled. Denies chest pain, palpitations or shortness of breath. Objective - Vital Signs Vital signs: Vital Signs Temp 98.4 F 10/10/21 14:00 Pulse 80 10/10/21 15:33 Resp 18 10/10/21 14:00 BP 105/50 10/10/21 14:00 Pulse Ox 93 L 10/10/21 14:00 Intake & Output 10/09/21 10/10/21 10/10/21 18:59 06:59 18:59 Intake Total 0 670 1080 Output Total 700 1900 1000 Balance -700 -1230 80 Intake: Oral 360 1080 Blood Product 0 310 Rc As-1 Unit 0 310 [id number] Output: Urine 700 1900 1000 Other: Voiding Method Indwelling Catheter Indwelling Catheter Indwelling Catheter # Bowel Movements 0 - Exam GENERAL: Alert and oriented 2, sitting up in chair, no acute distress EYES: Pupils equal. Conjunctiva normal. HEENT: External appearance of nose and ears normal, oral cavity grossly normal. NECK: Supple, No JVD. HEART: First and second heart sounds are normal. LUNGS: Respiratory rate normal; clear to auscultation. ABDOMEN: Soft, nontender, liver spleen not palpable, no masses palpable. EXTREMITIES: Left hip soft with dressing clean dry and intact, mild edema with ecchymoses, no calf tenderness, positive DP pulse NEUROLOGICAL: Cranial nerves 2 through 12 grossly intact,power and sensation grossly intact. - Labs CBC & Chem 7: 10/10/21 03:09 10/09/21 04:11 Labs: Abnormal Lab Results - Last 24 Hours (Table) 10/09/21 10/10/21 Range/Units 14:33 03:09 WBC 13.0 H (3.8-10.6) k/uL RBC 2.14 L (3.80-5.40) m/uL Hgb 7.3 L (11.4-16.0) gm/dL Hct 21.4 L (34.0-46.0) % RDW 15.7 H (11.5-15.5) % Neutrophils # 9.6 H (1.3-7.7) k/uL Crossmatch See Detail Microbiology - Last 24 Hours (Table) 10/08/21 12:02 Blood Culture - Preliminary Blood No Growth after 48 hours 10/08/21 10:30 Urine Culture - Final Urine,Clean Catch Assessment and Plan Assessment: status post left hip open reduction internal fixation with cephalo medullary nail related to left intertrochanteric fracture secondary to a fall. Acute postoperative blood loss anemia, secondary to the above, expected. Acute hypoxic respiratory failure, related to the above Atelectasis Acute renal failure, improved Hyponatremia, improving Gastroesophageal reflux disease Advanced COPD Bilateral ICA stenosis CAD Hypertension Hyperlipidemia Dementia, Alzheimer's Anxiety Depression Former nicotine dependence Plan: Continue on current medication regime ,monitoring and symptomatic treatment. DC IV fluids, Lasix 20 mg IV push 1. Empiric IV antibiotics. PT. Pain management. Aggressive pulmonary toileting with nebulized bronchodilators, incentive spirometer reinforced. Discharge planning in progress to subacute rehab. as per primary. The impression and plan of care has been dictated as directed. : I performed a history and examination of this patient, discussed the same with the dictator. I agree with the dictator's note ,documented as a scribe. Any additional findings or plans will be noted.
[2021-10-10] MEDS: SENNOSIDES-DOCUSATE SODIUM 1 EACH TAB PO SCH (21:55)
[2021-10-10] MEDS: METOPROLOL SUCCINATE (ER) 50 MG TAB.ER.24H PO SCH (21:55)
[2021-10-10] MEDS: DONEPEZIL 10 MG TAB PO SCH (21:55)
[2021-10-11] MEDS: SODIUM CHLORIDE 0.9% 1,000 ML IV SCH (05:23)
[2021-10-11 06:26] LABS: Anisocytosis Slight; Basophils # (A) 0.1 k/uL (0-0.2); Basophils % (A) 1 %; Eosinophils # (A) 0.9 k/uL (0-0.7); Eosinophils % (A) 8 %; HGB 7.1 gm/dL (11.4-16.0); Lymphocytes # (A) 2.3 k/uL (1.0-4.8); Lymphocytes % (A) 20 %; MCH 33.6 pg (25.0-35.0); MCV 98.8 fL (80.0-100.0); Macrocytosis Slight; Mean Platelet Volume 7.9; Monocytes # (A) 0.9 k/uL (0-1.0); Monocytes % (A) 7 %; Neutrophils # (A) 7.5 k/uL (1.3-7.7); Neutrophils % (A) 63 %; Platelet Count 257 k/uL (150-450); RBC 2.12 m/uL (3.80-5.40); RDW 16.2 % (11.5-15.5); WBC 11.9 k/uL (3.8-10.6)
[2021-10-11] MEDS: SERTRALINE 50 MG TAB PO SCH (06:56)
[2021-10-11] MEDS: ATORVASTATIN 80 MG TAB PO SCH (06:57)
[2021-10-11] MEDS: ASCORBIC ACID 500 MG TAB PO SCH (06:57)
[2021-10-11] MEDS: CHOLECALCIFEROL 25 MCG (1000 IU) TABLET PO SCH (06:57)
[2021-10-11] MEDS: ENOXAPARIN 40 MG/0.4 ML SYRINGE SQ SCH (06:58)
[2021-10-11] MEDS: PANTOPRAZOLE 40 MG/10 ML VIAL IV SCH (06:58)
[2021-10-11] MEDS: FOLIC ACID-VIT B COMPLEX-VIT C 1 CAP PO SCH (06:58)
[2021-10-11] MEDS: VITAMIN A 10,000 UNIT (3000 MCG) CAPSULE PO SCH (06:59)
[2021-10-11] MEDS: IPRATROPIUM-ALBUTEROL 3 ML NEB INHALATION SCH ×2 (07:26→11:20)
[2021-10-11] MEDS: SYMBICORT 80-4.5 MCG INHALER INHALATION SCH (07:26)
[2021-10-11 07:57] VITALS: BP 128/60; RESP 18; TEMP 98.5
--- NOTE | 2021-10-11 08:28 | P.DS ---
Providers Date of admission: 10/07/21 14:42 Expected date of discharge: 10/11/21 Attending physician: Sophia Doyle DO Consults: 10/07/21 14:44 Consult Physician Urgent Consulting Provider: Chano Newton Reason/Comments: medical clearance, care Do you want consulting provider notified?: Yes Primary care physician: Chano Newton - Discharge Diagnosis(es) (1) Fall Current Visit: Yes Status: Acute (2) Hip fracture, left Current Visit: Yes Status: Acute (3) Dementia Current Visit: Yes Status: Acute (4) Status post hip surgery Current Visit: Yes Status: Acute Hospital Course: This is a 76 year old female who presented to the hospital post fall at home and sustained a left hip fracture. The patient was cleared by medicine for surgery. The patient underwent a left hip cephalomedullary nailing on 10/08/[address] Doyle. The procedure was performed without complication or sequelae. The patient is doing well postoperatively. Labs and vital signs are stable on the day of discharge. On the day of discharge the patient's hip incision is healing well. There is minimal erythema. There is no drainage noted at this time. There is minimal soft tissue swelling to the hip and thigh. The patient has full foot and ankle motion without difficulty or pain. Neurovascular status to the left lower extremity is intact. The patient is discharged to skilled rehab in good condition. Pertinent Studies: Laboratory Tests 10/11/21 05:30 WBC 11.9 H RBC 2.12 L Hgb 7.1 L Hct 21.0 L RDW 16.2 H Eosinophils # 0.9 H Patient Condition at Discharge: Stable Plan - Discharge Summary Discharge Rx Participant: No New Discharge Prescriptions: New HYDROcodone/APAP 5-325MG [[place] 5] 1 each PO Q6HR PRN #30 tab PRN Reason: Pain Enoxaparin [Lovenox] 40 mg SQ DAILY #30 each Sennosides-Docusate Sodium [Senokot-S] 2 tab PO DAILY #30 tablet No Action Aspirin 81 mg PO DAILY Metoprolol Succinate [Toprol Xl] 50 mg PO HS Vitamin B Complex 1 cap PO DAILY Vitamin A [Vitamin A (8,000 Units = 2,400 MCG)] 8,000 unit PO DAILY Umeclidinium Brm/Vilanterol Tr [Anoro Ellipta 62.5-25 Mcg INH] 1 puff INHALATION RT-DAILY Ascorbic Acid [Vitamin C] 1,000 mg PO DAILY Atorvastatin [Lipitor] 80 mg PO DAILY #30 tab Famotidine [Pepcid] 20 mg PO BID tab Clopidogrel [Plavix] 75 mg PO DAILY #30 tab Donepezil [Aricept] 10 mg PO HS Sertraline HCl [Zoloft] 50 mg PO DAILY Cholecalciferol [Vitamin D3 (25 Mcg = 1000 Iu)] 25 mcg PO DAILY Tiotropium Br/Olodaterol HCl [Stiolto Respimat Inhal [place]] 1 spray INHALATION RT-DAILY Discharge Medication List Aspirin 81 mg PO DAILY 10/13/16 [History] Metoprolol Succinate [Toprol Xl] 50 mg PO HS 01/18/18 [History] Vitamin B Complex 1 cap PO DAILY 01/18/18 [History] Ascorbic Acid [Vitamin C] 1,000 mg PO DAILY 08/27/20 [History] Umeclidinium Brm/Vilanterol Tr [Anoro Ellipta 62.5-25 Mcg INH] 1 puff INHALATION RT-DAILY 08/27/20 [History] Vitamin A [Vitamin A (8,000 Units = 2,400 MCG)] 8,000 unit PO DAILY 08/27/20 [History] Atorvastatin [Lipitor] 80 mg PO DAILY #30 tab 08/29/20 [Rx] Clopidogrel [Plavix] 75 mg PO DAILY #30 tab 08/29/20 [Rx] Famotidine [Pepcid] 20 mg PO BID tab 08/29/20 [Rx] Cholecalciferol [Vitamin D3 (25 Mcg = 1000 Iu)] 25 mcg PO DAILY 10/07/21 [History] Donepezil [Aricept] 10 mg PO HS 10/07/21 [History] Sertraline HCl [Zoloft] 50 mg PO DAILY 10/07/21 [History] Tiotropium Br/Olodaterol HCl [Stiolto Respimat Inhal [place]] 1 spray INHALATION RT-DAILY 10/07/21 [History] Enoxaparin [Lovenox] 40 mg SQ DAILY #30 each 10/10/21 [Rx] HYDROcodone/APAP 5-325MG [[place] 5] 1 each PO Q6HR PRN #30 tab 10/10/21 [Rx] Sennosides-Docusate Sodium [Senokot-S] 2 tab PO DAILY #30 tablet 10/10/21 [Rx] Follow up Appointment(s)/Referral(s): Sophia Doyle DO [Doctor of Osteopathic Medicine] - 2 Weeks Chano Newton DO [Primary Care Provider] - 1 Week (After discharge from subacute rehab) Activity/Diet/Wound Care/Special Instructions: ECF: urine cx pending CBC,BMP in days Keep incisions clean and dry. Change dressings to left hip daily and as needed for drainage. Weightbearing as tolerated to the left lower extremity with walker. May shower with incisions uncovered if no drainage. Lovenox daily for 4 weeks. Follow up with Dr. Doyle in 2 weeks. Discharge Disposition: TRANSFER TO SNF/ECF
--- NOTE | 2021-10-11 09:28 | P.PN ---
Subjective Progress Note Date: 10/11/21 This is a 76-year-old female status post left hip open reduction internal fixation with cephalo medullary nail related to left intertrochanteric fracture secondary to a fall, postop day #1. Tolerated procedure well. Denies nausea vomiting or diarrhea. Pain controlled. Denies chest pain, palpitations or shortness of breath. Afebrile, T-max 99.4, WBC decreased to 15.9. Sodium improving, 132, potassium 4.7, renal function stable. Urine cultures reporting no growth after 18 hours. Has not yet been up with physical therapy. 10/10/2021 midday CBC yesterday reported hemoglobin 6.1, patient received 1 unit of packed RBCs with current hemoglobin up to 7.3. WBC trending down, 13. Afebrile T-max 99.1. Maintaining O2 sats in the high 90s on 2 L nasal cannula. Chest x-ray reporting mild scattered peripheral infiltrates-patient received 1 unit of packed RBCs yesterday in addition to receiving IV fluids. Maintained on Rocephin. Denies cough. Denies congestion. Passing flatus, pain controlled. Denies chest pain, palpitations or shortness of breath. 10/11/2021 afebrile, WBC 11.9. Hemoglobin 7.1, platelets 257. Vital signs stable, maintaining O2 sats in the high 90s on room air. Passing flatus. Pain controlled. Discharge planning in progress for today to subacute rehab as per orthopedic surgery. Objective - Vital Signs Vital signs: Vital Signs Temp 98.5 F 10/11/21 07:57 Pulse 79 10/11/21 07:57 Resp 18 10/11/21 07:57 BP 128/60 10/11/21 07:57 Pulse Ox 93 L 10/11/21 07:57 Intake & Output 10/10/21 10/11/21 10/11/21 18:59 06:59 18:59 Intake Total 1320 Output Total 1000 400 Balance 320 -400 Intake: Oral 1320 Output: Urine 1000 400 Other: Voiding Method Indwelling Catheter # Voids 2 - Exam GENERAL: Alert and oriented 2, sitting up in bed, no acute distress EYES: Pupils equal. Conjunctiva normal. HEENT: External appearance of nose and ears normal, oral mucosa moist. NECK: Supple, No JVD. HEART: First and second heart sounds are normal. LUNGS: Respiratory rate normal; nonlabored ,clear to auscultation. ABDOMEN: Soft, nontender, liver spleen not palpable, no masses palpable. EXTREMITIES: Left hip soft with dressing clean dry and intact, mild edema with ecchymoses, no calf tenderness, positive DP pulse NEUROLOGICAL: Cranial nerves 2 through 12 grossly intact,power and sensation grossly intact. - Labs CBC & Chem 7: 10/11/21 05:30 10/09/21 04:11 Labs: Abnormal Lab Results - Last 24 Hours (Table) 10/11/21 Range/Units 05:30 WBC 11.9 H (3.8-10.6) k/uL RBC 2.12 L (3.80-5.40) m/uL Hgb 7.1 L (11.4-16.0) gm/dL Hct 21.0 L (34.0-46.0) % RDW 16.2 H (11.5-15.5) % Eosinophils # 0.9 H (0-0.7) k/uL Microbiology - Last 24 Hours (Table) 10/08/21 12:02 Blood Culture - Preliminary Blood No Growth after 48 hours Assessment and Plan Assessment: status post left hip open reduction internal fixation with cephalo medullary nail related to left intertrochanteric fracture secondary to a fall. Acute postoperative blood loss anemia, secondary to the above, expected. Acute hypoxic respiratory failure, related to the above Atelectasis Acute renal failure, improved Hyponatremia, improving Gastroesophageal reflux disease Advanced COPD Bilateral ICA stenosis CAD Hypertension Hyperlipidemia Dementia, Alzheimer's Anxiety Depression Former nicotine dependence Plan: Continue on current medication regime ,monitoring and symptomatic treatment. Maintain aggressive pulmonary toileting with nebulized bronch odilators, incentive spirometer reinforced. Discharge planning in progress to subacute rehab. as per primary. Repeat CBC, BMP in 3 days ordered for AURELIO. The impression and plan of care has been dictated as directed. : I performed a history and examination of this patient, discussed the same with the dictator. I agree with the dictator's note ,documented as a scribe. Any additional findings or plans will be noted.
[2021-10-11 11:23] VITALS: PULSE 80
[2021-10-11] MEDS: HYDROcodone/APAP 5-325MG 1 EACH TAB PO PRN (11:23)
== END 2021-10-11 13:42 | DRG 481 ==
LOC: EC 12:36 → SUPCPDRO 12:36 → 4SSUR 14:42
PROVIDERS: ADMIT Orthopaedic Surgery Hand Surgery; ATTEND Orthopaedic Surgery Hand Surgery
PROC: 0QS706Z Reposition Left Upper Femur with Intramedullary Internal Fixation Device, Open Approach (ICD-10-PCS; principal; 2021-10-08 09:55)
DX: S72.142A Displaced intertrochanteric fracture of left femur, initial encounter for closed fracture (principal); D62 Acute posthemorrhagic anemia; E87.1 Hypo-osmolality and hyponatremia; J98.11 Atelectasis; N17.9 Acute kidney failure, unspecified; N39.0 Urinary tract infection, site not specified; E78.5 Hyperlipidemia, unspecified; F02.80 Dementia in other diseases classified elsewhere, unspecified severity, without behavioral disturbance, psychotic disturbance, mood disturbance, and anxiety; R00.1 Bradycardia, unspecified; F32.A Depression, unspecified; F41.9 Anxiety disorder, unspecified; Z20.822 Contact with and (suspected) exposure to COVID-19; G30.9 Alzheimer's disease, unspecified; I10 Essential (primary) hypertension; I25.10 Atherosclerotic heart disease of native coronary artery without angina pectoris; I25.2 Old myocardial infarction; I65.23 Occlusion and stenosis of bilateral carotid arteries; J44.9 Chronic obstructive pulmonary disease, unspecified; K21.9 Gastro-esophageal reflux disease without esophagitis; W18.30XA Fall on same level, unspecified, initial encounter; Z79.02 Long term (current) use of antithrombotics/antiplatelets; Z79.82 Long term (current) use of aspirin; Z79.899 Other long term (current) drug therapy; Z82.49 Family history of ischemic heart disease and other diseases of the circulatory system; Z87.891 Personal history of nicotine dependence
CPT/HCPCS: 36415; 71045; 73501; 73502; 80053; 81001; 82550; 85025; 85610; 85730; 86140; 86850; 86900; 86901; 86920; 87040; 87086; 87635; 93005; 94640; 94760; 96374; 99285

== ENCOUNTER 2021-10-13 13:40 | Emergency (ER) | payer MEDICARE ==
[2021-10-13 14:07] LABS: Anisocytosis Slight; Basophils # (A) 0.1 k/uL (0-0.2); Basophils % (A) 1 %; Eosinophils # (A) 0.7 k/uL (0-0.7); Eosinophils % (A) 4 %; HCT 25.6 % (34.0-46.0); HGB 8.5 gm/dL (11.4-16.0); Hypochromasia Slight; Lymphocytes # (A) 2.2 k/uL (1.0-4.8); Lymphocytes % (A) 15 %; MCH 33.5 pg (25.0-35.0); MCHC 33.1 g/dL (31.0-37.0); MCV 101.1 fL (80.0-100.0); Macrocytosis Slight; Mean Platelet Volume 7.9; Monocytes # (A) 0.9 k/uL (0-1.0); Monocytes % (A) 6 %; Neutrophils # (A) 10.8 k/uL (1.3-7.7); Neutrophils % (A) 72 %; Platelet Count 435 k/uL (150-450); RBC 2.53 m/uL (3.80-5.40); RDW 16.8 % (11.5-15.5); WBC 14.9 k/uL (3.8-10.6)
[2021-10-13 14:17] LABS: INR 0.9 (<1.2); Prothrombin Time 10.1 sec (9.0-12.0)
[2021-10-13 14:18] LABS: ALT 26 U/L (4-34); AST 45 U/L (14-36); African American GFR (CKD) >90 (>60 ml/min/1.73 sqM); Albumin 3.1 g/dL (3.5-5.0); Alkaline Phosphatase 85 U/L (38-126); Anion Gap 4 mmol/L; Blood Urea Nitrogen 19 mg/dL (7-17); Calcium 8.6 mg/dL (8.4-10.2); Carbon Dioxide 24 mmol/L (22-30); Chloride 106 mmol/L (98-107); Glucose 112 mg/dL (74-99); Non-African American GFR(CKD) 85 (>60 ml/min/1.73 sqM); Partial Thromboplastin Time 26.2 sec (22.0-30.0); Potassium 4.4 mmol/L (3.5-5.1); Sodium 134 mmol/L (137-145); Total Bilirubin 1.7 mg/dL (0.2-1.3); Total Protein 6.2 g/dL (6.3-8.2)
--- NOTE | 2021-10-13 14:28 | ED ---
General Adult HPI - General Chief complaint: Recheck/Abnormal Lab/Rx Stated complaint: Low Hemoglobin Time Seen by Provider: 10/13/21 13:44 Source: patient, RN notes reviewed, old records reviewed Mode of arrival: EMS Limitations: no limitations - History of Present Illness Initial comments: 76-year-old female presenting for evaluation of anemia. Patient had outpatient lab testing yesterday and was noted to have hemoglobin of 6.6. She has a history of chronic anemia. She had a recent hip fracture status post repair. She is currently in a retirement and had routine blood testing performed yesterday. She denies rectal bleeding or melena. She states she is healing well no complaints of fever or pain at the left hip. She is currently on sub cutaneous Lovenox for DVT prophylaxis. No nosebleeds. No hematemesis. Patient has no complaints and is eager to be discharged back to the retirement. - Related Data Home Medications Medication Instructions Recorded Confirmed Metoprolol Succinate [Toprol Xl] 50 mg PO HS 01/18/18 10/08/21 Vitamin B Complex 1 cap PO DAILY 01/18/18 10/08/21 Ascorbic Acid [Vitamin C] 1,000 mg PO DAILY 08/27/20 10/08/21 Umeclidinium Brm/Vilanterol Tr 1 puff INHALATION RT-DAILY 08/27/20 10/08/21 [Anoro Ellipta 62.5-25 Mcg INH] Vitamin A [Vitamin A (8,000 Units 8,000 unit PO DAILY 08/27/20 10/08/21 = 2,400 MCG)] Cholecalciferol [Vitamin D3 (25 25 mcg PO DAILY 10/07/21 10/08/21 Mcg = 1000 Iu)] Donepezil [Aricept] 10 mg PO HS 10/07/21 10/08/21 Sertraline HCl [Zoloft] 50 mg PO DAILY 10/07/21 10/08/21 Tiotropium Br/Olodaterol HCl 1 spray INHALATION RT-DAILY 10/07/21 10/07/21 [Stiolto Respimat Inhal [place]] Previous Rx's Medication Instructions Recorded Atorvastatin [Lipitor] 80 mg PO DAILY #30 tab 08/29/20 Famotidine [Pepcid] 20 mg PO BID tab 08/29/20 Enoxaparin [Lovenox] 40 mg SQ DAILY #30 each 10/10/21 HYDROcodone/APAP 5-325MG [Clint 5] 1 each PO Q6HR PRN #30 tab 10/10/21 Sennosides-Docusate Sodium 2 tab PO DAILY #30 tablet 10/10/21 [Senokot-S] Ipratropium-Albuterol Nebulize 3 ml INHALATION RT-QID PRN ml 10/11/21 [Duoneb 0.5 mg-3 mg/3 ml Soln] Allergies Allergy/AdvReac Type Severity Reaction Status Date / Time No Known Allergies Allergy Verified 10/13/21 13:47 Review of Systems ROS Statement: Those systems with pertinent positive or pertinent negative responses have been documented in the HPI. ROS Other: All systems not noted in ROS Statement are negative. Past Medical History Past Medical History: Coronary Artery Disease (CAD), Chest Pain / Angina, COPD, Dementia, GERD/Reflux, Hyperlipidemia, Hypertension Additional Past Medical History / Comment(s): Advanced COPD,, degenerative arthritis, " recent hospitalization: anemia, blood in stools, acute kidney injury and low sodium", Last Myocardial Infarction Date:: 10/11/15 History of Any Multi-Drug Resistant Organisms: None Reported Past Surgical History: Section, Heart Catheterization Additional Past Surgical History / Comment(s): 04/27/14 EGD with negative bx and colonoscopy, 3 C-Sections, cardiac catheterization Past Anesthesia/Blood Transfusion Reactions: No Reported Reaction Past Psychological History: Anxiety, Depression Smoking Status: Former smoker Past Alcohol Use History: None Reported Past Drug Use History: None Reported - Past Family History Father Family Medical History: Coronary Artery Disease (CAD) Additional Family Medical History / Comment(s): Father at age 86yrs. Mother Family Medical History: No Reported History Additional Family Medical History / Comment(s): . General Exam Limitations: no limitations General appearance: alert, in no apparent distress Head exam: Present: atraumatic, normocephalic Eye exam: Present: normal appearance, PERRL ENT exam: Present: normal exam Neck exam: Present: normal inspection. Absent: tenderness, meningismus Respiratory exam: Present: normal lung sounds bilaterally. Absent: wheezes Cardiovascular Exam: Present: regular rate, normal rhythm GI/Abdominal exam: Present: soft. Absent: distended, tenderness, guarding Extremities exam: Present: other (Incisions are clean, well healed no erythema. There is ecchymosis throughout the hip, no palpable hematoma.) Neurological exam: Present: alert, oriented X3, CN II-XII intact. Absent: motor sensory deficit Psychiatric exam: Present: normal affect, normal mood Skin exam: Present: warm, dry Course Vital Signs 10/13/21 13:43 Temperature 98 F Pulse Rate 69 Respiratory 18 Rate Blood Pressure 107/54 O2 Sat by Pulse 99 Oximetry Medical Decision Making - Medical Decision Making Laboratory studies are repeated. She has a mild leukocytosis and a hemoglobin of 8.5. This is actually quite good for this patient. She runs in the low 70s. Recommend that the hemoglobin be trended over time but the patient is stable for discharge back to retirement at this time. - Lab Data Result diagrams: 10/13/21 13:56 10/13/21 13:56 Lab Results 10/13/21 10/13/21 10/13/21 Range/Units 13:56 13:56 13:56 WBC 14.9 H (3.8-10.6) k/uL RBC 2.53 L (3.80-5.40) m/uL Hgb 8.5 L (11.4-16.0) gm/dL Hct 25.6 L (34.0-46.0) % MCV 101.1 H (80.0-100.0) fL MCH 33.5 (25.0-35.0) pg MCHC 33.1 (31.0-37.0) g/dL RDW 16.8 H (11.5-15.5) % Plt Count 435 (150-450) k/uL MPV 7.9 Neutrophils % 72 % Lymphocytes % 15 % Monocytes % 6 % Eosinophils % 4 % Basophils % 1 % Neutrophils # 10.8 H (1.3-7.7) k/uL Lymphocytes # 2.2 (1.0-4.8) k/uL Monocytes # 0.9 (0-1.0) k/uL Eosinophils # 0.7 (0-0.7) k/uL Basophils # 0.1 (0-0.2) k/uL Hypochromasia Slight Anisocytosis Slight Macrocytosis Slight PT 10.1 (9.0-12.0) sec INR 0.9 (<1.2) APTT 26.2 (22.0-30.0) sec Sodium 134 L (137-145) mmol/L Potassium 4.4 (3.5-5.1) mmol/L Chloride 106 (98-107) mmol/L Carbon Dioxide 24 (22-30) mmol/L Anion Gap 4 mmol/L BUN 19 H (7-17) mg/dL Creatinine 0.66 (0.52-1.04) mg/dL Est GFR (CKD-EPI)AfAm >90 (>60 ml/min/1.73 sqM) Est GFR (CKD-EPI)NonAf 85 (>60 ml/min/1.73 sqM) Glucose 112 H (74-99) mg/dL Calcium 8.6 (8.4-10.2) mg/dL Total Bilirubin 1.7 H (0.2-1.3) mg/dL AST 45 H (14-36) U/L ALT 26 (4-34) U/L Alkaline Phosphatase 85 (38-126) U/L Total Protein 6.2 L (6.3-8.2) g/dL Albumin 3.1 L (3.5-5.0) g/dL Disposition Clinical Impression: Anemia Disposition: HOME SELF-CARE Condition: Fair Instructions (If sedation given, give patient instructions): Anemia (ED) Is patient prescribed a controlled substance at d/c from ED?: No Referrals: Chano Newton DO [Primary Care Provider] - 1-2 days Time of Disposition: 14:28
[2021-10-13 15:20] VITALS: BP 128/78; PULSE 78; RESP 16; TEMP 98.2
== END 2021-10-13 16:10 | disposition home or self-care (01) ==
LOC: EC 13:40
DX: D64.9 Anemia, unspecified (principal); I25.10 Atherosclerotic heart disease of native coronary artery without angina pectoris; J44.9 Chronic obstructive pulmonary disease, unspecified; E78.5 Hyperlipidemia, unspecified; I10 Essential (primary) hypertension; I25.2 Old myocardial infarction; Z87.39 Personal history of other diseases of the musculoskeletal system and connective tissue; F41.9 Anxiety disorder, unspecified; F32.A Depression, unspecified; Z87.891 Personal history of nicotine dependence
CPT/HCPCS: 36415; 80053; 85025; 85610; 85730; 86850; 86900; 86901; 99284

== ENCOUNTER 2022-06-30 04:03 | Inpatient (IN) | payer MEDICARE ==
[2022-06-30] MEDS ORDERED: MORPHINE SULFATE 4 MG/ML SYRINGE IM STA (04:18)
--- NOTE | 2022-06-30 04:48 | ED ---
Fall HPI - General Chief Complaint: Fall Stated Complaint: Fall Time Seen by Provider: 06/30/22 04:05 Source: patient, EMS Mode of arrival: EMS - History of Present Illness Initial Comments: This patient is 77-year-old woman who is brought by ambulance to evaluation after having ground-level fall. The patient's reported to have fallen from bed. Patient indicates the area of the right hip as hurting. She is not able to move the right leg. She is not able to bear weight. Past history is notable for having left hip fixation by Dr. Doyle. Patient denies other injury, no head or neck pain. No chest, back, abdomen pain. No pain to the other extremities MD Complaint: fall Onset/Timin -: hour(s) Fall From: out of bed When Fall Occurred: 1 hour [facility] PROF[employer] Place Fall Occurred: home Loss of Consciousness: none Prolonged Down Time?: no Symptoms Prior to Fall: none Location: other (Right hip) Severity: severe Quality: sharp, aching Context: history of frequent falls - Related Data Home Medications Medication Instructions Recorded Confirmed Metoprolol Succinate [Toprol Xl] 50 mg PO HS 01/18/18 10/08/21 Vitamin B Complex 1 cap PO DAILY 01/18/18 10/08/21 Ascorbic Acid [Vitamin C] 1,000 mg PO DAILY 08/27/20 10/08/21 Umeclidinium Brm/Vilanterol Tr 1 puff INHALATION RT-DAILY 08/27/20 10/08/21 [Anoro Ellipta 62.5-25 Mcg INH] Vitamin A [Vitamin A (8,000 Units 8,000 unit PO DAILY 08/27/20 10/08/21 = 2,400 MCG)] Cholecalciferol [Vitamin D3 (25 25 mcg PO DAILY 10/07/21 10/08/21 Mcg = 1000 Iu)] Donepezil [Aricept] 10 mg PO HS 10/07/21 10/08/21 Sertraline HCl [Zoloft] 50 mg PO DAILY 10/07/21 10/08/21 Tiotropium Br/Olodaterol HCl 1 spray INHALATION RT-DAILY 10/07/21 10/07/21 [Stiolto Respimat Inhal [place]] Previous Rx's Medication Instructions Recorded Atorvastatin [Lipitor] 80 mg PO DAILY #30 tab 08/29/20 Famotidine [Pepcid] 20 mg PO BID tab 08/29/20 Enoxaparin [Lovenox] 40 mg SQ DAILY #30 each 10/10/21 HYDROcodone/APAP 5-325MG [[place] 5] 1 each PO Q6HR PRN #30 tab 10/10/21 Sennosides-Docusate Sodium 2 tab PO DAILY #30 tablet 10/10/21 [Senokot-S] Ipratropium-Albuterol Nebulize 3 ml INHALATION RT-QID PRN ml 10/11/21 [Duoneb 0.5 mg-3 mg/3 ml Soln] Allergies Allergy/AdvReac Type Severity Reaction Status Date / Time No Known Allergies Allergy Verified 10/13/21 13:47 Review of Systems ROS Statement: Those systems with pertinent positive or pertinent negative responses have been documented in the HPI. ROS Other: All systems not noted in ROS Statement are negative. Constitutional: Denies: fever, weakness Eyes: Denies: vision change Respiratory: Denies: cough, dyspnea Cardiovascular: Denies: chest pain, orthopnea, edema, syncope Gastrointestinal: Denies: abdominal pain, vomiting, diarrhea Genitourinary: Denies: dysuria, hematuria Musculoskeletal: Reports: as per HPI, arthralgia. Denies: back pain Skin: Denies: rash Neurological: Denies: headache, weakness, numbness Hematological/Lymphatic: Denies: easy bleeding Past Medical History Past Medical History: Coronary Artery Disease (CAD), Chest Pain / Angina, COPD, Dementia, GERD/Reflux, Hyperlipidemia, Hypertension Additional Past Medical History / Comment(s): Advanced COPD,, degenerative arthritis, " recent hospitalization: anemia, blood in stools, acute kidney injury and low sodium", Last Myocardial Infarction Date:: 10/11/15 History of Any Multi-Drug Resistant Organisms: None Reported Past Surgical History: Section, Heart Catheterization Additional Past Surgical History / Comment(s): 04/27/14 EGD with negative bx and colonoscopy, 3 C-Sections, cardiac catheterization Past Anesthesia/Blood Transfusion Reactions: No Reported Reaction Past Psychological History: Anxiety, Depression Smoking Status: Former smoker Past Alcohol Use History: None Reported Past Drug Use History: None Reported - Past Family History Father Family Medical History: Coronary Artery Disease (CAD) Additional Family Medical History / Comment(s): Father at age 86yrs. Mother Family Medical History: No Reported History Additional Family Medical History / Comment(s): . General Exam Limitations: no limitations General appearance: alert, in no apparent distress Head exam: Present: atraumatic, normocephalic, normal inspection Eye exam: Present: normal appearance. Absent: scleral icterus, conjunctival injection Neck exam: Present: normal inspection, full ROM. Absent: tenderness Respiratory exam: Present: normal lung sounds bilaterally. Absent: respiratory distress, wheezes, rales, rhonchi, stridor, chest wall tenderness Cardiovascular Exam: Present: regular rate, normal rhythm, normal heart sounds. Absent: systolic murmur, diastolic murmur, rubs, gallop GI/Abdominal exam: Present: soft. Absent: distended, tenderness, guarding, rebound, rigid, mass Extremities exam: Present: tenderness, normal capillary refill, other (There is shortening of the right leg.). Absent: full ROM (Patient not tolerating range of motion at right hip), pedal edema Back exam: Present: normal inspection. Absent: vertebral tenderness Neurological exam: Present: alert, CN II-XII intact. Absent: motor sensory deficit Skin exam: Present: warm, dry, intact, normal color. Absent: rash Course Vital Signs 06/30/22 06/30/22 06/30/22 04:08 04:15 05:20 Temperature 97.6 F Pulse Rate 59 L 56 L Respiratory 18 16 Rate Blood Pressure 140/95 131/56 O2 Sat by Pulse 94 L 96 Oximetry Medical Decision Making - Medical Decision Making Patient is 77-year-old woman here after having a ground-level fall. Workup does reveal right hip intertrochanteric fracture. Patient's states they would like to request Dr. Doyle who performed the patient's previous surgery on the left hip. Dr. Muñoz is covering [facility] and I spoke with him he will accept admission and requests medical consult for surgical clearance. - Lab Data Result diagrams: 06/30/22 05:07 06/30/22 05:07 - EKG Data -: EKG Interpreted by Me EKG shows normal: sinus rhythm, axis (Normal), intervals (QRS duration prolonged consistent with right bundle-branch block), QRS complexes (There is right bundle branch block and a left anterior fascicular block.) Rate: bradycardia (Rate 54 bpm) Disposition Clinical Impression: Fall, Closed right hip fracture Disposition: ADMITTED IP TO THIS HOSP Condition: Fair Is patient prescribed a controlled substance at d/c from ED?: No
[2022-06-30] MEDS ORDERED: ONDANSETRON 4 MG/2 ML VIAL IVP PRN (04:56)
[2022-06-30] MEDS ORDERED: ACETAMINOPHEN TAB 325 MG TAB PO PRN (04:56)
[2022-06-30] MEDS ORDERED: NALOXONE 0.4 MG/ML 1 ML VIAL IV PRN (04:56)
--- NOTE | 2022-06-30 04:58 | XR ---
EXAMINATION TYPE: XR Hip RT and AP Pelvis DATE OF EXAM: 06/30/2022 COMPARISON: NONE HISTORY: Fall. Pain TECHNIQUE: 3 views FINDINGS: There is an acute intertrochanteric fracture of the right femur with coxa vera deformity an d comminution. Pelvic ring is intact. IMPRESSION: Acute comminuted intertrochanteric fracture right femur.
--- NOTE | 2022-06-30 04:59 | XR ---
EXAMINATION TYPE: XR chest 1V DATE OF EXAM: 06/30/2022 COMPARISON: 10/10/2021 HISTORY: Fall. Pain TECHNIQUE: Single view FINDINGS: There is no heart failure nor confluent pneumonic infiltrate. Costophrenic angles are clear . Thoracic aorta is atheromatous. IMPRESSION: No active cardiopulmonary disease. Normal heart. No change.
[2022-06-30] MEDS: MORPHINE SULFATE 4 MG/ML SYRINGE IV PRN ×2 (05:18→15:36)
[2022-06-30 05:24] LABS: Basophils # (A) 0.1 k/uL (0-0.2); Basophils % (A) 0 %; Eosinophils # (A) 0.3 k/uL (0-0.7); Eosinophils % (A) 1 %; HCT 36.8 % (34.0-46.0); HGB 12.8 gm/dL (11.4-16.0); Lymphocytes # (A) 1.3 k/uL (1.0-4.8); Lymphocytes % (A) 7 %; MCH 34.3 pg (25.0-35.0); MCHC 34.6 g/dL (31.0-37.0); MCV 99.1 fL (80.0-100.0); Mean Platelet Volume 7.8; Monocytes # (A) 0.9 k/uL (0-1.0); Monocytes % (A) 5 %; Neutrophils # (A) 15.7 k/uL (1.3-7.7); Neutrophils % (A) 85 %; Platelet Count 327 k/uL (150-450); RBC 3.72 m/uL (3.80-5.40); RDW 12.4 % (11.5-15.5); WBC 18.4 k/uL (3.8-10.6)
[2022-06-30 05:37] LABS: INR 0.9 (<1.2); Prothrombin Time 9.9 sec (9.0-12.0)
[2022-06-30 05:39] LABS: ALT 21 U/L (4-34); AST 34 U/L (14-36); African American GFR (CKD) >90 (>60 ml/min/1.73 sqM); Alkaline Phosphatase 119 U/L (38-126); Anion Gap 6 mmol/L; Blood Urea Nitrogen 25 mg/dL (7-17); Calcium 9.1 mg/dL (8.4-10.2); Carbon Dioxide 26 mmol/L (22-30); Chloride 99 mmol/L (98-107); Glucose 127 mg/dL (74-99); Non-African American GFR(CKD) 81 (>60 ml/min/1.73 sqM); Potassium 4.2 mmol/L (3.5-5.1); Sodium 131 mmol/L (137-145); Total Bilirubin 0.2 mg/dL (0.2-1.3); Total Protein 6.9 g/dL (6.3-8.2)
[2022-06-30 05:45] LABS: Appearance,Urine Clear (Clear); Bilirubin,Urine Negative (Negative); Blood,Urine Negative (Negative); Color,Urine Colorless; Glucose,Urine (UA) Negative (Negative); Ketones,Urine Negative (Negative); Leukocyte Esterase,Urine Negative (Negative); Nitrite,Urine Negative (Negative); PH, Urine 7.5 (5.0-8.0); Protein,Urine Trace (Negative); Specific Gravity,Urine 1.009 (1.001-1.035); Urobilinogen,Urine <2.0 mg/dL (<2.0)
[2022-06-30] MEDS: SODIUM CHLORIDE 0.9% 1,000 ML IV SCH ×2 (06:46→15:37)
[2022-06-30] MEDS: FAMOTIDINE 20 MG TAB PO SCH ×2 (09:09→21:27)
--- NOTE | 2022-06-30 10:16 | P.HPOR ---
History of Present Illness H&P Date: 06/30/22 Chief Complaint: Right hip pain, inability ambulate due to hip Patient is a very pleasant 77-year-old female who is seen and examined at bedside in regards to her right hip. Patient does have a history of dementia but answers questions appropriately. Patient did sustain a fall and was reported the patient fell from a bed. Patient has had right hip pain since that time and has been unable to ambulate on her right lower extremity. She was brought to [facility] for further evaluation. X-ray imaging showed evidence of a right intertrochanteric hip fracture. She was admitted to our service for further treatment and evaluation. Patient does have a history of previous left intertrochanteric hip fracture undergoing surgical fixation with Dr. Sophia Doyle. Patient has requested evaluation and treatment of her right hip to be performed by Dr. Doyle. Consultation has been placed with Dr. Burns for medical management and surgical clearance. Patient may eat today. Currently, if patient is cleared, we will plan for surgical intervention tomorrow. She would like to undergo surgical intervention in her right hip for stability. Past Medical History Past Medical History: Coronary Artery Disease (CAD), Chest Pain / Angina, COPD, Dementia, GERD/Reflux, Hyperlipidemia, Hypertension Additional Past Medical History / Comment(s): Advanced COPD,, degenerative arthritis, " recent hospitalization: anemia, blood in stools, acute kidney injury and low sodium", Last Myocardial Infarction Date:: 10/11/15 History of Any Multi-Drug Resistant Organisms: None Reported Past Surgical History: Section, Heart Catheterization Additional Past Surgical History / Comment(s): 04/27/14 EGD with negative bx and colonoscopy, 3 C-Sections, cardiac catheterization Past Anesthesia/Blood Transfusion Reactions: No Reported Reaction Past Psychological History: Anxiety, Depression Smoking Status: Former smoker Past Alcohol Use History: None Reported Past Drug Use History: None Reported - Past Family History Father Family Medical History: Coronary Artery Disease (CAD) Additional Family Medical History / Comment(s): Father at age 86yrs. Mother Family Medical History: No Reported History Additional Family Medical History / Comment(s): . Medications and Allergies Home Medications Medication Instructions Recorded Confirmed Type Metoprolol Succinate [Toprol Xl] 50 mg PO HS 01/18/18 06/30/22 History Vitamin B Complex 1 cap PO DAILY 01/18/18 06/30/22 History Ascorbic Acid [Vitamin C] 1,000 mg PO DAILY 08/27/20 06/30/22 History Umeclidinium Brm/Vilanterol Tr 1 puff INHALATION RT-DAILY 08/27/20 06/30/22 History [Anoro Ellipta 62.5-25 Mcg INH] Cholecalciferol [Vitamin D3 (25 25 mcg PO DAILY 10/07/21 06/30/22 History Mcg = 1000 Iu)] Sertraline HCl [Zoloft] 50 mg PO DAILY 10/07/21 06/30/22 History Atorvastatin [Lipitor] 80 mg PO HS 06/30/22 06/30/22 History Clopidogrel [Plavix] 75 mg PO DAILY 06/30/22 06/30/22 History Mirtazapine [Remeron] 15 mg PO HS PRN 06/30/22 06/30/22 History Enoxaparin [Lovenox] 40 mg SQ DAILY #30 each 07/03/22 Rx HYDROcodone/APAP 5-325MG [[place] 5] 1 each PO Q6HR PRN #30 tab 07/03/22 Rx Ipratropium Nebulized [Atrovent 0.5 mg INHALATION RT-QID ml 07/03/22 Rx Nebulized 0.2 MG/ML] Sennosides-Docusate Sodium 2 tab PO HS #30 tablet 07/03/22 Rx [Senokot-S] Famotidine [Pepcid] 20 mg PO DAILY tab 07/04/22 Rx Allergies Allergy/AdvReac Type Severity Reaction Status Date / Time No Known Allergies Allergy Verified 10/13/21 13:47 Physical Examination Osteopathic Statement: *. No significant issues noted on an osteopathic structural exam other than those noted in the History and Physical/Consult. Physical exam: Patient is awake, alert, and oriented 3; patient is answering questions appropriately Vital signs stable Good chest excursion with deep inspiration and expiration Right lower extremity is shortened and externally rotated Pain with palpation of the right hip Significant pain with internal and external rotation of the right hip Neurovascularly intact right lower extremity Dorsiflexion, plantarflexion, and extensor hallucis longus positive sustained on the right Right calf is soft and supple; No signs or symptoms of DVT; No calf pain Results Pertinent studies: X-rays of the right hip and pelvis taken on 06/30/2022: Acute comminuted right intertrochanteric femur fracture - Labs Labs: Abnormal Lab Results - Last 24 Hours (Table) 06/30/22 06/30/22 06/30/22 Range/Units 05:07 05:07 05:07 WBC 18.4 H (3.8-10.6) k/uL RBC 3.72 L (3.80-5.40) m/uL Neutrophils # 15.7 H (1.3-7.7) k/uL Sodium 131 L (137-145) mmol/L BUN 25 H (7-17) mg/dL Glucose 127 H (74-99) mg/dL Urine Protein Trace H (Negative) H & H 06/30/22 Range/Units 05:07 Hgb 12.8 (11.4-16.0) gm/dL Hct 36.8 (34.0-46.0) % Coagulation 06/30/22 Range/Units 05:07 INR 0.9 (<1.2) Result Diagrams: 07/03/22 04:35 07/04/22 07:06 Assessment and Plan Assessment: Assessment: Acute traumatic comminuted right intertrochanteric femur fracture Status post fall Right hip pain Inability to ambulate due to hip History of left intertrochanteric hip fracture requiring surgical fixation Coronary artery disease COPD Dementia Hyperlipidemia Hypertension (1) Inability to ambulate due to right hip Current Visit: Yes Status: Acute Code(s): R26.2 - DIFFICULTY IN WALKING, NOT ELSEWHERE CLASSIFIED SNOMED Code(s): 998606087 (2) Coronary artery disease Current Visit: Yes Status: Acute Code(s): I25.10 - ATHSCL HEART DISEASE OF [place] CORONARY ARTERY W/O ANG PCTRS SNOMED Code(s): 15593091 (3) Hyperlipidemia Current Visit: Yes Status: Acute Code(s): E78.5 - HYPERLIPIDEMIA, UNSPECIFIED SNOMED Code(s): 31682036 (4) Hypertension Current Visit: Yes Status: Acute Code(s): I10 - ESSENTIAL (PRIMARY) HYPERTENSION SNOMED Code(s): 73142838 (5) Fracture, intertrochanteric, right femur Current Visit: Yes Status: Acute Code(s): S72.141A - DISPLACED INTERTROCHANTERIC FRACTURE OF RIGHT FEMUR, INIT SNOMED Code(s): 154629059 (6) Acute right hip pain Current Visit: Yes Status: Acute Code(s): M25.551 - PAIN IN RIGHT HIP SNOMED Code(s): 31126624 (7) Status post fall Current Visit: Yes Status: Acute Code(s): Z91.81 - HISTORY OF FALLING SNOMED Code(s): 062067013 (8) History of fracture of left hip Current Visit: Yes Status: Acute Code(s): Z87.81 - PERSONAL HISTORY OF (HEALED) TRAUMATIC FRACTURE SNOMED Code(s): 255275973 (9) COPD (chronic obstructive pulmonary disease) Current Visit: No Status: Acute Code(s): J44.9 - CHRONIC OBSTRUCTIVE PULMONARY DISEASE, UNSPECIFIED SNOMED Code(s): 83584012 (10) Dementia Current Visit: No Status: Acute Code(s): F03.90 - UNSP DEMENTIA, UNSP SEVERITY, WITHOUT BEH/PSYCH/MOOD/ANX SNOMED Code(s): 89938263 Plan: Plan: 1. Patient sustained a fall from bed landing on her right hip. She has had right hip pain ambulating ambulate since that time. She was brought to [facility] for further evaluation. X-ray imaging showed evidence of acute right intertrochanteric hip fracture. She was admitted to our service for further evaluation. Given her pain, right hip fracture, and inability ambulate due to her hip, we did discuss we feel surgical intervention to stabilize her right hip fracture gives her the best opportunity had better control of her pain and the best opportunity to increase her mobility and ambulation on her right lower extremity. Patient has a history of previous left intertrochanteric hip fracture requiring surgical intervention. Patient states she has done well as operatively in this regard. Patient states her right hip fracture she would like to proceed forward with surgical intervention at her right hip. We did discuss patient will remain strict nonweightbearing on the right lower extremity and will remain on bed rest. We will initiate Mcconnell catheter placement. Currently, patient may eat a heart healthy diet today and we will plan for nothing by mouth status starting at midnight, 07/01/2022, in anticipation for surgical intervention tomorrow. We did discuss patient will be seen and examined by medicine and will need further evaluation and surgical clearance prior to surgical intervention. Appropriate presurgical lab testing has been ordered including CBC, CMP, UA, EKG, chest x-ray, and PT/INR. We discussed the proposed surgical intervention is a right intramedullary nail fixation for right intertrochanteric hip fracture. For pain control, we'll plan to add Ultram 50 mg 1-2 tabs every 6 hours as needed for pain control. She may continue with Tylenol as well. I discussed these issues with the patient at length and I answered all of their questions to the best of my ability and the patient understands. I discussed the risk of surgical intervention and alternative treatment options. The risk of surgical intervention was explained to the patient in detail including but not limited to risk of bleeding, risk of infection, risk and need for further surgery, risk of decreased loss of motion of function, malunion, nonunion, hardware failure, nerve damage, paralysis, heart attack, , as well as the fact that surgery may not alleviate her symptoms. I answered all the patient's questions the best of my ability. The patient would like to proceed forward with surgical intervention and will sign informed consent. Agree with above. patient seen and examined. Options discussed with the patient and her family. we'll proceed with IMN. Time with Patient: Greater than 30 (Including obtaining history, physical exami nation, reviewing of imaging, and dictation.)
[2022-06-30] MEDS: traMADol 50 MG TAB PO PRN (11:36)
[2022-06-30] MEDS: IPRATROPIUM 0.5 MG/2.5 ML NEBU INHALATION SCH ×2 (15:48→20:19)
--- NOTE | 2022-06-30 16:39 | P.CONS ---
History of Present Illness - Reason for Consult Consult date: 06/30/22 Medical management - Chief Complaint Right hip intertrochanteric fracture - History of Present Illness Patient is a 77-year-old female with a known history of coronary artery disease cad, advanced COPD, dementia, hypertension, hyperlipidemia, anxiety/depression prior history of smoking was brought to ER status post fall. Patient apparently fallen from bed. Landed on her right hip and has been hurting since then. Since then she is not able to move her right leg. Not able to bear weight. P myra did have prior fall and left hip fracture earlier this year.. Otherwise patient has been afebrile. No nausea vomiting abdominal pain or diarrhea. No cough or sputum production. No chest pain or shortness of breath. Extremities hip showed acute comminuted intertrochanteric fracture right femur. EKG showed sinus bradycardia Chest x-ray showed no acute cardiopulmonary disease. Normal heart. No change. Laboratory data showed the preceding 0.4 hemoglobin 12.8 and platelets 327 Sodium 131 potassium 4.2 chloride 90 bicarb is 26 BUN 25 and creatinine 0.72 and blood sugar is 127 Urinalysis is negative for infection. Review of Systems Complete review of systems could not be obtained from the patient except as per HPI Past Medical History Past Medical History: Coronary Artery Disease (CAD), Chest Pain / Angina, COPD, Dementia, GERD/Reflux, Hyperlipidemia, Hypertension Additional Past Medical History / Comment(s): Advanced COPD,, degenerative arthritis, " recent hospitalization: anemia, blood in stools, acute kidney injury and low sodium", Last Myocardial Infarction Date:: 10/11/15 History of Any Multi-Drug Resistant Organisms: None Reported Past Surgical History: Section, Heart Catheterization Additional Past Surgical History / Comment(s): 04/27/14 EGD with negative bx and colonoscopy, 3 C-Sections, cardiac catheterization Past Anesthesia/Blood Transfusion Reactions: No Reported Reaction Past Psychological History: Anxiety, Depression Smoking Status: Former smoker Past Alcohol Use History: None Reported Past Drug Use History: None Reported - Past Family History Father Family Medical History: Coronary Artery Disease (CAD) Additional Family Medical History / Comment(s): Father at age 86yrs. Mother Family Medical History: No Reported History Additional Family Medical History / Comment(s): . Medications and Allergies Home Medications Medication Instructions Recorded Confirmed Type Metoprolol Succinate [Toprol Xl] 50 mg PO HS 01/18/18 06/30/22 History Vitamin B Complex 1 cap PO DAILY 01/18/18 06/30/22 History Ascorbic Acid [Vitamin C] 1,000 mg PO DAILY 08/27/20 06/30/22 History Umeclidinium Brm/Vilanterol Tr 1 puff INHALATION RT-DAILY 08/27/20 06/30/22 History [Anoro Ellipta 62.5-25 Mcg INH] Cholecalciferol [Vitamin D3 (25 25 mcg PO DAILY 10/07/21 06/30/22 History Mcg = 1000 Iu)] Sertraline HCl [Zoloft] 50 mg PO DAILY 10/07/21 06/30/22 History Aspirin EC [Ecotrin Low Dose] 81 mg PO DAILY 06/30/22 06/30/22 History Atorvastatin [Lipitor] 80 mg PO HS 06/30/22 06/30/22 History Clopidogrel [Plavix] 75 mg PO DAILY 06/30/22 06/30/22 History Mirtazapine [Remeron] 15 mg PO HS PRN 06/30/22 06/30/22 History Allergies Allergy/AdvReac Type Severity Reaction Status Date / Time No Known Allergies Allergy Verified 10/13/21 13:47 Physical Exam Vitals: Vital Signs Temp Pulse Pulse Resp BP BP Pulse Ox 06/30/22 09:00 89 L 06/30/22 06:17 97.6 F 56 L 16 159/62 97 06/30/22 05:20 56 L 16 131/56 96 06/30/22 04:15 97.6 F 06/30/22 04:08 59 L 18 140/95 94 L FiO2 06/30/22 09:00 21 06/30/22 06:17 06/30/22 05:20 06/30/22 04:15 06/30/22 04:08 Intake and Output 06/29/22 06/30/22 06/30/22 22:59 06:59 14:59 Other: Weight 54.431 kg PHYSICAL EXAMINATION: Patient is lying in the bed comfortably, no acute distress, awake alert and oriented 1.. HEENT: Normocephalic. Neck is supple. Pupils reactive. Nostrils clear. Oral c avity is moist. Neck reveals no JVD, carotid bruits, or thyromegaly. CHEST EXAMINATION: Trachea is central. Symmetrical expansion. Lung ness clear to auscultation and percussion. CARDIAC: Normal S1, S2 with no gallops. No murmurs ABDOMEN: Soft. Bowel sounds normal. No organomegaly. No abdominal bruits. Extremities: reveal no edema. No clubbing or cyanosis Neurologically awake, alert, oriented x1 patient does have underlying dementia. No gross focal deficits noted Skin: No rash or skin lesions. Psychiatric: Coperative. Could not be assessed completely Musculoskeletal: No joint swelling or deformity. Right hip decreased range of motion.. Results CBC & Chem 7: 06/30/22 05:07 06/30/22 05:07 Labs: Abnormal Lab Results - Last 24 Hours (Table) 06/30/22 06/30/22 06/30/22 Range/Units 05:07 05:07 05:07 WBC 18.4 H (3.8-10.6) k/uL RBC 3.72 L (3.80-5.40) m/uL Neutrophils # 15.7 H (1.3-7.7) k/uL Sodium 131 L (137-145) mmol/L BUN 25 H (7-17) mg/dL Glucose 127 H (74-99) mg/dL Urine Protein Trace H (Negative) Assessment and Plan Assessment: Acute comminuted right intertrochanteric fracture of the femur. Status post fall. Coronary artery with history of cardiac catheterization in 2016. Chronically occluded RCA with good collateral. Maximum medical therapy was recommended. Hypertension Hyperlipidemia Dementia COPD not in exacerbation Degenerative joint disease Anxiety/depression prior history of smoking DVT prophylaxis with heparin subcu Plan: Patient will be continued on telemetry monitoring. Continue with pain management. Follow-up CBC and BMP for improvement in leukocytosis. No evidence of infec tion. Chest x-ray no acute process and UA negative for infection. Continue with metoprolol and statins. Will start back on aspirin Plavix after the procedure procedure. Currently no active complaints of chest pain or shortness of breath. Renal function is normal.. Previous echocardiogram showed normal ejection fraction. Patient is at moderate risk for orthopedic surgery. Patient is medically stable at this time. We will continue to follow closely and further recommendations based on the cl inical course. Time with Patient: Greater than 30
[2022-06-30] MEDS: ATORVASTATIN 80 MG TAB PO SCH (21:27)
[2022-06-30] MEDS: METOPROLOL SUCCINATE (ER) 50 MG TAB.ER.24H PO SCH (21:27)
[2022-07-01] MEDS: SODIUM CHLORIDE 0.9% 1,000 ML IV SCH ×2 (02:46→12:04)
[2022-07-01] MEDS: MORPHINE SULFATE 4 MG/ML SYRINGE IV PRN (05:20)
[2022-07-01] MEDS: FORMOTEROL FUMARATE 20 MCG/2 ML NEBU INHALATION SCH ×2 (07:46→20:30)
[2022-07-01] MEDS: IPRATROPIUM 0.5 MG/2.5 ML NEBU INHALATION SCH ×4 (07:46→20:30)
--- NOTE | 2022-07-01 08:52 | P.PN ---
Progress Note - Text Progress Note Date: 07/01/22 Orthopedics: History of present illness: Patient is a very pleasant 77-year-old female who is seen and examined at bedside for follow-up evaluation in regards to her right hip. She has not had any change since being seen and examined yesterday. Patient does have a history of dementia but answers questions appropriately. Patient did sustain a fall and was reported the patient fell from a bed. Patient has had right hip pain since that time and has been unable to ambulate on her right lower extremity. She was brought to [facility] for further evaluation. X-ray imaging showed evidence of a right intertrochanteric hip fracture. She was admitted to our service for further treatment and evaluation. Patient does have a history of previous left intertrochanteric hip fracture undergoing surgical fixation with Dr. Sophia Doyle. Patient has requested evaluation and treatment of her right hip to be performed by Dr. Doyle. She has been seen by Dr. Reilly and has been cleared for surgical intervention at her right hip. Medicine continues with medical management. Patient is currently nothing by mouth in anticipation for surgical intervention later today. She is nonweightbearing on the right lower extremity and on bedrest. Physical exam: Patient is awake, alert, and oriented 3; patient is answering questions appropriately Vital signs stable Good chest excursion with deep inspiration and expiration Right lower extremity is shortened and externally rotated Pain with palpation of the right hip Significant pain with internal and external rotation of the right hip Neurovascularly intact right lower extremity Dorsiflexion, plantarflexion, and extensor hallucis longus positive sustained on the right Right calf is soft and supple; No signs or symptoms of DVT; No calf pain Pertinent studies: X-rays of the right hip and pelvis taken on 06/30/2022: Acute comminuted right intertrochanteric femur fracture Assessment: Acute traumatic comminuted right intertrochanteric femur fracture Status post fall Right hip pain Inability to ambulate due to hip History of left intertrochanteric hip fracture requiring surgical fixation Coronary artery disease COPD Dementia Hyperlipidemia Hypertension Plan: 1. We will continue with our plan as set forth yesterday. Patient sustained a fall from bed landing on her right hip. She has had right hip pain ambulating ambulate since that time. She was brought to [facility] for further evaluation. X-ray imaging showed evidence of acute right intertrochanteric hip fracture. She was admitted to our service for further evaluation. Given her pain, right hip fracture, and inability ambulate due to her hip, we did discuss we feel surgical intervention to stabilize her right hip fracture gives her the best opportunity had better control of her pain and the best opportunity to increase her mobility and ambulation on her right l ower extremity. Patient has a history of previous left intertrochanteric hip fracture requiring surgical intervention. Patient states she has done well as operatively in this regard. Patient states her right hip fracture she would like to proceed forward with surgical intervention at her right hip. We did discuss patient will remain strict nonweightbearing on the right lower extremity and will remain on bed rest. Patient is currently nothing by mouth status in anticipation for surgical intervention tomorrow. Patient has been seen and examined by medicine. Patient has been cleared for helm rgical intervention from a medical standpoint. Medicine also continues with medical management. We discussed the proposed surgical intervention is a right intramedullary nail fixation for right intertrochanteric hip fracture. A she would like to proceed forward with surgical intervention today as scheduled. I discussed these issues with the patient at length and I answered all of their questions to the best of my ability and the patient understands. I discussed the risk of surgical intervention and alternative treatment options. The risk of surgical intervention was explained to the patient in detail including but not limited to risk of bleeding, risk of infection, risk and need for further surgery, risk of decreased loss of motion of function, malunion, nonunion, hardware failure, nerve damage, paralysis, heart attack, , as well as the fact that surgery may not alleviate her symptoms. I answered all the patient's questions the best of my ability. The patient would like to proceed forward with surgical intervention and will sign informed consent.
[2022-07-01] MEDS: SERTRALINE 50 MG TAB PO SCH (09:05)
[2022-07-01] MEDS: CHOLECALCIFEROL 25 MCG (1000 IU) TABLET PO SCH (09:05)
[2022-07-01] MEDS: FAMOTIDINE 20 MG TAB PO SCH ×2 (09:05→21:04)
[2022-07-01 10:47] LABS: African American GFR (CKD) 95.5 (60.0-200.0); Anion Gap 9.5 mmol/L (10.00-18.00); BUN/Creat Ratio 17.29 Ratio (12.00-20.00); Blood Urea Nitrogen 12.1 mg/dL (9.0-27.0); Calcium 8.8 mg/dL (8.7-10.3); Carbon Dioxide 21.5 mmol/L (20.0-27.5); Non-African American GFR(CKD) 82.4 (60.0-200.0); Potassium 4.3 mmol/L (3.5-5.5)
--- NOTE | 2022-07-01 10:49 | P.PN ---
Subjective Progress Note Date: 07/01/22 This is a 77-year-old female sustained an acute comminuted right femur fracture status post fall, scheduled for surgery later today in a patient with underlying dementia. Afebrile, labs pending. Pain controlled. Pleasantly confused, denies chest pain, palpitations or shortness of breath. Objective - Vital Signs Vital signs: Vital Signs Temp 97.6 F 07/01/22 05:19 Pulse 72 07/01/22 07:56 Resp 16 07/01/22 05:19 BP 175/84 07/01/22 05:19 Pulse Ox 94 L 07/01/22 05:19 FiO2 21 06/30/22 09:00 Intake & Output 06/30/22 07/01/22 07/01/22 18:59 06:59 18:59 Intake Total 240 1000 Output Total 960 1000 Balance -720 0 Intake: Intake, IV Titration 1000 Amount Sodium Chloride 0.9% 1, 1000 000 ml @ 100 mls/hr IV . Q10H [facility] Rx#:[id number] Oral 240 Output: Urine 960 1000 Other: Voiding Method External Catheter Indwelling Catheter - Exam PHYSICAL EXAMINATION: Patient is lying in the bed comfortably, no acute distress, awake alert and oriented 1-2. HEENT: Normocephalic. Neck is supple. Pupils reactive. Nostrils clear. Oral cavity is dry. Neck : Supple, no JVD. CHEST EXAMINATION: Unlabored,clear to auscultation, bilateral bases diminished. CARDIAC: Normal S1, S2 with no gallops. No murmurs ABDOMEN: Soft. Nontender, Bowel sounds normal. No organomegaly.+BS. Extremities: Right lower extremity pain with internal/external rotation,no calf tenderness, positive DP. Neurologically awake, alert, oriented x1 patient does have underlying dementia. No gross focal deficits noted Skin: Warm and dry, No rash. Psychiatric: Pleasantly confused, alert and oriented 1-2, Coperative. - Labs CBC & Chem 7: 06/30/22 05:07 06/30/22 05:07 Assessment and Plan Assessment: Acute comminuted right intertrochanteric fracture of the femur. Status post fall. Coronary artery with history of cardiac catheterization in 2016. Chronically occluded RCA with good collateral. Maximum medical therapy was recommended. Hypertension Hyperlipidemia Dementia COPD not in exacerbation Degenerative joint disease Anxiety/depression prior history of smoking Plan: Continue on current medication regime, monitoring and symptomatic treatment. Labs pending. NPO,surgical intervention pending. Pain management, anticoagulation as per orthopedic surgery. PPI added to med regimen.AURELIO at [place]. The impression and plan of care has been dictated as directed. : I performed a history and examination of this patient, discussed the same with the dictator. I agree with the dictator's note ,documented as a scribe. Any additional findings or plans will be noted.
[2022-07-01] MEDS: PANTOPRAZOLE 40 MG/10 ML VIAL IVP SCH (11:57)
[2022-07-01] MEDS: traMADol 50 MG TAB PO PRN (12:01)
[2022-07-01 14:20] VITALS: BMI 20.5
[2022-07-01 15:58] LABS: African American GFR (CKD) >90 (>60 ml/min/1.73 sqM); Anion Gap 7 mmol/L; Blood Urea Nitrogen 12 mg/dL (7-17); Calcium 8.5 mg/dL (8.4-10.2); Carbon Dioxide 24 mmol/L (22-30); Chloride 96 mmol/L (98-107); Glucose 105 mg/dL (74-99); Non-African American GFR(CKD) 88 (>60 ml/min/1.73 sqM); Potassium 4.5 mmol/L (3.5-5.1); Sodium 127 mmol/L (137-145)
[2022-07-01] MEDS ORDERED: LACTATED RINGERS 1,000 ML IV ONE (17:00)
[2022-07-01] MEDS ORDERED: MAGNESIUM HYDROXIDE 2,400 MG/10 ML CUP PO PRN (17:19)
[2022-07-01] MEDS ORDERED: fentaNYL (PF) 50 MCG/ML 2 ML AMP ONE (18:13)
[2022-07-01] MEDS ORDERED: NEOSTIGMINE 1 MG/ML 10 ML VIAL ONE (18:13)
[2022-07-01] MEDS ORDERED: PROPOFOL 10 MG/ML 20 ML VIAL IV ONE (18:13)
[2022-07-01] MEDS ORDERED: LIDOCAINE 2% INJ 20 MG/ML (2 ML VIAL) ONE (18:13)
[2022-07-01] MEDS ORDERED: TRANEXAMIC ACID IN NACL,ISO-OS 1,000 MG/100 ML BAG ONE (18:13)
[2022-07-01] MEDS ORDERED: ROCURONIUM 10 MG/ML (5 ML VIAL) IV ONE (18:13)
[2022-07-01] MEDS ORDERED: GLYCOPYRROLATE 0.2 MG/ML 2 ML VIAL ONE (18:13)
[2022-07-01] MEDS ORDERED: SUCCINYLCHOLINE CHLORIDE 200 MG/10 ML VIAL IV ONE (18:13)
[2022-07-01] MEDS ORDERED: ceFAZolin 1,000 MG in SODIUM CHLORIDE 0.9% 1,000 ML IRRIGATION ONE (18:53)
[2022-07-01] MEDS ORDERED: TRANEXAMIC ACID IN NACL,ISO-OS 1,000 MG in SALINE 1 100ML.BAG IVPB ONE ×2 (18:56→18:58)
--- NOTE | 2022-07-01 19:55 | XR ---
EXAMINATION TYPE: XR Hip Complete RT, XR Hip Limited RT DATE OF EXAM: 07/01/2022 7:47 PM INDICATION: Patient age:Female; 77 years old; Reason for study: RT hip nailing; PH[facility]. Intraoperative/procedural fluoroscopic services were provided. Total fluoroscopy time is 1 minute 14 seconds with a total of 2 submitted images to PACS. Please see the operative/procedural note for furt her details.
[2022-07-01] MEDS: METOPROLOL SUCCINATE (ER) 50 MG TAB.ER.24H PO SCH (21:03)
[2022-07-01] MEDS: ATORVASTATIN 80 MG TAB PO SCH (21:03)
[2022-07-01] MEDS: SENNOSIDES-DOCUSATE SODIUM 1 EACH TAB PO SCH (21:04)
--- NOTE | 2022-07-01 21:23 | FL ---
Intraoperative/procedural fluoroscopic services were provided. Total fluoroscopy time is 1 minute 14 seconds with a total of 2 submitted images to PACS. Please see the operative/procedural note for furt her details.
[2022-07-02] MEDS: MORPHINE SULFATE 4 MG/ML SYRINGE IV PRN ×2 (04:34→11:21)
[2022-07-02] MEDS: FORMOTEROL FUMARATE 20 MCG/2 ML NEBU INHALATION SCH ×2 (08:24→19:37)
[2022-07-02] MEDS: IPRATROPIUM 0.5 MG/2.5 ML NEBU INHALATION SCH ×4 (08:24→19:36)
[2022-07-02] MEDS: PANTOPRAZOLE 40 MG/10 ML VIAL IVP SCH (09:01)
[2022-07-02] MEDS: FAMOTIDINE 20 MG TAB PO SCH ×2 (09:01→21:45)
[2022-07-02] MEDS: CHOLECALCIFEROL 25 MCG (1000 IU) TABLET PO SCH (09:01)
[2022-07-02] MEDS: SERTRALINE 50 MG TAB PO SCH (09:01)
[2022-07-02] MEDS: HYDROcodone/APAP 5-325MG 1 EACH TAB PO PRN ×3 (09:14→22:02)
[2022-07-02 09:27] LABS: HCT 26.2 % (37.2-46.3); HGB 8.7 g/dL (12.0-15.0); MCH 33.1 pg (27.0-32.0); MCHC 33.2 g/dL (32.0-37.0); MCV 99.6 fL (80.0-97.0); Mean Platelet Volume 10.2 fL (9.5-12.2); NRBC Per 100 WBC 0 /100 WBCS (0.0-0.0); Platelet Count 231 X 10*3/uL (140-440); RBC 2.63 X 10*6/uL (4.10-5.20); WBC 14.53 X 10*3/uL (4.50-10.00)
[2022-07-02 10:24] LABS: Basophils # (A) 0.06 X 10*3/uL (0.00-0.10); Basophils % (A) 0.4 %; Eosinophils # (A) 0.09 X 10*3/uL (0.04-0.35); Eosinophils % (A) 0.6 %; Immature Grans, Automated 0.9 %; Lymphocytes # (A) 1.29 X 10*3/uL (0.90-5.00); Lymphocytes % (A) 8.9 %; Monocytes # (A) 1.59 X 10*3/uL (0.20-1.00); Monocytes % (A) 10.9 %; Neutrophils # (A) 11.37 X 10*3/uL (1.80-7.70); Neutrophils % (A) 78.3 %
[2022-07-02 10:25] LABS: RBC Morphology NORMAL
--- NOTE | 2022-07-02 12:48 | P.PN ---
Subjective Progress Note Date: 07/02/22 Principal diagnosis: Status post right hip open reduction and internal fixation with cephalomedullary nail This is a 77 year-old female post right hip ORIF with cephalomedullary nail. This is post-op day 1. The patient was evaluated in the recliner chair at the bedside. The patient denies nausea, vomiting, abdominal pain, chest pain, or shortness of breath this morning. She states her pain is controlled at this time. Objective - Vital Signs Vital signs: Vital Signs Temp 98 F 07/02/22 12:34 Pulse 78 07/02/22 12:34 Resp 16 07/02/22 12:34 BP 110/62 07/02/22 12:34 Pulse Ox 97 07/02/22 12:34 FiO2 21 06/30/22 09:00 Intake & Output 07/01/22 07/02/22 07/02/22 18:59 06:59 18:59 Intake Total 1250 200 Output Total 1200 595 Balance 50 -395 Weight 54.431 kg Intake: IV 650 200 Intake, IV Titration 600 Amount Sodium Chloride 0.9% 1, 600 000 ml @ 50 mls/hr IV . Q20H [facility] Rx#:[id number] Output: Urine 1200 295 Estimated Blood Loss 300 Other: Voiding Method Indwelling Catheter Indwelling Catheter Indwelling Catheter # Bowel Movements 0 - Exam The patient does not appear in acute distress. Alert and orientated x1. Dressings are clean dry and intact. Incision appears fine with no erythema or active drainage. Calf is soft and nontender. Good foot and ankle motion without difficulty. Sensation and circulatory status is intact. - Labs CBC & Chem 7: 07/02/22 03:45 07/01/22 15:27 Labs: Abnormal Lab Results - Last 24 Hours (Table) 07/01/22 07/02/22 Range/Units 15:27 03:45 WBC 14.53 H (4.50-10.00) X 10*3/uL RBC 2.63 L (4.10-5.20) X 10*6/uL Hgb 8.7 L (12.0-15.0) g/dL Hct 26.2 L (37.2-46.3) % MCV 99.6 H (80.0-97.0) fL MCH 33.1 H (27.0-32.0) pg Immature Gran # 0.13 H (0.00-0.04) X 10*3/uL Neutrophils # 11.37 H (1.80-7.70) X 10*3/uL Monocytes # 1.59 H (0.20-1.00) X 10*3/uL Sodium 127 L (137-145) mmol/L Chloride 96 L (98-107) mmol/L Glucose 105 H (74-99) mg/dL Assessment and Plan (1) Status post hip surgery Current Visit: Yes Status: Acute Code(s): Z98.890 - OTHER SPECIFIED POSTPROCEDURAL STATES SNOMED Code(s): 648685022 (2) Fall Current Visit: Yes Status: Acute Code(s): W19.XXXA - UNSPECIFIED FALL, INITIAL ENCOUNTER SNOMED Code(s): 3547566 (3) Fracture, intertrochanteric, right femur Current Visit: Yes Status: Acute Code(s): S72.141A - DISPLACED INTERTROCHANTERIC FRACTURE OF RIGHT FEMUR, INIT SNOMED Code(s): 188185506 Plan: 1. Continue pain control 2. Anticoagulation with Lovenox 3. Start physical therapy and ambulation. Weightbearing as tolerated with a walker. 4. Anticipate discharge to skilled rehab in the next 1-2 days.
[2022-07-02] MEDS: SODIUM CHLORIDE 0.9% 1,000 ML IV SCH (14:02)
[2022-07-02] MEDS: ENOXAPARIN 40 MG/0.4 ML SYRINGE SQ SCH (15:18)
[2022-07-02 15:54] LABS: African American GFR (CKD) 71 (>60 ml/min/1.73 sqM); Anion Gap 5 mmol/L; Blood Urea Nitrogen 21 mg/dL (7-17); Calcium 8.4 mg/dL (8.4-10.2); Carbon Dioxide 21 mmol/L (22-30); Chloride 98 mmol/L (98-107); Glucose 127 mg/dL (74-99); Non-African American GFR(CKD) 61 (>60 ml/min/1.73 sqM); Potassium 4.6 mmol/L (3.5-5.1); Sodium 124 mmol/L (137-145)
--- NOTE | 2022-07-02 17:46 | P.PN ---
Subjective Progress Note Date: 07/02/22 This is a 77-year-old female sustained an acute comminuted right femur fracture status post fall, scheduled for surgery later today in a patient with underlying dementia. Afebrile, labs pending. Pain controlled. Pleasantly confused, denies chest pain, palpitations or shortness of breath. 07/02/2022 status post right hip open reduction, postop day #1. Tolerated procedure well. Pain controlled. Hemoglobin decreased to 8.7, platelets 231. Maintained on IV fluid hydration, Sodium 124, potassium 4.6, chloride 98 bicarb 21 BUN 21, creatinine 0.9. Denies nausea, vomiting. Denies abdominal pain. M aintaining O2 sats in the high 90s on 2 L nasal cannula. Objective - Vital Signs Vital signs: Vital Signs Temp 98 F 07/02/22 12:34 Pulse 75 07/02/22 15:47 Resp 16 07/02/22 12:34 BP 110/62 07/02/22 12:34 Pulse Ox 97 07/02/22 12:34 FiO2 21 06/30/22 09:00 Intake & Output 07/01/22 07/02/22 07/02/22 18:59 06:59 18:59 Intake Total 1250 200 Output Total 1200 595 Balance 50 -395 Weight 54.431 kg Intake: IV 650 200 Intake, IV Titration 600 Amount Sodium Chloride 0.9% 1, 600 000 ml @ 50 mls/hr IV . Q20H [facility] Rx#:[id number] Output: Urine 1200 295 Estimated Blood Loss 300 Other: Voiding Method Indwelling Catheter Indwelling Catheter Indwelling Catheter # Bowel Movements 0 - Exam PHYSICAL EXAMINATION: Patient is lying in the bed comfortably, no acute distress, awake alert and oriented 1-2. HEENT: Normocephalic. Neck is supple. Pupils reactive. MMM. Neck : Supple, no JVD. CHEST EXAMINATION: Unlabored,clear to auscultation, bilateral bases diminished. CARDIAC: Normal S1, S2 with no gallops. No murmurs ABDOMEN: Soft. Nontender, Bowel sounds normal. No organomegaly.+BS. Extremities: Right lower extremity dressings clean dry and intact, minimal edema ,no calf tenderness, positive DP. Neurologically awake, alert, oriented x1 patient does have underlying dementia. No gross focal deficits noted Skin: Warm and dry, No rash. Psychiatric: Pleasantly confused, alert and oriented 1-2, Coperative. - Labs CBC & Chem 7: 07/02/22 03:45 07/02/22 03:45 Labs: Abnormal Lab Results - Last 24 Hours (Table) 07/02/22 07/02/22 Range/Units 03:45 03:45 WBC 14.53 H (4.50-10.00) X 10*3/uL RBC 2.63 L (4.10-5.20) X 10*6/uL Hgb 8.7 L (12.0-15.0) g/dL Hct 26.2 L (37.2-46.3) % MCV 99.6 H (80.0-97.0) fL MCH 33.1 H (27.0-32.0) pg Immature Gran # 0.13 H (0.00-0.04) X 10*3/uL Neutrophils # 11.37 H (1.80-7.70) X 10*3/uL Monocytes # 1.59 H (0.20-1.00) X 10*3/uL Sodium 124 L (137-145) mmol/L Carbon Dioxide 21 L (22-30) mmol/L BUN 21 H (7-17) mg/dL Glucose 127 H (74-99) mg/dL Assessment and Plan Assessment: Acute comminuted right intertrochanteric fracture of the femur, secondary to fall. Status post right hip surgery. Hyponatremia Acute postoperative blood loss Anemia, expected outcome, repeat levels pending. Acute renal insufficiency secondary to the above Coronary artery with history of cardiac catheterization in 2016. Chronically occluded RCA with good collateral. Maximum medical therapy was recommended. Hypertension Hyperlipidemia Dementia COPD not in exacerbation Degenerative joint disease Anxiety/depression prior history of smoking Plan: Continue on current medication regime, monitoring and symptomatic treatment. Close monitoring of hemoglobin, platelets ,sodium, renal function with repeat labs ordered for a.m with repeat sodium and hemoglobin at 1730. Hyponatremia, worsening renal function, nephrology consulted. Pain management, anticoagulation as per orthopedic surgery. PT/AURELIO at [place]. The impression and plan of care has been dictated as directed. : I performed a history and examination of this patient, discussed the same with the dictator. I agree with the dictator's note ,documented as a scribe. Any additional findings or plans will be noted.
[2022-07-02 18:07] LABS: HCT 22.6 % (34.0-46.0); MCH 33.8 pg (25.0-35.0); MCHC 33.6 g/dL (31.0-37.0); MCV 100.3 fL (80.0-100.0); Mean Platelet Volume 8.2; Platelet Count 197 k/uL (150-450); RBC 2.25 m/uL (3.80-5.40); RDW 12.3 % (11.5-15.5); WBC 10.8 k/uL (3.8-10.6)
[2022-07-02 18:54] LABS: HGB 7.6 gm/dL (11.4-16.0)
[2022-07-02] MEDS: METOPROLOL SUCCINATE (ER) 50 MG TAB.ER.24H PO SCH (21:44)
[2022-07-02] MEDS: ATORVASTATIN 80 MG TAB PO SCH (21:45)
[2022-07-02] MEDS: SENNOSIDES-DOCUSATE SODIUM 1 EACH TAB PO SCH (21:45)
[2022-07-03] MEDS: SODIUM CHLORIDE 0.9% 1,000 ML IV SCH ×2 (06:48→18:29)
[2022-07-03] MEDS: FORMOTEROL FUMARATE 20 MCG/2 ML NEBU INHALATION SCH ×2 (07:17→19:38)
[2022-07-03] MEDS: IPRATROPIUM 0.5 MG/2.5 ML NEBU INHALATION SCH ×4 (07:17→19:38)
[2022-07-03] MEDS: CHOLECALCIFEROL 25 MCG (1000 IU) TABLET PO SCH (08:08)
[2022-07-03] MEDS: SERTRALINE 50 MG TAB PO SCH (08:08)
[2022-07-03] MEDS: PANTOPRAZOLE 40 MG/10 ML VIAL IVP SCH (08:08)
[2022-07-03] MEDS: ENOXAPARIN 40 MG/0.4 ML SYRINGE SQ SCH (08:08)
[2022-07-03] MEDS: FAMOTIDINE 20 MG TAB PO SCH (08:08)
[2022-07-03] MEDS: HYDROcodone/APAP 5-325MG 1 EACH TAB PO PRN (08:41)
[2022-07-03 09:19] LABS: Basophils # (A) 0.07 X 10*3/uL (0.00-0.10); Basophils % (A) 0.6 %; Eosinophils # (A) 0.33 X 10*3/uL (0.04-0.35); Eosinophils % (A) 2.7 %; HCT 22.3 % (37.2-46.3); HGB 7.3 g/dL (12.0-15.0); Immature Grans, Automated 1.1 %; Lymphocytes # (A) 1.54 X 10*3/uL (0.90-5.00); Lymphocytes % (A) 12.5 %; MCH 33.8 pg (27.0-32.0); MCHC 32.7 g/dL (32.0-37.0); MCV 103.2 fL (80.0-97.0); Mean Platelet Volume 10.8 fL (9.5-12.2); Monocytes # (A) 1.49 X 10*3/uL (0.20-1.00); Monocytes % (A) 12.1 %; NRBC Per 100 WBC 0 /100 WBCS (0.0-0.0); Neutrophils # (A) 8.71 X 10*3/uL (1.80-7.70); Platelet Count 208 X 10*3/uL (140-440); RBC 2.16 X 10*6/uL (4.10-5.20); RDW 13.1 % (11.5-14.5); WBC 12.28 X 10*3/uL (4.50-10.00)
--- NOTE | 2022-07-03 09:23 | P.PN ---
Subjective Progress Note Date: 07/03/22 Principal diagnosis: Status post right hip open reduction and internal fixation with cephalomedullary nail This is a 77 year-old female post right hip ORIF with cephalomedullary nail. This is post-op day 2. The patient was evaluated at the bedside this morning. The patient denies nausea, vomiting, abdominal pain, chest pain, or shortness of breath this morning. She states her pain is controlled at this time. Nephrology has been consulted for hyponatremia and worsening renal status. Objective - Vital Signs Vital signs: Vital Signs Temp 98.5 F 07/03/22 05:00 Pulse 89 07/03/22 07:31 Resp 16 07/03/22 05:00 BP 131/63 07/03/22 05:00 Pulse Ox 89 L 07/03/22 07:18 FiO2 21 06/30/22 09:00 Intake & Output 07/02/22 07/03/22 07/03/22 18:59 06:59 18:59 Intake Total 600 120 Balance 600 120 Intake: Intake, IV Titration 600 Amount Sodium Chloride 0.9% 1, 600 000 ml @ 60 mls/hr IV . [id number] [facility] Rx#:[id number] Oral 120 Other: Voiding Method Indwelling Catheter Bedpan # Voids 1 - Exam The patient does not appear in acute distress. Alert and orientated x1. Dressings are clean dry and intact. Incision appears fine with no erythema or active drainage. Calf is soft and nontender. Good foot and ankle motion without difficulty. Sensation and circulatory status is intact. - Labs CBC & Chem 7: 07/02/22 17:51 07/02/22 17:51 Labs: Abnormal Lab Results - Last 24 Hours (Table) 07/02/22 07/02/22 07/02/22 Range/Units 03:45 03:45 17:51 WBC 14.53 H 10.8 H (4.50-10.00) X 10*3/uL RBC 2.63 L 2.25 L (4.10-5.20) X 10*6/uL Hgb 8.7 L 7.6 L D (12.0-15.0) g/dL Hct 26.2 L 22.6 L (37.2-46.3) % MCV 99.6 H 100.3 H (80.0-97.0) fL MCH 33.1 H (27.0-32.0) pg Immature Gran # 0.13 H (0.00-0.04) X 10*3/uL Neutrophils # 11.37 H (1.80-7.70) X 10*3/uL Monocytes # 1.59 H (0.20-1.00) X 10*3/uL Sodium 124 L (137-145) mmol/L Carbon Dioxide 21 L (22-30) mmol/L BUN 21 H (7-17) mg/dL Glucose 127 H (74-99) mg/dL 07/02/22 Range/Units 17:51 WBC (4.50-10.00) X 10*3/uL RBC (4.10-5.20) X 10*6/uL Hgb (12.0-15.0) g/dL Hct (37.2-46.3) % MCV (80.0-97.0) fL MCH (27.0-32.0) pg Immature Gran # (0.00-0.04) X 10*3/uL Neutrophils # (1.80-7.70) X 10*3/uL Monocytes # (0.20-1.00) X 10*3/uL Sodium 125 L (137-145) mmol/L Carbon Dioxide (22-30) mmol/L BUN (7-17) mg/dL Glucose (74-99) mg/dL Assessment and Plan (1) Status post hip surgery Current Visit: Yes Status: Acute Code(s): Z98.890 - OTHER SPECIFIED POSTPROCEDURAL STATES SNOMED Code(s): 169473202 (2) Fall Current Visit: Yes Status: Acute Code(s): W19.XXXA - UNSPECIFIED FALL, INITIAL ENCOUNTER SNOMED Code(s): 5008660 (3) Fracture, intertrochanteric, right femur Current Visit: Yes Status: Acute Code(s): S72.141A - DISPLACED INTERTROCHANTERIC FRACTURE OF RIGHT FEMUR, INIT SNOMED Code(s): 485942310 Plan: 1. Continue pain control 2. Anticoagulation with Lovenox 3. Continue physical therapy and ambulation. Weightbearing as tolerated with a walker. 4. Anticipate discharge to skilled rehab. Orthopedically stable for discharge when cleared by medicine.
[2022-07-03 09:48] LABS: African American GFR (CKD) 70.5 (60.0-200.0); Anion Gap 9.2 mmol/L (10.00-18.00); BUN/Creat Ratio 29.78 Ratio (12.00-20.00); Blood Urea Nitrogen 26.8 mg/dL (9.0-27.0); Calcium 8.3 mg/dL (8.7-10.3); Carbon Dioxide 19.8 mmol/L (20.0-27.5); Non-African American GFR(CKD) 60.8 (60.0-200.0); Potassium 4.1 mmol/L (3.5-5.5)
[2022-07-03] MEDS ORDERED: SODIUM CHLORIDE TAB 1 GM TAB PO STA (11:27)
--- NOTE | 2022-07-03 11:49 | P.DS ---
Providers Date of admission: 06/30/22 04:56 Expected date of discharge: 07/03/22 Attending physician: Chano Newton Consults: 06/30/22 04:56 Consult Physician Routine Consulting Provider: Girish Burns Consult Reason/Comments: Medical management Do you want consulting provider notified?: Yes 07/02/22 17:30 Consult Physician Routine Consulting Provider: Karen Uriarte Consult Reason/Comments: hyponatremia Do you want consulting provider notified?: Yes Primary care physician: Chano Newton Hospital Course: Final Diagnoses: Acute comminuted right intertrochanteric fracture of the femur, secondary to fall. Status post right hip surgery. Hyponatremia Acute postoperative blood loss Anemia, expected outcome, repeat levels pending. Acute renal insufficiency secondary to the above Coronary artery with history of cardiac catheterization in 2016. Chronically occluded RCA with good collateral. Maximum medical therapy was recommended. Hypertension Hyperlipidemia Dementia COPD not in exacerbation Degenerative joint disease Anxiety/depression prior history of smoking Hospital course:This is a 77-year-old female sustained an acute comminuted right femur fracture status post fall, scheduled for surgery later today in a patient with underlying dementia. Afebrile, labs pending. Pain controlled. Pleasantly confused, denies chest pain, palpitations or shortness of breath. 07/02/2022 status post right hip open reduction, postop day #1. Tolerated procedure well. Pain controlled. Hemoglobin decreased to 8.7, platelets 231. Maintained on IV fluid hydration, Sodium 124, potassium 4.6, chloride 98 bicarb 21 BUN 21, creatinine 0.9. Denies nausea, vomiting. Denies abdominal pain. Maintaining O2 sats in the high 90s on 2 L nasal cannula. Sodium improved up to 128, BUN 26.8, creatinine 0.9, GFR 60.8. Nephrology consult in place, recommendations pending. Hemoglobin 7.3 Pain improving, currently controlled. Denies nausea vomiting or diarrhea. Denies abdominal pain. Denies chest pain, palpitations or shortness of breath. Maintaining O2 sats in the 90s on 2 L nasal cannula. Patient will be discharged to subacute rehab pending final DC recommendations and clearance as per nephrology, cleared by orthopedic surgery. The impression and plan of care has been dictated as directed. : I performed a history and examination of this patient, discussed the same with the dictator. I agree with the dictator's note ,documented as a scribe. Any additional findings or plans will be noted. Patient Condition at Discharge: Stable Plan - Discharge Summary Discharge Rx Participant: Yes New Discharge Prescriptions: New Enoxaparin [Lovenox] 40 mg SQ DAILY #30 each Sennosides-Docusate Sodium [Senokot-S] 2 tab PO HS #30 tablet Ipratropium Nebulized [Atrovent Nebulized 0.2 MG/ML] 0.5 mg INHALATION RT-QID ml HYDROcodone/APAP 5-325MG [[place] 5] 1 each PO Q6HR PRN #30 tab PRN Reason: Pain Continue Metoprolol Succinate [Toprol Xl] 50 mg PO HS Vitamin B Complex 1 cap PO DAILY Umeclidinium Brm/Vilanterol Tr [Anoro Ellipta 62.5-25 Mcg INH] 1 puff INHALATION RT-DAILY Ascorbic Acid [Vitamin C] 1,000 mg PO DAILY Mirtazapine [Remeron] 15 mg PO HS PRN PRN Reason: sleep Sertraline HCl [Zoloft] 50 mg PO DAILY Cholecalciferol [Vitamin D3 (25 Mcg = 1000 Iu)] 25 mcg PO DAILY Atorvastatin [Lipitor] 80 mg PO HS Clopidogrel [Plavix] 75 mg PO DAILY Discontinued Aspirin EC [Ecotrin Low Dose] 81 mg PO DAILY Discharge Medication List Metoprolol Succinate [Toprol Xl] 50 mg PO HS 01/18/18 [History] Vitamin B Complex 1 cap PO DAILY 01/18/18 [History] Ascorbic Acid [Vitamin C] 1,000 mg PO DAILY 08/27/20 [History] Umeclidinium Brm/Vilanterol Tr [Anoro Ellipta 62.5-25 Mcg INH] 1 puff INHALATION RT-DAILY 08/27/20 [History] Cholecalciferol [Vitamin D3 (25 Mcg = 1000 Iu)] 25 mcg PO DAILY 10/07/21 [History] Sertraline HCl [Zoloft] 50 mg PO DAILY 10/07/21 [History] Atorvastatin [Lipitor] 80 mg PO HS 06/30/22 [History] Clopidogrel [Plavix] 75 mg PO DAILY 06/30/22 [History] Mirtazapine [Remeron] 15 mg PO HS PRN 06/30/22 [History] Enoxaparin [Lovenox] 40 mg SQ DAILY #30 each 07/03/22 [Rx] HYDROcodone/APAP 5-325MG [[place] 5] 1 each PO Q6HR PRN #30 tab 07/03/22 [Rx] Ipratropium Nebulized [Atrovent Nebulized 0.2 MG/ML] 0.5 mg INHALATION RT-QID ml 07/03/22 [Rx] Sennosides-Docusate Sodium [Senokot-S] 2 tab PO HS #30 tablet 07/03/22 [Rx] Follow up Appointment(s)/Referral(s): Sophia Doyle DO [Doctor of Osteopathic Medicine] - 4 Weeks Chano Newton DO [Primary Care Provider] - 1 Week (After DC from subacute rehab) Activity/Diet/Wound Care/Special Instructions: GHAZAL Singh in 3 days Keep Optifoam dressing in place for 7 days unless saturated. After 7 days, no dressing is needed. PT - WBAT with walker and assistance. Use pain medication as directed. Continue LMWH for 4 weeks Follow up outpatient with Dr. Doyle in 4 weeks -- call for appointment. Call [facility] with questions or concerns. Discharge Disposition: TRANSFER TO SNF/ECF
[2022-07-03] MEDS: MORPHINE SULFATE 4 MG/ML SYRINGE IV PRN (17:10)
[2022-07-03] MEDS: SENNOSIDES-DOCUSATE SODIUM 1 EACH TAB PO SCH (21:59)
[2022-07-03] MEDS: ATORVASTATIN 80 MG TAB PO SCH (21:59)
[2022-07-03] MEDS: METOPROLOL SUCCINATE (ER) 50 MG TAB.ER.24H PO SCH (21:59)
--- NOTE | 2022-07-03 22:43 | CONS ---
CONSULTATION REASON FOR CONSULT: Hyponatremia. HISTORY OF PRESENT ILLNESS: The patient is a 77-year-old female who was admitted to the hospital with a history of fall. The patient was not able to move her right leg. She was found to have acute comminuted right femoral fracture. The patient is status post right hip open reduction on 07/01/2022. Her sodium was 131 on initial admission and had decreased to 124 yesterday. She has been maintained on normal saline since the , currently running at 60 mL/hour. Blood pressure was slightly on the lower side, although not significantly low. I do see a systolic blood pressure of 96 on 07/01/2022. The patient had pain which seems to have improved currently. The patient also had a Mcconnell catheter, which is now removed. PAST MEDICAL HISTORY: Significant for coronary artery disease, COPD, dementia, gastroesophageal reflux disease, hyperlipidemia, hypertension, osteoarthritis. PAST SURGICAL HISTORY: , history of EGD, cardiac catheterization. SOCIAL HISTORY: The patient is a former smoker. No history of drug abuse or alcohol abuse. MEDICATIONS: Medications at home included Toprol, vitamin C, Zoloft, aspirin Lipitor, Plavix, Remeron. ALLERGIES: None. PHYSICAL EXAMINATION: GENERAL: The patient is currently comfortable, awake, not in any acute distress. VITAL SIGNS: Blood pressure 113/57, heart rate 100 per minute. She is afebrile. HEART: S1 and S2. LUNGS: Bilateral breath sounds are heard. ABDOMEN: Soft, nontender. EXTREMITIES: No significant edema noted on the left leg. LABS: From today show hemoglobin 7.3, sodium 128, potassium 4.1, serum creatinine 0.9 mg/dL. ASSESSMENT: 1. Hyponatremia, most likely associated with syndrome of inappropriate secretion of antidiuretic hormone due to pain. The patient's blood pressure was low. Therefore, they may have been a component of hypovolemia. However, the patient has been maintained on normal saline since the . I will give her a dose of sodium chloride tab and check urine osmolality. If the patient has syndrome of inappropriate secretion of antidiuretic hormone, she will we will need to discontinue the saline. Sodium will be repeated later on this afternoon. 2. Anemia postoperatively, rule out iron deficiency. 3. Status post fall and right femoral fracture, status post right hip open reduction on 07/01/2022. PLAN: Sodium chloride tab x1. Repeat sodium this afternoon. Check iron profile. The patient is encouraged to increase oral intake, particularly protein. We will need to discontinue the saline if urine osmolality is elevated or if serum sodium level worsens. Thank you for this consultation. We will continue to follow the patient with you during her hospitalization. NORMA / RYAN: [id number] /
[2022-07-04] MEDS: MORPHINE SULFATE 4 MG/ML SYRINGE IV PRN (04:38)
[2022-07-04] MEDS: SODIUM CHLORIDE 0.9% 1,000 ML IV SCH (06:20)
[2022-07-04] MEDS ORDERED: SODIUM CHLORIDE TAB 1 GM TAB PO SCH (09:00)
[2022-07-04] MEDS: IPRATROPIUM 0.5 MG/2.5 ML NEBU INHALATION SCH ×4 (09:07→20:37)
[2022-07-04] MEDS: FORMOTEROL FUMARATE 20 MCG/2 ML NEBU INHALATION SCH ×2 (09:07→20:37)
[2022-07-04] MEDS: CHOLECALCIFEROL 25 MCG (1000 IU) TABLET PO SCH (09:19)
[2022-07-04] MEDS: SERTRALINE 50 MG TAB PO SCH (09:19)
[2022-07-04] MEDS: PANTOPRAZOLE 40 MG/10 ML VIAL IVP SCH (09:19)
[2022-07-04] MEDS: FAMOTIDINE 20 MG TAB PO SCH (09:19)
[2022-07-04] MEDS: ENOXAPARIN 40 MG/0.4 ML SYRINGE SQ SCH (09:20)
[2022-07-04 10:52] LABS: African American GFR (CKD) 97.1 (60.0-200.0); Anion Gap 9.6 mmol/L (10.00-18.00); BUN/Creat Ratio 26.88 Ratio (12.00-20.00); Blood Urea Nitrogen 17.9 mg/dL (9.0-27.0); Carbon Dioxide 23.8 mmol/L (20.0-27.5); Non-African American GFR(CKD) 83.8 (60.0-200.0); Potassium 4.4 mmol/L (3.5-5.5)
[2022-07-04 11:59] LABS: Basophils # (A) 0.05 X 10*3/uL (0.00-0.10); Basophils % (A) 0.4 %; Eosinophils # (A) 0.23 X 10*3/uL (0.04-0.35); Eosinophils % (A) 2.1 %; Immature Grans, Automated 1.2 %; Lymphocytes # (A) 1.36 X 10*3/uL (0.90-5.00); Lymphocytes % (A) 12.2 %; Monocytes # (A) 1.72 X 10*3/uL (0.20-1.00); Monocytes % (A) 15.4 %; NRBC Per 100 WBC 0 /100 WBCS (0.0-0.0); Neutrophils % (A) 68.7 %
--- NOTE | 2022-07-04 12:07 | P.OP ---
Date of Procedure: 07/01/22 Preoperative Diagnosis: Right hip intertrochanteric fracture Postoperative Diagnosis: same Procedure(s) Performed: Right hip cephalomedullary nail Implants: [place], Short Gamma Nail, 85mm screw, locked Anesthesia: RITCHIE Surgeon: Sophia Doyle Estimated Blood Loss (ml): 300 Condition: stable Disposition: PACU Indications for Procedure: Pt suffered a ground level fall with stable right IT. She has been medically optimized and we will proceed with surgical fixation. Description of Procedure: The patient, operative extremity, and procedure were identified in the preop holding area. Informed consent was obtained from the patient's daughter/POA. She was then brought back to the OR and general anesthesia was provided by the anesthesia team. FOllowing this she was moved onto the Hollie table and secured with the post and two boots. The well leg was gently scissored with traction/rotation unlocked. Reduction of the injured hip was performed with traction, internal rotation, and adduction. Once the reduction was deemed adequate the hip was prepped and draped in normal sterile fashion. A longitudinal incision was made proximal to and in line with the greater trochanter. This was used to introduce the K wire. The starting point was established under fluroscopic guidance to be in the center and tip of the greater trochanter. The guide wire was then inserted and the open reamer used overtop. A ball tip guide wire was then introduced and a 12.5mm reamer used overtop with good clearance. A 11mm nail was selected and introduced until the route for the CMN was at the center of the femoral neck. The triple sleeve guide was introduced through the jig. An 85mm screw was selected to achieve a tip to apex distance of less then 25mm. The hole was drilled and the screw inserted. The triple sleeve guide was then inserted in the jig to lock the construct distally. An incision was made through skin and the IT band. A 37.5mm screw was utilized. Final images revealed central location of the cephalomedullary screw and TAD less than 25mm. Wounds were irrigated with normal saline and closed in a layered fashion with 3.0 vycryl and 4.0 monocryl and skin glue. Wounds were dressed with optifoam and tegaderms. Pt was aroused by the anesthesia team and brought to PACU in stable condition.
[2022-07-04 12:17] LABS: HCT 18.7 % (37.2-46.3); HGB 6.1 g/dL (12.0-15.0); MCH 33.2 pg (27.0-32.0); MCHC 32.6 g/dL (32.0-37.0); MCV 101.6 fL (80.0-97.0); Mean Platelet Volume 10.7 fL (9.5-12.2); Platelet Count 235 X 10*3/uL (140-440); RBC 1.84 X 10*6/uL (4.10-5.20); RDW 13.2 % (11.5-14.5); WBC 11.19 X 10*3/uL (4.50-10.00)
[2022-07-04 12:18] LABS: RBC Morphology NORMAL
[2022-07-04] MEDS ORDERED: FUROSEMIDE 10 MG/ML 2 ML VIAL IV ONE ×2 (12:35→22:00)
[2022-07-04 20:32] VITALS: RESP 18
[2022-07-04] MEDS: SENNOSIDES-DOCUSATE SODIUM 1 EACH TAB PO SCH (22:05)
[2022-07-04] MEDS: ATORVASTATIN 80 MG TAB PO SCH (22:05)
[2022-07-04] MEDS: METOPROLOL SUCCINATE (ER) 50 MG TAB.ER.24H PO SCH (22:05)
[2022-07-05] MEDS: MORPHINE SULFATE 4 MG/ML SYRINGE IV PRN (00:23)
[2022-07-05] MEDS: SODIUM CHLORIDE 0.9% 1,000 ML IV SCH (04:25)
[2022-07-05 08:37] LABS: Basophils # (A) 0.1 k/uL (0-0.2); Basophils % (A) 0 %; Eosinophils # (A) 0.3 k/uL (0-0.7); Eosinophils % (A) 2 %; HCT 27.3 % (34.0-46.0); Lymphocytes # (A) 1.3 k/uL (1.0-4.8); Lymphocytes % (A) 9 %; MCH 32.4 pg (25.0-35.0); MCHC 32.9 g/dL (31.0-37.0); MCV 98.5 fL (80.0-100.0); Mean Platelet Volume 8.7; Monocytes # (A) 1.2 k/uL (0-1.0); Monocytes % (A) 9 %; Neutrophils # (A) 10.8 k/uL (1.3-7.7); Neutrophils % (A) 76 %; Platelet Count 305 k/uL (150-450); RBC 2.77 m/uL (3.80-5.40); RDW 14.8 % (11.5-15.5); WBC 14.1 k/uL (3.8-10.6)
[2022-07-05] MEDS: IPRATROPIUM 0.5 MG/2.5 ML NEBU INHALATION SCH ×2 (09:31→13:16)
[2022-07-05] MEDS: FORMOTEROL FUMARATE 20 MCG/2 ML NEBU INHALATION SCH (09:31)
[2022-07-05 09:35] VITALS: PULSE 80
[2022-07-05] MEDS: ENOXAPARIN 40 MG/0.4 ML SYRINGE SQ SCH (10:22)
[2022-07-05] MEDS: CHOLECALCIFEROL 25 MCG (1000 IU) TABLET PO SCH (10:22)
[2022-07-05] MEDS: FAMOTIDINE 20 MG TAB PO SCH (10:22)
[2022-07-05] MEDS: PANTOPRAZOLE 40 MG/10 ML VIAL IVP SCH (10:22)
[2022-07-05] MEDS: SERTRALINE 50 MG TAB PO SCH (10:22)
--- NOTE | 2022-07-05 11:29 | P.DS ---
Providers Date of admission: 06/30/22 04:56 Expected date of discharge: 07/05/22 Attending physician: Chano Nova Consults: 06/30/22 04:56 Consult Physician Routine Consulting Provider: Girish Burns Consult Reason/Comments: Medical management Do you want consulting provider notified?: Yes 07/02/22 17:30 Consult Physician Routine Consulting Provider: Karen Uriarte Consult Reason/Comments: hyponatremia Do you want consulting provider notified?: Yes Primary care physician: Chano Nova Hospital Course: Final diagnosis Acute comminuted right intertrochanteric fracture of the femur, secondary to fall. Status post right hip surgery. Hyponatremia, improving Acute postoperative blood loss Anemia, expected outcome, improved post transfusion Acute renal insufficiency secondary to the above Coronary artery with history of cardiac catheterization in 2016. Chronically occluded RCA with good collateral. Maximum medical therapy was recommended. Hypertension Hyperlipidemia Dementia COPD not in exacerbation Degenerative joint disease Anxiety/depression prior history of smoking Discharge disposition Patient is being discharged in a stable condition with guarded prognosis to [facility]. Patient will follow-up with Dr. Nova in the outpatient setting upon discharge. Patient is to follow-up with orthopedics Dr. Doyle as scheduled. Patient also need outpatient follow-up with nephrology. Recommend repeat labs in the next few days to monitor CBC/BMP Total time taken is greater than 35 minutes. Hospital course This is a 77-year-old female who was recently admitted with recent fall underwent an acute comminuted right femur fracture underwent surgical intervention and was being closely monitored. Patient also with underlying dementia and decreased appetite needing encouragement. Sodium was found to be low most likely due to poor solute intake and was evaluated by nephrology and will be having outpatient follow-up as sodium has improved. Patient was found to have a low hemoglobin yesterday requiring transfusion and repeat lab today is 9.0 hemoglobin and recommend to closely monitor. Patient will need outpatient follow-up with orthopedics along with nephrology on discharge. Patient needs encouragement with meals and oral intake. Patient has been cleared by consultations for discharge to [facility] and will be going there today. Insurance authorization was obtained in case management following. Currently no reports of chest pain, shortness of breath, or palpitations. Patient is afebrile. No reports of nausea or vomiting and patient is tolerating diet. Patient will be going to [facility] today. Guarded prognosis. Physical exam: Gen: This is a 77-year-old female awake, alert and oriented 1-2, well- developed, well-nourished, elderly-appearing female HEENT: Head is atraumatic, normocephalic. Pupils equal, round. Sclerae is anicteric. NECK: Supple. No JVD. No lymphadenopathy. No thyromegaly. LUNGS: Diminished breath sounds bilaterally otherwise Clear to auscultation. No wheezes or rhonchi. No intercostal retractions. HEART: Regular rate and rhythm. No murmur. ABDOMEN: Soft. Bowel sounds are present. No masses. No tenderness. EXTREMITIES: No pedal edema. No calf tenderness. NEUROLOGICAL: Patient is awake, alert and oriented x1-2. Cranial nerves 2 through 12 are grossly intact. Diffusely weak Please refer to medication reconciliation sheet for a list of medications. The impression and plan of care has been dictated by Karis Manley, Nurse Practitioner as directed. Dr. Scott MD I have performed a history and examination and MDM of this patient, discussed the same with the dictator, and agree with the dictator's assessment and plan as written ,documented as a scribe. Based on total visit time, I have performed more than 50% of the visit. Patient Condition at Discharge: Fair Plan - Discharge Summary Discharge Rx Participant: Yes New Discharge Prescriptions: New Enoxaparin [Lovenox] 40 mg SQ DAILY #30 each Sennosides-Docusate Sodium [Senokot-S] 2 tab PO HS #30 tablet Ipratropium Nebulized [Atrovent Nebulized 0.2 MG/ML] 0.5 mg INHALATION RT-QID ml Famotidine [Pepcid] 20 mg PO DAILY tab HYDROcodone/APAP 5-325MG [[place] 5] 1 each PO Q6HR PRN #30 tab PRN Reason: Pain Magnesium Hydroxide [Milk of Magnesia Concentrate] 2,400 mg PO DAILY PRN ml PRN Reason: Constipation Acetaminophen Tab [Tylenol] 650 mg PO Q6HR PRN tab PRN Reason: Mild Pain Or Fever > 100.5 Continue Metoprolol Succinate [Toprol Xl] 50 mg PO HS Vitamin B Complex 1 cap PO DAILY Umeclidinium Brm/Vilanterol Tr [Anoro Ellipta 62.5-25 Mcg INH] 1 puff INHALATION RT-DAILY Ascorbic Acid [Vitamin C] 1,000 mg PO DAILY Mirtazapine [Remeron] 15 mg PO HS PRN PRN Reason: sleep Sertraline HCl [Zoloft] 50 mg PO DAILY Cholecalciferol [Vitamin D3 (25 Mcg = 1000 Iu)] 25 mcg PO DAILY Atorvastatin [Lipitor] 80 mg PO HS Clopidogrel [Plavix] 75 mg PO DAILY Discontinued Aspirin EC [Ecotrin Low Dose] 81 mg PO DAILY Discharge Medication List Metoprolol Succinate [Toprol Xl] 50 mg PO HS 01/18/18 [History] Vitamin B Complex 1 cap PO DAILY 01/18/18 [History] Ascorbic Acid [Vitamin C] 1,000 mg PO DAILY 08/27/20 [History] Umeclidinium Brm/Vilanterol Tr [Anoro Ellipta 62.5-25 Mcg INH] 1 puff INHALATION RT-DAILY 08/27/20 [History] Cholecalciferol [Vitamin D3 (25 Mcg = 1000 Iu)] 25 mcg PO DAILY 10/07/21 [History] Sertraline HCl [Zoloft] 50 mg PO DAILY 10/07/21 [History] Atorvastatin [Lipitor] 80 mg PO HS 06/30/22 [History] Clopidogrel [Plavix] 75 mg PO DAILY 06/30/22 [History] Mirtazapine [Remeron] 15 mg PO HS PRN 06/30/22 [History] Enoxaparin [Lovenox] 40 mg SQ DAILY #30 each 07/03/22 [Rx] HYDROcodone/APAP 5-325MG [[place] 5] 1 each PO Q6HR PRN #30 tab 07/03/22 [Rx] Ipratropium Nebulized [Atrovent Nebulized 0.2 MG/ML] 0.5 mg INHALATION RT-QID ml 07/03/22 [Rx] Sennosides-Docusate Sodium [Senokot-S] 2 tab PO HS #30 tablet 07/03/22 [Rx] Famotidine [Pepcid] 20 mg PO DAILY tab 07/04/22 [Rx] Acetaminophen Tab [Tylenol] 650 mg PO Q6HR PRN tab 07/05/22 [Rx] Magnesium Hydroxide [Milk of Magnesia Concentrate] 2,400 mg PO DAILY PRN ml 07/05/22 [Rx] Follow up Appointment(s)/Referral(s): Sophia Doyle DO [Doctor of Osteopathic Medicine] - 4 Weeks Chano Nova DO [Primary Care Provider] - 1 Week (After DC from subacute rehab) Activity/Diet/Wound Care/Special Instructions: Melissa ARCEO,BMP in 3 days Keep Optifoam dressing in place for 7 days unless saturated. After 7 days, no dressing is needed. PT - WBAT with walker and assistance. Use pain medication as directed. Continue LMWH for 4 weeks Follow up outpatient with Dr. Doyle in 4 weeks -- call for appointment. Call [facility] with questions or concerns. Discharge Disposition: TRANSFER TO SNF/ECF
--- NOTE | 2022-07-05 11:49 | P.PN ---
Subjective Patient is seen for follow-up for hyponatremia. IV fluids were discontinued and patient received her dose of sodium chloride tablets. Her sodium had increased to 130 yesterday. Patient has underlying dementia Currently she is working with physiotherapy States that she wants to go home. Objective - Vital Signs Vital signs: Vital Signs Temp 97.5 F L 07/05/22 04:28 Pulse 80 07/05/22 09:57 Resp 18 07/05/22 04:28 BP 155/71 07/05/22 04:28 Pulse Ox 98 07/05/22 04:28 FiO2 21 06/30/22 09:00 Intake & Output 07/04/22 07/05/22 07/05/22 18:59 06:59 18:59 Intake Total 0 1310 Balance 0 1310 Weight 54.431 kg Intake: Intake, IV Titration 700 Amount Sodium Chloride 0.9% 1, 700 000 ml @ 60 mls/hr IV . [id number] [facility] Rx#:[id number] Oral 300 Blood Product 0 310 Rc As-1 Unit 0 310 [id number] Other: Voiding Method Bedpan Bedpan Diaper Diaper # Voids 1 3 - Exam Awake, comfortable, in no acute distress Trying to stand up with physical therapy. - Labs CBC & Chem 7: 07/05/22 07:58 07/04/22 07:06 Labs: Abnormal Lab Results - Last 24 Hours (Table) 07/04/22 07/04/22 07/05/22 Range/Units 07:06 13:30 07:58 WBC 11.19 H 14.1 H (4.50-10.00) X 10*3/uL RBC 1.84 L 2.77 L (4.10-5.20) X 10*6/uL Hgb 6.1 L* 9.0 L (12.0-15.0) g/dL Hct 18.7 L* 27.3 L (37.2-46.3) % MCV 101.6 H (80.0-97.0) fL MCH 33.2 H (27.0-32.0) pg Immature Gran # 0.13 H (0.00-0.04) X 10*3/uL Neutrophils # 10.8 H (1.3-7.7) k/uL Monocytes # 1.72 H 1.2 H (0.20-1.00) X 10*3/uL Crossmatch See Detail Assessment and Plan Assessment: 1. 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 Improved with discontinuation of IV fluids and one dose of sodium chloride tablet. 2. Status post fall and right femoral fracture status post right hip open reduction on 07/01/2022 3. Anemia postop, rule out iron deficiency status post packed RBCs transfusion. Plan: Continue to monitor serum sodium as outpatient. Patient is encouraged to increase oral protein intake. Continue off of IV fluids Patient is stable for discharge from nephrology standpoint.
[2022-07-05 12:40] VITALS: BP 147/49; TEMP 97.3
--- NOTE | 2022-07-05 13:23 | P.PN ---
Subjective Progress Note Date: 07/05/22 Principal diagnosis: Status post right hip open reduction and internal fixation with cephalomedullary nail This is a 77 year-old female post right hip ORIF with cephalomedullary nail. This is post-op day 3. The patient was evaluated at the bedside this morning. The patient denies nausea, vomiting, abdominal pain, chest pain, or shortness of breath this morning. She states her pain is controlled at this time. Nephrology has been consulted for hyponatremia and worsening renal status. Objective - Vital Signs Vital signs: Vital Signs Temp 97.3 F L 07/05/22 12:38 Pulse 80 07/05/22 12:38 Resp 18 07/05/22 12:38 BP 147/49 07/05/22 12:38 Pulse Ox 91 L 07/05/22 12:38 FiO2 21 06/30/22 09:00 Intake & Output 07/04/22 07/05/22 07/05/22 18:59 06:59 18:59 Intake Total 0 1310 Balance 0 1310 Weight 54.431 kg Intake: Intake, IV Titration 700 Amount Sodium Chloride 0.9% 1, 700 000 ml @ 60 mls/hr IV . [id number] [facility] Rx#:[id number] Oral 300 Blood Product 0 310 Rc As-1 Unit 0 310 [id number] Other: Voiding Method Bedpan Bedpan Toilet Diaper Diaper # Voids 1 3 - Exam The patient does not appear in acute distress. Alert and orientated x1. Dressings are clean dry and intact. Incision appears fine with no erythema or a ctive drainage. Calf is soft and nontender. Good foot and ankle motion without difficulty. Sensation and circulatory status is intact. - Labs CBC & Chem 7: 07/05/22 07:58 07/04/22 07:06 Labs: Abnormal Lab Results - Last 24 Hours (Table) 07/04/22 07/05/22 Range/Units 13:30 07:58 WBC 14.1 H (3.8-10.6) k/uL RBC 2.77 L (3.80-5.40) m/uL Hgb 9.0 L (11.4-16.0) gm/dL Hct 27.3 L (34.0-46.0) % Neutrophils # 10.8 H (1.3-7.7) k/uL Monocytes # 1.2 H (0-1.0) k/uL Crossmatch See Detail Assessment and Plan (1) Status post hip surgery Status: Acute Code(s): Z98.890 - OTHER SPECIFIED POSTPROCEDURAL STATES SNOMED Code(s): 401803327 (2) Fall Status: Acute Code(s): W19.XXXA - UNSPECIFIED FALL, INITIAL ENCOUNTER SNOMED Code(s): 0946421 (3) Fracture, intertrochanteric, right femur Status: Acute Code(s): S72.141A - DISPLACED INTERTROCHANTERIC FRACTURE OF RIGHT FEMUR, INIT SNOMED Code(s): 412194470 Plan: 1. Continue pain control 2. Anticoagulation with Lovenox 3. Continue physical therapy and ambulation. Weightbearing as tolerated with a walker. 4. Anticipate discharge to skilled rehab. Orthopedically stable for discharge when cleared by medicine.
--- NOTE | 2022-07-05 13:47 | CDI ---
Documentation Clarification Form Date: 07/05/2022 01:30:49 PM From: Stormy HuynhCHADD huang, CCDS Admit Date: 06/30/2022 04:56:00 AM Patient Name: Shae Valladares Visit Number: [id number] Discharge Date: ATTENTION: The Clinical Documentation Specialists (CDI) and [facility] Coding Staff appreciate your assistance in clarifying documentation. Please respond to the clarification below the line at the bottom and electronically sign. The CDI & [facility] Coding staff will review the response and follow-up if needed. Please note: Queries are made part of the Legal Health Record. If you have any questions, please contact the author of this message via ITS. Dr. Tana Chavez: Acute renal insufficiency secondary to above (Acute comminuted right intertrochanteric fracture of the femur and Hyponatremia) without further acuity or specificity. Additional clarification regarding the documented acute renal insufficiency is requested. History/Risk Factors per the 06/30 Orthopedic H/P: Left Intertrochanteric Fracture requiring surgical intervention. Per the 06/30 Medical Management Consult: CAD, Advanced COPD, GERD, Dementia, Hypertension, Hyperlipidemia, Anxiety/Depression, Former smoker, previous hospitalization with Anemia, Blood in Stools, RODRICK & low sodium. Clinical Indicators: Presented to the ED on 06/30 via EMS from home after a fall at home and history of frequent falls. Admit with Fall, Closed Right Hip Fracture. 06/30 VS: T 97.6, P 59, R 18, BP 140/95, PO 94 RA - 96 2Lnc, BMI: 20.6 06/30 LAB: WBC 18.4, RBC 3.72, Neutrophils 15.7; a 131, BUN 25, Creatinine 0.72, GFR 81, Glucose 127. Creatinine levels 07/01 0.7, 0.58; 07/02: 0.90; 07/03: 0.9; 07/04: 0.7. Treatment 06/30: O2, IM Morphine 4 mg x1 then 4 mg q4H/prn, po Tylenol 650 mg q6H/prn, IV Zofran 4 mg q8H/prn, IV Na Chl 1,000 mls @ 60 mls/hr q16H, po Ultram 50-100 mg QID/prn. 07/03 Nephrology Consult for Hyponatremia. Assessment: Hyponatremia most likely associated with SIADH due to pain. Ordered Na Chloride tab, check urine osmolality, repeat Na, Check iron profile, increase oral intake particularly protein. Please further clarify the documented Acute Renal Insufficiency, if known: [ ] Acute Renal Failure (specify cause if known) [ x ] Other, please specify __Hypovolemic [ ] Unable to determine (Template Last Revised: October 2020) MTDD
== END 2022-07-05 14:55 | DRG 481 ==
LOC: EC 04:03 → 5NMEDONC 04:56
PROVIDERS: ADMIT Family Medicine; ATTEND Family Medicine
PROC: 0QS636Z Reposition Right Upper Femur with Intramedullary Internal Fixation Device, Percutaneous Approach (ICD-10-PCS; principal; 2022-07-01 07:30)
PROC: 30233N1 Transfusion of Nonautologous Red Blood Cells into Peripheral Vein, Percutaneous Approach (ICD-10-PCS; 2022-07-04)
DX: S72.141A Displaced intertrochanteric fracture of right femur, initial encounter for closed fracture (principal); D62 Acute posthemorrhagic anemia; F03.94 Unspecified dementia, unspecified severity, with anxiety; I45.2 Bifascicular block; E22.2 Syndrome of inappropriate secretion of antidiuretic hormone; F03.93 Unspecified dementia, unspecified severity, with mood disturbance; E86.1 Hypovolemia; N28.9 Disorder of kidney and ureter, unspecified; W06.XXXA Fall from bed, initial encounter; Y92.009 Unspecified place in unspecified non-institutional (private) residence as the place of occurrence of the external cause; I25.10 Atherosclerotic heart disease of native coronary artery without angina pectoris; J44.9 Chronic obstructive pulmonary disease, unspecified; I10 Essential (primary) hypertension; E78.5 Hyperlipidemia, unspecified; K21.9 Gastro-esophageal reflux disease without esophagitis; M19.90 Unspecified osteoarthritis, unspecified site; R29.6 Repeated falls; Z20.822 Contact with and (suspected) exposure to COVID-19; Z91.81 History of falling; Z87.891 Personal history of nicotine dependence; Z79.899 Other long term (current) drug therapy; Z79.02 Long term (current) use of antithrombotics/antiplatelets; Z87.81 Personal history of (healed) traumatic fracture; Z98.890 Other specified postprocedural states; I25.2 Old myocardial infarction
CPT/HCPCS: 71045; 73501; 73502; 80048; 80053; 81003; 83735; 83935; 84295; 84300; 85025; 85027; 85610; 85730; 86850; 86900; 86901; 86920; 87635; 93005; 94640; 94760; 96372; 96374; 99285

== ENCOUNTER 2023-02-11 18:22 | Inpatient (IN) | payer MEDICARE ==
--- NOTE | 2023-02-11 18:26 | ED ---
General Adult HPI - General Source: RN notes reviewed <Gracie Linder - Last Filed: 02/11/23 18:25> <Angelita Browne - Last Filed: 02/11/23 23:12> - General Stated complaint: chest pain Time Seen by Provider: 02/11/23 18:25 - History of Present Illness Initial comments: 77-year-old female presents to the emergency department with a chief complaint of chest pain, nausea, vomiting. Family reports fever early in the day. (Gracie Linder) Patient is 77-year-old female who presents to the emergency department for abdominal pain. It started in the middle upper abdomen this afternoon with radiation to the chest. Patient had one episode of nausea with vomiting on the way to the hospital. Family states patient was lethargic and acting confused. Patient has history of dementia she is alert and oriented x 2. She reports minimal pain now. Denies nausea currently. Family reports low-grade fever today. No coughing or shortness of breath. No other upper respiratory symptoms. Patient has history of COPD. She does not use supplemental oxygen at home. She has history of coronary artery disease, heart catheterization, and hypertension. (Angelita Browne) - Related Data Home Medications Medication Instructions Recorded Confirmed Metoprolol Succinate [Toprol Xl] 50 mg PO HS 01/18/18 02/11/23 Vitamin B Complex 1 cap PO DAILY 01/18/18 02/11/23 Umeclidinium Brm/Vilanterol Tr 1 puff INHALATION RT-DAILY 08/27/20 02/11/23 [Anoro Ellipta 62.5-25 Mcg INH] Cholecalciferol [Vitamin D3 (25 25 mcg PO DAILY 10/07/21 02/11/23 Mcg = 1000 Iu)] Sertraline HCl [Zoloft] 50 mg PO DAILY 10/07/21 02/11/23 Atorvastatin [Lipitor] 80 mg PO HS 06/30/22 02/11/23 Clopidogrel [Plavix] 75 mg PO DAILY 06/30/22 02/11/23 Mirtazapine [Remeron] 15 mg PO HS 06/30/22 02/11/23 Acetaminophen [Tylenol Arthritis] 650 mg PO Q8H PRN 02/11/23 02/11/23 Ascorbic Acid [Vitamin C] 1,000 mg PO DAILY 02/11/23 02/11/23 Aspirin [[place]ilt Aspirin EC] 81 mg PO DAILY 02/11/23 02/11/23 Donepezil HCl [Aricept] 10 mg PO DAILY 02/11/23 02/11/23 Ferrous Sulfate [Feosol] 325 mg PO DAILY 02/11/23 02/11/23 HYDROcodone/APAP 5-325MG [[place] 5] 1 tab PO Q6H PRN 02/11/23 02/11/23 Memantine [Namenda] 10 mg PO BID 02/11/23 02/11/23 Nitroglycerin Sl Tabs [Nitrostat] 0.4 mg SUBLINGUAL Q5M PRN 02/11/23 02/11/23 Tolterodine ER [Detrol LA] 4 mg PO DAILY 02/11/23 02/11/23 Previous Rx's Medication Instructions Recorded Ipratropium Nebulized [Atrovent 0.5 mg INHALATION RT-QID ml 07/03/22 Nebulized 0.2 MG/ML] Sennosides-Docusate Sodium 2 tab PO HS #30 tablet 07/03/22 [Senokot-S] Famotidine [Pepcid] 20 mg PO DAILY tab 07/04/22 Allergies Allergy/AdvReac Type Severity Reaction Status Date / Time No Known Allergies Allergy Verified 02/11/23 20:47 Review of Systems ROS Other: All systems not noted in ROS Statement are negative. <Gracie Linder - Last Filed: 02/11/23 18:25> ROS Other: All systems not noted in ROS Statement are negative. <Angelita Browne - Last Filed: 02/11/23 23:12> ROS Statement: Those systems with pertinent positive or pertinent negative responses have been documented in the HPI. Past Medical History Past Medical History: Coronary Artery Disease (CAD), Chest Pain / Angina, COPD, Dementia, GERD/Reflux, Hyperlipidemia, Hypertension Additional Past Medical History / Comment(s): Advanced COPD,, degenerative arthritis, " recent hospitalization: anemia, blood in stools, acute kidney injury and low sodium", Last Myocardial Infarction Date:: 10/11/15 History of Any Multi-Drug Resistant Organisms: None Reported Past Surgical History: Section, Heart Catheterization Additional Past Surgical History / Comment(s): 9/10/14 EGD with negative bx and colonoscopy, 3 C-Sections, cardiac catheterization Past Anesthesia/Blood Transfusion Reactions: No Reported Reaction Past Psychological History: Anxiety, Depression Smoking Status: Former smoker Past Alcohol Use History: None Reported Past Drug Use History: None Reported - Past Family History Father Family Medical History: Coronary Artery Disease (CAD) Additional Family Medical History / Comment(s): Father at age 86yrs. Mother Family Medical History: No Reported History Additional Family Medical History / Comment(s): . <Gracie Linder - Last Filed: 02/11/23 18:25> General Exam <Gracie Linder - Last Filed: 02/11/23 18:25> General appearance: alert, in no apparent distress Eye exam: Present: normal appearance, PERRL, EOMI. Absent: scleral icterus, conjunctival injection, periorbital swelling Respiratory exam: Present: normal lung sounds bilaterally. Absent: respiratory distress, wheezes, rales, rhonchi, stridor Cardiovascular Exam: Present: regular rate, normal rhythm, normal heart sounds. Absent: systolic murmur, diastolic murmur, rubs, gallop, clicks GI/Abdominal exam: Present: soft, tenderness (Epigastric mild), normal bowel sounds. Absent: distended, guarding, rebound, rigid Neurological exam: Present: alert Expanded Cranial nerves: Facial Sensation: Normal, Facial Palsy with Forehead Movement: Normal, Facial Palsy without Forehead Movement: Normal Cerebellar function: Finger to Nose: Normal, Heel to Hoffman: Normal Sensory exam: Upper Extremity Light Touch: Normal, Lower Extremity Light Touch: Normal Motor strength exam: RUE: 5, LUE: 5, RLE: 5, LLE: 5 Psychiatric exam: Present: normal affect, normal mood Skin exam: Present: warm, dry, intact, normal color. Absent: rash <Angelita Browne - Last Filed: 02/11/23 23:12> - General Exam Comments Initial Comments: Visual Physical Exam Vital signs reviewed General: Well-appearing, nontoxic, no acute distress. Head: Normocephalic, atraumatic Eyes: PERRLA, EOMI ENT: Airway patent Chest: Nonlabored breathing Skin: No visual rash, normal skin tone Neuro: Alert and oriented 3 Musculoskeletal: No gross abnormalities (Gracie Linder) Course Vital Signs 02/11/23 02/11/23 18:29 23:01 Temperature 99.9 F H 98.6 F Pulse Rate 58 L 63 Respiratory 18 16 Rate Blood Pressure 107/51 109/61 O2 Sat by Pulse 91 L 93 L Oximetry Medical Decision Making - Lab Data Result diagrams: 02/11/23 18:40 02/11/23 18:40 <Angelita Browne - Last Filed: 02/11/23 23:12> - Medical Decision Making EKG taken 18:40, interpreted by myself Sinus bradycardia with shortened NM interval, right bundle branch block which is old Ventricular rate 59, NM interval 119, QRS duration 122, QTc 447 Was pt. sent in by a medical professional or institution (, PA, AUDITING MANAGER, urgent care, hospital, or senior care...) When possible be specific @ -No Did you speak to anyone other than the patient for history (EMS, parent, family, police, friend...)? What history was obtained from this source @ -Family helped provide history about confusion and fever Did you review nursing and triage notes (agree or disagree)? Why? @ -I reviewed and agree with nursing and triage notes Were old charts reviewed (outside hosp., previous admission, EMS record, old EKG, old radiological studies, urgent care reports/EKG's, senior care records)? Report findings @ -No old charts were reviewed Differential Diagnosis (chest pain, altered mental status, abdominal pain women, abdominal pain men, vaginal bleeding, weakness, fever, dyspnea, syncope, headache, dizziness, GI bleed, back pain, seizure, CVA, palpatations, mental health)? @ -Differential Abdominal Pain Women: Appendicitis, Cholecystitis, diverticulosis, ischemic bowel, pancreatitis, hepatitis, UTI, gastroenteritis, AAA, incarcerated hernia, bowel obstruction, constipation, inflammatory bowel, hepatitis, peptic ulcer disease, splenic infarction, perforated viscus, vulvitis, ovarian torsion, PID, kidney stone, placenta abruption, this is not meant to be an all-inclusive list EKG interpreted by me (3pts min.). @ -As above X-rays interpreted by me (1pt min.). @ No acute cardiopulmonary process CT interpreted by me (1pt min.). @ No acute intracranial process U/S interpreted by me (1pt. min.). @ -Nonvisualization of the gallbladder What testing was considered but not performed or refused? (CT, X-rays, U/S, labs)? Why? @ -None What meds were considered but not given or refused? Why? @ -None Did you discuss the management of the patient with other professionals (jeramie andrade i.e. , PA, AUDITING MANAGER, lab, RT, psych nurse, forensic social worker, laborer car barn, teacher, safety patrol officer, shoe caser)? Give summary @ -No Was smoking cessation discussed for >3mins.? @ -No Was critical care preformed (if so, how long)? @ -No Were there social determinants of health that impacted care today? How? (Homelessness, low income, unemployed, alcoholism, drug addiction, transportatio n, low edu. Level, literacy, decrease access to med. care, [facility], rehab)? @ -No Was there de-escalation of care discussed even if they declined (Discuss DNR or withdrawal of care, Hospice)? DNR status @ -No What co-morbidities impacted this encounter? (DM, HTN, Smoking, COPD, CAD, Cancer, CVA, ARF, Chemo, Hep., AIDS, mental health diagnosis, sleep apnea, morbid obesity)? @ -Hypertension, coronary artery disease, dementia Was patient admitted / discharged? Hospital course, mention meds given and route, prescriptions, significant lab abnormalities, going to OR and other pertinent info. @ -Admitted for pancreatitis Undiagnosed new problem with uncertain prognosis? @ -[No] DugTherapy requiring intensive monitoring for toxicity (Heparin, Nitro, Insulin, Cardizem)? @ -[No] Wreany procedures done? @ -[No] Dagosis/symptom? @ pancreatitis Acute, or Chronic, or Acute on Chronic? @ -acute Uncomplicated (without systemic symptoms) or Complicated (systemic symptoms)? @ -uncomplicated Side effects of treatment? @ -No Exacerbation, Progression, or Severe Exacerbation? @ -No Poses a threat to life or bodily function? How? (Chest pain, USA, SD, pneumonia, PE, COPD, DKA, ARF, appy, cholecystitis, CVA, Diverticulitis, Homicidal, Suicidal, threat to staff... and all critical care pts) @ -No Dr. Vasquez is my attending (Angelita Browne) - Lab Data Lab Results 02/11/23 02/11/2302/11/23 Range/Units 18:25 18:40 18:40 WBC 16.9 H (3.8-10.6) k/uL RBC 4.29 (3.80-5.40) m/uL Hgb 14.0 (11.4-16.0) gm/dL Hct 42.0 (34.0-46.0) % MCV 97.9 (80.0-100.0) fL MCH 32.7 (25.0-35.0) pg MCHC 33.4 (31.0-37.0) g/dL RDW 13.5 (11.5-15.5) % Plt Count 284 (150-450) k/uL MPV 7.5 Neutrophils % 88 % Lymphocytes % 5 % Monocytes % 6 % Eosinophils % 1 % Basophils % 0 % Neutrophils # 14.9 H (1.3-7.7) k/uL Lymphocytes # 0.8 L (1.0-4.8) k/uL Monocytes # 1.0 (0-1.0) k/uL Eosinophils # 0.1 (0-0.7) k/uL Basophils # 0.0 (0-0.2) k/uL Sodium 138 (137-145) mmol/L Potassium 3.9 (3.5-5.1) mmol/L Chloride 106 (98-107) mmol/L Carbon Dioxide 19 L (22-30) mmol/L Anion Gap 13 mmol/L BUN 27 H (7-17) mg/dL Creatinine 0.89 (0.52-1.04) mg/dL Est GFR (CKD-EPI)AfAm 71 (>60 ml/min/1.73 sqM) Est GFR (CKD-EPI)NonAf 62 (>60 ml/min/1.73 sqM) Glucose 126 H (74-99) mg/dL Plasma Lactic Acid [place] (0.7-2.0) mmol/L Calcium 9.3 (8.4-10.2) mg/dL Magnesium 2.0 (1.6-2.3) mg/dL Total Bilirubin 0.6 (0.2-1.3) mg/dL AST 60 H (14-36) U/L ALT 42 H (4-34) U/L Alkaline Phosphatase 124 (38-126) U/L Troponin I <0.012 (0.000-0.034) ng/mL Total Protein 7.6 (6.3-8.2) g/dL Albumin 4.0 (3.5-5.0) g/dL Lipase (23-300) U/L Influenza Type A (PCR) (Not Detectd) Influenza Type B (PCR) (Not Detectd) RSV (PCR) (Not Detectd) SARS-CoV-2 (PCR) (Not Detectd) 02/11/23 02/11/23 02/11/23 Range/Units 20:00 20:28 21:10 WBC (3.8-10.6) k/uL RBC (3.80-5.40) m/uL Hgb (11.4-16.0) gm/dL Hct (34.0-46.0) % MCV (80.0-100.0) fL MCH (25.0-35.0) pg MCHC (31.0-37.0) g/dL RDW (11.5-15.5) % Plt Count (150-450) k/uL MPV Neutrophils % % Lymphocytes % % Monocytes % % Eosinophils % % Basophils % % Neutrophils # (1.3-7.7) k/uL Lymphocytes # (1.0-4.8) k/uL Monocytes # (0-1.0) k/uL Eosinophils # (0-0.7) k/uL Basophils # (0-0.2) k/uL Sodium (137-145) mmol/L Potassium (3.5-5.1) mmol/L Chloride (98-107) mmol/L Carbon Dioxide (22-30) mmol/L Anion Gap mmol/L BUN (7-17) mg/dL Creatinine (0.52-1.04) mg/dL Est GFR (CKD-EPI)AfAm (>60 ml/min/1.73 sqM) Est GFR (CKD-EPI)NonAf (>60 ml/min/1.73 sqM) Glucose (74-99) mg/dL Plasma Lactic Acid [place] 2.0 (0.7-2.0) mmol/L Calcium (8.4-10.2) mg/dL Magnesium (1.6-2.3) mg/dL Total Bilirubin (0.2-1.3) mg/dL AST (14-36) U/L ALT (4-34) U/L Alkaline Phosphatase (38-126) U/L Troponin I (0.000-0.034) ng/mL Total Protein (6.3-8.2) g/dL Albumin (3.5-5.0) g/dL Lipase 958 H (23-300) U/L Influenza Type A (PCR) Not Detected (Not Detectd) Influenza Type B (PCR) Not Detected (Not Detectd) RSV (PCR) Not Detected (Not Detectd) SARS-CoV-2 (PCR) Not Detected (Not Detectd) Disposition <Gracie Linder - Last Filed: 02/11/23 18:25> <Angelita Browne - Last Filed: 02/11/23 23:12> Clinical Impression: Pancreatitis Disposition: ADMITTED IP TO THIS HOSP Condition: Good Referrals: Chano Newton DO [Primary Care Provider] - 1-2 days
[2023-02-11 19:01] LABS: Basophils % (A) 0 %; Eosinophils # (A) 0.1 k/uL (0-0.7); Eosinophils % (A) 1 %; Lymphocytes # (A) 0.8 k/uL (1.0-4.8); Lymphocytes % (A) 5 %; MCH 32.7 pg (25.0-35.0); MCHC 33.4 g/dL (31.0-37.0); MCV 97.9 fL (80.0-100.0); Mean Platelet Volume 7.5; Monocytes % (A) 6 %; Neutrophils # (A) 14.9 k/uL (1.3-7.7); Neutrophils % (A) 88 %; Platelet Count 284 k/uL (150-450); RBC 4.29 m/uL (3.80-5.40); RDW 13.5 % (11.5-15.5); WBC 16.9 k/uL (3.8-10.6)
--- NOTE | 2023-02-11 19:15 | XR ---
EXAMINATION TYPE: XR chest 2V DATE OF EXAM: 02/11/2023 COMPARISON: 06/30/2022 HISTORY: Shortness of breath TECHNIQUE: Frontal and lateral views of the chest are obtained. FINDINGS: Scattered senescent parenchymal changes noted. Hyperinflation compatible with COPD. No evidence for infiltrate. No evidence for atelectasis. Heart size is stable. Mediastinal structures are stable and grossly unremarkable. No evidence for hilar prominence. Degenerative changes dorsal spine. IMPRESSION: 1. No evidence for acute pulmonary disease.
[2023-02-11 19:21] LABS: ALT 42 U/L (4-34); AST 60 U/L (14-36); African American GFR (CKD) 71 (>60 ml/min/1.73 sqM); Alkaline Phosphatase 124 U/L (38-126); Anion Gap 13 mmol/L; Blood Urea Nitrogen 27 mg/dL (7-17); Calcium 9.3 mg/dL (8.4-10.2); Carbon Dioxide 19 mmol/L (22-30); Chloride 106 mmol/L (98-107); Glucose 126 mg/dL (74-99); Non-African American GFR(CKD) 62 (>60 ml/min/1.73 sqM); Potassium 3.9 mmol/L (3.5-5.1); Sodium 138 mmol/L (137-145); Total Bilirubin 0.6 mg/dL (0.2-1.3); Total Protein 7.6 g/dL (6.3-8.2)
[2023-02-11] MEDS ORDERED: ACETAMINOPHEN TAB 500 MG TAB PO STA (20:25)
[2023-02-11] MEDS ORDERED: ONDANSETRON 4 MG/2 ML VIAL IVP STA (20:26)
[2023-02-11] MEDS ORDERED: SODIUM CHLORIDE 0.9% 1,000 ML IV STA (20:26)
--- NOTE | 2023-02-11 21:54 | US ---
EXAMINATION TYPE: US abdomen limited DATE OF EXAM: 02/11/2023 COMPARISON: NONE CLINICAL INDICATION: Female, 77 years old with history of pancreatitis; lipase elevated to 958 TECHNIQUE: Multiple sonographic images of the right upper quadrant are obtained. FINDINGS: EXAM MEASUREMENTS: Liver Length: 14.9 cm Gallbladder Wall: Not seen CBD: 0.34 cm Right Kidney: 9.8 x 3.6 x 3.6 cm HYDRANT SETTER NOTES: Pancreas: duct measuring 3.6mm Liver: appears wnl Gallbladder: Not seen Evidence for sonographic Sosa's sign: No CBD: wnl Right Kidney: wnl Pt and family unsure if she had cholecystectomy. GB not visualized IMPRESSION: Nonvisualization of the gallbladder.
--- NOTE | 2023-02-11 21:55 | CT ---
EXAMINATION TYPE: CT brain wo con DATE OF EXAM: 02/11/2023 COMPARISON: None HISTORY: AMS and weakness CT DLP: 1107.[address] of the brain was performed. The ventricles, basal cisterns and sulci overlying the cerebral convexities demonstrate mild enlargem ent. There is no evidence for intracranial hemorrhage or sulcal effacement. There is decreased attenuation about the periventricular white matter and deep white matter of both c erebral hemispheres, compatible with chronic small vessel ischemia. Differential diagnosis does inclu de demyelination. No mass effects are seen.No midline shift. Osseous calvarium is intact. Complete opacification right frontal sinus. If symptoms persist consider MRI. IMPRESSION: 1. Age related atrophic and chronic small vessel ischemic change without acute intracranial process s een at this time.
[2023-02-11] MEDS ORDERED: ONDANSETRON 4 MG/2 ML VIAL IVP PRN (22:16)
[2023-02-11] MEDS ORDERED: KETOROLAC 15 MG/ML 1 ML VIAL IVP PRN (22:16)
[2023-02-11] MEDS ORDERED: ACETAMINOPHEN TAB 325 MG TAB PO PRN (22:18)
[2023-02-11] MEDS ORDERED: PROCHLORPERAZINE INJ 10 MG/2 ML VIAL IVP PRN (22:19)
[2023-02-11] MEDS ORDERED: HYDROcodone/APAP 5-325MG 1 EACH TAB PO PRN (22:41)
[2023-02-11] MEDS: ATORVASTATIN 80 MG TAB PO SCH (23:14)
[2023-02-11] MEDS: MIRTAZAPINE 15 MG TAB PO SCH (23:14)
[2023-02-11] MEDS: DONEPEZIL 10 MG TAB PO SCH (23:14)
[2023-02-11] MEDS: METOPROLOL SUCCINATE (ER) 50 MG TAB.ER.24H PO SCH (23:17)
[2023-02-12] MEDS: MEMANTINE 10 MG TAB PO SCH ×2 (08:09→22:45)
[2023-02-12] MEDS: SERTRALINE 50 MG TAB PO SCH (08:09)
[2023-02-12] MEDS: ASPIRIN 81 MG PO SCH (08:09)
[2023-02-12] MEDS: SODIUM CHLORIDE 0.9% 1,000 ML IV SCH ×3 (08:09→20:08)
[2023-02-12] MEDS: CHOLECALCIFEROL 25 MCG (1000 IU) TABLET PO SCH (08:09)
[2023-02-12] MEDS: ASCORBIC ACID 500 MG TAB PO SCH (08:09)
[2023-02-12] MEDS: DONEPEZIL 10 MG TAB PO SCH (08:09)
[2023-02-12] MEDS: CLOPIDOGREL 75 MG TAB PO SCH (08:09)
[2023-02-12] MEDS: OXYBUTYNIN 10 MG TAB.ER.24 PO SCH (08:10)
[2023-02-12] MEDS: FERROUS SULFATE 325 MG TAB PO SCH (08:10)
[2023-02-12] MEDS ORDERED: FAMOTIDINE 20 MG TAB PO SCH (09:00)
[2023-02-12] MEDS ORDERED: NON FORMULARY DRUG (Vitamin B Complex [Vitamin B Complex] 1 EACH Capsule) PO SCH (09:00)
[2023-02-12] MEDS ORDERED: DONEPEZIL 10 MG TAB PO SCH (09:00)
[2023-02-12] MEDS: IPRATROPIUM 0.5 MG/2.5 ML NEBU INHALATION SCH ×4 (09:12→20:55)
[2023-02-12] MEDS: FORMOTEROL FUMARATE 20 MCG/2 ML NEBU INHALATION SCH ×2 (09:12→20:55)
[2023-02-12 10:02] LABS: Appearance,Urine Clear (Clear); Bilirubin,Urine Negative (Negative); Blood,Urine Negative (Negative); Color,Urine Light Yellow; Glucose,Urine (UA) Negative (Negative); Ketones,Urine Negative (Negative); Leukocyte Esterase,Urine Negative (Negative); Nitrite,Urine Negative (Negative); Protein,Urine Negative (Negative); Specific Gravity,Urine 1.005 (1.001-1.035); Urobilinogen,Urine <2.0 mg/dL (<2.0)
--- NOTE | 2023-02-12 13:59 | P.HPIM ---
History of Present Illness Patient came in with complains of epigastric abdominal pain along with nausea vomiting. Patient has mildly elevated lipase because of which patient is admitted for pancreatitis. Patient did not tolerate liquid diet today morning patient is not hungry at this time on the sound of the abdomen did not show any cholelithiasis there is no gallbladder that was present. Brain CT did not show any acute abnormality chest x-ray didn't show any significant abnormality. Patient denied any alcohol use history. Patient does have history of dementia unable to take care of herself and who has dementia is apparently taking care of the patient. Patient is unable to provide much of history to me REVIEW OF SYSTEMS: Unable to obtain due to her clinical condition PHYSICAL EXAMINATION: GENERAL: The patient is alert and oriented x1-2, not in any acute distress. Well developed, well nourished. HEENT: Pupils are round and equally reacting to light. EOMI. No scleral icterus. No conjunctival pallor. Normocephalic, atraumatic. No pharyngeal erythema. No thyromegaly. CARDIOVASCULAR: S1 and S2 present. No murmurs, rubs, or gallops. PULMONARY: Chest is clear to auscultation, no wheezing or crackles. ABDOMEN: Soft, nontender, nondistended, normoactive bowel sounds. No palpable organomegaly. MUSCULOSKELETAL: No joint swelling or deformity. EXTREMITIES: No cyanosis, clubbing, or pedal edema. NEUROLOGICAL: Gross neurological examination did not reveal any focal deficits. Patient does have generalized weakness SKIN: No rashes. Assessment and plan -Epigastric abdominal pain nausea vomiting: Most probably seconded to gastritis or peptic ulcer disease low possibility appendicitis although I cannot rule it out. Patient will be continued on IV fluids, patient will remain nothing by mouth, patient was started on Protonix twice a day IV. -Possible dementia possibly vascular dementia -Generalized weakness and deconditioning patient may need placement PT and OT evaluation. -COPD without any acute exacerbation -coronary artery disease -Gastroesophageal reflux disease -Hyperlipidemia -Hypertension For above-mentioned chronic medical problems patient resumed on appropriate home medications DVT prophylaxis: Lovenox Past Medical History Past Medical History: Coronary Artery Disease (CAD), Chest Pain / Angina, COPD, Dementia, GERD/Reflux, Hyperlipidemia, Hypertension Additional Past Medical History / Comment(s): Advanced COPD,, degenerative a rthritis, " recent hospitalization: anemia, blood in stools, acute kidney injury and low sodium", Last Myocardial Infarction Date:: 10/11/15 History of Any Multi-Drug Resistant Organisms: None Reported Past Surgical History: Section, Heart Catheterization Additional Past Surgical History / Comment(s): 04/27/14 EGD with negative bx and colonoscopy, 3 C-Sections, cardiac catheterization Past Anesthesia/Blood Transfusion Reactions: No Reported Reaction Past Psychological History: Anxiety, Depression Additional Psychological History / Comment(s): dementia Smoking Status: Former smoker Past Alcohol Use History: None Reported Additional Past Alcohol Use History / Comment(s): STARTED SMOKING AGE 23. She smoked 1 1/2 packs a day. Pt states she quit smoking in July 2016. Past Drug Use History: None Reported - Past Family History Father Family Medical History: Coronary Artery Disease (CAD) Additional Family Medical History / Comment(s): Father at age 86yrs. Mother Family Medical History: No Reported History Additional Family Medical History / Comment(s): . Medications and Allergies Home Medications Medication Instructions Recorded Confirmed Type Metoprolol Succinate [Toprol Xl] 50 mg PO HS 01/18/18 02/11/23 History Vitamin B Complex 1 cap PO DAILY 01/18/18 02/11/23 History Umeclidinium Brm/Vilanterol Tr 1 puff INHALATION RT-DAILY 08/27/20 02/11/23 History [Anoro Ellipta 62.5-25 Mcg INH] Cholecalciferol [Vitamin D3 (25 25 mcg PO DAILY 10/07/21 02/11/23 History Mcg = 1000 Iu)] Sertraline HCl [Zoloft] 50 mg PO DAILY 10/07/21 02/11/23 History Atorvastatin [Lipitor] 80 mg PO HS 06/30/22 02/11/23 History Clopidogrel [Plavix] 75 mg PO DAILY 06/30/22 02/11/23 History Mirtazapine [Remeron] 15 mg PO HS 06/30/22 02/11/23 History Ipratropium Nebulized [Atrovent 0.5 mg INHALATION RT-QID ml 07/03/22 02/11/23 Rx Nebulized 0.2 MG/ML] Sennosides-Docusate Sodium 2 tab PO HS #30 tablet 07/03/22 02/11/23 Rx [Senokot-S] Famotidine [Pepcid] 20 mg PO DAILY tab 07/04/22 02/11/23 Rx Acetaminophen [Tylenol Arthritis] 650 mg PO Q8H PRN 02/11/23 02/11/23 History Ascorbic Acid [Vitamin C] 1,000 mg PO DAILY 02/11/23 02/11/23 History Aspirin [[place] Aspirin EC] 81 mg PO DAILY 02/11/23 02/11/23 History Donepezil HCl [Aricept] 10 mg PO DAILY 02/11/23 02/11/23 History Ferrous Sulfate [Feosol] 325 mg PO DAILY 02/11/23 02/11/23 History HYDROcodone/APAP 5-325MG [[place] 5] 1 tab PO Q6H PRN 02/11/23 02/11/23 History Memantine [Namenda] 10 mg PO BID 02/11/23 02/11/23 History Nitroglycerin Sl Tabs [Nitrostat] 0.4 mg SUBLINGUAL Q5M PRN 02/11/23 02/11/23 History Tolterodine ER [Detrol LA] 4 mg PO DAILY 02/11/23 02/11/23 History Allergies Allergy/AdvReac Type Severity Reaction Status Date / Time No Known Allergies Allergy Verified 02/11/23 20:47 Physical Exam Vitals: Vital Signs Temp Pulse Pulse Resp BP BP Pulse Ox 02/12/23 13:15 97.7 F 60 16 127/49 95 02/12/23 12:35 58 L 02/12/23 12:26 57 L 02/12/23 09:29 56 L 02/12/23 09:21 54 L 02/12/23 09:12 57 L 02/12/23 08:00 98.2 F 50 L 16 119/49 98 02/11/23 23:01 98.6 F 63 16 109/61 93 L 02/11/23 18:29 99.9 F H 58 L 18 107/51 91 L Intake and Output 02/11/23 02/12/23 02/12/23 22:59 06:59 14:59 Other: Voiding Method External Catheter Weight 60.781 kg 60.781 kg Results CBC & Chem 7: 02/11/23 18:40 02/11/23 18:40 Labs: Abnormal Lab Results - Last 24 Hours (Table) 02/11/23 02/11/2323 Range/Units 18:40 18:40 20:28 WBC 16.9 H (3.8-10.6) k/uL Neutrophils # 14.9 H (1.3-7.7) k/uL Lymphocytes # 0.8 L (1.0-4.8) k/uL Carbon Dioxide 19 L (22-30) mmol/L BUN 27 H (7-17) mg/dL Glucose 126 H (74-99) mg/dL AST 60 H (14-36) U/L ALT 42 H (4-34) U/L Lipase 958 H (23-300) U/L Thrombosis Risk Factor Assmnt - Choose All That Apply Each Risk Factor Represents 3 Points: Age 75 years or older Thrombosis Risk Factor Assessment Total Risk Factor Score: 3 Thrombosis Risk Factor Assessment Level: Moderate Risk
[2023-02-12] MEDS ORDERED: SENNOSIDES-DOCUSATE SODIUM 1 EACH TAB PO SCH (21:00)
[2023-02-12] MEDS ORDERED: ATORVASTATIN 80 MG TAB PO SCH (21:00)
[2023-02-12] MEDS: METOPROLOL SUCCINATE (ER) 50 MG TAB.ER.24H PO SCH (22:23)
[2023-02-12] MEDS: PANTOPRAZOLE 40 MG/10 ML VIAL IVP SCH (22:24)
[2023-02-12] MEDS: ATORVASTATIN 80 MG TAB PO SCH (22:24)
[2023-02-12] MEDS: MIRTAZAPINE 15 MG TAB PO SCH (22:45)
[2023-02-13 08:59] LABS: HCT 39.6 % (37.2-46.3); HGB 12.6 d/dL (12.0-15.0); MCH 31.6 pg (27.0-32.0); MCHC 31.8 d/dL (32.0-37.0); MCV 99.2 FL (80.0-97.0); Mean Platelet Volume 10.5 FL (9.5-12.2); NRBC Per 100 WBC 0 X 10*3/uL (0.00-0.01); Platelet Count 290 X 10*3/uL (140-440); RBC 3.99 X 10*6/uL (4.10-5.20); RDW 14.3 % (11.5-14.5); WBC 13.88 X 10*3/uL (4.50-10.00)
[2023-02-13] MEDS ORDERED: PANTOPRAZOLE 40 MG/10 ML VIAL IVP SCH (09:00)
[2023-02-13] MEDS ORDERED: ENOXAPARIN 40 MG/0.4 ML SYRINGE SQ SCH (09:00)
[2023-02-13] MEDS: FORMOTEROL FUMARATE 20 MCG/2 ML NEBU INHALATION SCH (09:02)
[2023-02-13] MEDS: IPRATROPIUM 0.5 MG/2.5 ML NEBU INHALATION SCH ×3 (09:03→16:06)
[2023-02-13] MEDS: ASCORBIC ACID 500 MG TAB PO SCH (09:51)
[2023-02-13] MEDS: MEMANTINE 10 MG TAB PO SCH (09:51)
[2023-02-13] MEDS: FERROUS SULFATE 325 MG TAB PO SCH (09:51)
[2023-02-13] MEDS: DONEPEZIL 10 MG TAB PO SCH (09:52)
[2023-02-13] MEDS: ASPIRIN 81 MG PO SCH (09:52)
[2023-02-13] MEDS: CLOPIDOGREL 75 MG TAB PO SCH (09:52)
[2023-02-13] MEDS: OXYBUTYNIN 10 MG TAB.ER.24 PO SCH (09:52)
[2023-02-13] MEDS: CHOLECALCIFEROL 25 MCG (1000 IU) TABLET PO SCH (09:52)
[2023-02-13] MEDS: SERTRALINE 50 MG TAB PO SCH (09:52)
[2023-02-13] MEDS: PANTOPRAZOLE 40 MG/10 ML VIAL IVP SCH (10:29)
[2023-02-13 10:58] LABS: BUN/Creat Ratio 12.67 Ratio (12.00-20.00); Blood Urea Nitrogen 11.4 mg/dL (9.0-27.0); Chloride 109 mmol/L (96-109); Glucose 100 mg/dL (70-110); Potassium 3.9 mmol/L (3.5-5.5); Sodium 142 mmol/L (135-145)
[2023-02-13 10:59] LABS: Calcium 9.3 mg/dL (8.7-10.3); Carbon Dioxide 19.4 mmol/L (21.6-31.8)
[2023-02-13 13:53] VITALS: BP 95/50; PULSE 65; RESP 16; TEMP 97.9
--- NOTE | 2023-02-13 16:06 | P.DS ---
Providers Date of admission: 02/11/23 22:17 Attending physician: Girish Burns Primary care physician: Chano Newton Hospital Course: Final Diagnosis -Epigastric abdominal pain nausea vomiting: Most probably seconded to gastritis or peptic ulcer disease low possibility appendicitis -Elevated lipase possible mild acute pancreatitis patient improved with bowel rest and hydration -History of dementia possibly vascular dementia -Generalized weakness and deconditioning patient clrd to return home by PT -COPD without any acute exacerbation -Coronary artery disease -Gastroesophageal reflux disease -Hyperlipidemia -Hypertension Full Code Discharge Disposition Patient is stable for discharge home. Epigastric pain has improved and patient is tolerating full liquid diet. Recommending patient to continue on protonix 40 mg twice a day for 2 weeks than to continue on 40 mg daily. Continue on soft diet for 2 to 3 more days and advance as tolerated. Recommending to continue off nsaids. Follow up with Dr. Newton in 2 to 3 days and repeat labs outpatient. Hospital Course This is a pleasant 77 year old female with history of copd, coronary artery disease, gerd, hypertension. Patient came in with complains of epigastric abdominal pain along with nausea vomiting. Patient had mildly elevated lipase because of which patient is admitted for pancreatitis. Patient did not tolerate liquid diet initially with low appetite. Ultrasound of the abdomen did not show any cholelithiasis there is no gallbladder that was present. Brain CT did not show any acute abnormality chest x-ray didn't show any significant abnormality. Patient denied any alcohol use history. Patient does have history of dementia unable to take care of herself and who has dementia is apparently taking care of the patient. Patient is unable to provide much of history to me. Family at the bedside provides most of the history with plans to continue 24/7 supervision on the patient on discharge. Patient was monitored and given bowel rest and IV fluids started on liquid diet and had improved abdominal pain with resolution of the nausea and vomiting. Patient was given IV protonix while in the hospital and will discharge on oral protonix as above. White count has improved and down to 13. Patient is afebrile and on room air. Back to baseline. Lungs are clear, S1 S2 auscultated, abdomen is soft and nontender. Patient to be discharged home today. Please see medication reconciliation for a list of current medication. Thank you for allowing us to participate in the care of this patient. The impression and plan of care has been dictated by Joanie Miles, Nurse Practitioner as directed. Dr. Scott MD I have performed a history and physical examination and medical decision making of this patient, discussed the same with the dictator, and agree with the d ictators assessment and plan as written, documented as a scribe. Based on total visit time, I have performed more than 50% of this visit. Patient Condition at Discharge: Good Plan - Discharge Summary New Discharge Prescriptions: New Pantoprazole [Protonix] 40 mg PO DIRECTED 30 Days #44 tab Continue Metoprolol Succinate [Toprol Xl] 50 mg PO HS Vitamin B Complex 1 cap PO DAILY Umeclidinium Brm/Vilanterol Tr [Anoro Ellipta 62.5-25 Mcg INH] 1 puff INHALATION RT-DAILY Mirtazapine [Remeron] 15 mg PO HS Sennosides-Docusate Sodium [Senokot-S] 2 tab PO HS #30 tablet Ipratropium Nebulized [Atrovent Nebulized 0.2 MG/ML] 0.5 mg INHALATION RT-QID ml Tolterodine ER [Detrol LA] 4 mg PO DAILY Nitroglycerin Sl Tabs [Nitrostat] 0.4 mg SUBLINGUAL Q5M PRN PRN Reason: Chest Pain HYDROcodone/APAP 5-325MG [[place] 5-325] 1 tab PO Q6H PRN PRN Reason: Pain Donepezil HCl [Aricept] 10 mg PO DAILY Aspirin [Christian Aspirin EC] 81 mg PO DAILY Ascorbic Acid [Vitamin C] 1,000 mg PO DAILY Sertraline HCl [Zoloft] 50 mg PO DAILY Cholecalciferol [Vitamin D3 (25 Mcg = 1000 Iu)] 25 mcg PO DAILY Atorvastatin [Lipitor] 80 mg PO HS Clopidogrel [Plavix] 75 mg PO DAILY Acetaminophen [Tylenol Arthritis] 650 mg PO Q8H PRN PRN Reason: Fever And/ Or Pain Memantine [Namenda] 10 mg PO BID Ferrous Sulfate [Iron (65 MG Elemental)] 325 mg PO DAILY Discontinued Famotidine [Pepcid] 20 mg PO DAILY tab Discharge Medication List Metoprolol Succinate [Toprol Xl] 50 mg PO HS 01/18/18 [History] Vitamin B Complex 1 cap PO DAILY 01/18/18 [History] Umeclidinium Brm/Vilanterol Tr [Anoro Ellipta 62.5-25 Mcg INH] 1 puff INHALATION RT-DAILY 08/27/20 [History] Cholecalciferol [Vitamin D3 (25 Mcg = 1000 Iu)] 25 mcg PO DAILY 10/07/21 [History] Sertraline HCl [Zoloft] 50 mg PO DAILY 10/07/21 [History] Atorvastatin [Lipitor] 80 mg PO HS 06/30/22 [History] Clopidogrel [Plavix] 75 mg PO DAILY 06/30/22 [History] Mirtazapine [Remeron] 15 mg PO HS 06/30/22 [History] Ipratropium Nebulized [Atrovent Nebulized 0.2 MG/ML] 0.5 mg INHALATION RT-QID ml 07/03/22 [Rx] Sennosides-Docusate Sodium [Senokot-S] 2 tab PO HS #30 tablet 07/03/22 [Rx] Acetaminophen [Tylenol Arthritis] 650 mg PO Q8H PRN 02/11/23 [History] Ascorbic Acid [Vitamin C] 1,000 mg PO DAILY 02/11/23 [History] Aspirin [Christian Aspirin EC] 81 mg PO DAILY 02/11/23 [History] Donepezil HCl [Aricept] 10 mg PO DAILY 02/11/23 [History] Ferrous Sulfate [Iron (65 MG Elemental)] 325 mg PO DAILY 02/11/23 [History] HYDROcodone/APAP 5-325MG [[place] 5-325] 1 tab PO Q6H PRN 02/11/23 [History] Memantine [Namenda] 10 mg PO BID 02/11/23 [History] Nitroglycerin Sl Tabs [Nitrostat] 0.4 mg SUBLINGUAL Q5M PRN 02/11/23 [History] Tolterodine ER [Detrol LA] 4 mg PO DAILY 02/11/23 [History] Pantoprazole [Protonix] 40 mg PO DIRECTED 30 Days #44 tab 02/13/23 [Rx] Follow up Appointment(s)/Referral(s): Chano Newton DO [Primary Care Provider] - 1-2 days Jacque Burnett MD [STAFF PHYSICIAN] - 1 Week Ambulatory/Diagnostic Orders: Basic Metabolic Panel [LAB.AMB] Time Frame: 3 Days, Location: None Selected Complete Blood Count w/diff [LAB.AMB] Time Frame: 3 Days, Location: None Selected Patient Instructions/Handouts: Diet for Stomach Ulcers and Gastritis (ED) Activity/Diet/Wound Care/Special Instructions: CONTACT PERSONS: Arpan Cavanaugh/BRANDIN P: [phone] Dillon Sandhu Son-in-law P: [phone] Continue on oral protonix 40 mg twice a day for 2 weeks than transition to 40 mg by mouth daily Continue on soft diet for 2 to 3 more days and advance as tolerated Recommend to avoid NSAIDs Discharge Disposition: HOME WITH HOME HEALTH SERVICES
[2023-02-13] MEDS: SODIUM CHLORIDE 0.9% 1,000 ML IV SCH (16:39)
== END 2023-02-13 17:22 | disposition home health service (06) | DRG 391 ==
LOC: EC 18:22 → 5NMEDONC 22:17
PROVIDERS: ADMIT Hospitalist; ATTEND Hospitalist
DX: K29.70 Gastritis, unspecified, without bleeding (principal); K85.90 Acute pancreatitis without necrosis or infection, unspecified; F03.94 Unspecified dementia, unspecified severity, with anxiety; Z20.822 Contact with and (suspected) exposure to COVID-19; I25.2 Old myocardial infarction; I10 Essential (primary) hypertension; E78.5 Hyperlipidemia, unspecified; F01.50 Vascular dementia, unspecified severity, without behavioral disturbance, psychotic disturbance, mood disturbance, and anxiety; I25.10 Atherosclerotic heart disease of native coronary artery without angina pectoris; K21.9 Gastro-esophageal reflux disease without esophagitis; J44.9 Chronic obstructive pulmonary disease, unspecified; R53.1 Weakness; K27.9 Peptic ulcer, site unspecified, unspecified as acute or chronic, without hemorrhage or perforation; I45.10 Unspecified right bundle-branch block; R00.1 Bradycardia, unspecified; D64.9 Anemia, unspecified; Z79.02 Long term (current) use of antithrombotics/antiplatelets; Z87.891 Personal history of nicotine dependence; Z79.899 Other long term (current) drug therapy; Z79.82 Long term (current) use of aspirin; Z87.19 Personal history of other diseases of the digestive system
CPT/HCPCS: 36415; 70450; 71046; 76705; 80048; 80053; 81003; 83605; 83690; 83735; 84484; 85025; 85027; 87636; 93005; 94640; 96361; 96374; 96375; 99285

== ENCOUNTER → 2023-03-29 | Outpatient (CLI) | payer MEDICARE ==
--- NOTE | 2023-04-01 13:34 | MR ---
EXAMINATION TYPE: MR pancreas wo/w con DATE OF EXAM: 03/29/2023 3:48 PM INDICATION: Patient age:Female; 77 years old; Reason for study: K85.90 ACUTE PANCREATITIS. Acute pancreatitis COMPARISON: None TECHNIQUE: Multiplanar multi-sequence imaging was performed without contrast. Post contrast imaging was performed. Post IV contrast subtraction images were also submitted for review. IV Contrast: 5 cc Gadavist FINDINGS: LOWER CHEST: No gross irregularity. ABDOMEN Motion limited exam. Liver: No suspicious masses. Gallbladder and Bile ducts: Unremarkable. Pancreas: There is a tortuous pancreatic duct extending from the and body series 601 image 36. High T 2 signal cysts pancreatic head and neck could be dilated ducts. The largest in the tail measuring 18 x 10 mm. Spleen: Unremarkable. Adrenal glands: Unremarkable. Kidneys: Bilateral high T2 signal renal cysts. Stomach and Bowel: The stomach is distended with ingested contents. Second portion duodenal diverticu lum. Unremarkable as visualized. Peritoneum: No evidence of pneumoperitoneum or free fluid. Vasculature: Unremarkable. No aortic aneurysm. Musculoskeletal: The osseous structures appear intact. BMB consider follow-up exams with CT given pat ient inability to follow breathing instructions. Lymph Nodes: No gross evidence for lymphadenopathy. Abdominal wall: Unremarkable. IMPRESSION: 1. There is a tortuous main pancreatic duct extending from the pancreatic body to the tail, this cou ld be sequela of prior pancreatitis. Underlying obstructing mass not entirely excluded. Given limitat ions of this exam with motion evaluation for mass is limited. No obvious masses visualized. Correlate with serum markers. 2. Cystic structures in the pancreatic body and tail could represent intraductal papillary mucinous neoplasms sidebranch intermediate branch. The patient's age consider follow-up in one year.
== END | disposition home or self-care (01) ==
LOC: RADMRIMAIN 14:16
PROVIDERS: ATTEND Internal Medicine Gastroenterology
DX: K85.90 Acute pancreatitis without necrosis or infection, unspecified (principal)
CPT/HCPCS: 74183; A9585